=== PATIENT | female | born 1935 | race Caucasian/White ===

== ENCOUNTER 2017-04-04 13:25 | Outpatient (RCR) | payer MEDICARE, SELFPAY | END 2017-04-17 23:59 | LOC: DC 13:25 | PROVIDERS: Family Provider Nurse Practitioner; PCP Nurse Practitioner; Visit Provider Nurse Practitioner | DX: E11.9 Type 2 diabetes mellitus without complications (principal); Z71.3 Dietary counseling and surveillance | CPT/HCPCS: 97802; G0108 ==

== ENCOUNTER 2017-05-01 10:00 | Outpatient (RCR) | payer MEDICARE, SELFPAY | END 2017-05-15 23:59 | LOC: DC 10:00 | PROVIDERS: Family Provider Nurse Practitioner; PCP Nurse Practitioner; Visit Provider Nurse Practitioner | DX: E11.9 Type 2 diabetes mellitus without complications (principal); Z68.34 Body mass index [BMI] 34.0-34.9, adult; Z71.3 Dietary counseling and surveillance | CPT/HCPCS: 97803; G0109 ==

== ENCOUNTER 2017-05-16 14:43 | Outpatient (RCR) | payer MEDICARE, SELFPAY | END 2017-06-15 23:59 | LOC: DC 14:43 | PROVIDERS: Family Provider Nurse Practitioner; PCP Nurse Practitioner; Visit Provider Nurse Practitioner | DX: E11.9 Type 2 diabetes mellitus without complications (principal); Z71.3 Dietary counseling and surveillance | CPT/HCPCS: G0109 ==

== ENCOUNTER 2017-06-20 15:27 | Outpatient (RCR) | payer MEDICARE, SELFPAY | END 2017-07-15 23:59 | LOC: DC 15:27 | PROVIDERS: Family Provider Nurse Practitioner; PCP Nurse Practitioner; Visit Provider Nurse Practitioner | DX: E11.9 Type 2 diabetes mellitus without complications (principal); Z71.3 Dietary counseling and surveillance | CPT/HCPCS: G0109 ==

== ENCOUNTER 2017-07-25 16:20 | Outpatient (RCR) | payer MEDICARE, SELFPAY | END 2017-08-15 23:59 | LOC: DC 16:20 | PROVIDERS: Family Provider Nurse Practitioner; PCP Nurse Practitioner; Visit Provider Nurse Practitioner | DX: E11.9 Type 2 diabetes mellitus without complications (principal); Z68.34 Body mass index [BMI] 34.0-34.9, adult; Z71.3 Dietary counseling and surveillance | CPT/HCPCS: G0109 ==

== ENCOUNTER 2017-08-19 08:00 | Outpatient (RCR) | payer MEDICARE, SELFPAY | END 2017-08-19 23:59 | disposition home or self-care (01) | LOC: DC 08:00 | PROVIDERS: Family Provider Nurse Practitioner; PCP Nurse Practitioner; Referring Provider Nurse Practitioner; Visit Provider Nurse Practitioner | DX: E11.9 Type 2 diabetes mellitus without complications (principal); Z68.34 Body mass index [BMI] 34.0-34.9, adult; Z71.3 Dietary counseling and surveillance | CPT/HCPCS: 97803 ==

== ENCOUNTER → 2018-02-13 15:22 | Outpatient (CLI) | payer MEDICARE, SELFPAY ==
--- NOTE | 2018-02-13 15:26 | BI_ITS ---
MAMMOGRAPHY - BILATERAL SCREENING REASON FOR EXAM: Female, 82 years old. Routine annual screening examination. PERTINENT HISTORY: Aunt with breast cancer. Remote right excisional breast biopsy. TECHNIQUE: Digital bilateral breast chantale (3D mammographic acquisition) in the CC and MLO projections. 2-D mediolateral oblique (MLO) and craniocaudad (CC) views of both breasts were obtained. CAD: Full Field Digital Mammography with Computer Added Detection was performed. COMPARISON: Comparison is made with prior study dated January 30, 2017 and January 30, 2016. FINDINGS: Breast Composition: The breasts are almost entirely fatty. There are no dominant masses or suspicious calcifications. Stable asymmetry of breast tissue were more breast tissue is seen in the upper outer quadrant of the right breast as compared to the left side. This is unchanged. Small bilateral axillary lymph nodes. No other significant abnormalities are identified. There has been no significant change since the prior study. BI/SCREENING MAMM (CAD), BILAT IMPRESSION: Stable bilateral screening mammogram. Yearly follow-up mammogram recommended. (A) ASSESSMENT CATEGORY: BIRADS Category 2: Benign. A letter regarding these results will be sent to the patient by the facility within 30 days. Approximately 10% of breast cancers are not detected by mammography. A normal mammogram should not delay biopsy of a clinically suspicious abnormality. [id number] Electronically Signed: Scotty Tinoco MD at 9:11 EST Tel [phone], Service support ,
--- NOTE | 2018-02-13 15:27 | BD_ITS ---
STUDY: DUAL ENERGY X-RAY ABSORPTIOMETRY / DXA REASON FOR EXAM: Female, 82 years old. The patient is postmenopausal. Loss of height. TECHNIQUE: Bone Mineral Density (BMD) measurements of lumbar spine and bilateral hips were obtained. COMPARISON: Comparison is made with prior study dated January 25, 2015. FINDINGS: Lumbar Spine (L1-L4): g/cm2 (0.927) / T-score (-2.0) / Z-score (-0.1) Findings are suggestive of osteopenia with a moderate fracture risk. Left Femur Total: g/cm2 (0.801) / T-score (-1.6) / Z-score (0.5) Left Femoral Neck: g/cm2 (0.754) / T-score (-2.0) / Z-score (0.2) Right Femur Total: g/cm2 (0.845) / T-score (-1.3) / Z-score (0.8) Right Femoral Neck: g/cm2 (0.75) / T-score (-1.8) / Z-score (0.4) The T-Scores on the most recent prior examination were: Lumbar Spine (L1-L4): There has been worsening of bone density since the previous examination. Left Femur Total: which represents a worsening of 0.1%. Right Femur Total: which represents an improvement of 0.2%. BD/Dexa Bone Density Study IMPRESSION: The patient is considered osteopenic as outlined below according to [employer] [place] Organization (WHO) criteria with a moderate fracture risk. There has been worsening of bone density since the previous examination. Reference Information: The T-score is the number of standard deviations above or below the standard which is normal for young adults at their peak bone mineral density. The World Health Organization (WHO) interprets the T-scores as follows: Above -1 Normal bone density Between -1 and -2.5 Osteopenia Equal to / or below -2.5 Osteoporosis As a practical clinical guideline, osteopenia may be graded as follows: Mild -1 through -1.5 Moderate -1.6 through -2.0 Severe -2.1 through -2.4 The Z-score is the number of standard deviations above or below age-matched controls. A Z-score of less than -1.5 would be considered abnormal. References: 1. NIH Osteoporosis and Related Bone Diseases http://www.osteo.org 2. International Society for Clinical Densitometry http://www.iscd.org 3. National Osteoporosis Foundation http://www.nof.org Electronically Signed: Scotty Tinoco MD at 15:54 EST Tel [phone], Service support ,
--- OUTSIDE RECORDS SUMMARY | 2018-04-10 21:39 | XMS RPT_ITS | Continuity of Care Document ---
:1935 Author Organization [facility] Address [address] [facility] [address] [place] [address] Phone Care Team Providers Name Role Phone Mere Hope CNP Unavailable Bruna JONES, Jacquelin Brambila Unavailable Jackie Sheppard Unavailable Unavailable Padma CARTERN, Marisabel Unavailable Unavailable Unavailable Unavailable Problems Name Dates Details Abnormal mammogram (R92.8, 793.80) Status: Active Abnormal urinalysis (R82.90, 791.9) Status: Active BMI 32.0-32.9,adult (Z68.32, V85.32) Status: Active BMI 34.0-34.9,adult (Z68.34, V85.34) Status: Active CKD stage G3a/A1, GFR 45-59 and albumin creatinine ratio <30 mg/g (N18.3, 585.3) Comments: GFR 48 and Status: Active Creatinine elevation (R79.89, 790.99) Status: Active Current nonsmoker (Renamed from Current non-smoker) (Z78.9, V49.89) Status: Active Deliveries (Parity) Comments: 1 Status: Active Diabetes mellitus type 2, controlled (E11.9, 250.00) Comments: stable A1c 6.0, controlled by diet, stopped metformin , because of side effects, A1C 6.0,now wt loss, exercise to Y, silver sneakers, spinning and yoga, eye exam due done yearly Status: Active Drug rash (L27.0, 693.0) Comments: back and buttocks and back of legs Status: Active Encounter for screening mammogram for breast cancer (Renamed from Encounter for screening mammogram for malignant neoplasm of breast) (Z12.31, V76.12) Status: Active Fungal rash of torso (B36.9, 111.9) Comments: under breast uses baby powder and zinc Status: Active Hyperlipidemia, unspecified (E78.5, 272.4) Comments: pt not able to go over 10 mg on statin without aches. her trig were up she was eating carbs. now eating a lot of cookies. Will replace with nuts.back on track A1c 6.0 Status: Active Hypertension, benign (I10, 401.1) Comments: stable on atenolol, and idapamide, on since 70's Status: Active Itching (L29.9, 698.9) Comments: Eczema vs fungalTriamcinolone and miconazole cream.If doesnt get better in 2-3 week will see dermatolgyitching :both breast and groin area for 4 mnths. 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) Comments: reassurance given at her age nothing will do about Status: Active Postmenopausal (Renamed from Postmenopausal status) (Z78.0, V49.81) Status: Active Pregnancies () Comments: 1 Status: Active Vitamin B12 deficiency (E53.8, 266.2) Status: Active Medications Name Dates Details Atenolol 25 MG Oral Tablet 1 Tablet QD for 0 days Quantity: 90 {Tablet} Refills: 1 Ordered:27-Sep-2017 Mere Hope CNP, CNP, Mary E Start : 27-Sep-2017 Active Atorvastatin Calcium 10 MG Oral Tablet 1 (one) Tablet qd for 0 days Quantity: 90 {Tablet} Refills: 3 Ordered:30-Sep-2017 Mere Hope CNP, CNP, Mary E Start : 30-Sep-2017 Active FISH OIL, 1000MG (Oral Capsule Delayed Release) 2 tid (1000 MG) Active Indapamide 2.5 MG Oral Tablet 1 Tablet QD for 0 days Quantity: 90 {Tablet} Refills: 1 Ordered:27-Sep-2017 Herminia MCKEON, Mere Finley CNP, Mere Dc Start : 27-Sep-2017 Active MULTIVITAMIN (PO Tab) 1 QD for 0 days Refills: 0 Ordered:26-Nov-2008 Mast RN, MandJuanitactive ASPIRIN ADULT LOW STRENGTH, 81MG (Oral Tablet Chewable) 1 (one) Tablet Chewable in am for 0 days Quantity: 30 {Tablet} Refills: 0 Ordered:25-Jul-2015 MARNIE Escamilla Start : 24-Jan-2015 End : 25-Jul-2015 Inactive CIPRO, 250MG (Oral Tablet) 1 (one) Tablet bid for 3 days Quantity: 6 {Tablet} Refills: 0 Ordered:02-May-2009 Herminia MCKEON, Mere Finley CNP, Mere Dc Start : 28-Mar-2009 End : 31-Mar-2009 Inactive CIPRO, 500MG (Oral Tablet) 1 Tablet bid for 14 days Quantity: 28 {Tablet} Refills: 0 Ordered:17-Oct-2010 Jacquelin Delgado MD Start : 17-Oct-2010 End : 31-Oct-2010 Inactive COQ-10, 200MG (Oral Capsule) 1 qd (200 MG) Inactive LIPITOR, 10MG (Oral Tablet) 1 Tablet daily for 0 days Quantity: 30 {Tablet} Refills: 6 Ordered:03-Mar-2012 MARNIE Escamilla Start : 05-Nov-2011 End : 03-Mar-2012 Inactive Dispense as Written Comments:ok for generic LOTRISONE, 1-0.05% (External Cream) uad Cream to affected area(s) prn for 0 days Quantity: 1 {Cream} Refills: 2 Ordered:27-Jul-2013 MARNIE Escamilla Start : 26-Jan-2013 End : 27-Jul-2013 Inactive MetFORMIN HCl ER 500 MG Oral Tablet Extended Release 24 Hour 1 (one) Tablet Tablet daily with largest meal, 1/2 hr before meal for 0 days Quantity: 30 {Tablet} Refills: 11 Ordered:17-Sep-2017 SlaMarisabel burgos LPN Start : 06-Mar-2017 End : 17-Sep-2017 Inactive MYCELEX, 10MG (Mouth/Throat Blank) 1 Blank use 5 times a day for 0 days Quantity: 50 {Blank} Refills: 0 Ordered:23-Jan-2011 MARNIE Escamilla Start : 20-Jul-2010 End : 23-Jan-2011 Inactive PYRIDIUM, 100MG (Oral Tablet) 1 Tablet tid for 2 days Quantity: 6 {Tablet} Refills: 0 Ordered:30-Mar-2009 Herminia COLLISION TECHNICIAN, Mere Finley COLLISION TECHNICIAN, Mere Dc Start : 28-Mar-2009 End : 30-Mar-2009 Inactive ZOCOR, 40MG (Oral Tablet) Tablet QD for 0 days Quantity: 30 {Tablet} Refills: 6 Ordered:14-Jun-2009 MARNIE Escamilla Start : 26-Nov-2008 Inactive CALCIUM, 600MG (PO Cap) 2 QD for 0 days Refills: 0 Ordered:26-Nov-2008 Mast Marisol GOMEZ End : 26-Nov-2008 Discontinued Miconazole Nitrate 2 % External Cream 1 (one) Cream TID for 10 days Quantity: 1 {Tube} Refills: 1 Ordered:03-Sep-2016 Marisabel Rouse LPN Start : 01-Feb-2016 End : 03-Sep-2016 Discontinued NIASPAN, 500MG (Oral Tablet Extended Release) 1 Tablet ER 1 a day at night for 1 week, then 2 a day for 0 days Quantity: 60 {Tablet_ER} Refills: 6 Ordered:15-Dec-2009 MARNIE Escamilla Start : 15-Dec-2009 End : 15-Dec-2009 Discontinued Comments:rash Triamcinolone Acetonide 0.1 % External Cream uad Cream bid to affected area(s) prn for 10 days Quantity: 1 {Tube} Refills: 1 Ordered:03-Sep-2016 Marisabel Rouse LPN Start : 01-Feb-2016 End : 03-Sep-2016 Discontinued Allergies and Adverse Reactions Name Dates Details No Known Drug Allergies (Allergy) Status: Active Past Medical History Name Dates Details Abnormal blood chemistry (R79.9, 790.6) Status: Inactive as of 29-Sep-2012 Abnormal finding of blood chemistry, unspecified (R79.9, 790.6) Comments: normal now 1-. liver us good. off tylenol now and better Status: Inactive as of 27-Jul-2013 Abnormal glucose tolerance test (R73.02, 790.22) Status: Inactive as of 29-Sep-2012 Annual Medicare Physical (Z00.00, V70.0) Comments: 01-30 no want shingles. refuse flu shot. colonoscopy up to date and brother had colon cancer. reviewed with patient all questions. Status: Inactive as of 25-Jul-2015 BMI 32.0-32.9,adult (Z68.32, V85.32) Status: Inactive as of 17-Sep-2017 BMI 33.0-33.9,adult (Z68.33, V85.33) Status: Resolved as of 13-Jul-2017 BMI 34.0-34.9,adult (Z68.34, V85.34) Status: Resolved as of 13-Jul-2017 BMI 35.0-35.9,adult (Z68.35, V85.35) Comments: working on. 10 pounds up. waking 3 times a week. water exercises. get in sweets. Status: Inactive as of 24-Jan-2015 Breast screening (Z12.39, V76.10) Status: Inactive as of 24-Jan-2015 Candidiasis, mouth (B37.0, 112.0) Status: Inactive as of 29-Sep-2012 Dupuytren's contracture of hand (728.6) Status: Inactive as of 29-Sep-2012 Dysuria (R30.0, 788.1) Status: Inactive as of 29-Sep-2012 Eczema (L30.9, 692.9) Comments: really think what is. will do combo of sarna, aveeno moistyurizer adn steriod cream. told if nipple rash not gone needs biopsy to assur enot pagets and explain what that could mean. breast ca Status: Inactive as of 27-Jul-2013 Hemorrhoids (K64.9, 455.6) Status: Inactive as of 29-Sep-2012 Hypoglycemia (E16.2, 251.2) Status: Inactive as of 13-Sep-2009 Urinary frequency (R35.0, 788.41) Comments: not drinking enough water. talk about this. not sexually active. no vaginal driness Status: Inactive as of 29-Sep-2012 WWV V73.21 Comments: mammo 01-28 colonscopy 2013 Status: Inactive as of 24-Jan-2015 Procedures Procedure Dates Details bilateral TKA 07-24 Completed Breast Mass; Local Excision Completed Cholecystectomy Completed Comments: 82 Colonoscopy Completed Comments: 07/17, Colonoscopy Completed Comments: 03-31-13 Dr. Castellano repeat 5 years Dilation And Curettage Of Uterus Completed Comments: 82 & 91 polyps Hysterectomy; Abdominal Completed Comments: Partial 2004 Tonsillectomy Completed Comments: 1943 Date Value Details 20-Mar-2017 Kidney and Bladder Result: Comments: See Note; NOTES: [facility] Imaging Services [address] [place] [address] Kidney and Bladder MR#: [id number] Acct: [id number] Name: SANDRINE GUZMAN Rep #: [id number] : 1935 F 81 From: George Luo DO PCP: Mere Hope NP Status: REG CLI Study: Kidney and Bladder Date of Exam: 03/20/17 Exam# [id number] Ordering Dr: Mere Hope STUDY: RENAL ULTRASOUND - CO MPLETE REASON FOR EXAM: Female, 81 years old. Abnormal labs. Chronic kidney disease. TECHNIQUE: Ultrasound evaluation of the kidneys was performed with real-time and static anguiano-scale imaging. COMPAR ROBERT: None. FINDINGS: RIGHT KIDNEY: Normal location of the right kidney, which is normal in size. The right kidney measures 9.6 cm. There is a normal cortex of the right kidney. The renal cortex measures 1.8 cm. There is no right renal mass or cyst. There are no right renal calculi. There is no right hydronephrosis. DISTAL RIGHT URETER: There is non-visualization of the distal right ureter. There is no demonstrated right ureterovesical junction calculus. There is no demonstrated right ureteral jet. LEFT KIDNEY: Normal location of the left kidney, which is norm al in size. The left kidney measures 9.9 cm. There is a normal cortex of the left kidney. The renal cortex measures 1.7 cm. There is no left renal mass or cyst. There are no left renal calculi. There is no left hydronephrosis. DISTAL LEFT URETER: There is non-visualization of the distal left ureter. There is no demonstrated left ureterovesical junction calculus. There is no demonstrated left ureteral jet. BLADDER: The urinary bladder is nondistended. US/Kidney and Bladder IMPRESSION: Normal ultrasound of the kidneys. The urinary bladder is n ot visualized. Electronically Signed: George ZarcoonDO at 11:24 EST Tel [phone], Service support , CC: Mere Hope PACKING MACHINE INSPECTOR Public Service Officer: Signed 30-Jan-2017 SCREENING MAMM (CAD), BILAT Result: Comments: See Note; NOTES: [facility] Imaging Services [address] [place] [address] SCREENING MAMM (CAD), BILAT MR#: [id number] Acct: [id number] Name: SANDRINE GUZMAN Rep # : [id number] : 1935 F 81 From: Scotty Tinoco MD PCP: Mere Hope Status: REG CLI Study: SCREENING MAMM (CAD), BILAT Date of Exam: 01/30/17 Exam# [id number] Ordering Dr: Mere Hope MAMMOG ASHA - BILATERAL SCREENING REASON FOR EXAM: Female, 81 years old. Routine annual screening examination. PERTINENT HISTORY: Aunt with breast cancer. TECHNIQUE: Digital bilateral breast chantale (3D mammo graphic acquisition) in the CC and MLO projections. 2-D mediolateral oblique (MLO) and craniocaudad (CC) views of both breasts were obtained. CAD: Full Field Digital Mammography with Computer Added Dete ction was performed. COMPARISON: Comparison is made with prior study dated January 30, 2016 and January 25, 2015. FINDINGS: Breast Composition: The breasts are al most entirely fatty. There are no dominant masses or suspicious calcifications. No other significant abnormalities are identified. There has been no significant change since the prior study. HPBI/SCREENING MAMM (CAD), BILAT IMPRESSION: Stable bilateral screening mammogram. Yearly follow-up mammogram recommended. (A) ASSESSMENT CATEGORY: BIRADS Category 1: Negative. A letter regarding these results will be sent to the patient by the facility within 30 days. Approximately 10% of breast cancers are not det ected by mammography. A normal mammogram should not delay biopsy of a clinically suspicious abnormality. [id number] Electronically Signed: Scotty Tinoco MD at 10:50 EST Tel [phone], Se rvice support , CC: Mere Hope Public Service Officer: Signed 30-Jan-2016 Bilat Scrn Digital AND CAD Result: Comments: See Note; NOTES: [facility] Imaging Services [address] [place] [id number] Verdana 4d Bilat Scrn Digital AND CAD MR#: [id number] Acct: [id number] Name: RADHA GUZMAN CIA Rep #: [id number] : 1935 F 80 From: Scotty Tinoco MD PCP: Bebo Boyd Status: REG CLI Study: Bilat Scrn Digital AND CAD Date of Exam: 01/30/16 Exam# [id number] Ordering Dr: Minnie Boyd en MAMMOGRAPHY - BILATERAL SCREENING REASON FOR EXAM: Female, 80 years old. Routine annual screening examination. PERTINENT HISTORY: Prior right excisional breast biopsy. TECHNIQUE: Digital bilate ral breast chantale (3D mammographic acquisition) in the CC and MLO projections. 2- D mediolateral oblique (MLO) and craniocaudad (CC) views of both breasts were obtained. CAD: Full Field Digital Mammography with Computer Added Detection was performed. COMPARISON: Comparison is made with prior study dated January 25, 2015 and January 22, 2014. FINDINGS: Breast Composi tion: There are scattered areas of fibroglandular density. There are no dominant masses or suspicious calcifications. No other significant abnormalities are identified. There has been no significant c hange since the prior study. 0003 HPBI/Bilat Scrn Digital AND CAD IMPRESSION: Stable bilateral screening mammogram. Yearly follow-up mammogram recomm ended. (A) ASSESSMENT CATEGORY: BIRADS Category 1: Negative. A letter regarding these results will be sent to the patient by the facility within 30 days. Approxima tely 10% of breast cancers are not detected by mammography. A normal mammogram should not delay biopsy of a clinically suspicious abnormality. [id number] Electronically Signed: Scotty Tinoco MD 2015 at 9:17 EST Tel [phone], Service support [phone], CC: Bebo Boyd Public Service Officer: Signed 25-Jan-2015 Bilat Scrn Digital AND CAD Result: Comments: See Note; NOTES: [facility] Imaging Services [address] [place] [id number] Verdana 4d Bilat Scrn Digital AND CAD MR#: [id number] Acct: [id number] Name: SANDRINE GUZMAN Rep #: [id number] : 1935 F 79 From: Scotty Tinoco MD PCP: Jacquelin Delgado MD Status: REG CLI Study: Bilat Scrn Digital AND CAD Date of Exam: 01/25/15 Exam# [id number] Ord ering Dr: Jacquelin Delgado MD MAMMOGRAPHY - BILATERAL SCREENING REASON FOR EXAM: Female, 79 years old. Routine annual screening examination. PERTINENT HISTORY: Non-contributory. Prior right excisi onal breast biopsy. TECHNIQUE: Digital examination. Mediolateral oblique (MLO) and craniocaudad (CC) views of both breasts were obtained. CAD: CAD was performed on this study. COMPARISON: Comparis on is made with prior study dated January 22, 2014 and January 21, 2013. FINDINGS: Breast Composition: There are scattered areas of fibroglandular density. The re are no dominant masses or suspicious calcifications. Stable asymmetry with more breast tissue is seen in the upper outer quadrant of the right breast. No other significant abnormalities are ident ified. There has been no significant change since the prior study. IMPRESSION: Stable bilateral screening mammogram. Yearly follow-up recommended. (A) ASSESSMENT CATEGORY: BIRADS Category 2: Benign. A letter regarding these results will be sent to the patient by the facility within 30 days. Approximately 10% of breast cancers are not detected by mammography. A normal mammogram should not delay biopsy of a clinically suspicious abnormality. Electronically Signed: Scotty Tinoco MD at 9:53 EST T [phone], Service support [phone], CC: Jacquelin Delgado MD Public Service Officer: Signed 25-Jan-2015 Dexa Bone Density Study (HP) Result: Comments: See Note; NOTES: [facility] Imaging Services [address] [place] [id number] Verdana 4d Dexa Bone Density Study (HP) MR#: [id number] Acct: [id number] Name : SANDRINE GUZMAN Rep #: [id number] : 1935 F 79 From: Scotty Tinoco MD PCP: Jacquelin Delgado MD Status: REG CLI Study: Dexa Bone Density Study (HP) Date of Exam: 01/25/15 Exam# [id number] Ordering Dr: Jacquelin Delgado MD STUDY: DUAL ENERGY X-RAY ABSORPTIOMETRY / DXA REASON FOR EXAM: Female, 79 years old. The patient is postmenopausal. Loss of height. TECHNIQUE: Bone Mineral Densit y (BMD) measurements of lumbar spine and bilateral hips were obtained. COMPARISON: Comparison is made with prior study dated January 21, 2013. FINDINGS: Lumba r Spine (L1-L4): g/cm2 (1.390) / T-score (1.6) / Z-score (3.4) Findings are suggestive of normal bone density with a low fracture risk. Left Femur Total: g/cm2 (0.802) / T-score (-1.6) / Z-score (0.3 ) Left Femoral Neck: g/cm2 (0.793) / T-score (-1.8) / Z-score (0.3) Right Femur Total: g/cm2 (0.843) / T-score (-1.3) / Z-score (0.6) Right Femoral Neck: g/cm2 (0.800) / T-score (-1.7) / Z-score (0.4 ) The T-Scores on the most recent prior examination were: Lumbar Spine (L1- L4): There has been worsening of bone density since the previous examination. Left Femur Total: which represents an impr ovement of 0.6%. Right Femur Total: which represents no significant change. . IMPRESSION: The patient is considered osteopenic at the level of the femoral neck a s outlined below according to World Teofilo Organization (WHO) criteria with a moderate fracture risk. There has been worsening of bone density since the previous examination. Reference Information: The T-score is the number of standard deviations above or below the standard which is normal for young adults at their peak bone mineral density. The World Healt h Organization (WHO) interprets the T-scores as follows: Above -1 Normal bone density Between -1 and -2.5 Osteopenia Equal to / or below -2.5 Osteoporosis As a practical clinical guideline, osteo penia may be graded as follows: Mild -1 through -1.5 Moderate -1.6 through - 2.0 Severe -2.1 through -2.4 The Z-score is the number of standard deviations above or below age-matched controls. A Z-s core of less than -1.5 would be considered abnormal. References: 1. NIH Osteoporosis and Related Bone Diseases http://www.osteo.org 2. International Society for Clinical Densitometry http://www.iscd .org 3. National Osteoporosis Foundation http://www.nof.org Electronically Signed: Scotty Tinoco MD at 8:04 EST Tel [phone], Service support [phone], CC: Jacquelin Delgado MD Public Service Officer: Signed 22-Jan-2014 Bilat Scrn Digital & CAD Result: Comments: See Note; NOTES: [facility] Imaging Services [address] [place] [id number] Breast Imaging Report MR#: [id number] Acct: [id number] Name: SANDRINE GUZMAN Rep # : [id number] : 1935 F 78 From: Scotty Tinoco MD PCP: Jacquelin Delgado MD Status: REG CLI Exam# [id number] Ordering Dr: Jacquelin Delgado MD MAMMOGRAPHY - BILATERAL SCREENING REASON FOR EX AM: Female, 78 years old. Routine annual screening examination. PERTINENT HISTORY: Non-contributory. Prior right excisional biopsy. TECHNIQUE: Digital examination. Mediolateral oblique (MLO) and c raniocaudad (CC) views of both breasts were obtained. CAD: CAD was performed on this study. COMPARISON: Comparison is made with prior study dated January 21, 2013 and January 21, 2012. FINDINGS: Breast Composition: There are scattered areas of fibroglandular density. There are no dominant masses or suspicious calcifications. No other significant abnormal ities are identified. There has been no significant change since the prior study. IMPRESSION: Stable bilateral screening mammogram. Yearly follow-up recommended. (A) ASSESSMENT CATEGORY: CC: Jacquelin Delgado MD Public Service Officer: Signed 21-Jan-2013 Dexa Bone Density Study (HP) Result: Comments: See Note; NOTES: [facility] Imaging Services [address] [place] [address] Bone Density Report MR#: [id number] Acct: [id number] Name: SANDRINE GUZMAN DAXA Rep # : [id number] : 1935 F 77 From: Scotty Tinoco MD PCP: Jacquelin Delgado MD Status: REG CLI Study: Dexa Bone Density Study (HP) Date of Exam: 01/21/13 Exam# [id number] Ordering Dr: Shelton Delgado MD STUDY: DUAL ENERGY X-RAY ABSORPTIOMETRY / DXA REASON FOR EXAM: Female, 77 years old. Osteopenia. TECHNIQUE: Bone Mineral Density (BMD) measurements of lumbar spine and bilateral hips were obtained. COMPARISON: Comparison is made with prior examination dated January 18, 2011. FINDINGS: Lumbar Spine (L1- L4): g/cm2 (0.929) / T-score (-2.0) / Z-sc ore (-0.2) Findings are suggestive of osteopenia with a moderate fracture risk. Left Femur Total: g/cm2 (0.797) / T-score (-1.7) / Z-score (0.2) Left Femoral Neck: g/cm2 (0.779) / T-score (-1.9) / Z -score (0.1) Right Femur Total: g/cm2 (0.843) / T-score (-1.3) / Z-score (0.5) Right Femoral Neck: g/cm2 (0.773) / T-score (-1.9) / Z-score (0.1) The T- Scores on the most recent prior examination we re: Lumbar Spine (L1-L4): There has been improvement of bone density since the previous examination. Left Femur Total: which represents an improvement of 0.9%. Right Femur Total: which represents an improvement of 0.4%. IMPRESSION: The patient is considered osteopenic as outlined below according to World Teofilo Organization (WHO) criteria with a moderate f racture risk. There has been improvement of bone density since the previous examination. Reference Information: The T-score is the number of standard deviations above or below the standard which is normal for young adults at their peak bone mineral density. The World Health Organization (WHO) interprets the T-scores as follows: Above -1 Normal bone densit y Between -1 and -2.5 Osteopenia Equal to / or below -2.5 Osteoporosis As a practical clinical guideline, osteopenia may be graded as follows: Mild -1 through -1.5 Moderate -1.6 through -2.0 Josseline re -2.1 through -2.4 The Z-score is the number of standard deviations above or below age-matched controls. A Z-score of less than -1.5 would be considered abnormal. References: 1. NIH Osteoporosis and Related Bone Diseases http://www.osteo.org 2. International Society for Clinical Densitometry http://www.iscd.org 3. National Osteoporosis Foundation http://www.nof.org Signed: Scotty rodriges M.D. January 21, 2013 at 10:01:36 AM EST [phone] Electronically Signed GP/GP If you are the referring physician and would like to consult with the radiologist who provided this interpr etation, please contact Scotty Tinoco M.D. at [phone]. If this radiologist is unavailable, you will be directed to another radiologist to assist. If you are a patient with a question rega rding this report, please contact your referring physician directly. Professional Interpretation Provided By: [employer], Phone , These documents contain legally pro tected and confidential health information intended only for the use of the individual or entity named above. If you are not the intended recipient, you are hereby notified that any disclosure, copyi ng, distribution, or other use of these documents is strictly prohibited. If you have received this information in error, please notify the sender immediately and arrange for the return or destruction of these documents. CC: Jacquelin Delgado MD Public Service Officer: Signed 21-Jan-2013 Bilat Scrn Digital & CAD Result: Comments: See Note; NOTES: [facility] Imaging Services [address] [place] [id number] Breast Imaging Report MR#: [id number] Acct: [id number] Name: SANDRINE GUZMAN DAXA Rep #: [id number] : 1935 F 77 From: Scotty Tinoco MD PCP: Jacquelin Delgado MD Status: REG CLI Exam# [id number] Ordering Dr: Jacquelin Delgado MD MAMMOGRAPHY - BILATERAL SCREENING REASON FOR EXAM: Female, 77 years old. Routine annual screening examination. PERTINENT HISTORY: Non-contributory. TECHNIQUE: Digital examination. Mediolateral oblique (MLO) and craniocaudad (CC) views of bot h breasts were obtained. CAD: CAD was performed on this study. COMPARISON: Comparison is made with prior study dated January 21, 2012 and January 18, 2011. FIN DINGS: The breast composition is almost entirely fat. Glandular tissue is less than 25%. There are no dominant masses or suspicious calcifications. No other significant abnormalities are identifie d. There has been no significant change since the prior study. IMPRESSION: Stable bilateral screening mammogram. Yearly follow-up recommended. (A) ASSESSMENT CATEGORY: BIRADS Category 2: Benign finding(s). A letter regarding these results will be sent to the patient by the facility within 30 days. Approximately 10% of breast cancers are not detected by mammography. A normal mammogram should not delay biopsy of a clinically suspicious abnormality. Signed: Scotty Tinoco M.D. January 21, 2013 at 9:14:[address] [phone] Electronically Signed GP/GP If you are the referring physician and would like to consult with the radiologist who provided this interpretation, please contact Scotty Tinoco M.D. at [phone]. If this radiologist is unavailable, you will be directed to another radiologist to assist. If you are a patient with a question regarding this report, please contact your refe rring physician directly. Professional Interpretation Provided By: [employer], Phone , These documents contain legally protected and confidential health information intended only for the use of the individual or entity named above. If you are not the intended recipient, you are hereby notified that any disclosure, copying, distribution, or other use of these docu ments is strictly prohibited. If you have received this information in error, please notify the sender immediately and arrange for the return or destruction of these documents. CC: Jacquelin Delgado MD Public Service Officer: Signed Family History Unknown Family Member Name Dates Details Brother 1 Comments: scleroderma 68 yo, colon cancer Status: Active Brother 2 Comments: emphysema in 60s smoker Status: Active Father Comments: DM CAD arrthymia, 72 yo DM complications Status: Active First Degree Relatives Comments: Cancer, Diabetes, Heart/lung dx, HBP Status: Active Mother Comments: CAD early, DM 60 Status: Active Social History Name Dates Details Alcohol Use Comments: Occasional alcohol use Status: Active Caffeine Use Status: Active Exercise History Comments: Daily from 35-60 mins. 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 Status: Active Smoking Status Name Dates Details Never smoker Vital Signs Date Test Result Details :40 Temperature 97.4 f Comments: Method: Temporal Pulse 58 /min Comments: Pattern: Regular Respiration Rate 16 /min Comments: Pattern: Unlabored O2 SAT 98 % Comments: Room air BP Systolic 112 mm[Hg] Comments: Patient Position: Sitting; Cuff Location: Left Arm; Cuff Size: Standard BP Diastolic 68 mm[Hg] Comments: Patient Position: Sitting; Cuff Location: Left Arm; Cuff Size: Standard Weight 174.375 lb Height 61 in Body Mass Index Calculated 32.95 kg/m2 Body Surface Area Calculated 1.78 m2 :18 Temperature 97.9 f Pulse 73 /min Comments: Pattern: Regular Respiration Rate 17 /min Comments: Pattern: Unlabored O2 SAT 97 % Comments: Room air BP Systolic 152 mm[Hg] Comments: Patient Position: Sitting; Cuff Location: Left Arm; Cuff Size: Standard BP Diastolic 62 mm[Hg] Comments: Patient Position: Sitting; Cuff Location: Left Arm; Cuff Size: Standard Weight 171.5 lb Height 61 in Body Mass Index Calculated 32.4 kg/m2 Body Surface Area Calculated 1.77 m2 :42 Pulse 71 /min Comments: Pattern: Regular Respiration Rate 18 /min Comments: Pattern: Unlabored O2 SAT 98 % Comments: Room air BP Systolic 158 mm[Hg] Comments: Patient Position: Sitting; Cuff Location: Left Arm; Cuff Size: Standard BP Diastolic 80 mm[Hg] Comments: Patient Position: Sitting; Cuff Location: Left Arm; Cuff Size: Standard Weight 174.125 lb Height 61 in Body Mass Index Calculated 32.9 kg/m2 Body Surface Area Calculated 1.78 m2 :48 Temperature 97 f Pulse 60 /min Comments: Pattern: Regular Respiration Rate 18 /min Comments: Pattern: Unlabored O2 SAT 98 % Comments: Room air BP Systolic 132 mm[Hg] Comments: Patient Position: Sitting; Cuff Location: Left Arm; Cuff Size: Standard BP Diastolic 68 mm[Hg] Comments: Patient Position: Sitting; Cuff Location: Left Arm; Cuff Size: Standard Weight 181 lb Height 61 in Body Mass Index Calculated 34.2 kg/m2 Body Surface Area Calculated 1.81 m2 :43 Temperature 97.6 f Pulse 74 /min Comments: Pattern: Regular Respiration Rate 16 /min Comments: Pattern: Unlabored O2 SAT 97 % Comments: Room air BP Systolic 136 mm[Hg] Comments: Patient Position: Sitting; Cuff Location: Left Arm; Cuff Size: Standard BP Diastolic 76 mm[Hg] Comments: Patient Position: Sitting; Cuff Location: Left Arm; Cuff Size: Standard Weight 184.5 lb Height 61 in Body Mass Index Calculated 34.86 kg/m2 Body Surface Area Calculated 1.83 m2 :19 Temperature 97.2 f Comments: Method: Temporal Pulse 70 /min Comments: Pattern: Regular Respiration Rate 16 /min Comments: Pattern: Unlabored O2 SAT 98 % Comments: Room air BP Systolic 124 mm[Hg] Comments: Patient Position: Sitting; Cuff Location: Left Arm; Cuff Size: Standard BP Diastolic 70 mm[Hg] Comments: Patient Position: Sitting; Cuff Location: Left Arm; Cuff Size: Standard Weight 185 lb Height 61 in Body Mass Index Calculated 34.96 kg/m2 Body Surface Area Calculated 1.83 m2 :24 Temperature 97.6 f Comments: Method: Temporal Pulse 74 /min Comments: Pattern: Regular Respiration Rate 20 /min Comments: Pattern: Unlabored O2 SAT 98 % Comments: Room air BP Systolic 120 mm[Hg] Comments: Patient Position: Sitting; Cuff Location: Left Arm; Cuff Size: Large BP Diastolic 80 mm[Hg] Comments: Patient Position: Sitting; Cuff Location: Left Arm; Cuff Size: Large Weight 180 lb Height 61 in Body Mass Index Calculated 34.01 kg/m2 Body Surface Area Calculated 1.81 m2 :04 Temperature 97.6 f Comments: Method: Temporal Pulse 70 /min Comments: Pattern: Regular Respiration Rate 20 /min Comments: Pattern: Unlabored O2 SAT 97 % Comments: Room air BP Systolic 140 mm[Hg] Comments: Patient Position: Sitting; Cuff Location: Left Arm; Cuff Size: Standard BP Diastolic 80 mm[Hg] Comments: Patient Position: Sitting; Cuff Location: Left Arm; Cuff Size: Standard Weight 177 lb Height 61 in Body Mass Index Calculated 33.44 kg/m2 Body Surface Area Calculated 1.79 m2 :38 Temperature 98.5 f Comments: Method: Oral Pulse 87 /min Comments: Pattern: Regular Respiration Rate 16 /min Comments: Pattern: Unlabored O2 SAT 97 % Comments: Room air BP Systolic 128 mm[Hg] Comments: Patient Position: Sitting; Cuff Location: Left Arm; Cuff Size: Standard BP Diastolic 74 mm[Hg] Comments: Patient Position: Sitting; Cuff Location: Left Arm; Cuff Size: Standard Weight 187.375 lb Height 61 in Body Mass Index Calculated 35.4 kg/m2 Body Surface Area Calculated 1.84 m2 :03 Temperature 98.1 f Comments: Method: Temporal Pulse 74 /min Comments: Pattern: Regular Respiration Rate 16 /min Comments: Pattern: Unlabored O2 SAT 97 % Comments: Room air BP Systolic 128 mm[Hg] Comments: Patient Position: Sitting; Cuff Location: Left Arm; Cuff Size: Standard BP Diastolic 88 mm[Hg] Comments: Patient Position: Sitting; Cuff Location: Left Arm; Cuff Size: Standard Weight 186 lb Height 61 in Body Mass Index Calculated 35.14 kg/m2 Body Surface Area Calculated 1.83 m2 :28 Temperature 97.9 f Comments: Method: Oral Pulse 74 /min Comments: Pattern: Regular Respiration Rate 20 /min Comments: Pattern: Unlabored BP Systolic 142 mm[Hg] Comments: Patient Position: Sitting; Cuff Location: Left Arm; Cuff Size: Standard BP Diastolic 84 mm[Hg] Comments: Patient Position: Sitting; Cuff Location: Left Arm; Cuff Size: Standard Weight 186 lb Height 61 in Body Mass Index Calculated 35.14 kg/m2 Body Surface Area Calculated 1.83 m2 :37 Temperature 98 f Comments: Method: Oral Pulse 74 /min Comments: Pattern: Regular Respiration Rate 18 /min Comments: Pattern: Unlabored BP Systolic 120 mm[Hg] Comments: Patient Position: Sitting; Cuff Location: Left Arm; Cuff Size: Standard BP Diastolic 78 mm[Hg] Comments: Patient Position: Sitting; Cuff Location: Left Arm; Cuff Size: Standard Weight 183 lb Height 61 in Body Mass Index Calculated 34.58 kg/m2 Body Surface Area Calculated 1.82 m2 :44 Temperature 97.9 f Comments: Method: Oral Pulse 74 /min Comments: Pattern: Regular Respiration Rate 18 /min Comments: Pattern: Unlabored BP Systolic 120 mm[Hg] Comments: Patient Position: Sitting; Cuff Location: Left Arm; Cuff Size: Standard BP Diastolic 78 mm[Hg] Comments: Patient Position: Sitting; Cuff Location: Left Arm; Cuff Size: Standard Weight 188 lb Height 61 in Body Mass Index Calculated 35.52 kg/m2 Body Surface Area Calculated 1.84 m2 :27 Temperature 98.2 f Comments: Method: Oral Pulse 72 /min Comments: Pattern: Regular Respiration Rate 18 /min Comments: Pattern: Unlabored O2 SAT 98 % Comments: Room air BP Systolic 118 mm[Hg] Comments: Patient Position: Sitting; Cuff Location: Left Arm; Cuff Size: Standard BP Diastolic 74 mm[Hg] Comments: Patient Position: Sitting; Cuff Location: Left Arm; Cuff Size: Standard Weight 185.375 lb Height 61 in Body Mass Index Calculated 35.03 kg/m2 Body Surface Area Calculated 1.83 m2 :44 Temperature 97.8 f Comments: Method: Oral Pulse 70 /min Comments: Pattern: Regular Respiration Rate 18 /min Comments: Pattern: Unlabored BP Systolic 120 mm[Hg] Comments: Patient Position: Sitting; Cuff Location: Left Arm; Cuff Size: Standard BP Diastolic 78 mm[Hg] Comments: Patient Position: Sitting; Cuff Location: Left Arm; Cuff Size: Standard Weight 184 lb Height 61 in Body Mass Index Calculated 34.77 kg/m2 Body Surface Area Calculated 1.82 m2 :23 Temperature 97.9 f Comments: Method: Oral Pulse 62 /min Comments: Pattern: Regular Respiration Rate 18 /min Comments: Pattern: Unlabored BP Systolic 124 mm[Hg] Comments: Patient Position: Sitting; Cuff Location: Left Arm; Cuff Size: Standard BP Diastolic 80 mm[Hg] Comments: Patient Position: Sitting; Cuff Location: Left Arm; Cuff Size: Standard Weight 178 lb Height 61 in Body Mass Index Calculated 33.63 kg/m2 Body Surface Area Calculated 1.8 m2 :38 Temperature 97.8 f Comments: Method: Oral Pulse 70 /min Comments: Pattern: Regular Respiration Rate 18 /min Comments: Pattern: Unlabored BP Systolic 124 mm[Hg] Comments: Patient Position: Sitting; Cuff Location: Left Arm; Cuff Size: Standard BP Diastolic 78 mm[Hg] Comments: Patient Position: Sitting; Cuff Location: Left Arm; Cuff Size: Standard Weight 177 lb Height 61 in Body Mass Index Calculated 33.44 kg/m2 Body Surface Area Calculated 1.79 m2 :35 BP Systolic 126 mm[Hg] Comments: Patient Position: Sitting; Cuff Location: Right Arm; Cuff Size: Standard BP Diastolic 80 mm[Hg] Comments: Patient Position: Sitting; Cuff Location: Right Arm; Cuff Size: Standard :34 Temperature 98.1 f Comments: Method: Oral Pulse 64 /min Comments: Pattern: Regular Respiration Rate 18 /min Comments: Pattern: Unlabored BP Systolic 140 mm[Hg] Comments: Patient Position: Sitting; Cuff Location: Left Arm; Cuff Size: Large BP Diastolic 80 mm[Hg] Comments: Patient Position: Sitting; Cuff Location: Left Arm; Cuff Size: Large Weight 180 lb Height 61 in Body Mass Index Calculated 34.01 kg/m2 Body Surface Area Calculated 1.81 m2 :09 Temperature 98.4 f Pulse 68 /min Comments: Pattern: Regular Respiration Rate 16 /min Comments: Pattern: Unlabored BP Systolic 142 mm[Hg] Comments: Patient Position: Sitting; Cuff Location: Left Arm; Cuff Size: Standard BP Diastolic 70 mm[Hg] Comments: Patient Position: Sitting; Cuff Location: Left Arm; Cuff Size: Standard Weight 175 lb Height 61 in Body Mass Index Calculated 33.07 kg/m2 Body Surface Area Calculated 1.79 m2 :10 Temperature 98 f Comments: Method: Oral Pulse 60 /min Comments: Pattern: Regular Respiration Rate 16 /min Comments: Pattern: Unlabored BP Systolic 132 mm[Hg] Comments: Patient Position: Supine; Cuff Location: Left Arm; Cuff Size: Standard BP Diastolic 78 mm[Hg] Comments: Patient Position: Supine; Cuff Location: Left Arm; Cuff Size: Standard Weight 179.5 lb Height 61 in Body Mass Index Calculated 33.92 kg/m2 Body Surface Area Calculated 1.8 m2 :57 Temperature 96.8 f Pulse 68 /min Comments: Pattern: Regular Respiration Rate 16 /min Comments: Pattern: Unlabored BP Systolic 150 mm[Hg] Comments: Patient Position: Sitting; Cuff Location: Left Arm; Cuff Size: Standard BP Diastolic 82 mm[Hg] Comments: Patient Position: Sitting; Cuff Location: Left Arm; Cuff Size: Standard Weight 184 lb Height 61.5 in Body Mass Index Calculated 34.2 kg/m2 Body Surface Area Calculated 1.83 m2 :37 Comments: upset with granddtr Temperature 97.6 f Comments: Method: Oral Pulse 68 /min Comments: Pattern: Regular Respiration Rate 20 /min Comments: Pattern: Unlabored BP Systolic 140 mm[Hg] Comments: Patient Position: Sitting; Cuff Location: Left Arm; Cuff Size: Standard BP Diastolic 80 mm[Hg] Comments: Patient Position: Sitting; Cuff Location: Left Arm; Cuff Size: Standard Weight 180 lb Height 63 in Body Mass Index Calculated 31.89 kg/m2 Body Surface Area Calculated 1.85 m2 :14 Temperature 97.6 f Comments: Method: Oral Pulse 64 /min Comments: Pattern: Regular Respiration Rate 18 /min Comments: Pattern: Unlabored BP Systolic 140 mm[Hg] Comments: Patient Position: Sitting; Cuff Location: Left Arm; Cuff Size: Standard BP Diastolic 80 mm[Hg] Comments: Patient Position: Sitting; Cuff Location: Left Arm; Cuff Size: Standard Weight 180 lb :18 Pulse 72 /min Comments: Pattern: Regular Respiration Rate 18 /min Comments: Pattern: Unlabored BP Systolic 122 mm[Hg] Comments: Patient Position: Sitting; Cuff Location: Left Arm; Cuff Size: Standard BP Diastolic 76 mm[Hg] Comments: Patient Position: Sitting; Cuff Location: Left Arm; Cuff Size: Standard Weight 179 lb :56 Pulse 68 /min Comments: Pattern: Regular Respiration Rate 18 /min Comments: Pattern: Unlabored BP Systolic 118 mm[Hg] Comments: Patient Position: Sitting; Cuff Location: Left Arm; Cuff Size: Standard BP Diastolic 72 mm[Hg] Comments: Patient Position: Sitting; Cuff Location: Left Arm; Cuff Size: Standard Weight 181 lb :24 Temperature 97.7 f Comments: Method: Oral Pulse 74 /min Comments: Pattern: Regular Respiration Rate 17 /min Comments: Pattern: Unlabored BP Systolic 120 mm[Hg] Comments: Patient Position: Sitting; Cuff Location: Left Arm; Cuff Size: Standard BP Diastolic 72 mm[Hg] Comments: Patient Position: Sitting; Cuff Location: Left Arm; Cuff Size: Standard Weight 171 lb Height 63 in Body Mass Index Calculated 30.29 kg/m2 Body Surface Area Calculated 1.81 m2 :51 Temperature 97.9 f Comments: Method: Oral Pulse 68 /min Comments: Pattern: Regular Respiration Rate 16 /min Comments: Pattern: Unlabored BP Systolic 110 mm[Hg] Comments: Patient Position: Sitting; Cuff Location: Left Arm; Cuff Size: Standard BP Diastolic 68 mm[Hg] Comments: Patient Position: Sitting; Cuff Location: Left Arm; Cuff Size: Standard Weight 171 lb Height 63 in Body Mass Index Calculated 30.29 kg/m2 Body Surface Area Calculated 1.81 m2 Head Circumference 0.00 cm Results Date Description Value Details :42 HgA1C , Office (59516) HgA1C , Office 6.0 % (Normal) Range: 4.6 - 7.1 :42 Blood Glucose , Office (66792) Blood Glucose , Office 130 (Normal) :06 LIPID PANEL (79472) Comments: Dec 2017; PATIENT WAS FASTINGPERFORMED BY: [employer] [id number] LDL/HDL Ratio 1.9 {ratio} (Normal) Range: 0.0-3.2 Comments: LDL/HDL Ratio Men Women 1/2 Avg.Risk 1.0 1.5 Av g.Risk 3.6 3.2 2X Avg.Risk 6.2 5.0 3X Avg.Risk 8.0 6.1 LDL Cholesterol Calc 84 mg/dL (Normal) Range: 0-99 VLDL Cholesterol Andres 31 mg/dL (Normal) Range: 5-40 HDL Cholesterol 44 mg/dL (Normal) Triglycerides 157 mg/dL (Abnormal) Range: 0-149 Cholesterol, Total 159 mg/dL (Normal) Range: 100-199 :04 HgA1C , Office (51013) HgA1C , Office 6.0 % (Normal) Range: 4.6 - 7.1 :04 Blood Glucose , Office (34868) Blood Glucose , Office 114 (Normal) [id number] VITAMIN B12 AND FOLATES Comments: PATIENT NOT FASTINGPERFORMED BY: [employer] [id number] [facility] [id number] ([id number]) Folate (Folic Acid), Serum >20.0 ng/mL (Normal) Comments: A serum folate concentration of less than 3.1 ng/mL isconsidered to represent clinical deficiency. Vitamin B12 786 pg/mL (Normal) Range: 232-1245 :38 HgA1C , Office (10047) HgA1C , Office 6.0 % (Normal) Range: 4.6 - 7.1 :37 Blood Glucose , Office (88692) Blood Glucose , Office 127 (Normal) :14 Metabolic Panel, Comprehensive Comments: PATIENT WAS FASTINGPERFORMED BY: BRANDO [employer] [id number] [facility] [id number] ([id number]) ALT (SGPT) 24 [iU]/L (Normal) Range: 0-32 AST (SGOT) 24 [iU]/L (Normal) Range: 0-40 Alkaline Phosphatase, S 99 [iU]/L (Normal) Range: 39-117 Bilirubin, Total 0.5 mg/dL (Normal) Range: 0.0-1.2 A/G Ratio 1.5 (Normal) Range: 1.2-2.2 Globulin, Total 2.8 g/dL (Normal) Range: 1.5-4.5 Albumin, Serum 4.1 g/dL (Normal) Range: 3.5-4.7 Protein, Total, Serum 6.9 g/dL (Normal) Range: 6.0-8.5 Calcium, Serum 9.6 mg/dL (Normal) Range: 8.7-10.3 Carbon Dioxide, Total 24 mmol/L (Normal) Range: 18-29 Chloride, Serum 97 mmol/L (Normal) Range: 96-106 Potassium, Serum 3.4 mmol/L (Abnormal) Range: 3.5-5.2 Comments: Client Requested Flag Sodium, Serum 140 mmol/L (Normal) Range: 134-144 BUN/Creatinine Ratio 26 (Normal) Range: 12-28 eGFR If Africn Am 46 mL/min/1.73 (Abnormal) eGFR If NonAfricn Am 40 mL/min/1.73 (Abnormal) Creatinine, Serum 1.26 mg/dL (Abnormal) Range: 0.57-1.00 BUN 33 mg/dL (Abnormal) Range: 8-27 Glucose, Serum 147 mg/dL (Abnormal) Range: 65-99 :14 Lipid Panel (26443) Comments: PATIENT WAS FASTINGPERFORMED BY: [facility] [id number] [facility] [id number] LDL/HDL Ratio 2.2 {ratio_units} (Normal) Range: 0.0-3.2 Comments: LDL/HDL Ratio Men Women 1/2 Avg.Risk 1.0 1.5 Av g.Risk 3.6 3.2 2X Avg.Risk 6.2 5.0 3X Avg.Risk 8.0 6.1 LDL Cholesterol Calc 94 mg/dL (Normal) Range: 0-99 VLDL Cholesterol Andres 43 mg/dL (Abnormal) Range: 5-40 HDL Cholesterol 43 mg/dL (Normal) Triglycerides 213 mg/dL (Abnormal) Range: 0-149 Cholesterol, Total 180 mg/dL (Normal) Range: 100-199 :42 HgA1C , Office (67812) HgA1C , Office 6.4 % (Normal) Range: 4.6 - 7.1 :42 Blood Glucose , Office (04395) Blood Glucose , Office 156 (Normal) Comments: pt is fasting :23 CBC With Differential/Platelet Comments: PATIENT WAS FASTINGPERFORMED BY: [facility] [id number] [facility] [id number]; 03/06 OV Immature Grans (Abs) 0.0 {x10E3/uL} (Normal) Range: 0.0-0.1 Immature Granulocytes 0 % (Normal) Baso (Absolute) 0.0 {x10E3/uL} (Normal) Range: 0.0-0.2 Eos (Absolute) 0.4 {x10E3/uL} (Normal) Range: 0.0-0.4 Monocytes(Absolute) 0.5 {x10E3/uL} (Normal) Range: 0.1-0.9 Lymphs (Absolute) 1.8 {x10E3/uL} (Normal) Range: 0.7-3.1 Neutrophils (Absolute) 3.3 {x10E3/uL} (Normal) Range: 1.4-7.0 Basos 1 % (Normal) Eos 7 % (Normal) Monocytes 8 % (Normal) Lymphs 30 % (Normal) Neutrophils 54 % (Normal) Platelets 214 {x10E3/uL} (Normal) Range: 150-379 RDW 13.6 % (Normal) Range: 12.3-15.4 MCHC 33.7 g/dL (Normal) Range: 31.5-35.7 MCH 31.7 pg (Normal) Range: 26.6-33.0 MCV 94 fL (Normal) Range: 79-97 Hematocrit 41.2 % (Normal) Range: 34.0-46.6 Hemoglobin 13.9 g/dL (Normal) Range: 11.1-15.9 Comments: Please note reference interval change RBC 4.38 {x10E6/uL} (Normal) Range: 3.77-5.28 WBC 6.1 {x10E3/uL} (Normal) Range: 3.4-10.8 :23 Comp. Metabolic Panel (14) Comments: PATIENT WAS FASTINGPERFORMED BY: [employer] [id number] [facility] [id number] ALT (SGPT) 17 [iU]/L (Normal) Range: 0-32 AST (SGOT) 20 [iU]/L (Normal) Range: 0-40 Alkaline Phosphatase, S 100 [iU]/L (Normal) Range: 39-117 Bilirubin, Total 0.7 mg/dL (Normal) Range: 0.0-1.2 A/G Ratio 1.5 (Normal) Range: 1.2-2.2 Globulin, Total 2.8 g/dL (Normal) Range: 1.5-4.5 Albumin, Serum 4.1 g/dL (Normal) Range: 3.5-4.7 Protein, Total, Serum 6.9 g/dL (Normal) Range: 6.0-8.5 Calcium, Serum 9.8 mg/dL (Normal) Range: 8.7-10.3 Carbon Dioxide, Total 26 mmol/L (Normal) Range: 18-29 Chloride, Serum 100 mmol/L (Normal) Range: 96-106 Potassium, Serum 3.8 mmol/L (Normal) Range: 3.5-5.2 Sodium, Serum 142 mmol/L (Normal) Range: 134-144 BUN/Creatinine Ratio 22 (Normal) Range: 12-28 eGFR If Africn Am 55 mL/min/1.73 (Abnormal) eGFR If NonAfricn Am 48 mL/min/1.73 (Abnormal) Creatinine, Serum 1.10 mg/dL (Abnormal) Range: 0.57-1.00 BUN 24 mg/dL (Normal) Range: 8-27 Glucose, Serum 155 mg/dL (Abnormal) Range: 65-99 :23 Lipid Panel With LDL/HDL Comments: PATIENT WAS FASTINGPERFORMED BY: [facility] [id number] Ratio LDL/HDL Ratio 2.6 {ratio_units} (Normal) Range: 0.0-3.2 Comments: LDL/HDL Ratio Men Women 1/2 Avg.Risk 1.0 1.5 Av g.Risk 3.6 3.2 2X Avg.Risk 6.2 5.0 3X Avg.Risk 8.0 6.1 LDL Cholesterol Calc 116 mg/dL (Abnormal) Range: 0-99 VLDL Cholesterol Andres 55 mg/dL (Abnormal) Range: 5-40 HDL Cholesterol 44 mg/dL (Normal) Triglycerides 277 mg/dL (Abnormal) Range: 0-149 Cholesterol, Total 215 mg/dL (Abnormal) Range: 100-199 22-Uvk-[id number]:23 Microalb/Creat Ratio, Randm Ur Comments: PATIENT WAS FASTINGPERFORMED BY: [place] [id number] [facility] [id number] Microalb/Creat Ratio <4.6 {mg/g_creat} Range: 0.0-30.0 (Normal) Microalbumin, Urine <3.0 ug/mL (Normal) Creatinine, Urine 65.1 mg/dL (Normal) 25-Feb-2017 TSH 2.640 {uIU/mL} Comments: PATIENT WAS FASTINGPERFORMED BY: [facility] [id number] 8:23 (Normal) Range: 0.450-4.500 [id number]:23 Urinalysis, Routine Comments: PATIENT WAS FASTINGPERFORMED BY: [place] [id number] [facility] [id number] Microscopic Examination MICNIP (Normal) Comments: Microscopic not indicated and not performed. Nitrite, Urine Negative (Normal) Urobilinogen,Semi-Qn 0.2 mg/dL (Normal) Range: 0.2-1.0 Bilirubin Negative (Normal) Occult Blood Negative (Normal) Ketones Negative (Normal) Glucose Negative (Normal) Protein Negative (Normal) WBC Esterase Negative (Normal) Appearance Clear (Normal) Urine-Color Yellow (Normal) pH 6.0 (Normal) Range: 5.0-7.5 Specific [place] 1.014 (Normal) Range: 1.005-1.030 :18 CBC, Platelets & Auto Diff Comments: Feb 2017; PATIENT WAS FASTINGPERFORMED BY: [facility] [id number] [facility] [id number] ([id number]) Immature Grans (Abs) 0.0 {x10E3/uL} (Normal) Range: 0.0-0.1 Immature Granulocytes 0 % (Normal) Baso (Absolute) 0.1 {x10E3/uL} (Normal) Range: 0.0-0.2 Eos (Absolute) 0.5 {x10E3/uL} (Abnormal) Range: 0.0-0.4 Monocytes(Absolute) 0.7 {x10E3/uL} (Normal) Range: 0.1-0.9 Lymphs (Absolute) 2.5 {x10E3/uL} (Normal) Range: 0.7-3.1 Neutrophils (Absolute) 3.7 {x10E3/uL} (Normal) Range: 1.4-7.0 Basos 1 % (Normal) Eos 6 % (Normal) Monocytes 9 % (Normal) Lymphs 34 % (Normal) Neutrophils 50 % (Normal) Platelets 224 {x10E3/uL} (Normal) Range: 150-379 RDW 13.6 % (Normal) Range: 12.3-15.4 MCHC 33.9 g/dL (Normal) Range: 31.5-35.7 MCH 31.6 pg (Normal) Range: 26.6-33.0 MCV 93 fL (Normal) Range: 79-97 Hematocrit 42.2 % (Normal) Range: 34.0-46.6 Hemoglobin 14.3 g/dL (Normal) Range: 11.1-15.9 RBC 4.52 {x10E6/uL} (Normal) Range: 3.77-5.28 WBC 7.5 {x10E3/uL} (Normal) Range: 3.4-10.8 :18 TSH (70771) Comments: Feb 2017; PATIENT WAS FASTINGPERFORMED BY: [facility] [id number] [facility] [id number] TSH 3.140 {uIU/mL} (Normal) Range: 0.450-4.500 :18 MICROALBUMIN: CREATININE RATIO Comments: Feb 2017; PATIENT WAS FASTINGPERFORMED BY: [employer] [id number] [facility] [id number] ([id number]) AND (60663) Microalb/Creat Ratio <3.7 {mg/g_creat} (Normal) Range: 0.0-30.0 Microalbumin, Urine <3.0 ug/mL (Normal) Creatinine, Urine 80.5 mg/dL (Normal) :18 URINALYSIS ([id number]) Comments: Feb 2017; PATIENT WAS FASTINGPERFORMED BY: [employer] [id number] [facility] [id number] Microscopic Examination MICNIP (Normal) Comments: Microscopic not indicated and not performed. Nitrite, Urine Negative (Normal) Urobilinogen,Semi-Qn 0.2 mg/dL (Normal) Range: 0.2-1.0 Bilirubin Negative (Normal) Occult Blood Negative (Normal) Ketones Negative (Normal) Glucose Negative (Normal) Protein Negative (Normal) WBC Esterase Negative (Normal) Appearance Clear (Normal) Urine-Color Yellow (Normal) pH 6.0 (Normal) Range: 5.0-7.5 Specific Shelby 1.013 (Normal) Range: 1.005-1.030 :18 Metabolic Panel, Comprehensive Comments: Feb 2017; PATIENT WAS FASTINGPERFORMED BY: [employer]6370 [facility] [id number] ([id number]) ALT (SGPT) 30 [iU]/L (Normal) Range: 0-32 AST (SGOT) 26 [iU]/L (Normal) Range: 0-40 Alkaline Phosphatase, S 97 [iU]/L (Normal) Range: 39-117 Bilirubin, Total 0.7 mg/dL (Normal) Range: 0.0-1.2 A/G Ratio 1.5 (Normal) Range: 1.2-2.2 Globulin, Total 2.8 g/dL (Normal) Range: 1.5-4.5 Albumin, Serum 4.2 g/dL (Normal) Range: 3.5-4.7 Protein, Total, Serum 7.0 g/dL (Normal) Range: 6.0-8.5 Calcium, Serum 10.0 mg/dL (Normal) Range: 8.7-10.3 Carbon Dioxide, Total 23 mmol/L (Normal) Range: 18-29 Chloride, Serum 99 mmol/L (Normal) Range: 96-106 Potassium, Serum 3.8 mmol/L (Normal) Range: 3.5-5.2 Sodium, Serum 141 mmol/L (Normal) Range: 134-144 BUN/Creatinine Ratio 23 (Normal) Range: 12-28 eGFR If Africn Am 50 mL/min/1.73 (Abnormal) eGFR If NonAfricn Am 44 mL/min/1.73 (Abnormal) Creatinine, Serum 1.18 mg/dL (Abnormal) Range: 0.57-1.00 BUN 27 mg/dL (Normal) Range: 8-27 Glucose, Serum 138 mg/dL (Abnormal) Range: 65-99 :18 LIPID PANEL (95042) Comments: Week of Sep 03 fasting; PATIENT WAS FASTINGPERFORMED BY: [employer] [place] [id number] LDL/HDL Ratio 2.3 {ratio_units} (Normal) Range: 0.0-3.2 Comments: LDL/HDL Ratio Men Women 1/2 Avg.Risk 1.0 1.5 Av g.Risk 3.6 3.2 2X Avg.Risk 6.2 5.0 3X Avg.Risk 8.0 6.1 LDL Cholesterol Calc 104 mg/dL (Abnormal) Range: 0-99 VLDL Cholesterol Andres 46 mg/dL (Abnormal) Range: 5-40 HDL Cholesterol 46 mg/dL (Normal) Triglycerides 230 mg/dL (Abnormal) Range: 0-149 Cholesterol, Total 196 mg/dL (Normal) Range: 100-199 :41 Blood Glucose , Office (07579) Comments: 190 Blood Glucose , Office 190 (Normal) Comments: ate breakfast :41 HgA1C , Office (90298) Comments: 6.5 HgA1C , Office 6.5 % (Normal) Range: 4.6 - 7.1 :26 METABOLIC PANEL, COMPREHENSIVE Comments: PATIENT WAS FASTINGPERFORMED BY: [employer] [place] [id number] ([id number]) ALT (SGPT) 22 [iU]/L (Normal) Range: 0-32 AST (SGOT) 21 [iU]/L (Normal) Range: 0-40 Alkaline Phosphatase, S 91 [iU]/L (Normal) Range: 39-117 Bilirubin, Total 0.7 mg/dL (Normal) Range: 0.0-1.2 A/G Ratio 1.6 (Normal) Range: 1.2-2.2 Globulin, Total 2.7 g/dL (Normal) Range: 1.5-4.5 Albumin, Serum 4.3 g/dL (Normal) Range: 3.5-4.7 Protein, Total, Serum 7.0 g/dL (Normal) Range: 6.0-8.5 Calcium, Serum 9.8 mg/dL (Normal) Range: 8.7-10.3 Carbon Dioxide, Total 23 mmol/L (Normal) Range: 18-29 Chloride, Serum 99 mmol/L (Normal) Range: 96-106 Potassium, Serum 3.9 mmol/L (Normal) Range: 3.5-5.2 Sodium, Serum 140 mmol/L (Normal) Range: 134-144 BUN/Creatinine Ratio 28 (Normal) Range: 12-28 eGFR If Africn Am 65 mL/min/1.73 (Normal) eGFR If NonAfricn Am 56 mL/min/1.73 (Abnormal) Creatinine, Serum 0.96 mg/dL (Normal) Range: 0.57-1.00 BUN 27 mg/dL (Normal) Range: 8-27 Glucose, Serum 141 mg/dL (Abnormal) Range: 65-99 :19 HgA1C , Office (95130) HgA1C , Office 6.5 % (Normal) Range: 4.6 - 7.1 :19 Blood Glucose , Office (03152) Blood Glucose , Office 146 (Normal) [id number]-Jzl-[id number]:31 URINE TRELL CULTURE-MITCH COL Comments: PATIENT NOT FASTINGPERFORMED BY: BR[facility] Tmawui4009 [facility] [id number] Information: SRC:UC COUNT ([id number]) Result 1 MUG (Normal) Comments: Mixed urogenital flora10,000-25,000 colony forming units per mL Urine Final report (Normal) Culture,Comprehensive :05 Microscopic Examination Comments: PATIENT WAS FASTINGPERFORMED BY: [employer] [facility] [id number] Bacteria Few (Normal) Mucus Threads Present (Normal) Epithelial Cells (non renal) 0-10 {/hpf} (Normal) Range: 0 - 10 RBC None seen {/hpf} (Normal) Range: 0 - 2 WBC 0-5 {/hpf} (Normal) Range: 0 - 5 :05 URINALYSIS, W/ MICRO (75501) Comments: PATIENT WAS FASTINGPERFORMED BY: [employer] [facility] [id number] Microscopic Examination See below: (Normal) Comments: Microscopic was indicated and was performed. Nitrite, Urine Negative (Normal) Urobilinogen,Semi-Qn 0.2 mg/dL (Normal) Range: 0.2-1.0 Bilirubin Negative (Normal) Occult Blood Negative (Normal) Ketones Negative (Normal) Glucose Negative (Normal) Protein Negative (Normal) WBC Esterase Trace (Abnormal) Appearance Clear (Normal) Urine-Color Yellow (Normal) pH 6.5 (Normal) Range: 5.0-7.5 Specific Shelby 1.012 (Normal) Range: 1.005-1.030 :05 MICROALBUMIN: CREATININE RATIO Comments: PATIENT WAS FASTINGPERFORMED BY: [employer] [facility] [id number] ([id number]) AND (88750) Microalb/Creat Ratio <4.6 {mg/g_creat} (Normal) Range: 0.0-30.0 Microalbumin, Urine <3.0 ug/mL (Normal) Creatinine, Urine 65.7 mg/dL (Normal) :05 METABOLIC PANEL, COMPREHENSIVE Comments: PATIENT WAS FASTINGPERFORMED BY: [employer] [facility] [id number] (69377) ALT (SGPT) 21 [iU]/L (Normal) Range: 0-32 AST (SGOT) 20 [iU]/L (Normal) Range: 0-40 Alkaline Phosphatase, S 91 [iU]/L (Normal) Range: 39-117 Bilirubin, Total 0.7 mg/dL (Normal) Range: 0.0-1.2 A/G Ratio 1.5 (Normal) Range: 1.1-2.5 Globulin, Total 2.8 g/dL (Normal) Range: 1.5-4.5 Albumin, Serum 4.2 g/dL (Normal) Range: 3.5-4.8 Protein, Total, Serum 7.0 g/dL (Normal) Range: 6.0-8.5 Calcium, Serum 9.3 mg/dL (Normal) Range: 8.7-10.3 Carbon Dioxide, Total 25 mmol/L (Normal) Range: 18-29 Chloride, Serum 99 mmol/L (Normal) Range: 97-106 Potassium, Serum 3.6 mmol/L (Normal) Range: 3.5-5.2 Sodium, Serum 140 mmol/L (Normal) Range: 136-144 BUN/Creatinine Ratio 18 (Normal) Range: 11-26 eGFR If Africn Am 53 mL/min/1.73 (Abnormal) eGFR If NonAfricn Am 46 mL/min/1.73 (Abnormal) Creatinine, Serum 1.14 mg/dL (Abnormal) Range: 0.57-1.00 BUN 21 mg/dL (Normal) Range: 8-27 Glucose, Serum 142 mg/dL (Abnormal) Range: 65-99 24-Jan-20169:05 LIPID PANEL (35272) Comments: PATIENT WAS FASTINGPERFORMED BY: [facility] CenterZwgcmb4707 [facility] [id number] LDL/HDL Ratio 2.3 {ratio_units} (Normal) Range: 0.0-3.2 Comments: LDL/HDL Ratio Men Women 1/2 Avg.Risk 1.0 1.5 Av g.Risk 3.6 3.2 2X Avg.Risk 6.2 5.0 3X Avg.Risk 8.0 6.1 LDL Cholesterol Calc 105 mg/dL (Abnormal) Range: 0-99 VLDL Cholesterol Andres 48 mg/dL (Abnormal) Range: 5-40 HDL Cholesterol 46 mg/dL (Normal) Comments: According to ATP-III Guidelines, HDL-C >59 mg/dL is considered anegative risk factor for CHD. Triglycerides 241 mg/dL (Abnormal) Range: 0-149 Cholesterol, Total 199 mg/dL (Normal) Range: 100-199 :05 CBC with auto diff (61893) Comments: PATIENT WAS FASTINGPERFORMED BY: [facility] CenterXbcidm1909 [facility] [id number] Immature Grans (Abs) 0.0 {x10E3/uL} (Normal) Range: 0.0-0.1 Immature Granulocytes 0 % (Normal) Baso (Absolute) 0.0 {x10E3/uL} (Normal) Range: 0.0-0.2 Eos (Absolute) 0.3 {x10E3/uL} (Normal) Range: 0.0-0.4 Monocytes(Absolute) 0.6 {x10E3/uL} (Normal) Range: 0.1-0.9 Lymphs (Absolute) 1.7 {x10E3/uL} (Normal) Range: 0.7-3.1 Neutrophils (Absolute) 3.9 {x10E3/uL} (Normal) Range: 1.4-7.0 Basos 1 % (Normal) Eos 4 % (Normal) Monocytes 9 % (Normal) Lymphs 26 % (Normal) Neutrophils 60 % (Normal) Platelets 210 {x10E3/uL} (Normal) Range: 150-379 RDW 13.8 % (Normal) Range: 12.3-15.4 MCHC 34.1 g/dL (Normal) Range: 31.5-35.7 MCH 31.6 pg (Normal) Range: 26.6-33.0 MCV 93 fL (Normal) Range: 79-97 Hematocrit 42.2 % (Normal) Range: 34.0-46.6 Hemoglobin 14.4 g/dL (Normal) Range: 11.1-15.9 RBC 4.56 {x10E6/uL} (Normal) Range: 3.77-5.28 WBC 6.6 {x10E3/uL} (Normal) Range: 3.4-10.8 :24 HgA1C , Office (26135) HgA1C , Office 6.5 % (Normal) Range: 4.6 - 7.1 :07 Microscopic Examination Comments: PATIENT WAS FASTINGPERFORMED BY: [facility] CenterNfasqr6379 [facility] [id number] Bacteria Few (Normal) Mucus Threads Present (Normal) Epithelial Cells (non renal) 0-10 {/hpf} (Normal) Range: 0 - 10 RBC None seen {/hpf} (Normal) Range: 0 - 2 WBC 0-5 {/hpf} (Normal) Range: 0 - 5 :07 URINALYSIS, W/ MICRO (74035) Comments: PATIENT WAS FASTINGPERFORMED BY: [facility] CenterSsdgnu2433 [facility] [id number] Microscopic Examination See below: (Normal) Comments: Microscopic was indicated and was performed. Microscopic Examination MICRON (Normal) Comments: Microscopic follows if indicated. Nitrite, Urine Negative (Normal) Urobilinogen,Semi-Qn 0.2 mg/dL (Normal) Range: 0.2-1.0 Bilirubin Negative (Normal) Occult Blood Negative (Normal) Ketones Negative (Normal) Glucose Negative (Normal) Protein Negative (Normal) WBC Esterase Negative (Normal) Appearance Clear (Normal) Urine-Color Yellow (Normal) pH 6.5 (Normal) Range: 5.0-7.5 Specific Shelby 1.013 (Normal) Range: 1.005-1.030 18-Jul-20158:07 METABOLIC PANEL, COMPREHENSIVE Comments: PATIENT WAS FASTINGPERFORMED BY: [facility] CenterJstpos3535 [facility] [id number] (52099) ALT (SGPT) 22 [iU]/L (Normal) Range: 0-32 AST (SGOT) 21 [iU]/L (Normal) Range: 0-40 Alkaline Phosphatase, S 92 [iU]/L (Normal) Range: 39-117 Bilirubin, Total 0.6 mg/dL (Normal) Range: 0.0-1.2 A/G Ratio 1.6 (Normal) Range: 1.1-2.5 Globulin, Total 2.7 g/dL (Normal) Range: 1.5-4.5 Albumin, Serum 4.2 g/dL (Normal) Range: 3.5-4.8 Protein, Total, Serum 6.9 g/dL (Normal) Range: 6.0-8.5 Calcium, Serum 9.5 mg/dL (Normal) Range: 8.7-10.3 Carbon Dioxide, Total 23 mmol/L (Normal) Range: 18-29 Chloride, Serum 101 mmol/L (Normal) Range: 97-108 Potassium, Serum 4.0 mmol/L (Normal) Range: 3.5-5.2 Sodium, Serum 141 mmol/L (Normal) Range: 134-144 BUN/Creatinine Ratio 28 (Abnormal) Range: 11-26 eGFR If Africn Am 68 mL/min/1.73 (Normal) eGFR If NonAfricn Am 59 mL/min/1.73 (Abnormal) Creatinine, Serum 0.93 mg/dL (Normal) Range: 0.57-1.00 BUN 26 mg/dL (Normal) Range: 8-27 Glucose, Serum 133 mg/dL (Abnormal) Range: 65-99 :07 LIPID PANEL (99430) Comments: PATIENT WAS FASTINGPERFORMED BY: [employer]70 [facility] [id number] LDL/HDL Ratio 2.2 {ratio_units} (Normal) Range: 0.0-3.2 Comments: LDL/HDL Ratio Men Women 1/2 Avg.Risk 1.0 1.5 Av g.Risk 3.6 3.2 2X Avg.Risk 6.2 5.0 3X Avg.Risk 8.0 6.1 LDL Cholesterol Calc 92 mg/dL (Normal) Range: 0-99 VLDL Cholesterol Andres 62 mg/dL (Abnormal) Range: 5-40 HDL Cholesterol 42 mg/dL (Normal) Comments: According to ATP-III Guidelines, HDL-C >59 mg/dL is considered anegative risk factor for CHD. Triglycerides 309 mg/dL (Abnormal) Range: 0-149 Cholesterol, Total 196 mg/dL (Normal) Range: 100-199 :07 CBC with auto diff Comments: PATIENT WAS FASTINGPERFORMED BY: [employer] Fhfzky8563 [facility] [id number] Information: [id number]; [address] (61598) Immature Grans (Abs) 0.0 {x10E3/uL} (Normal) Range: 0.0-0.1 Immature Granulocytes 0 % (Normal) Baso (Absolute) 0.0 {x10E3/uL} (Normal) Range: 0.0-0.2 Eos (Absolute) 0.4 {x10E3/uL} (Normal) Range: 0.0-0.4 Monocytes(Absolute) 0.6 {x10E3/uL} (Normal) Range: 0.1-0.9 Lymphs (Absolute) 1.8 {x10E3/uL} (Normal) Range: 0.7-3.1 Neutrophils (Absolute) 2.9 {x10E3/uL} (Normal) Range: 1.4-7.0 Basos 1 % (Normal) Eos 7 % (Normal) Monocytes 10 % (Normal) Lymphs 31 % (Normal) Neutrophils 51 % (Normal) Platelets 208 {x10E3/uL} (Normal) Range: 150-379 RDW 13.8 % (Normal) Range: 12.3-15.4 MCHC 34.2 g/dL (Normal) Range: 31.5-35.7 MCH 31.1 pg (Normal) Range: 26.6-33.0 MCV 91 fL (Normal) Range: 79-97 Hematocrit 40.4 % (Normal) Range: 34.0-46.6 Hemoglobin 13.8 g/dL (Normal) Range: 11.1-15.9 RBC 4.44 {x10E6/uL} (Normal) Range: 3.77-5.28 WBC 5.7 {x10E3/uL} (Normal) Range: 3.4-10.8 :15 HgA1C , Office (85068) HgA1C , Office 6.6 % (Normal) Range: 4.6 - 7.1 :08 CBC W/Diff, Automated Comments: [facility] [address] [place], [place], [address] ; ov 11-9-15 Absolute Lymph 1.51 {X10_3/ul} (Normal) Range: 0.83-4.51 Absolute Neut 4.2 {X10_3/uL} (Normal) Range: 2.0-7.7 IM GRAN % 0.300 % (Normal) Range: 0.0-0.9 Comments: IG% - Immature Granulocytes (promyelocytes, myelocytes andmetamyelocytes) > 1% indicates that a LEFT SHIFT is Present. BASO% 0.4 % (Normal) Range: 0-1 EO% 6.0 % (Abnormal) Range: 0-5 MONO% 8.4 % (Normal) Range: 0-10 LY% 22.3 % (Normal) Range: 19-41 NEUT% 62.6 % (Normal) Range: 47-70 MPV 10.1 fL (Normal) Range: 6.2-12.0 PLT 207 K/mm3 (Normal) Range: 150-450 RDW SD 44.8 fL (Abnormal) Range: 35.1-43.9 RDW CV 13.0 % (Normal) Range: 11.6-14.6 MCHC 32.6 {g/gl} (Normal) Range: 32-36 MCH 31.2 pg (Normal) Range: 27.0-32.0 MCV 95.4 fL (Normal) Range: 81-99 HCT 43.8 % (Normal) Range: 37-47 HGB 14.3 g/dL (Normal) Range: 12.0-15.0 RBC 4.59 {M/mm3} (Normal) Range: 4.2-5.4 WBC 6.8 K/mm3 (Normal) Range: 4.4-11.0 17-Jan-20158:08 Comprehensive Metabolic Profil Comments: [facility] [address] [place], [address] GAP 7 (Normal) Range: 5-15 CO2 29.0 mmol/L (Normal) Range: 21.0-32.0 CL 104 mmol/L (Normal) Range: 98-107 K 3.5 mmol/L (Normal) Range: 3.5-5.1 NA 140 mmol/L (Normal) Range: 136-145 T BILI 0.60 mg/dL (Normal) Range: 0.20-1.00 ALT 28 U/L (Normal) Range: 12-78 ALK P 102 U/L (Normal) Range: 50-136 AST 21 U/L (Normal) Range: 15-37 CA 9.4 mg/dL (Normal) Range: 8.5-10.1 A/G 1.0 {RATIO} (Normal) Range: 0.9-2.4 GLOB 3.8 g/dL (Abnormal) Range: 2.3-3.5 ALB 3.7 g/dL (Normal) Range: 3.4-5.0 T PROT 7.5 g/dL (Normal) Range: 6.4-8.2 BUN/CRE 21.7 {RATIO} (Abnormal) Range: 10-20 EST GFR - AA 64 mL/min (Normal) Comments: GFR Calc EST GFR 53 mL/min (Abnormal) Comments: Non- GFR Calc CREAT,SERUM 1.06 mg/dL (Normal) Range: 0.55-1.20 Comments: The validity of the calculated GFR AND GFRAA in patients over70 years has not been determined. Clinical correlation isessential. BUN 23 mg/dL (Abnormal) Range: 7-18 GLU 139 mg/dL (Abnormal) Range: 70-110 Comments: Fasting Glucose result greater than or equal to 126 mg/dLsuggests DIABETES MELLITUS per A.D.A. criteria. :08 Lipid Profile Comments: [facility] [address] [facility] [place], [place], [id number] VLDL 49 mg/dL (Abnormal) Range: 5-40 LDL 94 mg/dL (Normal) Range: 0-130 HDL 48 mg/dL (Normal) Comments: Reference Range HDL <40 mg/dL Low HDL Cholesterol HDL >or= 60 mg/dL High HDL Cholesterol TRIG 247 mg/dL (Abnormal) Comments: Serum Triglycerides Reference Interval Normal <150 mg/dL Borderline high 150 - 199 mg/dL High 200 - 499 mg/dL Very High > or = 500 mg/dL CHOL 191 mg/dL (Normal) Comments: <200 mg/dL Desirable 200-240 mg/dL Borderline >240 mg/dL High Risk :08 Urinalysis, Complete Comments: How was Urine Obtained? Urine, [facility] [address] [facility] [address]. [place], [place], [id number] MUCUS, URINE 0 SEEN {/hpf} (Normal) BACTERIA 1+ {/hpf} (Normal) SQUAM EPI 5-10 SEEN {/hpf} (Normal) Range: 5-10 RBC-UA 0 SEEN {/hpf} (Normal) Range: 0-5 WBC 25-50 SEEN {/hpf} (Normal) Range: 0-5 LEUK ESTERASE 500 /ul (Abnormal) OCCULT BLOOD-UR Negative /ul (Normal) NITRITE UR Positive (Abnormal) UROBILI Normal mg/dL (Normal) PROT DIPSTX 30 mg/dL (Abnormal) pH UR 7.0 (Normal) Range: 5.0 - 8.0 SP.GR. DIPSTX 1.010 (Normal) Range: 1.002-1.030 KETONE UR Negative mg/dL (Normal) BILIRUBIN URINE Negative mg/dL (Normal) GLUCOSE, UR Normal mg/dL (Normal) CLARITY Clear (Normal) COLOR Yellow (Normal) :08 Vitamin D,25 Hydroxy Comments: [facility] [address] [place], [address] Vitamin D 25-OH 33.4 ng/mL (Normal) Comments: Vitamin D 25(OH) Status Range Deficiency <20 ng/mL (50nmol/L) Insuffciency 20 - 30 ng/mL (50 - 75 nmol/L) Sufficiency 30 - 100 ng/mL (75 - 250 nmol/L) Toxicity >100 ng/mL (>250 nmol/L) :31 HgA1C , Office (45453) HgA1C , Office 6.8 % (Normal) Range: 4.6 - 7.1 :37 Comprehensive Metabolic Profil Comments: Test performed at:[facility] [address] [place], [place] [address] GAP 7 (Normal) Range: 5-15 CO2 29.0 mmol/L (Normal) Range: 21.0-32.0 CL 104 mmol/L (Normal) Range: 98-107 K 3.8 mmol/L (Normal) Range: 3.5-5.1 NA 140 mmol/L (Normal) Range: 136-145 T BILI 0.60 mg/dL (Normal) Range: 0.00-4.00 ALT 30 U/L (Normal) Range: 12-78 ALK P 111 U/L (Normal) Range: 50-136 AST 21 U/L (Normal) Range: 15-37 CA 9.3 mg/dL (Normal) Range: 8.5-10.1 A/G 1.0 {RATIO} (Normal) Range: 0.9-2.4 GLOB 3.6 g/dL (Normal) Range: 2.7-4.2 ALB 3.7 g/dL (Normal) Range: 3.4-5.0 T PROT 7.3 g/dL (Normal) Range: 6.4-8.2 BUN/CRE 18.3 {RATIO} (Normal) Range: 10-20 CREAT,SERUM 1.2 mg/dL (Abnormal) Range: 0.6-1.0 BUN 22 mg/dL (Abnormal) Range: 7-18 GLU 148 mg/dL (Abnormal) Range: 70-110 Comments: Fasting Glucose result greater than or equal to 126 mg/dLsuggests DIABETES MELLITUS per A.D.A. criteria. :37 Lipid Profile Comments: Test performed at:[facility] [address] [facility] [place], [place] [address] VLDL 51 mg/dL (Abnormal) Range: 5-40 LDL 84 mg/dL (Normal) Range: 0-130 HDL 43 mg/dL (Normal) Comments: Reference Range HDL <40 mg/dL Low HDL Cholesterol HDL >or= 60 mg/dL High HDL Cholesterol TRIG 254 mg/dL (Abnormal) Range: 0-199 Comments: Serum Triglycerides Reference Interval Normal <150 mg/dL Borderline high 150 - 199 mg/dL High 200 - 499 mg/dL Very High > or = 500 mg/dL CHOL 178 mg/dL (Normal) Comments: <200 mg/dL Desirable 200-240 mg/dL Borderline >240 mg/dL High Risk :37 Microalb:Creat Ratio,Random UR Comments: Test performed at:[facility] [address]zb[address] [facility] [place], [place] [address] MALB:CREAT Test not performed {mg/g_CRE} (Normal) MICROALBUMIN,UR < 5.0 mg/L (Normal) UR CREAT 86.0 mg/dL (Normal) :04 HgA1C , Office (14065) HgA1C , Office 6.8 % (Normal) Range: 4.6 - 7.1 :04 Blood Glucose , Office (50517) Blood Glucose , Office 141 (Normal) :07 METABOLIC PANEL, Comments: PATIENT WAS FASTINGPERFORMED BY: [facility] CenterXldalc8918 [facility] [id number] Information: [id number] COMPREHENSIVE (95900) ALT (SGPT) 21 [iU]/L (Normal) Range: 0-32 AST (SGOT) 17 [iU]/L (Normal) Range: 0-40 Alkaline Phosphatase, S 97 [iU]/L (Normal) Range: 39-117 Bilirubin, Total 0.6 mg/dL (Normal) Range: 0.0-1.2 A/G Ratio 1.7 (Normal) Range: 1.1-2.5 Globulin, Total 2.6 g/dL (Normal) Range: 1.5-4.5 Albumin, Serum 4.3 g/dL (Normal) Range: 3.5-4.8 Protein, Total, Serum 6.9 g/dL (Normal) Range: 6.0-8.5 Calcium, Serum 10.0 mg/dL (Normal) Range: 8.6-10.2 Carbon Dioxide, Total 25 mmol/L (Normal) Range: 18-29 Chloride, Serum 99 mmol/L (Normal) Range: 97-108 Potassium, Serum 3.9 mmol/L (Normal) Range: 3.5-5.2 Sodium, Serum 140 mmol/L (Normal) Range: 134-144 BUN/Creatinine Ratio 22 (Normal) Range: 11-26 eGFR If Africn Am 54 mL/min/1.73 (Abnormal) eGFR If NonAfricn Am 47 mL/min/1.73 (Abnormal) Creatinine, Serum 1.13 mg/dL (Abnormal) Range: 0.57-1.00 BUN 25 mg/dL (Normal) Range: 8-27 Glucose, Serum 142 mg/dL (Abnormal) Range: 65-99 41-Wgv-45427:07 LIPID PANEL (88394) Comments: PATIENT WAS FASTINGPERFORMED BY: [facility] Cuqqvk2706 [facility] [id number] LDL/HDL Ratio 2.6 {ratio_units} (Normal) Range: 0.0-3.2 Comments: LDL/HDL Ratio Men Women 1/2 Avg.Risk 1.0 1.5 Av g.Risk 3.6 3.2 2X Avg.Risk 6.2 5.0 3X Avg.Risk 8.0 6.1 LDL Cholesterol Calc 117 mg/dL (Abnormal) Range: 0-99 VLDL Cholesterol Andres 56 mg/dL (Abnormal) Range: 5-40 HDL Cholesterol 45 mg/dL (Normal) Comments: According to ATP-III Guidelines, HDL-C >59 mg/dL is considered anegative risk factor for CHD. Triglycerides 281 mg/dL (Abnormal) Range: 0-149 Cholesterol, Total 218 mg/dL (Abnormal) Range: 100-199 36-Pak-214010:32 Blood Glucose , Office (76314) Blood Glucose , Office 124 (Normal) 65-Yqi-002317:32 HgA1C , Office (92696) HgA1C , Office 7.0 % (Normal) Range: 4.6 - 7.1 :37 MICROALBUMIN: CREATININE RATIO Comments: PATIENT WAS FASTINGPERFORMED BY: [facility] CenterWbhqtq5508 [facility] [id number] ([id number]) AND (88344) Microalb/Creat Ratio 3.0 {mg/g_creat} (Normal) Range: 0.0-30.0 Creatinine, Urine 66.1 mg/dL (Normal) Range: 15.0-278.0 Microalbumin, Urine 2.0 ug/mL (Normal) Range: 0.0-17.0 :37 METABOLIC PANEL, COMPREHENSIVE Comments: PATIENT WAS FASTINGPERFORMED BY: [facility] CenterCpqqwn6683 [facility] [id number] (16801) ALT (SGPT) 18 [iU]/L (Normal) Range: 0-32 AST (SGOT) 24 [iU]/L (Normal) Range: 0-40 Alkaline Phosphatase, S 98 [iU]/L (Normal) Range: 39-117 Bilirubin, Total 0.6 mg/dL (Normal) Range: 0.0-1.2 A/G Ratio 1.8 (Normal) Range: 1.1-2.5 Globulin, Total 2.4 g/dL (Normal) Range: 1.5-4.5 Albumin, Serum 4.3 g/dL (Normal) Range: 3.5-4.8 Protein, Total, Serum 6.7 g/dL (Normal) Range: 6.0-8.5 Calcium, Serum 9.8 mg/dL (Normal) Range: 8.6-10.2 Carbon Dioxide, Total 26 mmol/L (Normal) Range: 19-28 Chloride, Serum 101 mmol/L (Normal) Range: 97-108 Potassium, Serum 3.7 mmol/L (Normal) Range: 3.5-5.2 Sodium, Serum 140 mmol/L (Normal) Range: 134-144 BUN/Creatinine Ratio 23 (Normal) Range: 11-26 eGFR If Africn Am 55 mL/min/1.73 (Abnormal) eGFR If NonAfricn Am 47 mL/min/1.73 (Abnormal) Creatinine, Serum 1.12 mg/dL (Abnormal) Range: 0.57-1.00 BUN 26 mg/dL (Normal) Range: 8-27 Glucose, Serum 134 mg/dL (Abnormal) Range: 65-99 :37 LIPID PANEL (08926) Comments: PATIENT WAS FASTINGPERFORMED BY: [employer] [facility] [id number] LDL/HDL Ratio 2.5 {ratio_units} (Normal) Range: 0.0-3.2 LDL Cholesterol Calc 116 mg/dL (Abnormal) Range: 0-99 VLDL Cholesterol Andres 42 mg/dL (Abnormal) Range: 5-40 HDL Cholesterol 46 mg/dL (Normal) Comments: According to ATP-III Guidelines, HDL-C >59 mg/dL is considered anegative risk factor for CHD. Triglycerides 210 mg/dL (Abnormal) Range: 0-149 Cholesterol, Total 204 mg/dL (Abnormal) Range: 100-199 :37 CBC WITH MANUAL DIFF Comments: PATIENT WAS FASTINGPERFORMED BY: [id number] [id number] Information: [id number] ([id number]) Immature Grans (Abs) 0.0 {x10E3/uL} (Normal) Range: 0.0-0.1 Immature Granulocytes 0 % (Normal) Range: 0-2 Baso (Absolute) 0.0 {x10E3/uL} (Normal) Range: 0.0-0.2 Eos (Absolute) 0.4 {x10E3/uL} (Normal) Range: 0.0-0.4 Monocytes(Absolute) 0.5 {x10E3/uL} (Normal) Range: 0.1-0.9 Lymphs (Absolute) 1.8 {x10E3/uL} (Normal) Range: 0.7-3.1 Neutrophils (Absolute) 3.3 {x10E3/uL} (Normal) Range: 1.4-7.0 Basos 1 % (Normal) Range: 0-3 Eos 6 % (Abnormal) Range: 0-5 Monocytes 8 % (Normal) Range: 4-12 Lymphs 30 % (Normal) Range: 14-46 Neutrophils 55 % (Normal) Range: 40-74 Platelets 214 {x10E3/uL} (Normal) Range: 155-379 RDW 13.6 % (Normal) Range: 12.3-15.4 MCHC 33.3 g/dL (Normal) Range: 31.5-35.7 MCH 31.1 pg (Normal) Range: 26.6-33.0 MCV 93 fL (Normal) Range: 79-97 Hematocrit 42.3 % (Normal) Range: 34.0-46.6 Hemoglobin 14.1 g/dL (Normal) Range: 11.1-15.9 RBC 4.54 {x10E6/uL} (Normal) Range: 3.77-5.28 WBC 6.0 {x10E3/uL} (Normal) Range: 3.4-10.8 :43 Blood Glucose , Office ([id number]) Blood Glucose , Office 128 (Normal) :43 HgA1C , Office ([id number]) HgA1C , Office 6.8 % (Normal) Range: 4.6 - 7.1 :23 CBC, PLATELETS & MANUAL Comments: PATIENT WAS FASTINGPERFORMED BY: [id number] [id number] Information: [id number] DIFF ([id number]) Immature Grans (Abs) 0.0 {x10E3/uL} (Normal) Range: 0.0-0.1 Immature Granulocytes 0 % (Normal) Range: 0-2 Baso (Absolute) 0.0 {x10E3/uL} (Normal) Range: 0.0-0.2 Eos (Absolute) 0.2 {x10E3/uL} (Normal) Range: 0.0-0.4 Monocytes(Absolute) 0.4 {x10E3/uL} (Normal) Range: 0.1-0.9 Lymphs (Absolute) 1.3 {x10E3/uL} (Normal) Range: 0.7-3.1 Neutrophils (Absolute) 1.9 {x10E3/uL} (Normal) Range: 1.4-7.0 Basos 1 % (Normal) Range: 0-3 Eos 5 % (Normal) Range: 0-5 Monocytes 10 % (Normal) Range: 4-12 Lymphs 34 % (Normal) Range: 14-46 Neutrophils 50 % (Normal) Range: 40-74 Platelets 215 {x10E3/uL} (Normal) Range: 155-379 RDW 13.6 % (Normal) Range: 12.3-15.4 MCHC 33.7 g/dL (Normal) Range: 31.5-35.7 MCH 31.3 pg (Normal) Range: 26.6-33.0 MCV 93 fL (Normal) Range: 79-97 Hematocrit 41.8 % (Normal) Range: 34.0-46.6 Hemoglobin 14.1 g/dL (Normal) Range: 11.1-15.9 RBC 4.51 {x10E6/uL} (Normal) Range: 3.77-5.28 WBC 3.8 {x10E3/uL} (Normal) Range: 3.4-10.8 [id number] METABOLIC PANEL, COMPREHENSIVE Comments: PATIENT WAS FASTINGPERFORMED BY: [facility] CenterCoNewark [facility] CenterRajtqb0952 [facility] [id number] (75991) ALT (SGPT) 17 [iU]/L (Normal) Range: 0-32 Alkaline Phosphatase, S 103 [iU]/L (Normal) Range: 45-108 Comments: Effective January 19, 2013 the reference interval for Alkaline Phosphatase, S will be changing to: Age Male Female 0 - 1 day 45 - 111 45 - 111 2 - 5 days 46 - 119 46 - 119 6 - 10 days 48 - 229 48 - 229 11 - 3 0 days 59 - 414 59 - 414 1 - 6 months 91 - 445 91 - 445 7 - 12 months 124 - 341 124 - 341 1 - 3 years 130 - 317 130 - 317 4 - 6 years 133 - 309 133 - 309 7 - 12 years 134 - 349 134 - 349 13 years 143 - 396 68 - 209 14 years 107 - 340 62 - 149 15 years 84 - 254 54 - 121 16 years 71 - 186 49 - 108 17 years 61 - 146 45 - 101 18 years 56 - 127 43 - 101 >18 years 39 - 117 39 - 117 AST (SGOT) 20 [iU]/L (Normal) Range: 0-40 Bilirubin, Total 0.7 mg/dL (Normal) Range: 0.0-1.2 A/G Ratio 1.4 (Normal) Range: 1.1-2.5 Globulin, Total 2.9 g/dL (Normal) Range: 1.5-4.5 Albumin, Serum 4.1 g/dL (Normal) Range: 3.5-4.8 Protein, Total, Serum 7.0 g/dL (Normal) Range: 6.0-8.5 Calcium, Serum 9.7 mg/dL (Normal) Range: 8.6-10.2 Carbon Dioxide, Total 23 mmol/L (Normal) Range: 19-28 Chloride, Serum 100 mmol/L (Normal) Range: 97-108 Potassium, Serum 3.8 mmol/L (Normal) Range: 3.5-5.2 Sodium, Serum 139 mmol/L (Normal) Range: 134-144 BUN/Creatinine Ratio 24 (Normal) Range: 11-26 eGFR If Africn Am 59 mL/min/1.73 (Abnormal) eGFR If NonAfricn Am 51 mL/min/1.73 (Abnormal) Creatinine, Serum 1.06 mg/dL (Abnormal) Range: 0.57-1.00 BUN 25 mg/dL (Normal) Range: 8-27 Glucose, Serum 142 mg/dL (Abnormal) Range: 65-99 1-Zay-189394:23 LIPID PANEL (59800) Comments: PATIENT WAS FASTINGPERFORMED BY: [facility]CoNew[facility] CenterYpqsrq4707 [facility] [id number] LDL/HDL Ratio 2.7 {ratio_units} (Normal) Range: 0.0-3.2 LDL Cholesterol Calc 120 mg/dL (Abnormal) Range: 0-99 HDL Cholesterol 44 mg/dL (Normal) Comments: According to ATP-III Guidelines, HDL-C >59 mg/dL is considered anegative risk factor for CHD. VLDL Cholesterol Andres 44 mg/dL (Abnormal) Range: 5-40 Cholesterol, Total 208 mg/dL (Abnormal) Range: 100-199 Triglycerides 221 mg/dL (Abnormal) Range: 0-149 :11 Blood Glucose , Office (53819) Blood Glucose , Office 122 (Normal) :11 HgA1C , Office (11660) HgA1C , Office 6.5 % (Normal) Range: 4.6 - 7.1 :59 Hemoglobin Glyclated (HGB Comments: today only; PATIENT NOT FASTINGPERFORMED BY: [employer] Bsxvhp1520 [facility] [id number] Information: ADD [id number] AND DRAW FEE 99 8964 A1C) (38131) Hemoglobin A1c 6.4 % (Abnormal) Range: 4.8-5.6 Comments: . Increased risk for diabetes: 5.7 - 6.4 Diabetes: >6.4 Glycemic control for adults with diabetes: <7.0 :33 METABOLIC PANEL, COMPREHENSIVE Comments: PATIENT WAS FASTINGPERFORMED BY: [employer] Ypnwpn2948 [facility] [id number] (47720) ALT (SGPT) 18 [iU]/L (Normal) Range: 0-32 AST (SGOT) 19 [iU]/L (Normal) Range: 0-40 Alkaline Phosphatase, S 101 [iU]/L (Normal) Range: 25-165 Comments: Effective September 29, 2012 the reference interval for Alkaline Phosphatase, S will be changing to: Age Male Female 0 - 1 day 45 - 111 45 - 111 2 - 5 days 46 - 119 46 - 119 6 - 10 days 48 - 229 48 - 229 11 - 30 d ays 59 - 414 59 - 414 1 - 6 months 91 - 445 91 - 445 7 - 12 months 124 - 341 124 - 341 1 - 3 years 130 - 317 130 - 317 4 - 6 years 133 - 309 133 - 309 7 - 12 years 134 - 349 134 - 349 13 years 143 - 396 68 - 209 14 years 107 - 340 62 - 149 15 years 84 - 254 54 - 121 16 years 71 - 186 49 - 108 17 years 61 - 146 45 - 101 18 years 56 - 127 43 - 101 1 9 - 60 years 44 - 102 42 - 107 61 - 70 years 44 - 103 47 - 112 >70 years 44 - 105 45 - 108 Bilirubin, Total 0.6 mg/dL (Normal) Range: 0.0-1.2 A/G Ratio 1.4 (Normal) Range: 1.1-2.5 Globulin, Total 2.9 g/dL (Normal) Range: 1.5-4.5 Albumin, Serum 4.1 g/dL (Normal) Range: 3.5-4.8 Protein, Total, Serum 7.0 g/dL (Normal) Range: 6.0-8.5 Calcium, Serum 9.6 mg/dL (Normal) Range: 8.6-10.2 Carbon Dioxide, Total 24 mmol/L (Normal) Range: 19-28 Chloride, Serum 100 mmol/L (Normal) Range: 97-108 Potassium, Serum 3.7 mmol/L (Normal) Range: 3.5-5.2 Sodium, Serum 139 mmol/L (Normal) Range: 134-144 BUN/Creatinine Ratio 22 (Normal) Range: 11-26 eGFR If Africn Am 59 mL/min/1.73 (Abnormal) eGFR If NonAfricn Am 51 mL/min/1.73 (Abnormal) Creatinine, Serum 1.06 mg/dL (Abnormal) Range: 0.57-1.00 BUN 23 mg/dL (Normal) Range: 8-27 Glucose, Serum 150 mg/dL (Abnormal) Range: 65-99 :33 LIPID PANEL (21649) Comments: PATIENT WAS FASTINGPERFORMED BY: [facility]CoNew[facility] CenterUccyjg5581 [facility] [id number] LDL/HDL Ratio 2.6 {ratio_units} (Normal) Range: 0.0-3.2 LDL Cholesterol Calc 124 mg/dL (Abnormal) Range: 0-99 VLDL Cholesterol Andres 52 mg/dL (Abnormal) Range: 5-40 HDL Cholesterol 47 mg/dL (Normal) Comments: According to ATP-III Guidelines, HDL-C >59 mg/dL is considered anegative risk factor for CHD. Triglycerides 260 mg/dL (Abnormal) Range: 0-149 Cholesterol, Total 223 mg/dL (Abnormal) Range: 100-199 :33 CBC WITH MANUAL DIFF Comments: PATIENT WAS FASTINGPERFORMED BY: BRANDO [employer]6370 [facility] [id number] Information: [id number] (23957) Immature Grans (Abs) 0.0 {x10E3/uL} (Normal) Range: 0.0-0.1 Immature Granulocytes 0 % (Normal) Range: 0-2 Baso (Absolute) 0.1 {x10E3/uL} (Normal) Range: 0.0-0.2 Eos (Absolute) 0.4 {x10E3/uL} (Normal) Range: 0.0-0.4 Monocytes(Absolute) 0.7 {x10E3/uL} (Normal) Range: 0.1-1.0 Lymphs (Absolute) 1.8 {x10E3/uL} (Normal) Range: 0.7-4.5 Neutrophils (Absolute) 3.9 {x10E3/uL} (Normal) Range: 1.8-7.8 Basos 1 % (Normal) Range: 0-3 Eos 6 % (Normal) Range: 0-7 Monocytes 10 % (Normal) Range: 4-13 Lymphs 26 % (Normal) Range: 14-46 Neutrophils 57 % (Normal) Range: 40-74 Platelets 209 {x10E3/uL} (Normal) Range: 140-415 RDW 14.0 % (Normal) Range: 12.3-15.4 MCHC 33.0 g/dL (Normal) Range: 31.5-35.7 MCH 30.8 pg (Normal) Range: 26.6-33.0 MCV 93 fL (Normal) Range: 79-97 Hematocrit 42.7 % (Normal) Range: 34.0-46.6 Hemoglobin 14.1 g/dL (Normal) Range: 11.1-15.9 RBC 4.58 {x10E6/uL} (Normal) Range: 3.77-5.28 WBC 6.8 {x10E3/uL} (Normal) Range: 4.0-10.5 21-Mar-20129:59 Hepatic Function Panel Comments: PERFORMED BY: BRANDO [employer] Rdwysj9902 [facility] [id number] BY: [facility] [id number] Javier DriveRGEISINGER COMM[facility]ITY [facility] [id number] (7) ALT (SGPT) 30 [iU]/L (Normal) Range: 0-32 AST (SGOT) 27 [iU]/L (Normal) Range: 0-40 Alkaline Phosphatase, S 96 [iU]/L (Normal) Range: 25-165 Bilirubin, Direct 0.21 mg/dL (Normal) Range: 0.00-0.40 Bilirubin, Total 0.6 mg/dL (Normal) Range: 0.0-1.2 Albumin, Serum 4.4 g/dL (Normal) Range: 3.5-4.8 Protein, Total, Serum 7.0 g/dL (Normal) Range: 6.0-8.5 21-Mar-20129:59 Hered.Hemochromatosis, DNA Comments: PERFORMED BY: BRANDO [employer] Ketcuc0097 [facility] [id number] BY: ISABEL [facility] OMR2455 Javier [facility] [id number] Hereditary Hemochromatosis 63HOM1 (Normal) Comments: Result: H63D/S85XEex copies of the same mutation (H63D and H63D) identified .Interpretation:This patient's sample was analyzed for th e hereditary hemochromatosis(HH) mutations C282Y, H63D, and S65C. Two copies of H63D wereidentified. Results for C282Y and S65C were negative. The mutationsanalyzed by Twilio are most common in the population.Although some patients with this genotype experience biochemicallydefined abnormalities of iron overload, the penetrance for clinicalsymptoms, such as cirrhosis, cardiomyopathy, marco a betes and arthropathy,is low. The diagnosis of HH should not rely on DNA testing alone.Diagnosis of HH should include clinical findings and other testresults, such as transferrin-iron saturation and/or serum ferritinstudies and/or liver biopsy. HH is inherited in a recessive manner.All the offspring from this patient will be carriers, and other familymembers are at increased risk. Genetic counselin g and HH moleculartesting are recommended for at-risk family members.Methodology:DNA Analysis of the HFE gene was performed by PCRamplification followed by restriction enzyme digestionanalyses. .Reference:Justa JS and Donte AP. (2000). Gisel Test 4:97-101.Haylie LINDSEY et al. (1999). AM J Prev Med 16:134-140.Denver Pearson (2002). Lancet 360(3979):1 673-81.Dalia Coffey al. (2002). Blood Cells, Molecules. andDiseases. 29(3):418- 432.Parveen Stlalings et al. (2003). Gisel Med. 5(1):1-8.Haylie LINDSEY et al. (2003). Gisel Med. 5(4):304-10.Genetic counselors are available for health care providers to discussresults at [phone]. . Navid Gramajo, Ph.D. Anisha Driver, Ph.D. Linda Henry, Ph.D. Shahrzad Flores, Ph.D. Lorelei Garcia, Ph.D. Elsa Gastelum, Ph.D. S. Irina VogtBDuane, Ph.D. 24-Avu-67611:00 LIVER Radiology Report See Note (Normal) Comments: PROCEDURE: ABDOMINAL ULTRASOUND - RIGHT UPPER QUADRANT REASON FOR VISIT: Female, 76 years old. Elevated liver functiontests. TECHNIQUE: Ultrasound evaluation of the right upper quadrant [facility] with real-time and static garvey-scale imaging. TECHNICAL QUALITY: Adequate. COMPARISON: None. FINDINGS: Liver: The liver measures 12.4 cm. There is normal echogenicity of theliver. The bile d ucts are within normal limits. There is hepatic colorflow. The direction of portal flow is hepatopetal. There is nodemonstrated mass lesion. Gallbladder: The patient is status post cholecystectomy. Common Bile Duct (C.B.D.): The common bile duct measures 6.0 mm. Pancreas: Normal size of the head, body and tail of the pancreas.Thereis normal echogenicity of the pancreas. There is no demonstra tedpancreatic mass or cyst. Right Kidney: Normal size of the right kidney. The right jftkqrahfypezo32.1 cm. Normal renal cortex. The right cortex measures 1.5 cm. Thereisno demonstrated renal mass or cyst. There is no right hydronephrosis. IMPRESSION:Normal right upper quadrant ultrasound examination.The patient is status post cholecystectomy. Signed:Scotty Tinoco M.D.March 06, 2012 at 12:32:06 PM [id number] Signed GP/GP If you are the referring physician and would like to consult with theradiologist who provided this interpretation, please contact Jerri Hernandez at [phone]. If this radiologist is unavailable, youwill be directed to another radiologist to assist. If you are a patient with a question regarding this report, pleasecontactyour referring physician directly. Professional Interpretation Provided By: [employer], Phone , These documents contain legally protected and confidential healthinformation intended only for the use of the individual or entity namedabove. If you are not the intended recipient, you are hereby notifiedthatany disclosure, copying, distribution, or other use of these documents isstrictly p rohibited. If you have received this information in error,pleasenotify the sender immediately and arrange for the return or destructionofthese documents. Dictated on 03/06/12 1019 by Ernique Tinoco MDscribed on 03/06/12 1241 by ITS IMPORTSign by Scotty Tinoco MD on 03/06/12 1242 Sign by: Scotty Tinoco MD 87-Zqn-30101:46 HgA1C , Office (00610) HgA1C , Office 6.6 % (Normal) Range: 4.6 - 7.1 :46 Blood Glucose , Office (52027) Blood Glucose , Office 143 (Normal) 76-Jnp-981286:47 HEPATITIS PANEL (66086) Comments: PATIENT NOT FASTINGPERFORMED BY: [facility] Ruevwk0884 [facility] [id number] Information: [id number] Hep C Virus Ab <0.1 {s/co_ratio} Range: 0.0-0.9 (Normal) Comments: Negative: < 0.8 Indeterminate 0.8 - 0.9 Positive: > 0.9 . In order to reduce the incidence of a false positive result, the CDC recommends that all s/co ratios between 1.0 and 10.9 be confirmed with additional RIBA or PCR testing. Hep B Core Ab, IgM Negative (Normal) HBsAg Screen Negative (Normal) Hep A Ab, IgM Negative (Normal) Ferritin, Serum 337 ng/mL (Abnormal) Comments: PATIENT WAS FASTINGPERFORMED BY: [facility]CoNew[facility] CenterDsgbzy5925 [facility] [id number] Information: [id number] :12 Range: 13-150 Written Authorization WAR (Normal) Comments: PATIENT WAS FASTINGPERFORMED BY: [facility]CoNew[facility] CenterJbcuyr3757 [facility] [id number] :12 Comments: Written Authorization Received.Authorization received from DR DELGADO [id number] by Ya Arnett 21-Jan-20129:23 BILAT SCRN DIGITAL & CAD Radiology Report See Note (Normal) Comments: MAMMOGRAPHY - BILATERAL SCREENING REASON FOR EXAM: Female, 76 years old. Routine annual screeningexamination. PERTINENT HISTORY: Non-contributory. TECHNIQUE: Digital examination. Med iolateral ob lique (MLO) andcraniocaudad (CC) views of both breasts were obtained. CAD: CAD wasperformed on this study. COMPARISON: Comparison is made with prior studies dated January 18nd July 17, 2010. FINDI NGS:The breast composition is composed of scattered fibroglandular densities. There are no dominant masses or suspicious calcifications. No other significant abnormalities are identified. There has bee n nosignificant change since the prior study. IMPRESSION:Stable bilateral screening mammogram. Yearly follow-up recommended. (A) ASSESSMENT CATEGORY:BIRADS Category 2: Benign finding(s). A letter r egarding these resultswill be sent to the patient by the facility within 30 days. Approximately 10% of breast cancers are not detected by mammography. Anormal mammogram should not delay biopsy of a cli nically suspiciousabnormality. Signed:Scotty Tinoco M.D.January 21, 2012 at 9:56:18 AM [phone] Signed GP/GP If you are the referring physician and would like to consult with theradiologist who provided this interpretation, please contact Jerri Hernandez at [phone]. If this radiologist is unavailable, youwill be directed to another radiologist to assist. If you are a patient with a question regarding this report, pleasecontactyour referring physician directly. Professional Interpretation Provided By: [employer], Phone , These doc uments contain legally protected and confidential healthinformation intended only for the use of the individual or entity namedabove. If you are not the intended recipient, you are hereby notifiedthatan y disclosure, copying, distribution, or other use of these documents isstrictly prohibited. If you have received this information in error,pleasenotify the sender immediately and arrange for the return or destructionofthese documents. Dictated on 01/21/12 0924 by Rianna Tinoco MDranscribed on 01/21/12 1000 by ITS IMPORTSign by Scotty Tinoco MD on 01/21/12 1001 Sign by: Scotty Tinoco MD 21-Feb-20128:12 Metabolic Panel, Comments: PATIENT WAS FASTINGPERFORMED BY: [facility]CoNew[facility] CenterUlkwsw3405 [facility] [id number] Information: [id number] Comprehensive (86529) ALT (SGPT) 58 [iU]/L (Abnormal) Range: 0-32 AST (SGOT) 39 [iU]/L (Normal) Range: 0-40 Alkaline Phosphatase, S 97 [iU]/L (Normal) Range: 25-165 Bilirubin, Total 0.6 mg/dL (Normal) Range: 0.0-1.2 A/G Ratio 1.6 (Normal) Range: 1.1-2.5 Globulin, Total 2.9 g/dL (Normal) Range: 1.5-4.5 Albumin, Serum 4.5 g/dL (Normal) Range: 3.5-4.8 Protein, Total, Serum 7.4 g/dL (Normal) Range: 6.0-8.5 Calcium, Serum 10.0 mg/dL (Normal) Range: 8.6-10.2 Carbon Dioxide, Total 23 mmol/L (Normal) Range: 20-32 Chloride, Serum 100 mmol/L (Normal) Range: 97-108 Potassium, Serum 3.7 mmol/L (Normal) Range: 3.5-5.2 Sodium, Serum 139 mmol/L (Normal) Range: 134-144 BUN/Creatinine Ratio 24 (Normal) Range: 11-26 eGFR If Africn Am 51 mL/min/1.73 (Abnormal) eGFR If NonAfricn Am 44 mL/min/1.73 (Abnormal) Creatinine, Serum 1.20 mg/dL (Abnormal) Range: 0.57-1.00 BUN 29 mg/dL (Abnormal) Range: 8-27 Glucose, Serum 150 mg/dL (Abnormal) Range: 65-99 :12 Lipid Panel (49753) Comments: PATIENT WAS FASTINGPERFORMED BY: [employer]70 [facility] [id number] LDL/HDL Ratio 2.2 {ratio_units} (Normal) Range: 0.0-3.2 LDL Cholesterol Calc 106 mg/dL (Abnormal) Range: 0-99 VLDL Cholesterol Adnres 50 mg/dL (Abnormal) Range: 5-40 HDL Cholesterol 48 mg/dL (Normal) Comments: According to ATP-III Guidelines, HDL-C >59 mg/dL is considered anegative risk factor for CHD. Triglycerides 252 mg/dL (Abnormal) Range: 0-149 Cholesterol, Total 204 mg/dL (Abnormal) Range: 100-199 17-Asa-871129:25 HgA1C , Office (27965) HgA1C , Office 6.1 % (Normal) Range: 4.6 - 7.1 59-Nuj-242085:25 Blood Glucose , Office (17552) Blood Glucose , Office 126 (Normal) :31 LIPID PANEL (15844) Comments: PATIENT WAS FASTINGPERFORMED BY: [employer] ControlsVjlgkk1401 [facility] [id number] LDL/HDL Ratio 2.3 {ratio_units} (Normal) Range: 0.0-3.2 LDL Cholesterol Calc 110 mg/dL (Abnormal) Range: 0-99 VLDL Cholesterol Andres 53 mg/dL (Abnormal) Range: 5-40 HDL Cholesterol 48 mg/dL (Normal) Comments: According to ATP-III Guidelines, HDL-C >59 mg/dL is considered anegative risk factor for CHD. Triglycerides 263 mg/dL (Abnormal) Range: 0-149 Cholesterol, Total 211 mg/dL (Abnormal) Range: 100-199 :31 HEPATIC FUNCTION PANEL Comments: PATIENT WAS FASTINGPERFORMED BY: [facility]6370 [facility] [id number] Information: [id number] (36389) ALT (SGPT) 35 [iU]/L (Normal) Range: 0-40 AST (SGOT) 28 [iU]/L (Normal) Range: 0-40 Alkaline Phosphatase, S 99 [iU]/L (Normal) Range: 25-165 Bilirubin, Direct 0.15 mg/dL (Normal) Range: 0.00-0.40 Bilirubin, Total 0.6 mg/dL (Normal) Range: 0.0-1.2 Albumin, Serum 4.3 g/dL (Normal) Range: 3.5-4.8 Protein, Total, Serum 6.8 g/dL (Normal) Range: 6.0-8.5 :40 HgA1C , Office (45350) HgA1C , Office 6.3 % (Normal) Range: 4.6 - 7.1 :40 Blood Glucose , Office (99481) Blood Glucose , Office 142 (Normal) :22 CBC, PLATELETS & AUT DIFF Comments: PATIENT WAS FASTINGPERFORMED BY: [facility]Co[facility] CenterVlfbmt4197 [facility] [id number] Information: [id number] (25092) Immature Grans (Abs) 0.0 {x10E3/uL} (Normal) Range: 0.0-0.1 Immature Granulocytes 0 % (Normal) Range: 0-2 Baso (Absolute) 0.0 {x10E3/uL} (Normal) Range: 0.0-0.2 Eos (Absolute) 0.4 {x10E3/uL} (Normal) Range: 0.0-0.4 Monocytes(Absolute) 0.6 {x10E3/uL} (Normal) Range: 0.1-1.0 Lymphs (Absolute) 1.9 {x10E3/uL} (Normal) Range: 0.7-4.5 Neutrophils (Absolute) 3.3 {x10E3/uL} (Normal) Range: 1.8-7.8 Basos 1 % (Normal) Range: 0-3 Eos 6 % (Normal) Range: 0-7 Monocytes 10 % (Normal) Range: 4-13 Lymphs 30 % (Normal) Range: 14-46 Neutrophils 53 % (Normal) Range: 40-74 Platelets 208 {x10E3/uL} (Normal) Range: 140-415 RDW 13.8 % (Normal) Range: 11.7-15.0 MCHC 34.2 g/dL (Normal) Range: 32.0-36.0 MCH 31.4 pg (Normal) Range: 27.0-34.0 MCV 92 fL (Normal) Range: 80-98 Hematocrit 40.4 % (Normal) Range: 34.0-44.0 Hemoglobin 13.8 g/dL (Normal) Range: 11.5-15.0 RBC 4.39 {x10E6/uL} (Normal) Range: 3.80-5.10 WBC 6.2 {x10E3/uL} (Normal) Range: 4.0-10.5 :22 METABOLIC PANEL, COMPREHENSIVE Comments: PATIENT WAS FASTINGPERFORMED BY: [facility] CenterQieagr7452 [facility] [id number] (46487) ALT (SGPT) 19 [iU]/L (Normal) Range: 0-40 AST (SGOT) 21 [iU]/L (Normal) Range: 0-40 Alkaline Phosphatase, S 95 [iU]/L (Normal) Range: 25-165 Bilirubin, Total 0.6 mg/dL (Normal) Range: 0.0-1.2 A/G Ratio 1.5 (Normal) Range: 1.1-2.5 Globulin, Total 2.9 g/dL (Normal) Range: 1.5-4.5 Albumin, Serum 4.3 g/dL (Normal) Range: 3.5-4.8 Protein, Total, Serum 7.2 g/dL (Normal) Range: 6.0-8.5 Calcium, Serum 9.7 mg/dL (Normal) Range: 8.6-10.2 Carbon Dioxide, Total 24 mmol/L (Normal) Range: 20-32 Chloride, Serum 100 mmol/L (Normal) Range: 97-108 Potassium, Serum 4.1 mmol/L (Normal) Range: 3.5-5.2 Sodium, Serum 138 mmol/L (Normal) Range: 134-144 BUN/Creatinine Ratio 27 (Abnormal) Range: 11-26 eGFR If Africn Am 57 mL/min/1.73 (Abnormal) eGFR If NonAfricn Am 50 mL/min/1.73 (Abnormal) Creatinine, Serum 1.09 mg/dL (Abnormal) Range: 0.57-1.00 BUN 29 mg/dL (Abnormal) Range: 8-27 Glucose, Serum 127 mg/dL (Abnormal) Range: 65-99 :22 LIPID PANEL (67052) Comments: PATIENT WAS FASTINGPERFORMED BY: [employer]70 [facility] [id number] LDL/HDL Ratio 2.6 {ratio_units} (Normal) Range: 0.0-3.2 LDL Cholesterol Calc 126 mg/dL (Abnormal) Range: 0-99 VLDL Cholesterol Andres 55 mg/dL (Abnormal) Range: 5-40 HDL Cholesterol 49 mg/dL (Normal) Comments: According to ATP-III Guidelines, HDL-C >59 mg/dL is considered anegative risk factor for CHD. Triglycerides 276 mg/dL (Abnormal) Range: 0-149 Cholesterol, Total 230 mg/dL (Abnormal) Range: 100-199 :22 MICROALBUMIN: CREATININE RATIO Comments: PATIENT WAS FASTINGPERFORMED BY: [employer]tv6370 [facility] [id number] (70208) AND (31176) Microalb/Creat Ratio 5.8 {mg/g_creat} (Normal) Range: 0.0-30.0 Microalbumin, Urine 3.9 ug/mL (Normal) Range: 0.0-17.0 Creatinine, Urine 66.7 mg/dL (Normal) Range: 15.0-278.0 :39 HgA1C , Office (81750) HgA1C , Office 6.5 % (Normal) Range: 4.6 - 7.1 :39 Blood Glucose , Office (35220) Blood Glucose , Office 137 (Normal) :31 BILAT SCRN DIGITAL & CAD Radiology Report See Note (Normal) Comments: MAMMOGRAPHY - BILATERAL SCREENING REASON FOR EXAM: Female, 75 years old. Routine annual screeningexamination. PERTINENT HISTORY: Non-contributory. TECHNIQUE: Digital examination. Med iolateral ob lique (MLO) andcraniocaudad (CC) views of both breasts were obtained. CAD: CAD wasperformed on this study. COMPARISON: Mammogram studies dated 01/13/2009, 01/16/2010, 01/23/2010nd 07/17/2010 FINDINGS :The breast composition is almost entirely fatty replaced. There are no suspicious masses or suspicious microcalcifications. Thereare clusters of benign- appearing round and punctate calcifications inbo thbreasts. Benign round calcifications are noted throughout both breasts.Stable nodular density in the superior outer aspect of the right breastisnotedCAD images were reviewed.No other significant abno rmalities are identified. IMPRESSION:Normal bilateral screening mammogram, unchanged as compared to the priorexamination. One year follow-up examination recommended. (A) ASSESSMENT CATEGORY:BIRADS Categ ory 2: Benign finding(s). A letter regarding these resultswill be sent to the patient by the facility within 30 days. Approximately 10% of breast cancers are not detected by mammography. Anormal mamm ogram should not delay biopsy of a clinically suspiciousabnormality. Dictated on 01/18/11 0950 by Cristi Zimmer DOnscribed on 01/18/11 1456 by ITS IMPORTSign by Stacey Zimmer DO on 01/18/11 1457 Sign by: Stacey Zimmer DO :19 DEXA BONE DENSITY STUDY (HP) Radiology Report See Note (Normal) Comments: PROCEDURE: DUAL ENERGY X-RAY ABSORPTIOMETRY / DEXA. REASON FOR EXAM: Female, 75 years old. The patient has a history ofosteopenia. TECHNIQUE: Bone Mineral Density (BMD) measurements of lumbar spin e andbilateral hips were obtained. COMPARISON: Comparison is made with prior study dated January 13, 2009. FINDINGS: Lumbar Spine (L1-L4): g/cm2 (1.094) / T-score (-.7) / Z-score (1.0)Left Femur Total: g/cm2 (0.790) / T-score (-1.7) / Z-score (0.0)Right Femur Total: g/cm2 (0.840) / T-score (-1.3) / Z-score (0.4) Since prior study, there has been loss of 1.9% in bone density. IMPRESSIO N:The patient is considered osteopenic, as outlined above, according toWorldHealth Organization (WHO) criteria. Fracture risk is moderate. Reference Information:The T-score is the number of standard de viations above or below thestandard which is normal for young adults at their peak bone mineraldensity. The World Health Organization (WHO) interprets the T- scores asfollows: Above -1 Normal b one densityBetween -1 and -2.5 OsteopeniaEqual to / or below -2.5 Osteoporosis As a practical clinical guideline, osteopenia may be graded as follows:Mild -1 through -1.5Moderate -1.6 through -2.0S evere -2.1 through -2.4 The Z-score is the number of standard deviations above or below age-matchedcontrols. A Z-score of less than -1.5 would be considered abnormal. References:1. NIH Osteoporosis a nd Related Bone Diseases http://www.osteo.org2. International Society for Clinical Densitometry [email or web address].[email or web address]. [employer] Foundation [email or web address]://www.nof.org Dictated on 01/18/11925 Rianna Conley MDranscribed on 01/18/111333 by ITS IMPORTSign by Scotty Tinoco MD on 01/18/111333 Sign by: Scotty Tinoco MD 87-Cnx-14700:03 CBC WITH MANUAL DIFF Comments: PATIENT WAS FASTINGPERFORMED BY: [facility] [id number] Information: [id number] ([id number]) Immature Grans (Abs) 0.0 {x10E3/uL} (Normal) Range: 0.0-0.1 Immature Granulocytes 0 % (Normal) Range: 0-2 Baso (Absolute) 0.0 {x10E3/uL} (Normal) Range: 0.0-0.2 Eos (Absolute) 0.3 {x10E3/uL} (Normal) Range: 0.0-0.4 Monocytes(Absolute) 0.6 {x10E3/uL} (Normal) Range: 0.1-1.0 Lymphs (Absolute) 1.9 {x10E3/uL} (Normal) Range: 0.7-4.5 Neutrophils (Absolute) 3.8 {x10E3/uL} (Normal) Range: 1.8-7.8 Basos 1 % (Normal) Range: 0-3 Eos 4 % (Normal) Range: 0-7 Monocytes 9 % (Normal) Range: 4-13 Lymphs 28 % (Normal) Range: 14-46 Neutrophils 58 % (Normal) Range: 40-74 Platelets 216 {x10E3/uL} (Normal) Range: 140-415 RDW 14.0 % (Normal) Range: 11.7-15.0 MCHC 32.1 g/dL (Normal) Range: 32.0-36.0 MCH 31.1 pg (Normal) Range: 27.0-34.0 MCV 97 fL (Normal) Range: 80-98 Hematocrit 43.3 % (Normal) Range: 34.0-44.0 Hemoglobin 13.9 g/dL (Normal) Range: 11.5-15.0 RBC 4.47 {x10E6/uL} (Normal) Range: 3.80-5.10 WBC 6.7 {x10E3/uL} (Normal) Range: 4.0-10.5 50-Dxj-04342:03 LIPID PANEL (86213) Comments: PATIENT WAS FASTINGPERFORMED BY: [facility] CenterLaedrt7027 [facility] [id number] LDL Cholesterol Calc 106 mg/dL (Abnormal) Range: 0-99 LDL/HDL Ratio 2.3 {ratio_units} (Normal) Range: 0.0-3.2 VLDL Cholesterol Andres 63 mg/dL (Abnormal) Range: 5-40 HDL Cholesterol 47 mg/dL (Normal) Comments: According to ATP-III Guidelines, HDL-C >59 mg/dL is considered anegative risk factor for CHD. Cholesterol, Total 216 mg/dL (Abnormal) Range: 100-199 Triglycerides 313 mg/dL (Abnormal) Range: 0-149 35-Xmh-12078:03 METABOLIC PANEL, COMPREHENSIVE Comments: PATIENT WAS FASTINGPERFORMED BY: [facility] CenterThzskw7714 [facility] [id number] ([id number]) ALT (SGPT) 23 [iU]/L (Normal) Range: 0-40 AST (SGOT) 18 [iU]/L (Normal) Range: 0-40 Alkaline Phosphatase, S 102 [iU]/L (Normal) Range: 25-165 A/G Ratio 1.6 (Normal) Range: 1.1-2.5 Bilirubin, Total 0.6 mg/dL (Normal) Range: 0.0-1.2 Globulin, Total 2.7 g/dL (Normal) Range: 1.5-4.5 Albumin, Serum 4.4 g/dL (Normal) Range: 3.5-4.8 Protein, Total, Serum 7.1 g/dL (Normal) Range: 6.0-8.5 Calcium, Serum 9.7 mg/dL (Normal) Range: 8.6-10.2 Carbon Dioxide, Total 27 mmol/L (Normal) Range: 20-32 Chloride, Serum 99 mmol/L (Normal) Range: 97-108 Potassium, Serum 4.3 mmol/L (Normal) Range: 3.5-5.2 Sodium, Serum 138 mmol/L (Normal) Range: 135-145 BUN/Creatinine Ratio 21 (Normal) Range: 11-26 eGFR If Africn Am 63 mL/min/1.73 (Normal) Comments: Note: A persistent eGFR <60 mL/min/1.73 m2 (3 months or more) mayindicate chronic kidney disease. An eGFR >59 mL/min/1.73 m2 with anelevated urine protein also may indicate chronic kidney disease.Calculated using CKD-EPI formula. eGFR If NonAfricn Am 54 mL/min/1.73 (Abnormal) Creatinine, Serum 1.02 mg/dL (Abnormal) Range: 0.57-1.00 BUN 21 mg/dL (Normal) Range: 8-27 Glucose, Serum 123 mg/dL (Abnormal) Range: 65-99 63-Fxi-56314:03 MICROALBUMIN: CREATININE RATIO Comments: PATIENT WAS FASTINGPERFORMED BY: [facility] CenterNuqeos7073 [facility] [id number] ([id number]) AND (93022) Microalb/Creat Ratio 2.7 {mg/g_creat} (Normal) Range: 0.0-30.0 Microalbumin, Urine 2.0 ug/mL (Normal) Range: 0.0-17.0 Creatinine, Urine 74.8 mg/dL (Normal) Range: 15.0-278.0 24-Yoq-417451:10 URINE TRELL CULTURE (MITCH Comments: PATIENT NOT FASTINGPERFORMED BY: [employer] [id number] Information: SRC:UR [id number] COL COUNT) ([id number]) Result 1 NG36 (Normal) Comments: No growth in 36 - 48 hours. Urine Culture,Comprehensive Final report (Normal) 1-Tua-285474:30 URINE TRELL CULTURE-MITCH COL Comments: PATIENT NOT FASTINGPERFORMED BY: [employer] [id number] Information: SRC:UR ADD [id number] AND DRAW FEE [id number] COUNT ([id number]) Antimicrobial MIHEAD (Normal) Comments: S = Susceptible; I = Intermediate; R = Resistant P = Positive; N = Negative MICS are expressed in micrograms per mL Antibiotic RSLT#1 RSLT#2 Susceptibility RSLT#3 RSLT#4Ciprofloxacin SLevofloxacin SNitrofurantoin SPenicillin SVancomycin S Result 1 Enterococcus faecalis Comments: Greater than 100,000 colony forming units per mLNote: this isolate is vancomycin-susceptible.This information is provided for epidemiologic purposesonly: vancomycin is not among the antibiot icsrecommend (Normal) ed for therapy of urinary tract infectionscaused by Enterococcus.For Enterococcus species, cephalosporins, aminoglycosides (except forhigh-level resistance screening), clindamycin, and trimethoprim-sulf amethoxazole are not effective clinically. Fluoroquinolones areused primarily for treating urinary tract infections. (CLSI, T356-X64,2009) Urine Culture,Comprehensive Final report (Normal) 17-Oct-20109:09 Urinalysis, Office (07397) UA - BILIRUBIN Negative (Normal) UA - BLOOD Negative (Normal) UA - GLUCOSE Negative (Normal) UA - KETONES Negative mg/dL (Normal) UA - LEUKOCYTE ESTERASE Large (Normal) UA - NITRITE Negative (Normal) UA - PH 7.5 (Normal) UA - PROTEIN Negative mg/dL (Normal) UA - SPECIFIC GRAVITY 1.020 (Normal) URINE UROBILINGN MITCH TIMED Normal mg/dL (Normal) 1-Nbc-071354:16 HgA1C , Office (44383) HgA1C , Office 6.4 % (Normal) Range: 4.6 - 7.1 9-Mme-976262:16 Blood Glucose , Office (64926) Blood Glucose , Office 142 (Normal) 7-Yyc-272259:11 Urinalysis, Office (85766) UA - LEUKOCYTE ESTERASE Negative (Normal) UA - NITRITE Negative (Normal) URINE UROBILINGN MITCH TIMED Normal mg/dL (Normal) UA - PROTEIN Negative mg/dL (Normal) UA - BLOOD Negative (Normal) UA - SPECIFIC GRAVITY 1.020 (Normal) UA - KETONES Negative mg/dL (Normal) UA - BILIRUBIN Negative (Normal) UA - GLUCOSE Negative (Normal) 7-Qly-415592:00 UNILAT RT DIAG DIGITAL & CAD Radiology Report See Note (Normal) Comments: MAMMOGRAPHY - UNILATERAL DIAGNOSTIC: RIGHT BREAST INDICATION:Female, 75 years old. PERTINENT HISTORY:Non- contributory. This is a 6 month follow-up examination. TECHNIQUE:Digital examination. Mediolat eral oblique (MLO) and craniocaudad (CC)views of the breast were obtained. CAD: CAD was performed on this study. COMPARISON:Comparison is made with prior study dated January 23, 2010. FINDINGS:The breas t composition is composed of scattered fibroglandular densities. There are no masses or suspicious microcalcifications. No other significant abnormalities are identified. There has been nosignificant c hange since the prior study. IMPRESSION:Normal unilateral diagnostic mammogram. One year follow-up recommended.(1) ASSESSMENT CATEGORY:BIRADS Category 2: Benign finding(s). A letter regarding these r esultswill be sent to the patient by the facility within 30 days. Approximately 10% of breast cancers are not detected by mammography. Anormal mammogram should not delay biopsy of a clinically suspicio usabnormality. Dictated on 07/17/10 1206 by Earnest JONES,GabrieleTranscribed on 07/17/10 1348 by ITS IMPORTSign by Earnest JONES,Scotty on 07/17/101348 Sign by: Scotty Tinoco MD :04 LIPID PANEL (85568) Comments: PATIENT WAS FASTINGPERFORMED BY: [employer] [id number] LDL Cholesterol Calc 108 mg/dL (Abnormal) Range: 0-99 LDL/HDL Ratio 2.3 {ratio_units} (Normal) Range: 0.0-3.2 HDL Cholesterol 48 mg/dL (Normal) Comments: According to ATP-III Guidelines, HDL-C >59 mg/dL is considered anegative risk factor for CHD. Triglycerides 284 mg/dL (Abnormal) Range: 0-149 VLDL Cholesterol Andres 57 mg/dL (Abnormal) Range: 5-40 Cholesterol, Total 213 mg/dL (Abnormal) Range: 100-199 :04 MICROALBUMIN: CREATININE RATIO Comments: PATIENT WAS FASTINGPERFORMED BY: [employer] Rlyoss7081 [facility] [id number] ([id number]) AND (01246) Microalb/Creat Ratio 4.7 {mg/g_creat} (Normal) Range: 0.0-30.0 Creatinine, Urine 94.1 mg/dL (Normal) Range: 15.0-278.0 Microalbumin, Urine 4.4 ug/mL (Normal) Range: 0.0-17.0 :04 CBC WITH MANUAL DIFF Comments: PATIENT WAS FASTINGPERFORMED BY: [employer] Bnnfhi4045 [facility] [id number] Information: [id number] (28649) Baso (Absolute) 0.0 {x10E3/uL} (Normal) Range: 0.0-0.2 Immature Grans (Abs) 0.0 {x10E3/uL} (Normal) Range: 0.0-0.1 Immature Granulocytes 0 % (Normal) Range: 0-1 Eos (Absolute) 0.4 {x10E3/uL} (Normal) Range: 0.0-0.4 Lymphs (Absolute) 1.9 {x10E3/uL} (Normal) Range: 0.7-4.5 Monocytes(Absolute) 0.6 {x10E3/uL} (Normal) Range: 0.1-1.0 Neutrophils (Absolute) 3.5 {x10E3/uL} (Normal) Range: 1.8-7.8 Basos 1 % (Normal) Range: 0-3 Eos 7 % (Normal) Range: 0-7 Monocytes 9 % (Normal) Range: 4-13 Lymphs 29 % (Normal) Range: 14-46 Neutrophils 54 % (Normal) Range: 40-74 Platelets 243 {x10E3/uL} (Normal) Range: 140-415 MCHC 34.8 g/dL (Normal) Range: 32.0-36.0 RDW 12.9 % (Normal) Range: 11.7-15.0 MCH 32.4 pg (Normal) Range: 27.0-34.0 MCV 93 fL (Normal) Range: 80-98 Hematocrit 41.9 % (Normal) Range: 34.0-44.0 Hemoglobin 14.6 g/dL (Normal) Range: 11.5-15.0 RBC 4.51 {x10E6/uL} (Normal) Range: 3.80-5.10 WBC 6.4 {x10E3/uL} (Normal) Range: 4.0-10.5 :04 METABOLIC PANEL, COMPREHENSIVE Comments: PATIENT WAS FASTINGPERFORMED BY: [facility] CenterRgrpht3987 [facility] [id number]; appt 07/20/10 ([id number]) ALT (SGPT) 26 [iU]/L (Normal) Range: 0-40 Alkaline Phosphatase, S 101 [iU]/L (Normal) Range: 25-165 AST (SGOT) 22 [iU]/L (Normal) Range: 0-40 Bilirubin, Total 0.6 mg/dL (Normal) Range: 0.0-1.2 A/G Ratio 1.6 (Normal) Range: 1.1-2.5 Albumin, Serum 4.5 g/dL (Normal) Range: 3.5-4.8 Globulin, Total 2.8 g/dL (Normal) Range: 1.5-4.5 Protein, Total, Serum 7.3 g/dL (Normal) Range: 6.0-8.5 Calcium, Serum 10.0 mg/dL (Normal) Range: 8.6-10.2 Carbon Dioxide, Total 25 mmol/L (Normal) Range: 20-32 Chloride, Serum 99 mmol/L (Normal) Range: 97-108 Potassium, Serum 3.9 mmol/L (Normal) Range: 3.5-5.2 Sodium, Serum 139 mmol/L (Normal) Range: 135-145 BUN 26 mg/dL (Normal) Range: 8-27 BUN/Creatinine Ratio 25 (Normal) Range: 11-26 Creatinine, Serum 1.06 mg/dL (Abnormal) Range: 0.57-1.00 eGFR If Africn Am 60 mL/min/1.73 (Normal) Comments: Note: A persistent eGFR <60 mL/min/1.73 m2 (3 months or more) mayindicate chronic kidney disease. An eGFR >59 mL/min/1.73 m2 with anelevated urine protein also may indicate chronic kidney disease.Calculated using CKD-EPI formula. eGFR If NonAfricn Am 52 mL/min/1.73 (Abnormal) Glucose, Serum 115 mg/dL (Abnormal) Range: 65-99 26-Vvu-513566:39 URINE TRELL CULTURE-MITCH COL Comments: PATIENT NOT FASTINGPERFORMED BY: [facility] Qpipvn3623 [facility] [id number] Information: SRC:UR [id number] COUNT ([id number]) Antimicrobial MIHEAD (Normal) Comments: S = Susceptible; I = Intermediate; R = Resistant P = Positive; N = Negative MICS are expressed in micrograms per mL Antibiotic RSLT#1 RSLT#2 Susceptibility RSLT#3 RSLT#4Amikacin SAmoxicillin/Clavulanic Acid SAmpicillin RCefazolin SCefepime SCefoxitin SCeftriaxone SCiprofloxacin SESBL NErtapenem SGentamicin SImipenem S Levofloxacin SNitrofurantoin SPiperacillin/Tazobactam STobramycin STrimethoprim/Sulfa S Result 1 Klebsiella pneumoniae Comments: Greater than 100,000 colony forming units per mL (Normal) Urine Final report (Normal) Culture,Comprehensive 01-Vks-869357:56 Urinalysis, Office (67636) UA - BILIRUBIN Negative (Normal) UA - BLOOD Negative (Normal) UA - GLUCOSE Negative (Normal) UA - KETONES Negative mg/dL (Normal) UA - LEUKOCYTE ESTERASE Large (Normal) UA - NITRITE Negative (Normal) UA - PH 8.0 (Normal) UA - PROTEIN Negative mg/dL (Normal) UA - SPECIFIC GRAVITY 1.015 (Normal) URINE UROBILINGN MITCH TIMED Normal mg/dL (Normal) :39 HgA1C , Office (30914) HgA1C , Office 6.2 % (Normal) Range: 4.6 - 7.1 :39 Blood Glucose , Office (83666) Blood Glucose , Office 101 (Normal) :59 BREAST UNILATERAL Radiology Report See Note (Normal) Comments: Exam Number: [id number] LINICAL:The patient is a 74-year-old female with an abnormal right mammogram EXAMINATION:Targeted right breast ultrasound TECHNIQUE:High resolution linear images were obtained of the upper outer quadrant of the right breast COMPARISON: To mammogram of same day FINDINGS:At 11 o'clock 3 cm from the nipple there is an echolucent measuring 4 x 5 x 3 mm. This is likely to represent a small cyst however a there is no through transmission of sound and the possibility of a very homogeneous solid mass is not excluded. For further evaluation, right uncal ultrasound is recommended. IMP RESSION:At 11 o'clock there is a 5-mm echolucent margin of likely a cyst. However there is no through transmission of sound and the possibility of a very homogeneous solid nodule is not excluded. Foll ow up ultrasound in 6 months is recommended. Reported By: ROXANE COLBY M.D. :39 UNILAT RT DIAG DIGITAL & CAD Radiology Report See Note (Normal) Comments: Exam Number: [id number] AMMOGRAPHY - UNILATERAL DIAGNOSTIC: RIGHT BREAST INDICATION:Abnormal screening study and and will be no thoracentesis in PERTINENT HISTORY:Non-contributory TECHNIQUE: Digital exam ination. Mediolateral oblique (MLO) and craniocaudad (CC) views of the breast were obtained. CAD was performed on this study. COMPARISON:January 14, 2008 , January 13 2009 , January 16 2010FINDINGS :The breast composition is composed of scattered fibroglandular densities.There is an area of parenchymal density in the upper right breast. This has been seen on previous studies although it is it was more prominently visualized on January 16, 2010. This density appears focal on medial lateral oblique images. However in the mediolateral oblique spot view and in craniocaudal views it appears more like that of a superimposed parenchymal tissue. On ultrasound examination a small echolucent structure is seen . This is too small to explain the entire density in the upper half of the right breast b ut would contribute to that density. If there is no suspicious palpable abnormality, follow-up right mammogram in 6 months is recommended IMPRESSION:Density in the identified in the upper right breast most likely represents superimposed parenchymal structures. If there is no suspicious palpable abnormality, right 6 month follow-up mammogram and ultrasound is recommended. ASSESSMENT CATEGORY:Categor y 3: Probably Benign Finding - Initial Short-Interval Follow-up Suggested Approximately 10% of breast cancers are not detected by mammography. A normal mammogram should not delay biopsy of a clinicall y suspicious abnormality.This addendum is being created for the purpose of attaching a ResultCode to this exam. ADDENDUM: [id number] HPBI/MUDDR Reported By: ROXANE COLBY M.D. 7-Pua-529327:26 [facility] DIGITAL & CAD Radiology Report See Note (Normal) Comments: Exam Number: [id number] AMMOGRAPHY - BILATERAL SCREENING INDICATION:Routine annual screening examination. PERTINENT HISTORY:Non-contributory. TECHNIQUE:Digital examination. Mediolateral oblique (MLO) and craniocaudad (CC) views of both breasts were obtained. CAD was performed on this study. COMPARISON: January 14, 2008 January 13, 2009 FINDINGS:The breast composition is composed of scattered fibrogland ular densities. At the time the previous examination, there were scattered areas of fibroglandular density in both breasts. On the current study there is an area of density in the upper mid breast which is confluent and larger than densities seen on the previous examination. This region may represent pre-existing densities which have changed or a new density. The density in the suspicious of suspiciou s for a focal nodule. For further evaluation, right true lateral and roll craniocaudal views are recommended. No change is seen on the left. There are scattered calcifications on both sides.There are sc attered calcifications on both sides.There is no skin thickening or retraction and architectural distortion. IMPRESSION:There is a change in the upper mid right breast which is suspicious. Right true la teral and roll craniocaudad views are recommended. Ultrasound may be needed. ASSESSMENT CATEGORY:Change on the right. Additional views are recommended.Category O. Approximately 10% of breast cancers are not detected by mammography. A normal mammogram should not delay biopsy of a clinically suspicious abnormality.This addendum is being created for the purpose of attaching a ResultCode to this exam. ADD ENDUM: [id number] HPBI/MDS Reported By: ROXANE COLBY M.D. :13 HEPATIC FUNCTION PANEL Comments: PATIENT WAS FASTINGPERFORMED BY: [employer]tv6370 [facility] [id number] Information: [id number] (04734) ALT (SGPT) 25 [iU]/L (Normal) Range: 0-40 Alkaline Phosphatase, S 110 [iU]/L (Normal) Range: 25-165 AST (SGOT) 23 [iU]/L (Normal) Range: 0-40 Bilirubin, Direct 0.12 mg/dL (Normal) Range: 0.00-0.40 Albumin, Serum 4.5 g/dL (Normal) Range: 3.5-4.8 Bilirubin, Total 0.5 mg/dL (Normal) Range: 0.0-1.2 Protein, Total, Serum 7.6 g/dL (Normal) Range: 6.0-8.5 :13 LIPID PANEL (75738) Comments: PATIENT WAS FASTINGPERFORMED BY: [email or web address]tv6370 [facility] [id number] LDL Cholesterol Calc 128 mg/dL (Abnormal) Range: 0-99 LDL/HDL Ratio 2.7 {ratio_units} (Normal) Range: 0.0-3.2 VLDL Cholesterol Andres 65 mg/dL (Abnormal) Range: 5-40 HDL Cholesterol 48 mg/dL (Normal) Comments: According to ATP-III Guidelines, HDL-C >59 mg/dL is considered anegative risk factor for CHD. Cholesterol, Total 241 mg/dL (Abnormal) Range: 100-199 Triglycerides 327 mg/dL (Abnormal) Range: 0-149 :16 HgA1C , Office (59255) HgA1C , Office 6.3 % (Normal) Range: 4.6 - 7.1 04-Leq-317096:16 Blood Glucose , Office (46215) Blood Glucose , Office 115 (Normal) :30 MICROALBUMIN: CREATININE RATIO Comments: PATIENT WAS FASTINGPERFORMED BY: [employer] Ekgsar9969 [facility] [id number] (67049) AND (27030) Creatinine, Urine 64.8 mg/dL (Normal) Range: 15.0-278.0 Microalb/Creat Ratio 4.0 {mg/g_creat} (Normal) Range: 0.0-30.0 Microalbumin, Urine 2.6 ug/mL (Normal) Range: 0.0-17.0 :30 METABOLIC PANEL, COMPREHENSIVE Comments: PATIENT WAS FASTINGPERFORMED BY: [employer] Mqzcxx1245 [facility] [id number] (60144) Alkaline Phosphatase, S 104 [iU]/L (Normal) Range: 25-165 ALT (SGPT) 14 [iU]/L (Normal) Range: 0-40 AST (SGOT) 17 [iU]/L (Normal) Range: 0-40 Bilirubin, Total 0.6 mg/dL (Normal) Range: 0.0-1.2 A/G Ratio 1.6 (Normal) Range: 1.1-2.5 Albumin, Serum 4.4 g/dL (Normal) Range: 3.5-4.8 Globulin, Total 2.8 g/dL (Normal) Range: 1.5-4.5 Protein, Total, Serum 7.2 g/dL (Normal) Range: 6.0-8.5 Calcium, Serum 10.0 mg/dL (Normal) Range: 8.6-10.2 Carbon Dioxide, Total 23 mmol/L (Normal) Range: 20-32 Chloride, Serum 101 mmol/L (Normal) Range: 97-108 Potassium, Serum 3.5 mmol/L (Normal) Range: 3.5-5.2 BUN/Creatinine Ratio 24 (Normal) Range: 8-27 eGFR AfricanAmerican 59 mL/min/1.73 Comments: Note: Persistent reduction for 3 months or more in an eGFR<60 mL/min/1.73 m2 defines CKD. Patients with eGFR values>/=60 mL/min/1.73 m2 may also have CKD if evidence of persistentproteinur ia is (Abnormal) present. Additional information may be found [email or web address]. Sodium, Serum 141 mmol/L (Normal) Range: 135-145 Creatinine, Serum 1.10 mg/dL (Abnormal) Range: 0.57-1.00 eGFR 49 mL/min/1.73 (Abnormal) BUN 26 mg/dL (Normal) Range: 5-26 Glucose, Serum 126 mg/dL (Abnormal) Range: 65-99 :30 LIPID PANEL (71733) Comments: PATIENT WAS FASTINGPERFORMED BY: [employer]70 [facility] [id number] HDL Cholesterol 49 mg/dL (Normal) Comments: According to ATP-III Guidelines, HDL-C >59 mg/dL is considered anegative risk factor for CHD. LDL Cholesterol Calc 122 mg/dL (Abnormal) Range: 0-99 LDL/HDL Ratio 2.5 {ratio_units} (Normal) Range: 0.0-3.2 Triglycerides 325 mg/dL (Abnormal) Range: 0-149 VLDL Cholesterol Andres 65 mg/dL (Abnormal) Range: 5-40 Cholesterol, Total 236 mg/dL (Abnormal) Range: 100-199 :30 CBC WITH MANUAL DIFF Comments: PATIENT WAS FASTINGPERFORMED BY: [facility] CenterSotxbp6751 [facility] [id number] Information: [id number] (03462) Immature Grans (Abs) 0.0 {x10E3/uL} (Normal) Range: 0.0-0.1 Immature Granulocytes 0 % (Normal) Range: 0-1 Baso (Absolute) 0.0 {x10E3/uL} (Normal) Range: 0.0-0.2 Eos (Absolute) 0.3 {x10E3/uL} (Normal) Range: 0.0-0.4 Lymphs (Absolute) 1.6 {x10E3/uL} (Normal) Range: 0.7-4.5 Monocytes(Absolute) 0.5 {x10E3/uL} (Normal) Range: 0.1-1.0 Neutrophils (Absolute) 3.7 {x10E3/uL} (Normal) Range: 1.8-7.8 Basos 1 % (Normal) Range: 0-3 Eos 5 % (Normal) Range: 0-7 Lymphs 26 % (Normal) Range: 14-46 Monocytes 8 % (Normal) Range: 4-13 Neutrophils 60 % (Normal) Range: 40-74 MCH 31.2 pg (Normal) Range: 27.0-34.0 MCHC 33.7 g/dL (Normal) Range: 32.0-36.0 Platelets 221 {x10E3/uL} (Normal) Range: 140-415 RDW 13.4 % (Normal) Range: 11.7-15.0 MCV 93 fL (Normal) Range: 80-98 Hematocrit 41.8 % (Normal) Range: 34.0-44.0 Hemoglobin 14.1 g/dL (Normal) Range: 11.5-15.0 RBC 4.52 {x10E6/uL} (Normal) Range: 3.80-5.10 WBC 6.2 {x10E3/uL} (Normal) Range: 4.0-10.5 :18 HgA1C , Office (39551) HgA1C , Office 6.7 % (Normal) Range: 4.6 - 7.1 :18 Blood Glucose , Office (34453) Blood Glucose , Office 154 (Normal) :06 LIPID PANEL (29168) Comments: PATIENT WAS FASTINGPERFORMED BY: [facility] CenterDfbkaj5917 [facility] [id number] LDL Cholesterol Calc 122 mg/dL (Abnormal) Range: 0-99 LDL/HDL Ratio 2.8 {ratio_units} (Normal) Range: 0.0-3.2 HDL Cholesterol 43 mg/dL (Normal) Comments: According to ATP-III Guidelines, HDL-C >59 mg/dL is considered anegative risk factor for CHD. Triglycerides 353 mg/dL (Abnormal) Range: 0-149 VLDL Cholesterol Andres 71 mg/dL (Abnormal) Range: 5-40 Cholesterol, Total 236 mg/dL (Abnormal) Range: 100-199 :06 HEPATIC FUNCTION PANEL Comments: in three months (approximately); PATIENT WAS FASTINGPERFORMED BY: [employer] Mvsotg6470 [facility] [id number] Information: [id number] (59188) ALT (SGPT) 16 [iU]/L (Normal) Range: 0-40 Alkaline Phosphatase, S 104 [iU]/L (Normal) Range: 25-165 AST (SGOT) 18 [iU]/L (Normal) Range: 0-40 Albumin, Serum 4.3 g/dL (Normal) Range: 3.5-4.8 Bilirubin, Direct 0.14 mg/dL (Normal) Range: 0.00-0.40 Bilirubin, Total 0.5 mg/dL (Normal) Range: 0.0-1.2 Protein, Total, Serum 7.1 g/dL (Normal) Range: 6.0-8.5 93-Xtx-822486:00 HgA1C , Office (16074) HgA1C , Office 6.2 % (Normal) Range: 4.6 - 7.1 17-Kyx-188368:00 Blood Glucose , Office (84398) Blood Glucose , Office 158 (Normal) :50 CBC With Differential/Platelet Comments: PATIENT WAS FASTINGPERFORMED BY: [employer] Cxncqx5220 [facility] [id number] Baso (Absolute) 0.0 {x10E3/uL} (Normal) Range: 0.0-0.2 Eos (Absolute) 0.4 {x10E3/uL} (Normal) Range: 0.0-0.4 Lymphs (Absolute) 1.5 {x10E3/uL} (Normal) Range: 0.7-4.5 Monocytes(Absolute) 0.5 {x10E3/uL} (Normal) Range: 0.1-1.0 Neutrophils (Absolute) 3.4 {x10E3/uL} (Normal) Range: 1.8-7.8 Basos 0 % (Normal) Range: 0-3 Eos 7 % (Normal) Range: 0-7 Monocytes 8 % (Normal) Range: 4-13 Lymphs 26 % (Normal) Range: 14-46 Neutrophils 59 % (Normal) Range: 40-74 Platelets 217 {x10E3/uL} (Normal) Range: 140-415 MCH 33.3 pg (Normal) Range: 27.0-34.0 MCHC 34.7 g/dL (Normal) Range: 32.0-36.0 MCV 96 fL (Normal) Range: 80-98 RDW 13.8 % (Normal) Range: 11.7-15.0 Hematocrit 41.1 % (Normal) Range: 34.0-44.0 Hemoglobin 14.2 g/dL (Normal) Range: 11.5-15.0 RBC 4.28 {x10E6/uL} (Normal) Range: 3.80-5.10 WBC 5.8 {x10E3/uL} (Normal) Range: 4.0-10.5 31-Pfq-[id number] Comp. Metabolic Panel (14) Comments: PATIENT WAS FASTINGPERFORMED BY: [facility] [id number] [id number] ALT (SGPT) 24 [iU]/L (Normal) Range: 0-40 AST (SGOT) 22 [iU]/L (Normal) Range: 0-40 A/G Ratio 1.6 (Normal) Range: 1.1-2.5 Alkaline Phosphatase, S 98 [iU]/L (Normal) Range: 25-165 Bilirubin, Total 0.5 mg/dL (Normal) Range: 0.1-1.2 Albumin, Serum 4.6 g/dL (Normal) Range: 3.5-4.8 Globulin, Total 2.8 g/dL (Normal) Range: 1.5-4.5 Protein, Total, Serum 7.4 g/dL (Normal) Range: 6.0-8.5 Calcium, Serum 10.1 mg/dL (Normal) Range: 8.6-10.2 Carbon Dioxide, Total 23 mmol/L (Normal) Range: 20-32 Chloride, Serum 101 mmol/L (Normal) Range: 97-108 Potassium, Serum 3.9 mmol/L (Normal) Range: 3.5-5.2 Sodium, Serum 140 mmol/L (Normal) Range: 135-145 BUN/Creatinine Ratio 21 (Normal) Range: 8-27 eGFR AfricanAmerican >59 mL/min/1.73 Comments: Note: Persistent reduction for 3 months or more in an eGFR<60 mL/min/1.73 m2 defines CKD. Patients with eGFR values>/=60 mL/min/1.73 m2 may also have CKD if evidence of persistentproteinuria is (Normal) present. Additional information may be found [email or web address]. BUN 22 mg/dL (Normal) Range: 5-26 Creatinine, Serum 1.05 mg/dL (Abnormal) Range: 0.57-1.00 eGFR 51 mL/min/1.73 (Abnormal) Glucose, Serum 130 mg/dL (Abnormal) Range: 65-99 :50 Lipid Panel With LDL/HDL Comments: PATIENT WAS FASTINGPERFORMED BY: [employer]orts70 [facility] [id number] Ratio LDL Cholesterol Calc 170 mg/dL (Abnormal) Range: 0-99 LDL/HDL Ratio 3.8 {ratio_units} (Abnormal) Range: 0.0-3.2 VLDL Cholesterol Andres 76 mg/dL (Abnormal) Range: 5-40 HDL Cholesterol 45 mg/dL (Normal) Comments: According to ATP-III Guidelines, HDL-C >59 mg/dL is considered anegative risk factor for CHD. Triglycerides 381 mg/dL (Abnormal) Range: 0-149 Cholesterol, Total 291 mg/dL (Abnormal) Range: 100-199 :50 Microalb/Creat Ratio, Randm Ur Comments: PATIENT WAS FASTINGPERFORMED BY: [employer] [facility]6370 [facility] [id number] Microalb/Creat Ratio 4.4 {mg/g_creat} (Normal) Range: 0.0-30.0 Creatinine, Urine 105.7 mg/dL (Normal) Range: 15.0-278.0 Microalbumin, Urine 4.7 ug/mL (Normal) Range: 0.0-17.0 92-Phi-177183:03 URINE TRELL CULTURE-IDENTIFICATN Comments: PATIENT NOT FASTINGPERFORMED BY: BRANDO [facility] Ofqgbr5158 [facility] [id number] Information: [id number] ([id number]) Result 1 NG36 (Normal) Comments: No growth in 36 - 48 hours. Urine Culture,Comprehensive Final report (Normal) 60-Anb-911212:17 Urinalysis, Office ([id number]) UA - LEUKOCYTE ESTERASE Trace (Normal) UA - NITRITE Negative (Normal) URINE UROBILINGN MITCH TIMED Normal mg/dL (Normal) UA - PROTEIN Negative mg/dL (Normal) UA - PH 7.5 (Normal) UA - BLOOD Negative (Normal) UA - SPECIFIC GRAVITY 1.005 (Normal) UA - KETONES Negative mg/dL (Normal) UA - BILIRUBIN Negative (Normal) UA - GLUCOSE Negative (Normal) 58-Upt-890262:17 BILAT SCRN DIGITAL & CAD Radiology Report See Note (Normal) Comments: Exam Number: [id number] MAMMOGRAM, BILATERAL SCREENING DIGITAL AND CAD HISTORYRoutine screening. Full field digital images were obtained in mediolateral oblique andcraniocaudal projections. CAD images w ere reviewed. The current study is compared to the examinations of December 30, 2006,and January 14, 2008. There is moderately dense fibroglandular parenchyma present. There isno skin thickening or re traction, architectural distortion of clusterof suspicious microcalcifications. There is scattered calcificationsthroughout both breasts. These calcifications appear benign inappearance. If there is n o suspicious palpable abnormality, followupmammogram in 1 year is recommended. IMPRESSIONThere is no radiographic evidence of malignancy identified. FINAL ASSESSMENTBIRADS Category 2 - Benign. A letter regarding these results has been sent to the patient. This interpretation was rendered by a radiologist certified under theMammography Quality Standards Act of 1992 (MQSA). The mammograms werealso exa mined with computer-aided detection software ([employer] Reported By: ROXANE COLBY M.D. 65-Opw-389865:16 DEXA BONE DENSITY STUDY () Radiology Report See Note (Normal) Comments: Exam Number: [id number] BONE DENSITOMETRY HISTORYPostmenopausal. TECHNIQUE Bone densitometry of the lumbar spine and both hips is now beingperformed. The best criteria for evaluation of osteoporosis is theT-value, which represents the comparison of the patient's bone mass tanja expected peak bone mass. For most patients, the mean T-value of E8plxtoke L4 is used to evaluate the lumbar spine. To ev aluate the hip,the lower T-value of the femoral neck or total hip is used. FINDINGSIn this patient, the mean T-value of L1 through L4 is -0.5 which isnormal.Digital lateral view for evaluation of verteb ral deformity only demonstrates no obvious compression fractures. The T-value of the left femoral neck is -1.9 which is in the range ofosteopenia.The T-value of the total left hip is -1.7 which is in th e range ofosteopenia.The T-value of the right femoral neck is -1.5 which is in the range ofosteopenia.The T-value of the total right hip is -1 which is low normal. IMPRESSIONBone densitometry of the lum bar spine is within normal limits. Thereis osteopenia of both hips. Reported By: ROXANE COLBY M.D. :33 Microscopic Examination Comments: PATIENT WAS FASTINGPERFORMED BY: [email or web address] [id number] Bacteria Few (Normal) Epithelial Cells (non renal) 0-10 {/hpf} (Normal) Range: 0 - 10 Mucus Threads Present (Normal) RBC 0-3 {/hpf} (Normal) Range: 0 - 3 WBC 0-5 {/hpf} (Normal) Range: 0 - 5 :33 URINALYSIS W/O MICRO ([id number]) Comments: PATIENT WAS FASTINGPERFORMED BY: [employer] [id number] [facility] [id number] Appearance Clear (Normal) Bilirubin Negative (Normal) Glucose Negative (Normal) Ketones Negative (Normal) Microscopic Examination See below: (Normal) Nitrite, Urine Negative (Normal) Occult Blood Negative (Normal) pH 5.5 (Normal) Range: 5.0-7.5 Protein Negative (Normal) Specific Shelby 1.016 (Normal) Range: 1.005-1.030 Urine-Color Yellow (Normal) Urobilinogen,Semi-Qn 0.2 mg/dL (Normal) Range: 0.0-1.9 WBC Esterase 1+ (Abnormal) :33 MICROALBUMIN: CREATININE RATIO Comments: PATIENT WAS FASTINGPERFORMED BY: [email or web address] [facility] [id number] ([id number]) AND ([id number]) Creatinine, Urine 93.7 mg/dL (Normal) Range: 15.0-278.0 Microalb/Creat Ratio 3.6 {mg/g_creat} (Normal) Range: 0.0-30.0 Microalbumin, Urine 3.4 ug/mL (Normal) Range: 0.0-17.0 :33 METABOLIC PANEL, COMPREHENSIVE Comments: in six months (approximately); PATIENT WAS FASTINGPERFORMED BY: [email or web address] [facility] [id number] ([id number]) A/G Ratio 1.5 (Normal) Range: 1.1-2.5 Albumin, Serum 4.5 g/dL (Normal) Range: 3.5-4.8 Alkaline Phosphatase, S 89 [iU]/L (Normal) Range: 25-165 ALT (SGPT) 13 [iU]/L (Normal) Range: 0-40 AST (SGOT) 20 [iU]/L (Normal) Range: 0-40 Bilirubin, Total 0.6 mg/dL (Normal) Range: 0.1-1.2 BUN 30 mg/dL (Abnormal) Range: 5-26 BUN/Creatinine Ratio 26 (Normal) Range: 8-27 Calcium, Serum 10.4 mg/dL (Normal) Range: 8.5-10.6 Carbon Dioxide, Total 23 mmol/L (Normal) Range: 20-32 Chloride, Serum 101 mmol/L (Normal) Range: 97-108 Creatinine, Serum 1.17 mg/dL (Abnormal) Range: 0.57-1.00 eGFR 45 mL/min/1.73 (Abnormal) eGFR AfricanAmerican 55 mL/min/1.73 Comments: Note: Persistent reduction for 3 months or more in an eGFR<60 mL/min/1.73 m2 defines CKD. Patients with eGFR values>/=60 mL/min/1.73 m2 may also have CKD if evidence of persistentproteinur ia is (Abnormal) present. Additional information may be found [email or web address]. Globulin, Total 3.0 g/dL (Normal) Range: 1.5-4.5 Glucose, Serum 121 mg/dL (Abnormal) Range: 65-99 Potassium, Serum 4.2 mmol/L (Normal) Range: 3.5-5.2 Protein, Total, Serum 7.5 g/dL (Normal) Range: 6.0-8.5 Sodium, Serum 141 mmol/L (Normal) Range: 135-145 :33 LIPID PANEL ([id number]) Comments: PATIENT WAS FASTINGPERFORMED BY: [employer] [facility]70 [facility] [id number] Cholesterol, Total 239 mg/dL (Abnormal) Range: 100-199 HDL Cholesterol 40 mg/dL (Normal) Comments: According to ATP-III Guidelines, HDL-C >59 mg/dL is considered anegative risk factor for CHD. LDL Cholesterol Calc 123 mg/dL (Abnormal) Range: 0-99 LDL/HDL Ratio 3.1 {ratio_units} (Normal) Range: 0.0-3.2 Triglycerides 378 mg/dL (Abnormal) Range: 0-149 VLDL Cholesterol Andres 76 mg/dL (Abnormal) Range: 5-40 :33 CBC WITH MANUAL DIFF ([id number]) Comments: PATIENT WAS FASTINGClinical Information: ADD [id number] PERFORMED BY: [employer] [facility] [employer] [id number] [facility] [id number] Baso (Absolute) 0.1 {x10E3/uL} (Normal) Range: 0.0-0.2 Basos 1 % (Normal) Range: 0-3 Eos 5 % (Normal) Range: 0-7 Eos (Absolute) 0.3 {x10E3/uL} (Normal) Range: 0.0-0.4 Hematocrit 38.9 % (Normal) Range: 34.0-44.0 Hemoglobin 13.4 g/dL (Normal) Range: 11.5-15.0 Lymphs 28 % (Normal) Range: 14-46 Lymphs (Absolute) 1.6 {x10E3/uL} (Normal) Range: 0.7-4.5 MCH 32.1 pg (Normal) Range: 27.0-34.0 MCHC 34.4 g/dL (Normal) Range: 32.0-36.0 MCV 93 fL (Normal) Range: 80-98 Monocytes 9 % (Normal) Range: 4-13 Monocytes(Absolute) 0.5 {x10E3/uL} (Normal) Range: 0.1-1.0 Neutrophils 57 % (Normal) Range: 40-74 Neutrophils (Absolute) 3.3 {x10E3/uL} (Normal) Range: 1.8-7.8 Platelets 221 {x10E3/uL} (Normal) Range: 140-415 RBC 4.17 {x10E6/uL} (Normal) Range: 3.80-5.10 RDW 14.6 % (Normal) Range: 11.7-15.0 WBC 5.8 {x10E3/uL} (Normal) Range: 4.0-10.5 Plan of Care Name Dates Details Instructions Fungal rash of torso : Follow up in 1 month for Medicare physical and Gen med in March 2018 after 03-25-18 Indication: Fungal rash of torso Diabetes mellitus type 2, controlled : Reviewed Lab Indication: Diabetes mellitus type 2, controlled Hypertension, benign : Reviewed Lab Indication: Hypertension, benign Hyperlipidemia, unspecified : Reviewed Lab Indication: Hyperlipidemia, unspecified Current nonsmoker (Renamed from Current non-smoker) : Eprescribed prescriptions (G8553) Indication: Current nonsmoker (Renamed from Current non-smoker) Diabetes mellitus type 2, controlled : Diet, Exercise, and Wt loss Indication: Diabetes mellitus type 2, controlled Diabetes mellitus type 2, controlled : *Diabetes Education Indication: Diabetes mellitus type 2, controlled BMI 32.0-32.9,adult : Follow up in 3 months Indication: BMI 32.0-32.9,adult Diabetes mellitus type 2, controlled : Eprescribed prescriptions (G8553) Indication: Diabetes mellitus type 2, controlled BMI 32.0-32.9,adult : Follow up in 3 months Indication: BMI 32.0-32.9,adult Hyperlipidemia, unspecified : Reviewed Lab Indication: Hyperlipidemia, unspecified BMI 34.0-34.9,adult : Follow up in 3 months Indication: BMI 34.0-34.9,adult Diabetes mellitus type 2, controlled : Eprescribed prescriptions (G8553) Indication: Diabetes mellitus type 2, controlled Postmenopausal (Renamed from Postmenopausal status) : Follow up in 6 months Indication: Postmenopausal (Renamed from Postmenopausal status) Diabetes mellitus type 2, controlled : Eprescribed prescriptions (G8553) Indication: Diabetes mellitus type 2, controlled Diabetes mellitus type 2, controlled : Eprescribed prescriptions (G8553) Indication: Diabetes mellitus type 2, controlled BMI 33.0-33.9,adult : Mammogram *: gynecological health Indication: BMI 33.0-33.9,adult Diabetes mellitus type 2, controlled : Blood Glucose Test: blood Indication: Diabetes mellitus type 2, controlled Diabetes mellitus type 2, controlled : Eprescribed prescriptions (G8553) Indication: Diabetes mellitus type 2, controlled Diabetes mellitus type 2, controlled : Eprescribed prescriptions (G8553) Indication: Diabetes mellitus type 2, controlled Diabetes mellitus type 2, controlled : Eprescribed prescriptions (G8553) Indication: Diabetes mellitus type 2, controlled Eczema : Eczema: Brief Version *: dermatitis Indication: Eczema Diabetes mellitus type 2, controlled : Diabetes Mellitus: Type 2 *: diabetes Indication: Diabetes mellitus type 2, controlled Hyperlipidemia, unspecified : High Cholesterol (Hypercholesterolemia) *: cardiovascular health Indication: Hyperlipidemia, unspecified Hyperlipidemia, unspecified : High Cholesterol (Hypercholesterolemia) *: diets Indication: Hyperlipidemia, unspecified Urinary frequency : *UTI treatment Indication: Urinary frequency Urinary frequency : Water in diet, brief version Indication: Urinary frequency Dysuria : *Antibiotic Usage Education - Female Indication: Dysuria Planned Observations Metabolic Panel, Comprehensive ([id number])Indication: CKD stage G3a/A1, GFR 45-59 and albumin creatinine ratio <30 mg/g On: 9-Rzy-841032:18 Request LIPID PANEL (85055)Indication: Hyperlipidemia, unspecified On: 23-Pia-892379:42 Request Lipid Panel (11034)Indication: Hyperlipidemia, unspecified On: 48-Vuw-20173:15 Request Comments: Feb 2017 CALCIFIDIOL (50658) VIT D 25Indication: Osteopenia On: 84-Jbo-434552:17 Request URINALYSIS, W/ MICRO (31108)Indication: Diabetes mellitus type 2, controlled On: 04-Dkr-914963:17 Request METABOLIC PANEL, COMPREHENSIVE (13550)Indication: Diabetes mellitus type 2, controlled On: 68-Vud-179002:17 Request LIPID PANEL (74185)Indication: Diabetes mellitus type 2, controlled On: 58-Dev-282018:17 Request CBC with auto diff (18703)Indication: Diabetes mellitus type 2, controlled On: 75-Luk-709783:17 Request MICROALBUMIN: CREATININE RATIO (65819) AND (88919)Indication: Hyperlipidemia, unspecified On: :20 Request METABOLIC PANEL, COMPREHENSIVE (01920)Indication: Hyperlipidemia, unspecified On: 51-Wfq-031432:20 Request LIPID PANEL (54891)Indication: Hyperlipidemia, unspecified On: :20 Request METABOLIC PANEL, COMPREHENSIVE (75066)Indication: Diabetes mellitus type 2, controlled On: 97-Xqb-959064:05 Request NUCLR MOLCUL DX-INT/RPT (89532)Indication: Abnormal finding of blood chemistry, unspecified On: 43-Mcn-499586:38 Request Comments: 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 DIAG, NUCLEIC ACID, ISOLATION/EXTRACTION, HIGHLY PURIFIED (93804)Indication: Abnormal finding of blood chemistry, unspecified On: 62-Prs-025766:38 Request NUCLR MOLCUL DX-ENZY DIG (18496)Indication: Abnormal finding of blood chemistry, unspecified On: 52-Ner-070610:38 Request NUCLR MOLCUL DX-SEPARATN (24959)Indication: Abnormal finding of blood chemistry, unspecified On: 25-Yuf-010470:37 Request NUCLR MOLCUL DX-PCR EACH (54196)Indication: Abnormal finding of blood chemistry, unspecified On: 34-Ppb-578255:37 Request HEPATIC FUNCTION PANEL (01136)Indication: Abnormal finding of blood chemistry, unspecified On: 14-Zfg-717591:10 Request Comments: recheck off tylenol for 2 weeks. HEP ABC PROFILE 110564 (45621)Indication: Hyperlipidemia, unspecified On: 3-Rfp-733611:36 Request Ferritin (47681)Indication: Hyperlipidemia, unspecified On: 5-Zyr-518135:36 Request CBC WITH MANUAL DIFF (50278)Indication: Hyperlipidemia, unspecified On: 9-Mjx-720872:14 Request METABOLIC PANEL, COMPREHENSIVE (11147)Indication: Hypertension, benign On: 2-Joj-960896:14 Request Blood Glucose , Office (18584)Indication: Abnormal glucose tolerance test On: :19 Request HgA1C , Office (58422)Indication: Abnormal glucose tolerance test On: 66-Utw-86095:19 Request Planned Encounters Medical; 3 Month FU - On: 28-Mar-2018 8:15 [facility] Herminia MCKEON Mere Hope CNP Mere Dc Planned Procedures DEXA SCAN AXIAL SKELETON ([id number])By: On: 23-Dec-2017 Intent Mere Hope CNP, CNP, Mary E SCREENING DIGITAL TOMOSYNTHESIS OF On: 23-Dec-2017 Intent BREAST ([id number])By: Herminia MCKEON Mere Hope CNP Mere Dc ELECTROCARDIOGRAM, COMPLETE (ECG) On: 10-Jun-2017 Intent (20888)By: Carmenjw MCKEON Mere Hope Comments: sinus pavan LINDA Mere Dc Ultrasound - RenalBy: Jilzohreh MCKEON Mere On: 06-Mar-2017 Intent E Herminia MCKEON Mere Dc SCREENING DIGITAL TOMOSYNTHESIS OF On: 03-Sep-2016 Intent BREAST ([id number])By: Herminia MCKEON Mere Hope CNP Mere Dc DEXA SCAN AXIAL SKELETON ([id number])By: On: 03-Sep-2016 Intent Mere Hope CNP, CNP, Mary E Comments: January 2017 MAMMOGRAM, SCREENING, BOTH BREAST On: 26-Oct-2015 Intent ([id number])By: Bebo Boyd MD EKG (37802)By: Jacquelin Delgado MD On: 26-Jul-2014 Intent Comments: see scanned document of test done to see results reviewed today with patient MAMMOGRAM, SCREENING, BOTH BREAST On: 26-Jul-2014 Intent ([id number])By: Jacquelin Delgado MD DEXA SCAN AXIAL SKELETON (34662)By: On: 26-Jul-2014 Intent Jacquelin Delgado MD BILATERAL MAMMOGRAMS (34140)By: On: 07-Jan-2014 Intent Jacquelin Delgado MD MAMMOGRAM, SCREENING, BOTH BREASTS On: 29-Sep-2012 Intent ([id number])By: Jacquelin Delgado MD EKG ([id number])By: MARNIE Escamilla On: 29-Sep-2012 Intent Comments: see scanned document of test done to see results reviewed today with patient DXA, BONE DENSITY, AXIAL SKELETON On: 29-Sep-2012 Intent ([id number])By: Jacquelin Delgado MD Eprescribed prescriptions (G8553)By: On: 02-Jun-2012 Intent Long SHANK SCOURER Jazz L Ultrasound - LiverBy: Bruna JONES, On: 03-Mar-2012 Intent Jacquelin Brambila MAMMOGRAM, SCREENING, BOTH BREASTS On: 05-Nov-2011 Intent ([id number])By: Jacquelin Delgado MD EKG ([id number])By: MARNIE Escamilla On: 05-Nov-2011 Intent Eprescribed prescriptions (G8553)By: On: 14-Jun-2010 Intent Valentin DO, Pilar Pearson EKG ([id number])By: Jacquelin Delgado MD On: 24-Mar-2010 Intent MAMMOGRAM, SCREENING, BOTH BREASTS On: 15-Dec-2009 Intent ([id number])By: Jacquelin Delgado MD DXA, BONE DENSITY, AXIAL SKELETON On: 26-Nov-2008 Intent ([id number])By: Jacquelin Delgado MD MAMMOGRAM, SCREENING, BOTH BREASTS On: 26-Nov-2008 Intent ([id number])By: Jacquelin Delgado MD Instructions Name Dates Details Current nonsmoker (Renamed from Current non-smoker) : How to access health information online Indication: Current nonsmoker (Renamed from Current non-smoker) Current nonsmoker (Renamed from Current non-smoker) : How to access health information online - Detail Indication: Current nonsmoker (Renamed from Current non-smoker) Fungal rash of torso : Patient Instructions Indication: Fungal rash of torso Diabetes mellitus type 2, controlled : How to access health information online Indication: Diabetes mellitus type 2, controlled Diabetes mellitus type 2, controlled : How to access health information online - Detail Indication: Diabetes mellitus type 2, controlled BMI 32.0-32.9,adult : Patient Instructions Indication: BMI 32.0-32.9,adult Diabetes mellitus type 2, controlled : How to access health information online Indication: Diabetes mellitus type 2, controlled Diabetes mellitus type 2, controlled : How to access health information online - Detail Indication: Diabetes mellitus type 2, controlled Diabetes mellitus type 2, controlled : Patient Instructions Indication: Diabetes mellitus type 2, controlled Diabetes mellitus type 2, controlled : How to access health information online Indication: Diabetes mellitus type 2, controlled Diabetes mellitus type 2, controlled : How to access health information online - Detail Indication: Diabetes mellitus type 2, controlled Diabetes mellitus type 2, controlled : Patient Instructions Indication: Diabetes mellitus type 2, controlled Diabetes mellitus type 2, controlled : How to access health information online Indication: Diabetes mellitus type 2, controlled Diabetes mellitus type 2, controlled : How to access health information online - Detail Indication: Diabetes mellitus type 2, controlled Postmenopausal (Renamed from Postmenopausal status) : Patient Instructions Indication: Postmenopausal (Renamed from Postmenopausal status) Diabetes mellitus type 2, controlled : How to access health information online Indication: Diabetes mellitus type 2, controlled Diabetes mellitus type 2, controlled : How to access health information online - Detail Indication: Diabetes mellitus type 2, controlled Diabetes mellitus type 2, controlled : Patient Instructions Indication: Diabetes mellitus type 2, controlled Diabetes mellitus type 2, controlled : How to access health information online Indication: Diabetes mellitus type 2, controlled Diabetes mellitus type 2, controlled : How to access health information online - Detail Indication: Diabetes mellitus type 2, controlled Diabetes mellitus type 2, controlled : Patient Instructions Indication: Diabetes mellitus type 2, controlled BMI 33.0-33.9,adult : How to access health information online Indication: BMI 33.0-33.9,adult BMI 33.0-33.9,adult : How to access health information online - Detail Indication: BMI 33.0-33.9,adult BMI 33.0-33.9,adult : Patient Instructions Indication: BMI 33.0-33.9,adult Diabetes mellitus type 2, controlled : How to access health information online Indication: Diabetes mellitus type 2, controlled Diabetes mellitus type 2, controlled : How to access health information online - Detail Indication: Diabetes mellitus type 2, controlled Diabetes mellitus type 2, controlled : Patient Instructions Indication: Diabetes mellitus type 2, controlled Diabetes mellitus type 2, controlled : How to access health information online Indication: Diabetes mellitus type 2, controlled Diabetes mellitus type 2, controlled : How to access health information online - Detail Indication: Diabetes mellitus type 2, controlled Diabetes mellitus type 2, controlled : Patient Instructions Indication: Diabetes mellitus type 2, controlled Eczema : Patient Instructions Indication: Eczema BMI 35.0-35.9,adult : obesity counseling Indication: BMI 35.0-35.9,adult Diabetes mellitus type 2, controlled : Patient Instructions Indication: Diabetes mellitus type 2, controlled Diabetes mellitus type 2, controlled : Patient Instructions Indication: Diabetes mellitus type 2, controlled Hyperlipidemia, unspecified : Patient Instructions Indication: Hyperlipidemia, unspecified Encounters Office Visit On: 23-Dec-2017 9:39 Encounter Reason: Follow up for chronic medical issues - The patient feels well with minor complaints (rash), has good energy level and is sleeping well. Patient has been compliant with instructions. Current medication u End: 23-Dec-2017 10:26 se: no side effects, compliant with dosing regimen and considered effective by patient. Patient sleeps 6 (6-8) hours per night. Nutrition: balanced diet and supplemental vitamins. The medical issues the patient is following up for include All identified problems below, blood sugar issues, high blood pressure and high cholesterol. Note for Follow up for chronic medical issues: Improved diet via omitting cookies, [ADDITIONAL REASON] Follow up tests - Diagnostic tests include other (labs). Date: (12/17/17). , [ADDITIONAL REASON] Rash - Symptoms include pruritus and skin redness. The skin rash is located on t he left truncal area and right truncal area. Onset was 6 week(s) ago. 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 Patient has been compliant with instructions. Current medication use: expe End: 17-Sep-2017 11:47 riencing side effects (metformin stopped due to tiredness, leg cramps, blurred vision) and compliant with dosing regimen. Patient sleeps 6 (6-7) hours per night. Nutrition: balanced diet and supplementa l vitamins. The medical issues the patient is following up for include All identified problems below, blood sugar issues, high blood pressure and high cholesterol. weight :. 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 Since going to diabetic class and stopping cookies BS has improvedEncounter Diagnosis: Diabetes mellitus type 2, controlled, Current nonsmoker (Renamed from Current non- smoker), BMI 32.0-32.9,adult, Hypertension, benign, Hyperlipidemia, unspecified [facility] Office Visit On: 10-Jun-2017 10:37 Encounter Reason: Follow up tests - Date: (06/04/17 labs)., [ADDITIONAL REASON] Follow up for chronic medical issues - The patient feels well with minor complai End: 10-Jun-2017 11:30 nts, has good energy level and is sleeping poorly. Patient has been compliant with instructions. Current medication use: no side effects and compliant with dosing regimen. Patient sleeps 6 hours per nig ht. Nutrition: balanced diet and supplemental vitamins. The medical issues the patient is following up for include All identified problems below, blood sugar issues, high blood pressure and high cholesterol. weight :. Encounter Diagnosis: Diabetes mellitus type 2, controlled, Current nonsmoker (Renamed from Current non- smoker), BMI 32.0-32.9,adult, Hyperlipidemia, unspecified, Hypertension, benign, Vitamin B12 deficiency [facility] Office Visit On: 06-Mar-2017 8:40 Encounter Reason: Follow up for chronic medical issues - The patient feels well with no complaints, has good energy level and is sleeping well. Patient has been compliant with instructions. Current medication use: no mony End: 06-Mar-2017 9:40 e effects, compliant with dosing regimen and considered effective by patient. Patient sleeps 7 (6-8) hours per night. Impact of disease: no emotional impact. Nutrition: balanced diet and supplemental vi tamins. The medical issues the patient is following up for include blood sugar issues, high blood pressure and high cholesterol., [ADDITIONAL REASON] Follow up tests - Diagnostic tests include other (labs). Date: (02/25/2017). Not e for Discuss procedure results: Feeling well no major problems Encounter Diagnosis: Diabetes mellitus type 2, controlled, Current nonsmoker (Renamed from Current non-smoker), Hypertension, benign, BMI 34.0-34.9,adult, Hyperlipidemia, unspecified, CKD stage G3a/A1, GFR 45-59 and albumin creatinine ratio <30 mg/g [facility] Lab Order On: 12-Sep-2016 16:41 Encounter Diagnosis: Hyperlipidemia, unspecified End: 12-Sep-2016 16:42 [facility] Office Visit On: 03-Sep-2016 7:37 Encounter Reason: Follow up for chronic medical issues - The patient feels well with no complaints, has good energy level and is sleeping well. Patient has been compliant with instructions. Current medication use: no mony End: 03-Sep-2016 9:25 e effects, compliant with dosing regimen and considered effective by patient. Patient sleeps 7 (6-8) hours per night. The medical issues the patient is following up for include All identified problems below., [ADDITIONAL REASON] Follow up tests - Diagnostic tests include other (labs). Follow up visit with no current symptoms. Encounter Diagnosis: Diabetes mellitus type 2, controlled, BMI 34.0-34.9,adult, Current nonsmoker (Renamed from Current non-smoker), Hypertension, benign, Hyperlipidemia, unspecified, Abnormal mammogram (793.80), Postmenopausal (Renamed from Postmenopausal status), Encounter for screening mammogram for breast cancer (Renamed from Encounter for screening mammogram for malignant neoplasm of breast) [facility] Office Visit On: 01-Feb-2016 8:14 Encounter Reason: Follow up for chronic medical issues - The patient feels well with minor complaints, has good energy level and is sleeping well. Current medication use: no side effects, compliant with dosing regimen an End: 01-Feb-2016 15:41 d considered effective by patient. Patient sleeps 7 hours per night. The medical issues the patient is following up for include All identified problems below.Encounter Diagnosis: Diabetes mellitus type 2, controlled, BMI 34.0-34.9,adult, Current nonsmoker (Renamed from Current non-smoker), Itching, Hyperlipidemia, unspecified, Osteopenia, Hypertension, benign, Creatinine elevation [facility] Phone Encounter On: 26-Jan-2016 13:23 Encounter Diagnosis: Abnormal urinalysis End: 26-Jan-2016 13:26 [facility] Phone Encounter On: 26-Oct-2015 15:33 Encounter Diagnosis: Encounter for screening mammogram for breast cancer (Renamed from Encounter for screening mammogram for malignant neoplasm of breast) End: 26-Oct-2015 15:34 [facility] Office Visit On: 25-Jul-2015 8:23 Encounter Reason: Follow up for chronic medical issues - The patient feels well with no complaints, has good energy level and is sleeping well. Patient has been compliant with instructions. Current medication use: no mony End: 25-Jul-2015 8:58 e effects, compliant with dosing regimen and considered effective by patient. Patient sleeps 7 hours per night. Impact of disease: emotional impact-mild. Nutrition: balanced diet and supplemental vitami ns. The medical issues the patient is following up for include blood sugar issues, cardiac issues, high blood pressure, high cholesterol and osteoporosis/osteopenia.Encounter Diagnosis: Diabetes mellitus type 2, controlled, Current nonsmoker (Renamed from Current non-smoker), Partial degenerative rupture of biceps tendon, right, BMI 33.0-33.9,adult, Hypertension, benign, Osteopenia, Hyperlipidemia, unspecified [facility] Office Visit On: 24-Jan-2015 9:04 Encounter Reason: Annual Medicare Exam - The patient had reviewed and updated the family history, medication/s, past medical history and social history. Yes the patient did have a mini mental status exam done today. The End: 24-Jan-2015 9:41 activities of daily living the patient needs help with are none. The patient has driven in past 6 months, but the patient has not had fecal incontinence, had urinary incontinence, missed or ran out of m edications to soon, fallen in the past 6 months, gotten lost, has a medalert necklace or bracelet, put area rugs through house or put handrails in bathroom. The patient has completed the following preve ntative measures: PAP smear (over 70 years old and hx. partial hysterectomy ), mammography (apt. 01-25-15 @ ) and colonoscopy (2013 ). The patient does have durable power of car customizer and living will. The patient has noticed nothing from the geriatic depression scale. Other providers contributing to the patient's care are gastrologist (Dr. Castellano ) and other: (Opthalm: Dr. Ye Hernandez ).Encounter Diagnosis: Annual Medicare Physical (V70.0) , BMI 33.0-33.9,adult, Current nonsmoker (Renamed from Current non-smoker), Diabetes mellitus type 2, controlled, Partial degenerative rupture of biceps tendon, right, Osteopenia (733.90), Hyperlipidemia, unspecified, Hypertension, benign [facility] Office Visit On: 26-Jul-2014 9:31 Encounter Reason: Follow up for chronic medical issues - The patient feels well with minor complaints (R arm), has good energy level and is sleeping well. Patient has been compliant with instructions. Current medication End: 26-Jul-2014 10:24 use: no side effects, compliant with dosing regimen and considered effective by patient. Patient sleeps 6 hours per night. Impact of disease: emotional impact- mild. Nutrition: balanced diet and suppleme ntal vitamins. The medical issues the patient is following up for include blood sugar issues, cardiac issues, high blood pressure, high cholesterol and osteoporosis/osteopenia., [ADDITIONAL REASON] Follow up tests - Date: (07/19/14 blood work). Encounter Diagnosis: Diabetes type II,controlled no comp (250.00), Hypertension,benign(401.1), Osteopenia (733.90), BMI 35.0-35.9, ADULT (V85.35), Hyperlipidemia, Unspecified (272.4), Breast screening, Partial degenerative rupture of biceps tendon, right [facility] Office Visit On: 25-Jan-2014 13:02 Encounter Reason: Follow up for chronic medical issues - The patient feels well with no complaints, has good energy level and is sleeping well. Patient has been compliant with instructions. Current medication use: no mony End: 25-Jan-2014 13:32 e effects, compliant with dosing regimen and considered effective by patient. Patient sleeps 6 hours per night. Impact of disease: emotional impact-mild. Nutrition: balanced diet and supplemental vitami ns. The medical issues the patient is following up for include blood sugar issues, cardiac issues, high blood pressure, high cholesterol and osteoporosis/osteopenia.Encounter Diagnosis: Hyperlipidemia, Unspecified (272.4), Osteopenia (733.90), Hypertension,benign(401.1), Diabetes type II,controlled no comp (250.00), BMI 35.0- 35.9, ADULT (V85.35), Breast screening [facility] Phone Encounter On: 07-Jan-2014 14:58 Encounter Diagnosis: Breast screening End: 07-Jan-2014 15:00 [facility] Office Visit On: 27-Jul-2013 10:28 Encounter Reason: Follow up for chronic medical issues - The patient feels well with no complaints, has good energy level and is sleeping well. Patient has been compliant with instructions. Current medication use: no mony End: 27-Jul-2013 10:53 e effects, compliant with dosing regimen and considered effective by patient. Patient sleeps 6 hours per night. Impact of disease: emotional impact-mild. Nutrition: balanced diet and supplemental vitami ns. The medical issues the patient is following up for include blood sugar issues, cardiac issues, high blood pressure, high cholesterol and osteoporosis/osteopenia.Encounter Diagnosis: Diabetes type II,controlled no comp (250.00), Hyperlipidemia, Unspecified (272.4), BMI 35.0-35.9, ADULT (V85.35), Hypertension,benign(401.1), Osteopenia (733.90), WWV V73.21 [facility] Historical Summary On: 23-Apr-2013 7:43 [facility] End: 23-Apr-2013 7:44 Office Visit On: 26-Jan-2013 10:37 Encounter Reason: Follow up for chronic medical issues - The patient feels well with minor complaints, has good energy level and is sleeping well. Patient has been compliant with instructions. Current medication use: no End: 26-Jan-2013 11:18 side effects, compliant with dosing regimen and considered effective by patient. Patient sleeps 7 hours per night. Impact of disease: emotional impact-mild. Nutrition: balanced diet and supplemental vit amins. The medical issues the patient is following up for include blood sugar issues, high blood pressure, high cholesterol, osteoporosis/osteopenia and other (eczema, elevated LFT's )., [ADDITIONAL REASON] Annual Medicare Exam - The patient had reviewed and updated the family history, medication/s, past medical history and social history. Encounter Diagnosis: Eczema (692.9), Diabetes type II,controlled no comp (250.00), BMI 35.0-35.9, ADULT (V85.35), Elevated LFT (794.8), Osteopenia (733.90), Hypertension,benign(401.1), Hyperlipidemia, Unspecified (272.4), WWV V73.21, Annual Medicare Physical (V70.0) [facility] Lab Order On: 16-Jan-2013 9:54 Encounter Diagnosis: Hyperlipidemia, Unspecified (272.4), Hypertension,benign(401.1) End: 16-Jan-2013 9:59 [facility] Phone Encounter On: 30-Sep-2012 17:05 Encounter Diagnosis: Diabetes type II,controlled no comp (250.00) End: 30-Sep-2012 17:06 [facility] Office Visit On: 29-Sep-2012 7:11 Encounter Reason: Follow up for chronic medical issues - The patient feels well with minor complaints and has good energy level. Patient has been compliant with instructions. Current medication use: no side effects, comp End: 29-Sep-2012 10:44 liant with dosing regimen and considered effective by patient. Patient sleeps 7 hours per night. Impact of disease: emotional impact-mild. Nutrition: balanced diet and supplemental vitamins. The medical issues the patient is following up for include blood sugar issues, cardiac issues, high blood pressure, high cholesterol and other (elevated lft's ).Encounter Diagnosis: Diabetes type II,controlled no comp (250.00), Hypertension,benign(401.1), Osteopenia (733.90), Abnormal mammogram (793.80), WWV V73.21, Hyperlipidemia, Unspecified (272.4), Elevated LFT (794.8), BMI 35.0-35.9, ADULT (V85.35) [facility] Office Visit On: 02-Jun-2012 8:08 Encounter Reason: Follow up for chronic medical issues - The patient feels well with no complaints, has good energy level and is sleeping well. Patient has been compliant with instructions. Current medication use: no mony End: 02-Jun-2012 9:56 e effects, compliant with dosing regimen and considered effective by patient. Patient sleeps 7 hours per night. Impact of disease: emotional impact-mild. Nutrition: balanced diet and supplemental vitami ns. The medical issues the patient is following up for include blood sugar issues, cardiac issues, high blood pressure, high cholesterol and osteoporosis/osteopenia.Encounter Diagnosis: Diabetes type II,controlled no comp (250.00), Eczema (692.9), Abnormal mammogram (793.80), Elevated LFT (794.8), Hemorrhoids (455.8), Abnormal blood chemistry (790.6), Abnormal Glucose Tolerance Test (790.22), Dupuytren's contracture of hand (728.6), Hyperlipidemia, Unspecified (272.4), Osteopenia (733.90), Hypertension,benign(401.1), WWV V73.21 [facility] Prescription Refill On: 07-Apr-2012 17:07 Encounter Diagnosis: Hyperlipidemia, Unspecified (272.4) End: 07-Apr-2012 17:08 [facility] Office Visit On: 03-Mar-2012 9:43 Encounter Reason: Follow up for chronic medical issues - The patient feels well with no complaints, has good energy level and is sleeping well. Patient has been compliant with instructions. Current medication use: no mony End: 03-Mar-2012 10:39 e effects, compliant with dosing regimen and considered effective by patient. Patient sleeps 7 hours per night. Impact of disease: emotional impact-mild. Nutrition: balanced diet and supplemental vitami ns. The medical issues the patient is following up for include blood sugar issues, cardiac issues, high blood pressure, high cholesterol and osteoporosis/osteopenia.Encounter Diagnosis: Diabetes type II,controlled no comp (250.00), Hyperlipidemia, Unspecified (272.4), Elevated LFT (794.8), Hypertension,benign(401.1), WWV V73.21, Osteopenia (733.90), Dupuytren's contracture of hand (728.6) [facility] Annotation/Addendum On: 25-Feb-2012 10:10 Encounter Diagnosis: Abnormal blood chemistry (790.6) End: 25-Feb-2012 20:45 [facility] Phone Encounter On: 22-Feb-2012 14:30 Encounter Diagnosis: Hyperlipidemia, Unspecified (272.4) End: 22-Feb-2012 14:37 [facility] Office Visit On: 05-Nov-2011 10:22 Encounter Reason: Follow up for chronic medical issues - The patient feels well with no complaints, has good energy level and is sleeping well. Patient has been compliant with instructions. Current medication use: no mony End: 05-Nov-2011 11:11 e effects, compliant with dosing regimen and considered effective by patient. Patient sleeps 7 hours per night. Impact of disease: emotional impact-mild. Nutrition: balanced diet and supplemental vitami ns. The medical issues the patient is following up for include blood sugar issues, cardiac issues, high blood pressure, high cholesterol and osteoporosis/osteopenia.Encounter Diagnosis: Diabetes type II,controlled no comp (250.00), Hyperlipidemia, Unspecified (272.4), Hypertension,benign(401.1), Osteopenia (733.90), WWV V73.21 [facility] Office Visit On: 30-Jul-2011 9:38 Encounter Reason: Follow up for chronic medical issues - The patient feels well with minor complaints, has good energy level and is sleeping well. Patient has been compliant with instructions. Current medication use: exp End: 31-Jul-2011 5:52 eriencing side effects (muscle aches ?from generic lipitor ) and compliant with dosing regimen. Patient sleeps 7 hours per night. Impact of disease: emotional impact-mild. Nutrition: balanced diet and s upplemental vitamins. The medical issues the patient is following up for include blood sugar issues, cardiac issues, high blood pressure and osteoporosis/osteopenia.Encounter Diagnosis: Diabetes type II,controlled no comp (250.00), Hyperlipidemia, Unspecified (272.4), Hypertension,benign(401.1), Osteopenia (733.90) [facility] Lab Order On: 19-Jul-2011 7:14 Encounter Diagnosis: Hyperlipidemia, Unspecified (272.4), Hypertension,benign(401.1) End: 19-Jul-2011 7:17 [facility] Office Visit On: 23-Jan-2011 9:34 Encounter Reason: Follow up for chronic medical issues - The patient feels well with minor complaints, has good energy level and is sleeping well. Patient has been compliant with instructions. Current medication use: no End: 25-Jan-2011 14:18 side effects, compliant with dosing regimen and considered effective by patient. Patient sleeps 8 hours per night. Impact of disease: emotional impact-mild. Nutrition: balanced diet and supplemental vit amins. The medical issues the patient is following up for include blood sugar issues, cardiac issues, high blood pressure, high cholesterol and osteoporosis/osteopenia.Encounter Diagnosis: Osteopenia (733.90), Hyperlipidemia, Unspecified (272.4), Hypertension,benign(401.1), [facility] V73.21, Diabetes type II,controlled no comp (250.00) [facility] Phone Encounter On: 10-Nov-2010 15:36 Encounter Diagnosis: URINARY FREQUENCY (788.41) End: 10-Nov-2010 15:37 [facility] Office Visit On: 17-Oct-2010 9:04 Encounter Reason: UTI - The urinary symptoms are described as frequency and urgency. The symptoms have been occurring for 1 week and have been ??increasing. The urine is described as yellow. The symptoms have been associ End: 17-Oct-2010 9:33 ated with abdominal pain and low back pain, while the symptoms have not been associated with fever, chills, diarrhea, nausea, vomiting or vaginal discharge. There is no history of use of tampons, douchi ng, use of contraceptive devices, recent catheterization or current catheterization. There is a medical history of diabetes and recurrent urinary tract infections, while there is no history of menopause , immuno-deficiency or renal disease. The patient denies the use of oral contraceptives, antibiotics, hormone replacement therapy or pyridium/uristat.Encounter Diagnosis: URINARY FREQUENCY (788.41) [facility] Office Visit On: 20-Jul-2010 10:08 Encounter Reason: Follow up for chronic medical issues - The patient feels well with no complaints, has good energy level and is sleeping well. Patient has been compliant with instructions. Current medication use: no mony End: 20-Jul-2010 10:57 e effects. Patient sleeps 6 hours per night. Impact of disease: no overall impact. Nutrition: balanced diet. The medical issues the patient is following up for include All identified problems below and high blood pressure. blood pressure range : (Has been running on high side at home, High 130's/80).Encounter Diagnosis: Abnormal Glucose Tolerance Test (790.22), URINARY FREQUENCY (788.41), Hypertension,benign(401.1), Osteopenia (733.90), CANDIDIASIS, MOUTH (THRUSH) (112.0), Hyperlipidemia, Unspecified (272.4), Abnormal mammogram (793.80) [facility] Office Visit On: 14-Jun-2010 10:52 Encounter Reason: Dysuria - The onset of the dysuria has been sudden and has been occurring in a persistent pattern for 4 days. The course has been constant. The dysuria is described as moderate. The quality of the pain End: 14-Jun-2010 11:10 is described as a burning sensation The dysuria is described as being located in the vaginal area. The dysuria does not radiate. The symptoms have been associated with frequency, past history of urinary tract infections and urgency, while the symptoms have not been associated with chills, fever, flank pain, hematuria, history of passing a stone, incontinence, urethral discharge or vaginal discharge. N ote for Dysuria: Pt has had a pulling sensation in her bladder for the last 6 weeks. Pt has hx of prolapsed bladder.- no fever- mostly dysuria- doesnt get these frequently- not alot of caffeineEncounter Diagnosis: SYMPTOM, DYSURIA (788.1) [facility] Office Visit On: 24-Mar-2010 9:37 Encounter Reason: Follow up for chronic medical issues - The patient feels well with no complaints, has good energy level and is sleeping well. Patient has been compliant with instructions. Current medication use: no mony End: 24-Mar-2010 10:28 e effects, compliant with dosing regimen and considered effective by patient. Patient sleeps 7 hours per night. Impact of disease: emotional impact-mild. Nutrition: balanced diet and supplemental vitami ns. The medical issues the patient is following up for include blood sugar issues, cardiac issues, high blood pressure and high cholesterol.Encounter Diagnosis: Abnormal Glucose Tolerance Test (790.22), Hemorrhoids (455.8), Hypertension,benign(401.1), Osteopenia (733.90), Hyperlipidemia, Unspecified (272.4), Abnormal mammogram (793.80) [facility] Office Visit On: 15-Dec-2009 10:14 Encounter Reason: Follow up for chronic medical issues - The patient feels well with minor complaints ,has good energy level and is sleeping well. Patient has been compliant with instructions. Current medication use: exp End: 15-Dec-2009 10:56 eriencing side effects (niacin caused rash). Patient sleeps 7 hours per night. Impact of disease: emotional impact-mild. Nutrition: balanced diet and supplemental vitamins. The medical issues the patien t is following up for include blood sugar issues ,cardiac issues ,high blood pressure ,high cholesterol ,osteoporosis/osteopenia and other (hemorrhoids). Encounter Diagnosis: Hyperlipidemia, Unspecified (272.4), Hypertension,benign(401.1), Abnormal Glucose Tolerance Test (790.22), Hemorrhoids (455.8), Osteopenia (733.90), WWV V73.21 [facility] Office Visit On: 13-Sep-2009 10:17 Encounter Reason: Follow up for chronic medical issues - The patient feels well with minor complaints and has decreased energy level. Patient has been compliant with instructions. Current medication use: experiencing mony End: 13-Sep-2009 10:42 e effects (niasapn see note below). Patient sleeps 7 hours per night. Impact of disease: emotional impact-mild. Nutrition: balanced diet and supplemental vitamins. The medical issues the patient is foll owing up for include blood sugar issues ,cardiac issues ,high blood pressure ,high cholesterol and osteoporosis/osteopenia. Encounter Diagnosis: Abnormal Glucose Tolerance Test (790.22), Osteopenia (733.90), WWV V73.21, Hyperlipidemia, Unspecified (272.4), Hypoglycemia (251.2), Hemorrhoids (455.8), Hypertension,benign(401.1) [facility] Office Visit On: 14-Jun-2009 9:55 Encounter Reason: Follow up for chronic medical issues - The patient feels well with no complaints ,has good energy level and is sleeping well. Patient has been compliant with instructions. Current medication use: no mony End: 14-Jun-2009 10:57 e effects ,compliant with dosing regimen and considered effective by patient. Patient sleeps 7 hours per night. Impact of disease: emotional impact-mild. Nutrition: balanced diet and supplemental vitami ns. The medical issues the patient is following up for include blood sugar issues ,cardiac issues ,high blood pressure ,high cholesterol ,osteoporosis/osteopenia and other (hemorrhoids, obesity). Encounter Diagnosis: Hypertension,benign(401.1), Hemorrhoids (455.8), Hyperlipidemia, Unspecified (272.4), Abnormal Glucose Tolerance Test (790.22), Hypoglycemia (251.2), Osteopenia (733.90), WWV V73.21 [facility] Office Visit On: 28-Mar-2009 14:11 Encounter Reason: vaginal itching - The discharge has been occurring for 2 weeks and has been constant. The discharge has been scant and is characterized as watery. The symptoms have been associated with dysuria (end of End: 28-Mar-2009 14:52 stream) ,urinary frequency ,perineal pruritus ,urinary burning ,ano-rectal pruritis (burning) and vulvar pruritis, while the symptoms have not been associated with fever ,pain with defecation ,perineal pain ,skin rash ,urinary urgency ,vulvar lesion ,abdominal pain ,chills ,diarrhea ,vulvar irritation ,nausea ,vaginal bleeding ,headache ,pain with intercourse ,vomiting ,post-coital bleeding ,skin lesi ons ,sore throat or urinary retention. There is a history of no new detergants, while there is no history of wearing tight fitting undergarments or uses bubble baths. There is no medical history of diab etes ,immunosuppression or recurrent urinary tract infections. The patient denies the use of oral contraceptives ,antibiotics or hormone replacement therapy. Encounter Diagnosis: SYMPTOM, DYSURIA (788.1) [facility] Office Visit On: 26-Nov-2008 8:51 Encounter Reason: new patient female physical - Last seen between 6-12 months ago. General health: feels well with no complaints. The patient's appetite is normal. Nutrition: appropriate balanced diet. Exercises 7 days p End: 26-Nov-2008 9:51 er week. Sleeps on average 6 hours per night. Normal bowel and bladder habits. Safety measures include appropriate use of safety belts , but do not include home smoke detectors. There are no current emotional problems. screening, colonoscopy (07/17). Encounter Diagnosis: Hyperlipidemia, Unspecified (272.4), Hemorrhoids (455.8), Hypertension,benign(401.1), WWV V73.21, Abnormal Glucose Tolerance Test (790.22), Hypoglycemia (251.2), Osteopenia (733.90) [facility] Historical Summary On: 08-Nov-2008 11:08 [facility] End: 08-Nov-2008 11:14 Payers [employer] Andreas Guzman; jw guarantor
--- OUTSIDE RECORDS SUMMARY | 2018-04-10 21:40 | XMS RPT_ITS | Continuity of Care Document ---
:1935 Author Organization [facility] Address [address] [place] [address] Phone Care Team Providers Name Role Phone [...] MG Oral Tablet 1 Tablet QD for 90 days Quantity: 90 {Tablet} Refills: 1 Ordered:24-Dec-2017 Mere Hope CNP, CNP, Mary E Start : 24-Dec-2017 Active Atorvastatin Calcium 10 MG Oral Tablet 1 (one) Tablet qd for 0 days Quantity: 90 {Tablet} Refills: 3 Ordered:30-Sep-2017 Mere Hope CNP, CNP, Mary E Start : 30-Sep-2017 Active FISH OIL, 1000MG (Oral Capsule Delayed Release) 2 tid (1000 MG) Active Indapamide 2.5 MG Oral Tablet 1 Tablet QD for 90 days Quantity: 90 {Tablet} Refills: 1 Ordered:24-Dec-2017 Herminia MCKEON, Mere Finley CNP, Mere Dc Start : 24-Dec-2017 Active MULTIVITAMIN (PO Tab) 1 QD for [...] days Quantity: 30 {Tablet} Refills: 11 Ordered:17-Sep-2017 Marisabel Rouse LPN Start : 06-Mar-2017 End : 17-Sep-2017 Inactive MYCELEX, 10MG (Mouth/Throat Blank) 1 Blank use 5 times a day for 0 days Quantity: 50 {Blank} Refills: 0 Ordered:23-Jan-2011 MARNIE Escamilla Start : 20-Jul-2010 End : 23-Jan-2011 Inactive PYRIDIUM, 100MG (Oral Tablet) 1 Tablet tid for 2 days Quantity: 6 {Tablet} Refills: 0 Ordered:30-Mar-2009 Herminia BUSINESS SALES CONSULTANT, Mere Finley BUSINESS SALES CONSULTANT, Mere Dc Start : 28-Mar-2009 End : [...] and Bladder Result: Comments: See Note; NOTES: [facility] Imaging Services [address] [place] [address] Kidney and Bladder MR#: [id number] Acct: [id number] Name: SANDRINE GUZMAN Rep #: [id number] : 1935 F 81 From: George Luo DO PCP: Mere Hope NP Status: REG CLI Study: Kidney and Bladder Date of Exam: 03/20/17 Exam# [id number] Ordering Dr: Mere Hope STUDY: RENAL ULTRASOUND [...] Signed: George ZarcoonDO at 11:24 EST Tel [phone], Service support , CC: Mere Hope TRAINING MGR Patient Account Representative: Signed 30-Jan-2017 SCREENING MAMM (CAD), BILAT Result: Comments: See Note; NOTES: [facility] Imaging Services [address] [place] [address] SCREENING MAMM (CAD), BILAT MR#: [id number] Acct: [id number] Name: SANDRINE GUZMAN Rep # : [id number] : 1935 F 81 From: Scotty Tinoco MD PCP: Mere Hope Status: REG CLI Study: SCREENING MAMM (CAD), BILAT Date of Exam: 01/30/17 Exam# [id number] Ordering Dr: Mere Hope MAMMOG ASHA - [...] delay biopsy of a clinically suspicious abnormality. [id number] Electronically Signed: Scotty Tinoco MD at 10:50 EST Tel [phone], Se rvice support , CC: Mere Hpoe Patient Account Representative: Signed 30-Jan-2016 Bilat Scrn Digital AND CAD Result: Comments: See Note; NOTES: [facility] Imaging Services [address] [place] [address] Verdana 4d Bilat Scrn Digital AND CAD MR#: [id number] Acct: [id number] Name: RADHA GUZMAN CIA Rep #: [id number] : 1935 F 80 From: Scotty Tinoco MD PCP: Bebo Boyd Status: REG CLI Study: Bilat Scrn Digital AND CAD Date of Exam: 01/30/16 Exam# [id number] Ordering Dr: Minnie Boyd en MAMMOGRAPHY - [...] delay biopsy of a clinically suspicious abnormality. [id number] Electronically Signed: Scotty Tinoco MD 2015 at 9:17 EST Tel [phone], Service support [phone], CC: Bebo Boyd Patient Account Representative: Signed 25-Jan-2015 Bilat Scrn Digital AND CAD Result: Comments: See Note; NOTES: [facility] Imaging Services [address] [place] [address] Verdana 4d Bilat Scrn Digital AND CAD MR#: [id number] Acct: [id number] Name: SANDRINE GUZMAN Rep #: [id number] : 1935 F 79 From: Scotty Tinoco MD PCP: Jacquelin Delgado MD Status: REG CLI Study: Bilat Scrn Digital AND CAD Date of Exam: 01/25/15 Exam# [id number] Ord ering Dr: Jacquelin Delgado MD MAMMOGRAPHY [...] Scotty Tinoco MD at 9:53 EST T [phone], Service support [phone], CC: Jacquelin Delgado MD Patient Account Representative: Signed 25-Jan-2015 Dexa Bone Density Study (HP) Result: Comments: See Note; NOTES: [facility] Imaging Services [address] [place] [address] Verdana 4d Dexa Bone Density Study (HP) MR#: [id number] Acct: [id number] Name : SANDRINE GUZMAN Rep #: [id number] : 1935 F 79 From: Scotty Tinoco MD PCP: Jacquelin Delgado MD Status: REG CLI Study: Dexa Bone Density Study (HP) Date of Exam: 01/25/15 Exam# [id number] Ordering Dr: Jacquelin Delgado MD STUDY: DUAL [...] Scotty Tinoco MD at 8:04 EST Tel [phone], Service support [phone], CC: Jacquelin Delgado MD Patient Account Representative: Signed 22-Jan-2014 Bilat Scrn Digital & CAD Result: Comments: See Note; NOTES: [facility] Imaging Services [address] [place] [address] Breast Imaging Report MR#: [id number] Acct: [id number] Name: SANDRINE GUZMAN Rep # : [id number] : 1935 F 78 From: Scotty Tinoco MD PCP: Jacquelin Delgado MD Status: REG CLI Exam# [id number] Ordering Dr: Jacquelin Delgado MD MAMMOGRAPHY - [...] (A) ASSESSMENT CATEGORY: CC: Jacquelin Delgado MD Patient Account Representative: Signed 21-Jan-2013 Dexa Bone Density Study (HP) Result: Comments: See Note; NOTES: [facility] Imaging Services [address] [place] [address] Bone Density Report MR#: [id number] Acct: [id number] Name: SANDRINE GUZMAN DAXA Rep # : [id number] : 1935 F 77 From: Scotty Tinoco MD PCP: Jacquelin Delgado MD Status: REG CLI Study: Dexa Bone Density Study (HP) Date of Exam: 01/21/13 Exam# [id number] Ordering Dr: Shelton Delgado MD STUDY: DUAL [...] January 21, 2013 at 10:01:36 AM EST [phone] Electronically Signed GP/GP If you are the referring physician and would like to consult with the radiologist who provided this interpr etation, please contact Scotty Tinoco M.D. at [phone]. If this radiologist is unavailable, you will be directed to another radiologist to assist. If you are a patient with a question rega rding this report, please contact your referring physician directly. Professional Interpretation Provided By: [email or web address], Phone , These documents contain legally pro [...] of these documents. CC: Jacquelin Delgado MD Patient Account Representative: Signed 21-Jan-2013 Bilat Scrn Digital & CAD Result: Comments: See Note; NOTES: [facility] Imaging Services [address] [place] [address] Breast Imaging Report MR#: [id number] Acct: [id number] Name: SANDRINE GUZMAN DAXA Rep #: [id number] : 1935 F 77 From: Scotty Tinoco MD PCP: Jacquelin Delgado MD Status: REG CLI Exam# [id number] Ordering Dr: Jacquelin Delgado MD MAMMOGRAPHY - [...] 21, 2013 at 9:14:[address] [phone] Electronically Signed GP/GP If you are the referring physician and would like to consult with the radiologist who provided this interpretation, please contact Scotty Tinoco M.D. at [phone]. If this radiologist is unavailable, you will be directed to another radiologist to assist. If you are a patient with a question regarding this report, please contact your refe rring physician directly. Professional Interpretation Provided By: [email or web address], Phone , These documents contain legally protected [...] of these documents. CC: Jacquelin Delgado MD Patient Account Representative: Signed Family History Unknown Family Member Name [...] 0.00 cm Results Date Description Value Details 7-Krf-597730:03 Metabolic Panel, Comprehensive Comments: PATIENT NOT FASTINGPERFORMED BY: BRANDO [facility] CenterYknwdd3416 [facility] [id number] (57530) ALT (SGPT) 26 [iU]/L (Normal) Range: 0-32 AST (SGOT) 25 [iU]/L (Normal) Range: 0-40 Alkaline Phosphatase 95 [iU]/L (Normal) Range: 39-117 Bilirubin, Total 0.5 mg/dL (Normal) Range: 0.0-1.2 A/G Ratio 1.4 (Normal) Range: 1.2-2.2 Globulin, Total 2.9 g/dL (Normal) Range: 1.5-4.5 Albumin 4.2 g/dL (Normal) Range: 3.5-4.7 Protein, Total 7.1 g/dL (Normal) Range: 6.0-8.5 Calcium 10.0 mg/dL (Normal) Range: 8.7-10.3 Carbon Dioxide, Total 26 mmol/L (Normal) Range: 20-29 Chloride 101 mmol/L (Normal) Range: 96-106 Potassium 4.1 mmol/L (Normal) Range: 3.5-5.2 Sodium 143 mmol/L (Normal) Range: 134-144 BUN/Creatinine Ratio 33 (Abnormal) Range: 12-28 eGFR If Africn Am 58 mL/min/1.73 (Abnormal) eGFR If NonAfricn Am 50 mL/min/1.73 (Abnormal) Creatinine 1.05 mg/dL (Abnormal) Range: 0.57-1.00 BUN 35 mg/dL (Abnormal) Range: 8-27 Glucose 113 mg/dL (Abnormal) Range: 65-99 :42 HgA1C , Office (60840) HgA1C , Office 6.0 % (Normal) Range: 4.6 - 7.1 :42 Blood Glucose , Office (58122) Blood Glucose , Office 130 (Normal) :06 LIPID PANEL (49015) Comments: Dec 2017; PATIENT WAS FASTINGPERFORMED BY: [facility] CenterUkhtmi9061 [facility] [id number] LDL/HDL Ratio 1.9 {ratio} (Normal) Range: 0.0-3.2 [...] (Normal) Range: 100-199 :04 HgA1C , Office (43411) HgA1C , Office 6.0 % (Normal) Range: 4.6 - 7.1 :04 Blood Glucose , Office (42513) Blood Glucose , Office 114 (Normal) 94-Ivo-561345:06 VITAMIN B12 AND FOLATES Comments: PATIENT NOT FASTINGPERFORMED BY: [employer]70 [facility] [id number] (82273) Folate (Folic Acid), Serum >20.0 ng/mL (Normal) Comments: A serum folate concentration of less than 3.1 ng/mL isconsidered to represent clinical deficiency. Vitamin B12 786 pg/mL (Normal) Range: 232-1245 07-Tna-375600:38 HgA1C , Office (22713) HgA1C , Office 6.0 % (Normal) Range: 4.6 - 7.1 :37 Blood Glucose , Office (53304) Blood Glucose , Office 127 (Normal) :14 Metabolic Panel, Comprehensive Comments: PATIENT WAS FASTINGPERFORMED BY: [employer] Toytbj1023 [facility] [id number] (90832) ALT (SGPT) 24 [iU]/L (Normal) Range: 0-32 [...] mg/dL (Abnormal) Range: 65-99 :14 Lipid Panel (17304) Comments: PATIENT WAS FASTINGPERFORMED BY: [facility] CenterEoyrbk5111 [facility] [id number] LDL/HDL Ratio 2.2 {ratio_units} (Normal) Range: 0.0-3.2 [...] (Normal) Range: 100-199 :42 HgA1C , Office (61796) HgA1C , Office 6.4 % (Normal) Range: 4.6 - 7.1 :42 Blood Glucose , Office (42653) Blood Glucose , Office 156 (Normal) Comments: pt is fasting :23 CBC With Differential/Platelet Comments: PATIENT WAS FASTINGPERFORMED BY: BRANDO [facility] HospitalDwfegf5884 [facility] [id number]; 03/06 OV Immature Grans (Abs) 0.0 {x10E3/uL} [...] Panel (14) Comments: PATIENT WAS FASTINGPERFORMED BY: [facility] CenterMsahne3833 [facility] [id number] ALT (SGPT) 17 [iU]/L (Normal) Range: 0-32 [...] Glucose, Serum 155 mg/dL (Abnormal) Range: 65-99 38-Jgo-42886:23 Lipid Panel With LDL/HDL Comments: PATIENT WAS FASTINGPERFORMED BY: [facility] Bddbko7971 [facility] [id number] Ratio LDL/HDL Ratio 2.6 {ratio_units} (Normal) Range: 0.0-3.2 Comments: LDL/HDL Ratio Men Women 1/2 Avg.Risk 1.0 1.5 Av g.Risk 3.6 3.2 2X Avg.Risk 6.2 5.0 3X Avg.Risk 8.0 6.1 LDL Cholesterol Calc 116 mg/dL (Abnormal) Range: 0-99 VLDL Cholesterol Andres 55 mg/dL (Abnormal) Range: 5-40 HDL Cholesterol 44 mg/dL (Normal) Triglycerides 277 mg/dL (Abnormal) Range: 0-149 Cholesterol, Total 215 mg/dL (Abnormal) Range: 100-199 58-Zpu-01527:23 Microalb/Creat Ratio, Randm Ur Comments: PATIENT WAS FASTINGPERFORMED BY: [facility] HospitalHqmeuw0111 [facility] [id number] Microalb/Creat Ratio <4.6 {mg/g_creat} Range: 0.0-30.0 (Normal) Microalbumin, Urine <3.0 ug/mL (Normal) Creatinine, Urine 65.1 mg/dL (Normal) 25-Feb-2017 TSH 2.640 {uIU/mL} Comments: PATIENT WAS FASTINGPERFORMED BY: [facility] HospitalDinumm3721 [facility] [id number] 8:23 (Normal) Range: 0.450-4.500 25-Avc-08250:23 Urinalysis, Routine Comments: PATIENT WAS FASTINGPERFORMED BY: [facility] Kcadjt1586 [facility] [id number] Microscopic Examination MICNIP (Normal) Comments: Microscopic not indicated and not performed. Nitrite, Urine Negative (Normal) Urobilinogen,Semi-Qn 0.2 mg/dL (Normal) Range: 0.2-1.0 Bilirubin Negative (Normal) Occult Blood Negative (Normal) Ketones Negative (Normal) Glucose Negative (Normal) Protein Negative (Normal) WBC Esterase Negative (Normal) Appearance Clear (Normal) Urine-Color Yellow (Normal) pH 6.0 (Normal) Range: 5.0-7.5 Specific [place] 1.014 (Normal) Range: 1.005-1.030 :18 CBC, Platelets & Auto Diff Comments: Feb 2017; PATIENT WAS FASTINGPERFORMED BY: [facility] RPO [facility] [id number] (01246) Immature Grans (Abs) 0.0 {x10E3/uL} (Normal) Range: [...] 7.5 {x10E3/uL} (Normal) Range: 3.4-10.8 :18 TSH (53443) Comments: Feb 2017; PATIENT WAS FASTINGPERFORMED BY: [facility] CenterJbkghq0741 [facility] [id number] TSH 3.140 {uIU/mL} (Normal) Range: 0.450-4.500 :18 MICROALBUMIN: CREATININE RATIO Comments: Feb 2017; PATIENT WAS FASTINGPERFORMED BY: [facility] CenterXmhevz0747 [facility] [id number] (63773) AND (56923) Microalb/Creat Ratio <3.7 {mg/g_creat} (Normal) Range: 0.0-30.0 Microalbumin, Urine <3.0 ug/mL (Normal) Creatinine, Urine 80.5 mg/dL (Normal) :18 URINALYSIS (22889) Comments: Feb 2017; PATIENT WAS FASTINGPERFORMED BY: [employer] Vjqhvw7791 [facility] [id number] Microscopic Examination MICNIP (Normal) Comments: Microscopic not indicated and not performed. Nitrite, Urine Negative (Normal) Urobilinogen,Semi-Qn 0.2 mg/dL (Normal) Range: 0.2-1.0 Bilirubin Negative (Normal) Occult Blood Negative (Normal) Ketones Negative (Normal) Glucose Negative (Normal) Protein Negative (Normal) WBC Esterase Negative (Normal) Appearance Clear (Normal) Urine-Color Yellow (Normal) pH 6.0 (Normal) Range: 5.0-7.5 Specific [place] 1.013 (Normal) Range: 1.005-1.030 :18 Metabolic Panel, Comprehensive Comments: Feb 2017; PATIENT WAS FASTINGPERFORMED BY: remocean6370 [facility] [id number] (79876) ALT (SGPT) 30 [iU]/L (Normal) Range: 0-32 [...] mg/dL (Abnormal) Range: 65-99 :18 LIPID PANEL (42293) Comments: Week of Sep 03 fasting; PATIENT WAS FASTINGPERFORMED BY: [employer]70 [facility] [id number] LDL/HDL Ratio 2.3 {ratio_units} (Normal) Range: 0.0-3.2 [...] Range: 100-199 :41 Blood Glucose , Office (54433) Comments: 190 Blood Glucose , Office 190 (Normal) Comments: ate breakfast :41 HgA1C , Office (43486) Comments: 6.5 HgA1C , Office 6.5 % (Normal) Range: 4.6 - 7.1 :26 METABOLIC PANEL, COMPREHENSIVE Comments: PATIENT WAS FASTINGPERFORMED BY: remocean6370 [facility] [id number] (06279) ALT (SGPT) 22 [iU]/L (Normal) Range: 0-32 [...] (Abnormal) Range: 65-99 :19 HgA1C , Office (72292) HgA1C , Office 6.5 % (Normal) Range: 4.6 - 7.1 :19 Blood Glucose , Office (05428) Blood Glucose , Office 146 (Normal) 29-Vua-602977:31 URINE TRELL CULTURE-MITCH COL Comments: PATIENT NOT FASTINGPERFORMED BY: [facility] [id number] Information: SRC:UC COUNT (17054) Result 1 MUG (Normal) Comments: Mixed urogenital flora10,000-25,000 colony forming units per mL Urine Final report (Normal) Culture,Comprehensive :05 Microscopic Examination Comments: PATIENT WAS FASTINGPERFORMED BY: [facility] [id number] Bacteria Few (Normal) Mucus Threads Present (Normal) Epithelial Cells (non renal) 0-10 {/hpf} (Normal) Range: 0 - 10 RBC None seen {/hpf} (Normal) Range: 0 - 2 WBC 0-5 {/hpf} (Normal) Range: 0 - 5 :05 URINALYSIS, W/ MICRO (64977) Comments: PATIENT WAS FASTINGPERFORMED BY: [facility] HospitalSpjmww8952 [facility] [id number] Microscopic Examination See below: (Normal) Comments: Microscopic was indicated and was performed. Nitrite, Urine Negative (Normal) Urobilinogen,Semi-Qn 0.2 mg/dL (Normal) Range: 0.2-1.0 Bilirubin Negative (Normal) Occult Blood Negative (Normal) Ketones Negative (Normal) Glucose Negative (Normal) Protein Negative (Normal) WBC Esterase Trace (Abnormal) Appearance Clear (Normal) Urine-Color Yellow (Normal) pH 6.5 (Normal) Range: 5.0-7.5 Specific [place] 1.012 (Normal) Range: 1.005-1.030 :05 MICROALBUMIN: CREATININE RATIO Comments: PATIENT WAS FASTINGPERFORMED BY: [employer] Lvzpad1712 [facility] [id number] (59565) AND (37310) Microalb/Creat Ratio <4.6 {mg/g_creat} (Normal) Range: 0.0-30.0 Microalbumin, Urine <3.0 ug/mL (Normal) Creatinine, Urine 65.7 mg/dL (Normal) :05 METABOLIC PANEL, COMPREHENSIVE Comments: PATIENT WAS FASTINGPERFORMED BY: [facility]Stage[facility] CenterAwvwsl7863 [facility] [id number] (72554) ALT (SGPT) 21 [iU]/L (Normal) Range: 0-32 [...] Glucose, Serum 142 mg/dL (Abnormal) Range: 65-99 :05 LIPID PANEL (32467) Comments: PATIENT WAS FASTINGPERFORMED BY: [facility] [id number] LDL/HDL Ratio 2.3 {ratio_units} (Normal) Range: 0.0-3.2 [...] Range: 100-199 :05 CBC with auto diff (24242) Comments: PATIENT WAS FASTINGPERFORMED BY: [facility] [id number] Immature Grans (Abs) 0.0 {x10E3/uL} (Normal) Range: [...] (Normal) Range: 3.4-10.8 :24 HgA1C , Office (21949) HgA1C , Office 6.5 % (Normal) Range: 4.6 - 7.1 :07 Microscopic Examination Comments: PATIENT WAS FASTINGPERFORMED BY: [employer]70 [facility] [id number] Bacteria Few (Normal) Mucus Threads Present (Normal) Epithelial Cells (non renal) 0-10 {/hpf} (Normal) Range: 0 - 10 RBC None seen {/hpf} (Normal) Range: 0 - 2 WBC 0-5 {/hpf} (Normal) Range: 0 - 5 :07 URINALYSIS, W/ MICRO (46193) Comments: PATIENT WAS FASTINGPERFORMED BY: [facility] [id number] Microscopic Examination See below: (Normal) Comments: Microscopic was indicated and was performed. Microscopic Examination MICRON (Normal) Comments: Microscopic follows if indicated. Nitrite, Urine Negative (Normal) Urobilinogen,Semi-Qn 0.2 mg/dL (Normal) Range: 0.2-1.0 Bilirubin Negative (Normal) Occult Blood Negative (Normal) Ketones Negative (Normal) Glucose Negative (Normal) Protein Negative (Normal) WBC Esterase Negative (Normal) Appearance Clear (Normal) Urine-Color Yellow (Normal) pH 6.5 (Normal) Range: 5.0-7.5 Specific [place] 1.013 (Normal) Range: 1.005-1.030 :07 METABOLIC PANEL, COMPREHENSIVE Comments: PATIENT WAS FASTINGPERFORMED BY: [facility] CenterZqptpc6731 [facility] [id number] (16517) ALT (SGPT) 22 [iU]/L (Normal) Range: 0-32 [...] mg/dL (Abnormal) Range: 65-99 :07 LIPID PANEL (11138) Comments: PATIENT WAS FASTINGPERFORMED BY: [facility] CenterOvvlot3930 [facility] [id number] LDL/HDL Ratio 2.2 {ratio_units} (Normal) Range: 0.0-3.2 [...] auto diff Comments: PATIENT WAS FASTINGPERFORMED BY: [facility] CenterFdbair4457 [facility] [id number] Information: [id number]; [address] (09687) Immature Grans (Abs) 0.0 {x10E3/uL} (Normal) Range: [...] (Normal) Range: 3.4-10.8 :15 HgA1C , Office (40152) HgA1C , Office 6.6 % (Normal) Range: 4.6 - 7.1 :08 CBC W/Diff, Automated Comments: [facility] [address]cp[address] [place], [place], [address] ; ov 11-15 Absolute Lymph 1.51 {X10_3/ul} (Normal) Range: 0.83-4.51 [...] Range: 4.4-11.0 17-Jan-20158:08 Comprehensive Metabolic Profil Comments: [facility] [address] [place], [place], [address] GAP 7 (Normal) Range: 5-15 CO2 29.0 [...] per A.D.A. criteria. :08 Lipid Profile Comments: [facility] [address] [place], [place], [address] VLDL 49 mg/dL (Abnormal) Range: 5-40 LDL [...] Complete Comments: How was Urine Obtained? Urine, [facility] [address] [place], [place], [id number] MUCUS, URINE 0 SEEN {/hpf} (Normal) BACTERIA [...] Yellow (Normal) :08 Vitamin D,25 Hydroxy Comments: [facility] [address] [place], [place], [address] Vitamin D 25-OH 33.4 ng/mL (Normal) Comments: Vitamin D 25(OH) Status Range Deficiency <20 ng/mL (50nmol/L) Insuffciency 20 - 30 ng/mL (50 - 75 nmol/L) Sufficiency 30 - 100 ng/mL (75 - 250 nmol/L) Toxicity >100 ng/mL (>250 nmol/L) :31 HgA1C , Office (29217) HgA1C , Office 6.8 % (Normal) Range: 4.6 - 7.1 :37 Comprehensive Metabolic Profil Comments: Test performed at:[facility] Uhqrnodywx7245 [facility] [place], [place] [address] GAP 7 (Normal) Range: 5-15 CO2 29.0 [...] criteria. :37 Lipid Profile Comments: Test performed at:[facility] V[address]tfgqle3492 [facility]. [place], [place] [address] VLDL 51 mg/dL (Abnormal) Range: 5-40 LDL [...] :37 Microalb:Creat Ratio,Random UR Comments: Test performed at:[facility] Llvadjtrta2480 [facility]. [place], [place] [address] MALB:CREAT Test not performed {mg/g_CRE} (Normal) MICROALBUMIN,UR < 5.0 mg/L (Normal) UR CREAT 86.0 mg/dL (Normal) :04 HgA1C , Office (89397) HgA1C , Office 6.8 % (Normal) Range: 4.6 - 7.1 :04 Blood Glucose , Office (72991) Blood Glucose , Office 141 (Normal) :07 METABOLIC PANEL, Comments: PATIENT WAS FASTINGPERFORMED BY: [facility] CenterYbysdm6684 [facility] [id number] Information: [id number] COMPREHENSIVE (60803) ALT (SGPT) 21 [iU]/L (Normal) Range: 0-32 [...] Glucose, Serum 142 mg/dL (Abnormal) Range: 65-99 02-Ecj-26712:07 LIPID PANEL (41064) Comments: PATIENT WAS FASTINGPERFORMED BY: [facility] CenterAozxxg6427 [facility] [id number] LDL/HDL Ratio 2.6 {ratio_units} (Normal) Range: 0.0-3.2 [...] Cholesterol, Total 218 mg/dL (Abnormal) Range: 100-199 55-Gkw-161073:32 Blood Glucose , Office (18209) Blood Glucose , Office 124 (Normal) 74-Apz-246728:32 HgA1C , Office (37752) HgA1C , Office 7.0 % (Normal) Range: 4.6 - 7.1 :37 MICROALBUMIN: CREATININE RATIO Comments: PATIENT WAS FASTINGPERFORMED BY: [facility] CenterVnwwrz9158 [facility] [id number] (19833) AND (53268) Microalb/Creat Ratio 3.0 {mg/g_creat} (Normal) Range: 0.0-30.0 Creatinine, Urine 66.1 mg/dL (Normal) Range: 15.0-278.0 Microalbumin, Urine 2.0 ug/mL (Normal) Range: 0.0-17.0 :37 METABOLIC PANEL, COMPREHENSIVE Comments: PATIENT WAS FASTINGPERFORMED BY: [employer]6370 [facility] [id number] (25983) ALT (SGPT) 18 [iU]/L (Normal) Range: 0-32 [...] mg/dL (Abnormal) Range: 65-99 :37 LIPID PANEL (86324) Comments: PATIENT WAS FASTINGPERFORMED BY: [facility] Cmkjqd5299 [facility] [id number] LDL/HDL Ratio 2.5 {ratio_units} (Normal) Range: 0.0-3.2 [...] MANUAL DIFF Comments: PATIENT WAS FASTINGPERFORMED BY: LabFashiolista6370 [facility] [id number] Information: [id number] (33367) Immature Grans (Abs) 0.0 {x10E3/uL} (Normal) Range: [...] Range: 3.4-10.8 :43 Blood Glucose , Office (08515) Blood Glucose , Office 128 (Normal) :43 HgA1C , Office (27339) HgA1C , Office 6.8 % (Normal) Range: 4.6 - 7.1 :23 CBC, PLATELETS & MANUAL Comments: PATIENT WAS FASTINGPERFORMED BY: [facility] Prtekw0949 [facility] [id number] Information: [id number] DIFF (83200) Immature Grans (Abs) 0.0 {x10E3/uL} (Normal) Range: [...] 3.77-5.28 WBC 3.8 {x10E3/uL} (Normal) Range: 3.4-10.8 2-Rvt-272366:23 METABOLIC PANEL, COMPREHENSIVE Comments: PATIENT WAS FASTINGPERFORMED BY: [facility]6370 [facility] [id number] (67644) ALT (SGPT) 17 [iU]/L (Normal) Range: 0-32 [...] Glucose, Serum 142 mg/dL (Abnormal) Range: 65-99 :23 LIPID PANEL (88989) Comments: PATIENT WAS FASTINGPERFORMED BY: [facility] CenterRzodqh4332 [facility] [id number] LDL/HDL Ratio 2.7 {ratio_units} (Normal) Range: 0.0-3.2 LDL Cholesterol Calc 120 mg/dL (Abnormal) Range: 0-99 HDL Cholesterol 44 mg/dL (Normal) Comments: According to ATP-III Guidelines, HDL-C >59 mg/dL is considered anegative risk factor for CHD. VLDL Cholesterol Andres 44 mg/dL (Abnormal) Range: 5-40 Cholesterol, Total 208 mg/dL (Abnormal) Range: 100-199 Triglycerides 221 mg/dL (Abnormal) Range: 0-149 :11 Blood Glucose , Office (35582) Blood Glucose , Office 122 (Normal) :11 HgA1C , Office (27252) HgA1C , Office 6.5 % (Normal) Range: 4.6 - 7.1 :59 Hemoglobin Glyclated (HGB Comments: today only; PATIENT NOT FASTINGPERFORMED BY: [facility] CenterSsipri7609 [facility] [id number] Information: ADD [id number] AND DRAW FEE [id number] 4588 A1C) (97084) Hemoglobin A1c 6.4 % (Abnormal) Range: 4.8-5.6 Comments: . Increased risk for diabetes: 5.7 - 6.4 Diabetes: >6.4 Glycemic control for adults with diabetes: <7.0 22-Sep-20129:33 METABOLIC PANEL, COMPREHENSIVE Comments: PATIENT WAS FASTINGPERFORMED BY: [place] Erhilv1441 [facility] [id number] (76744) ALT (SGPT) 18 [iU]/L (Normal) Range: 0-32 [...] mg/dL (Abnormal) Range: 65-99 :33 LIPID PANEL (12544) Comments: PATIENT WAS FASTINGPERFORMED BY: [facility] [id number] LDL/HDL Ratio 2.6 {ratio_units} (Normal) Range: 0.0-3.2 [...] MANUAL DIFF Comments: PATIENT WAS FASTINGPERFORMED BY: [facility] [id number] Information: [id number] (10355) Immature Grans (Abs) 0.0 {x10E3/uL} (Normal) Range: [...] 21-Mar-20129:59 Hepatic Function Panel Comments: PERFORMED BY: CB [facility] Cjokhk2853 [facility] [id number] BY: TG [facility] FGB4129 [facility] [id number] (7) ALT (SGPT) 30 [iU]/L (Normal) Range: 0-32 AST (SGOT) 27 [iU]/L (Normal) Range: 0-40 Alkaline Phosphatase, S 96 [iU]/L (Normal) Range: 25-165 Bilirubin, Direct 0.21 mg/dL (Normal) Range: 0.00-0.40 Bilirubin, Total 0.6 mg/dL (Normal) Range: 0.0-1.2 Albumin, Serum 4.4 g/dL (Normal) Range: 3.5-4.8 Protein, Total, Serum 7.0 g/dL (Normal) Range: 6.0-8.5 21-Mar-20129:59 Hered.Hemochromatosis, DNA Comments: PERFORMED BY: BRANDO LabBTI Systemsrp Bujycr9496 [place] [id number] BY: ISABEL [facility] ZNI7785 [address] TrianaTP [place] [id number] Hereditary Hemochromatosis 63HOM1 (Normal) Comments: Result: H63D/I06SNsz copies of the same mutation (H63D and H63D) identified .Interpretation:This patient's sample was analyzed for th e hereditary hemochromatosis(HH) mutations C282Y, H63D, and S65C. Two copies of H63D wereidentified. Results for C282Y and S65C were negative. The mutationsanalyzed by LabVeliQ are most common in the population.Although some [...] al. (1999). AM J Prev Med 16:134-140.[place] A (2002). Lancet 360(5199):1 673-62.Dalia Coffey al. (2002). Blood Cells, Molecules. andDiseases. 29(3):418- 432.Parveen Stallings et al. (2003). Gisel Med. 5(1):1-8.Haylie LINDSEY et al. (2003). Gisel Med. 5(4):304-10.Genetic counselors are available for health care providers to discussresults at [phone]. . Navid Gramajo, Ph.D. Anisha Driver, Ph.D. Linda Henry, Ph.D. Shahrzad Flores, Ph.D. Lorelei Garcia, Ph.D. Elsa Gastelum, Ph.D. S. Irina VogtBKattSKatt, Ph.D. 33-Irf-36322:00 LIVER Radiology Report See Note (Normal) Comments: PROCEDURE: ABDOMINAL ULTRASOUND - RIGHT UPPER QUADRANT REASON FOR VISIT: Female, 76 years old. Elevated liver functiontests. TECHNIQUE: Ultrasound evaluation of the right upper quadrant wasperfor med with real-time and static garvey-scale imaging. [...] size of the right kidney. The right zgprskuumdnapl01.1 cm. Normal renal cortex. The right cortex measures 1.5 cm. Thereisno demonstrated renal mass or cyst. There is no right hydronephrosis. IMPRESSION:Normal right upper quadrant ultrasound examination.The patient is status post cholecystectomy. Signed:Scotty Tinoco M.D.March 06, 2012 at 12:32:06 PM [id number] Signed GP/GP If you are the referring physician and would like to consult with theradiologist who provided this interpretation, please contact Jerri Hernandez at [phone]. If this radiologist is unavailable, youwill be directed to another radiologist to assist. If you are a patient with a question regarding this report, pleasecontactyour referring physician directly. Professional Interpretation Provided By: [email or web address], Phone , These documents contain legally protected [...] destructionofthese documents. Dictated on 03/06/12 1019 by Enrique Tinoco MDranscribed on 03/06/12 1241 by ITS IMPORTSign by Scotty Tinoco MD on 03/06/12 1242 Sign by: Scotty Tinoco MD :46 HgA1C , Office (59413) HgA1C , Office 6.6 % (Normal) Range: 4.6 - 7.1 :46 Blood Glucose , Office (43917) Blood Glucose , Office 143 (Normal) :47 HEPATITIS PANEL (44157) Comments: PATIENT NOT FASTINGPERFORMED BY: nuevoStage Gualcc5565 [facility] [id number] Information: [id number] Hep C Virus Ab <0.1 {s/co_ratio} Range: [...] ng/mL (Abnormal) Comments: PATIENT WAS FASTINGPERFORMED BY: [facility]Stage Qdsqis9459 [facility] [id number] Information: [id number] :12 Range: 13-150 Written Authorization WAR (Normal) Comments: PATIENT WAS FASTINGPERFORMED BY: [facility]6370 Julia HernándezAtrium Health Mountain Islandjulianna [place] [id number] :12 Comments: Written Authorization Received.Authorization received from DR DELGADO [id number] by Ya Arnett 21-Jan-20129:23 BILAT SCRN DIGITAL [...] Tinoco M.D.January 21, 2012 at 9:56:18 AM [id number] Signed GP/GP If you are the referring physician and would like to consult with theradiologist who provided this interpretation, please contact Jerri Hernandez at [phone]. If this radiologist is unavailable, youwill be directed to another radiologist to assist. If you are a patient with a question regarding this report, pleasecontactyour referring physician directly. Professional Interpretation Provided By: [email or web address], Phone , These doc uments contain legally [...] destructionofthese documents. Dictated on 01/21/12 0924 by Earnest JONES,Riannaranscribed on 01/21/12 1000 by ITS IMPORTSign by Scotty Tinoco MD on 01/21/12 1001 Sign by: Scotty Tinoco MD 21-Feb-20128:12 Metabolic Panel, Comments: PATIENT WAS FASTINGPERFORMED BY: [facility]6370 [facility] [id number] Information: [id number] Comprehensive (55911) ALT (SGPT) 58 [iU]/L (Abnormal) Range: 0-32 [...] mg/dL (Abnormal) Range: 65-99 :12 Lipid Panel (76856) Comments: PATIENT WAS FASTINGPERFORMED BY: [facility] HospitalBTI SystemsHunterdon Medical CenterGzpnpb2412 [facility] [id number] LDL/HDL Ratio 2.2 {ratio_units} (Normal) Range: 0.0-3.2 LDL Cholesterol Calc 106 mg/dL (Abnormal) Range: 0-99 VLDL Cholesterol Andres 50 mg/dL (Abnormal) Range: 5-40 HDL Cholesterol 48 mg/dL (Normal) Comments: According to ATP-III Guidelines, HDL-C >59 mg/dL is considered anegative risk factor for CHD. Triglycerides 252 mg/dL (Abnormal) Range: 0-149 Cholesterol, Total 204 mg/dL (Abnormal) Range: 100-199 76-Dwm-912502:25 HgA1C , Office (52990) HgA1C , Office 6.1 % (Normal) Range: 4.6 - 7.1 :25 Blood Glucose , Office (09456) Blood Glucose , Office 126 (Normal) :31 LIPID PANEL (69965) Comments: PATIENT WAS FASTINGPERFORMED BY: [facility] CenterBdegyg5486 [facility] [id number] LDL/HDL Ratio 2.3 {ratio_units} (Normal) Range: 0.0-3.2 [...] FUNCTION PANEL Comments: PATIENT WAS FASTINGPERFORMED BY: [place] 1847670 [facility] [id number] Information: [id number] (60008) ALT (SGPT) 35 [iU]/L (Normal) Range: 0-40 AST (SGOT) 28 [iU]/L (Normal) Range: 0-40 Alkaline Phosphatase, S 99 [iU]/L (Normal) Range: 25-165 Bilirubin, Direct 0.15 mg/dL (Normal) Range: 0.00-0.40 Bilirubin, Total 0.6 mg/dL (Normal) Range: 0.0-1.2 Albumin, Serum 4.3 g/dL (Normal) Range: 3.5-4.8 Protein, Total, Serum 6.8 g/dL (Normal) Range: 6.0-8.5 :40 HgA1C , Office (48551) HgA1C , Office 6.3 % (Normal) Range: 4.6 - 7.1 :40 Blood Glucose , Office (35148) Blood Glucose , Office 142 (Normal) :22 CBC, PLATELETS & AUT DIFF Comments: PATIENT WAS FASTINGPERFORMED BY: LabCoHunterdon Medical CenterSotymu0779 [facility] [id number] Information: [id number] (77262) Immature Grans (Abs) 0.0 {x10E3/uL} (Normal) Range: [...] PANEL, COMPREHENSIVE Comments: PATIENT WAS FASTINGPERFORMED BY: LabCoHunterdon Medical CenterZkhyqs4819 [facility] [id number] (53569) ALT (SGPT) 19 [iU]/L (Normal) Range: 0-40 [...] mg/dL (Abnormal) Range: 65-99 :22 LIPID PANEL (98316) Comments: PATIENT WAS FASTINGPERFORMED BY: [facility] CenterNwpzsn0491 [facility] [id number] LDL/HDL Ratio 2.6 {ratio_units} (Normal) Range: 0.0-3.2 [...] CREATININE RATIO Comments: PATIENT WAS FASTINGPERFORMED BY: LabCoHunterdon Medical CenterJueibl2859 [facility] [id number] (65091) AND (29833) Microalb/Creat Ratio 5.8 {mg/g_creat} (Normal) Range: 0.0-30.0 Microalbumin, Urine 3.9 ug/mL (Normal) Range: 0.0-17.0 Creatinine, Urine 66.7 mg/dL (Normal) Range: 15.0-278.0 :39 HgA1C , Office (20553) HgA1C , Office 6.5 % (Normal) Range: 4.6 - 7.1 :39 Blood Glucose , Office (56738) Blood Glucose , Office 137 (Normal) :31 [...] 01/18/11 1457 Sign by: Stacey Zimmer DO 18-Jan-20119:19 DEXA BONE DENSITY STUDY (HP) Radiology Report [...] http://www.iscd.org3. National Osteoporosis Foundation http://www.nof.org Dictated on 01/18/1126 Rianna Conley MDranscribed on 01/18/111333 by ITS IMPORTSign by Scotty Tinoco MD on 01/18/111333 Sign by: Scotty Tinoco MD 82-Oph-02624:03 CBC WITH MANUAL DIFF Comments: PATIENT WAS FASTINGPERFORMED BY: [facility]6370 [facility] [id number] Information: [id number] (44369) Immature Grans (Abs) 0.0 {x10E3/uL} (Normal) Range: [...] 3.80-5.10 WBC 6.7 {x10E3/uL} (Normal) Range: 4.0-10.5 :03 LIPID PANEL (06509) Comments: PATIENT WAS FASTINGPERFORMED BY: Ondax [facility] Straits HospitalSingShot MediaWakeMed North Hospital [id number] LDL Cholesterol Calc 106 mg/dL (Abnormal) Range: 0-99 LDL/HDL Ratio 2.3 {ratio_units} (Normal) Range: 0.0-3.2 VLDL Cholesterol Andres 63 mg/dL (Abnormal) Range: 5-40 HDL Cholesterol 47 mg/dL (Normal) Comments: According to ATP-III Guidelines, HDL-C >59 mg/dL is considered anegative risk factor for CHD. Cholesterol, Total 216 mg/dL (Abnormal) Range: 100-199 Triglycerides 313 mg/dL (Abnormal) Range: 0-149 :03 METABOLIC PANEL, COMPREHENSIVE Comments: PATIENT WAS FASTINGPERFORMED BY: [facility]Call [facility] [id number] (07279) ALT (SGPT) 23 [iU]/L (Normal) Range: 0-40 [...] Glucose, Serum 123 mg/dL (Abnormal) Range: 65-99 48-Kcn-13810:03 MICROALBUMIN: CREATININE RATIO Comments: PATIENT WAS FASTINGPERFORMED BY: LabCoHunterdon Medical CenterNehqgh7450 [facility] [id number] (30471) AND (83154) Microalb/Creat Ratio 2.7 {mg/g_creat} (Normal) Range: 0.0-30.0 Microalbumin, Urine 2.0 ug/mL (Normal) Range: 0.0-17.0 Creatinine, Urine 74.8 mg/dL (Normal) Range: 15.0-278.0 63-Rdx-446643:10 URINE TRELL CULTURE (MITCH Comments: PATIENT NOT FASTINGPERFORMED BY: CB [facility] Faqspo6326 [place] [facility] [id number] Information: SRC:UR [id number] COL COUNT) (78750) Result 1 NG36 (Normal) Comments: No growth in 36 - 48 hours. Urine Culture,Comprehensive Final report (Normal) 2-Xmf-393870:30 URINE TRELL CULTURE-MITCH COL Comments: PATIENT NOT FASTINGPERFORMED BY: CB [facility] Efcwlm9277 [facility] [id number] Information: SRC:UR ADD [id number] AND DRAW FEE [id number] COUNT (84190) Antimicrobial MIHEAD (Normal) Comments: S = Susceptible; [...] primarily for treating urinary tract infections. (CLSI, Z199-Y76,2009) Urine Culture,Comprehensive Final report (Normal) :09 Urinalysis, Office (85138) UA - BILIRUBIN Negative (Normal) UA - BLOOD Negative (Normal) UA - GLUCOSE Negative (Normal) UA - KETONES Negative mg/dL (Normal) UA - LEUKOCYTE ESTERASE Large (Normal) UA - NITRITE Negative (Normal) UA - PH 7.5 (Normal) UA - PROTEIN Negative mg/dL (Normal) UA - SPECIFIC GRAVITY 1.020 (Normal) URINE UROBILINGN MITCH TIMED Normal mg/dL (Normal) 5-Kmh-236764:16 HgA1C , Office (81226) HgA1C , Office 6.4 % (Normal) Range: 4.6 - 7.1 9-Ikp-665126:16 Blood Glucose , Office (73641) Blood Glucose , Office 142 (Normal) 1-Bom-601103:11 Urinalysis, Office (05850) UA - LEUKOCYTE ESTERASE Negative (Normal) UA - NITRITE Negative (Normal) URINE UROBILINGN MITCH TIMED Normal mg/dL (Normal) UA - PROTEIN Negative mg/dL (Normal) UA - BLOOD Negative (Normal) UA - SPECIFIC GRAVITY 1.020 (Normal) UA - KETONES Negative mg/dL (Normal) UA - BILIRUBIN Negative (Normal) UA - GLUCOSE Negative (Normal) 1-Lop-055035:00 UNILAT RT DIAG DIGITAL & CAD Radiology [...] suspicio usabnormality. Dictated on 07/17/10 1206 by Rianna Tinoco MDranscribed on 07/17/10 1348 by ITS IMPORTSign by Scotty Tinoco MD on 07/17/10 1349 Sign by: Scotty Tinoco MD :04 LIPID PANEL (80820) Comments: PATIENT WAS FASTINGPERFORMED BY: LabCo Hrcqec1546 [facility] [id number] LDL Cholesterol Calc 108 mg/dL (Abnormal) Range: [...] CREATININE RATIO Comments: PATIENT WAS FASTINGPERFORMED BY: [place] Sozcpl7090 [facility] [id number] (48055) AND (67827) Microalb/Creat Ratio 4.7 {mg/g_creat} (Normal) Range: 0.0-30.0 Creatinine, Urine 94.1 mg/dL (Normal) Range: 15.0-278.0 Microalbumin, Urine 4.4 ug/mL (Normal) Range: 0.0-17.0 :04 CBC WITH MANUAL DIFF Comments: PATIENT WAS FASTINGPERFORMED BY: [facility] CenterApdjzs4421 [facility] [id number] Information: [id number] (94291) Baso (Absolute) 0.0 {x10E3/uL} (Normal) Range: 0.0-0.2 [...] 3.80-5.10 WBC 6.4 {x10E3/uL} (Normal) Range: 4.0-10.5 49-Jrr-77745:04 METABOLIC PANEL, COMPREHENSIVE Comments: PATIENT WAS FASTINGPERFORMED BY: LabCoHunterdon Medical CenterQzijzp6565 [facility] [id number]; appt 07/20/10 (86052) ALT (SGPT) 26 [iU]/L (Normal) Range: 0-40 [...] Glucose, Serum 115 mg/dL (Abnormal) Range: 65-99 46-Rdk-137111:39 URINE TRELL CULTURE-MITCH COL Comments: PATIENT NOT FASTINGPERFORMED BY: [facility] Fvhngv2266 [facility] [id number] Information: SRC:UR [id number] COUNT (22996) Antimicrobial MIHEAD (Normal) Comments: S = Susceptible; [...] mL (Normal) Urine Final report (Normal) Culture,Comprehensive 11-Eqt-010007:56 Urinalysis, Office (78455) UA - BILIRUBIN Negative (Normal) UA - BLOOD Negative (Normal) UA - GLUCOSE Negative (Normal) UA - KETONES Negative mg/dL (Normal) UA - LEUKOCYTE ESTERASE Large (Normal) UA - NITRITE Negative (Normal) UA - PH 8.0 (Normal) UA - PROTEIN Negative mg/dL (Normal) UA - SPECIFIC GRAVITY 1.015 (Normal) URINE UROBILINGN MITCH TIMED Normal mg/dL (Normal) :39 HgA1C , Office (10344) HgA1C , Office 6.2 % (Normal) Range: 4.6 - 7.1 :39 Blood Glucose , Office (69136) Blood Glucose , Office 101 (Normal) :59 BREAST UNILATERAL Radiology Report See Note (Normal) Comments: Exam Number: [id number] LINICAL:The patient is a 74-year-old female with [...] Report See Note (Normal) Comments: Exam Number: [id number] AMMOGRAPHY - UNILATERAL DIAGNOSTIC: RIGHT BREAST INDICATION:Abnormal [...] attaching a ResultCode to this exam. ADDENDUM: [id number] HPBI/MUDDR Reported By: ROXANE COLBY M.D. 2-Cyn-218476:26 [facility] & CAD Radiology Report See Note (Normal) Comments: Exam Number: [id number] AMMOGRAPHY - BILATERAL SCREENING INDICATION:Routine annual screening [...] a ResultCode to this exam. ADD ENDUM: [id number] HPBI/MDS Reported By: ROXANE COLBY M.D. :13 HEPATIC FUNCTION PANEL Comments: PATIENT WAS FASTINGPERFORMED BY: [facility] CenterYcwcws9409 [facility] [id number] Information: [id number] (58008) ALT (SGPT) 25 [iU]/L (Normal) Range: 0-40 Alkaline Phosphatase, S 110 [iU]/L (Normal) Range: 25-165 AST (SGOT) 23 [iU]/L (Normal) Range: 0-40 Bilirubin, Direct 0.12 mg/dL (Normal) Range: 0.00-0.40 Albumin, Serum 4.5 g/dL (Normal) Range: 3.5-4.8 Bilirubin, Total 0.5 mg/dL (Normal) Range: 0.0-1.2 Protein, Total, Serum 7.6 g/dL (Normal) Range: 6.0-8.5 :13 LIPID PANEL (50790) Comments: PATIENT WAS FASTINGPERFORMED BY: [facility] HospitalCisadj0893 [facility] [id number] LDL Cholesterol Calc 128 mg/dL (Abnormal) Range: 0-99 LDL/HDL Ratio 2.7 {ratio_units} (Normal) Range: 0.0-3.2 VLDL Cholesterol Andres 65 mg/dL (Abnormal) Range: 5-40 HDL Cholesterol 48 mg/dL (Normal) Comments: According to ATP-III Guidelines, HDL-C >59 mg/dL is considered anegative risk factor for CHD. Cholesterol, Total 241 mg/dL (Abnormal) Range: 100-199 Triglycerides 327 mg/dL (Abnormal) Range: 0-149 90-Auu-804887:16 HgA1C , Office (92725) HgA1C , Office 6.3 % (Normal) Range: 4.6 - 7.1 92-Snj-299423:16 Blood Glucose , Office (81971) Blood Glucose , Office 115 (Normal) :30 MICROALBUMIN: CREATININE RATIO Comments: PATIENT WAS FASTINGPERFORMED BY: Jiuxian[employer]com70 [facility] [id number] (61266) AND (62888) Creatinine, Urine 64.8 mg/dL (Normal) Range: 15.0-278.0 Microalb/Creat Ratio 4.0 {mg/g_creat} (Normal) Range: 0.0-30.0 Microalbumin, Urine 2.6 ug/mL (Normal) Range: 0.0-17.0 :30 METABOLIC PANEL, COMPREHENSIVE Comments: PATIENT WAS FASTINGPERFORMED BY: Jiuxian.com70 [facility] [id number] (58714) Alkaline Phosphatase, S 104 [iU]/L (Normal) Range: [...] mg/dL (Abnormal) Range: 65-99 :30 LIPID PANEL (37016) Comments: PATIENT WAS FASTINGPERFORMED BY: [email or web address].com70 [facility] [id number] HDL Cholesterol 49 mg/dL (Normal) Comments: According [...] MANUAL DIFF Comments: PATIENT WAS FASTINGPERFORMED BY: Exepron Cuuwfq7057 [facility] [id number] Information: [id number] (64910) Immature Grans (Abs) 0.0 {x10E3/uL} (Normal) Range: [...] (Normal) Range: 4.0-10.5 :18 HgA1C , Office (46718) HgA1C , Office 6.7 % (Normal) Range: 4.6 - 7.1 :18 Blood Glucose , Office (63093) Blood Glucose , Office 154 (Normal) :06 LIPID PANEL (37466) Comments: PATIENT WAS FASTINGPERFORMED BY: [email or web address] [facility] [id number] LDL Cholesterol Calc 122 mg/dL (Abnormal) Range: [...] three months (approximately); PATIENT WAS FASTINGPERFORMED BY: Exepron Jcnjva0477 [facility] [id number] Information: [id number] (14109) ALT (SGPT) 16 [iU]/L (Normal) Range: 0-40 Alkaline Phosphatase, S 104 [iU]/L (Normal) Range: 25-165 AST (SGOT) 18 [iU]/L (Normal) Range: 0-40 Albumin, Serum 4.3 g/dL (Normal) Range: 3.5-4.8 Bilirubin, Direct 0.14 mg/dL (Normal) Range: 0.00-0.40 Bilirubin, Total 0.5 mg/dL (Normal) Range: 0.0-1.2 Protein, Total, Serum 7.1 g/dL (Normal) Range: 6.0-8.5 17-Pus-650170:00 HgA1C , Office (04925) HgA1C , Office 6.2 % (Normal) Range: 4.6 - 7.1 66-Pmk-269575:00 Blood Glucose , Office (13221) Blood Glucose , Office 158 (Normal) 53-Ija-68843:50 CBC With Differential/Platelet Comments: PATIENT WAS FASTINGPERFORMED BY: LabCoHunterdon Medical CenterTsesew8098 [facility] [id number] Baso (Absolute) 0.0 {x10E3/uL} (Normal) Range: 0.0-0.2 [...] 3.80-5.10 WBC 5.8 {x10E3/uL} (Normal) Range: 4.0-10.5 71-Sgw-97561:50 Comp. Metabolic Panel (14) Comments: PATIENT WAS FASTINGPERFORMED BY: [facility] Cuemgf9749 [facility] [id number] ALT (SGPT) 24 [iU]/L (Normal) Range: 0-40 [...] With LDL/HDL Comments: PATIENT WAS FASTINGPERFORMED BY: [facility]MediaW[facility]Med [facility] [id number] Ratio LDL Cholesterol Calc 170 mg/dL (Abnormal) [...] Randm Ur Comments: PATIENT WAS FASTINGPERFORMED BY: [email or web address].com70 [facility] [id number] Microalb/Creat Ratio 4.4 {mg/g_creat} (Normal) Range: 0.0-30.0 Creatinine, Urine 105.7 mg/dL (Normal) Range: 15.0-278.0 Microalbumin, Urine 4.7 ug/mL (Normal) Range: 0.0-17.0 77-Bgc-412345:03 URINE TRELL CULTURE-IDENTIFICATN Comments: PATIENT NOT FASTINGPERFORMED BY: Ji[employer]ian.com70 [facility] [id number] Information: [id number] (03076) Result 1 NG36 (Normal) Comments: No growth in 36 - 48 hours. Urine Culture,Comprehensive Final report (Normal) 99-Ezx-064855:17 Urinalysis, Office (09322) UA - LEUKOCYTE ESTERASE Trace (Normal) UA - NITRITE Negative (Normal) URINE UROBILINGN MITCH TIMED Normal mg/dL (Normal) UA - PROTEIN Negative mg/dL (Normal) UA - PH 7.5 (Normal) UA - BLOOD Negative (Normal) UA - SPECIFIC GRAVITY 1.005 (Normal) UA - KETONES Negative mg/dL (Normal) UA - BILIRUBIN Negative (Normal) UA - GLUCOSE Negative (Normal) 80-Lln-871944:17 BILAT SCRN DIGITAL & CAD Radiology Report See Note (Normal) Comments: Exam Number: [id number] MAMMOGRAM, BILATERAL SCREENING DIGITAL AND CAD HISTORYRoutine [...] werealso exa mined with computer-aided detection software ([employer] Reported By: ROXANE COLBY M.D. 19-Fob-939989:16 DEXA BONE DENSITY STUDY (HP) Radiology Report See Note (Normal) Comments: Exam Number: [id number] BONE DENSITOMETRY HISTORYPostmenopausal. TECHNIQUE Bone densitometry of the lumbar spine and both hips is now beingperformed. The best criteria for evaluation of osteoporosis is theT-value, which represents the comparison of the patient's bone mass tanja expected peak bone mass. For most patients, the mean T-value of U9mgamspg L4 is used to evaluate the lumbar [...] Microscopic Examination Comments: PATIENT WAS FASTINGPERFORMED BY: ImpactMediaW[facility]Med [facility] [id number] Bacteria Few (Normal) Epithelial Cells (non renal) 0-10 {/hpf} (Normal) Range: 0 - 10 Mucus Threads Present (Normal) RBC 0-3 {/hpf} (Normal) Range: 0 - 3 WBC 0-5 {/hpf} (Normal) Range: 0 - 5 :33 URINALYSIS W/O MICRO (64692) Comments: PATIENT WAS FASTINGPERFORMED BY: remocean6370 LocishWakeMed [facility] Hospital [id number] Appearance Clear (Normal) Bilirubin Negative (Normal) Glucose Negative (Normal) Ketones Negative (Normal) Microscopic Examination See below: (Normal) Nitrite, Urine Negative (Normal) Occult Blood Negative (Normal) pH 5.5 (Normal) Range: 5.0-7.5 Protein Negative (Normal) Specific [place] 1.016 (Normal) Range: 1.005-1.030 Urine-Color Yellow (Normal) Urobilinogen,Semi-Qn 0.2 mg/dL (Normal) Range: 0.0-1.9 WBC Esterase 1+ (Abnormal) :33 MICROALBUMIN: CREATININE RATIO Comments: PATIENT WAS FASTINGPERFORMED BY: [email or web address] [facility]ishW[facility]Med [facility] [id number] (29809) AND (49095) Creatinine, Urine 93.7 mg/dL (Normal) Range: 15.0-278.0 Microalb/Creat Ratio 3.6 {mg/g_creat} (Normal) Range: 0.0-30.0 Microalbumin, Urine 3.4 ug/mL (Normal) Range: 0.0-17.0 :33 METABOLIC PANEL, COMPREHENSIVE Comments: in six months (approximately); PATIENT WAS FASTINGPERFORMED BY: BRANDO LabHelen [facility]6370 [address] [facility] [id number] (13875) A/G Ratio 1.5 (Normal) Range: 1.1-2.5 Albumin, [...] mmol/L (Normal) Range: 135-145 :33 LIPID PANEL (75679) Comments: PATIENT WAS FASTINGPERFORMED BY: Ositolin6370 [facility] [id number] Cholesterol, Total 239 mg/dL (Abnormal) Range: 100-199 HDL Cholesterol 40 mg/dL (Normal) Comments: According to ATP-III Guidelines, HDL-C >59 mg/dL is considered anegative risk factor for CHD. LDL Cholesterol Calc 123 mg/dL (Abnormal) Range: 0-99 LDL/HDL Ratio 3.1 {ratio_units} (Normal) Range: 0.0-3.2 Triglycerides 378 mg/dL (Abnormal) Range: 0-149 VLDL Cholesterol Andres 76 mg/dL (Abnormal) Range: 5-40 96-Zyq-11743:33 CBC WITH MANUAL DIFF (60796) Comments: PATIENT WAS FASTINGClinical Information: ADD [id number] PERFORMED BY: remocean6370 [facility] [id number] Baso (Absolute) 0.1 {x10E3/uL} (Normal) Range: 0.0-0.2 [...] Education - Female Indication: Dysuria Planned Observations LIPID PANEL (09536)Indication: Hyperlipidemia, unspecified On: 25-Oqj-134365:42 Request Lipid Panel (47619)Indication: Hyperlipidemia, unspecified On: 34-Qio-73089:15 Request Comments: Feb 2017 CALCIFIDIOL (64772) VIT D 25Indication: Osteopenia On: 31-Sks-557685:17 Request URINALYSIS, W/ MICRO (04489)Indication: Diabetes mellitus type 2, controlled On: 92-Jvz-078431:17 Request METABOLIC PANEL, COMPREHENSIVE ([id number])Indication: Diabetes mellitus type 2, controlled On: 27-Hob-015289:17 Request LIPID PANEL ([id number])Indication: Diabetes mellitus type 2, controlled On: 93-Hnw-290619:17 Request CBC with auto diff ([id number])Indication: Diabetes mellitus type 2, controlled On: 92-Jac-813389:17 Request MICROALBUMIN: CREATININE RATIO ([id number]) AND ([id number])Indication: Hyperlipidemia, unspecified On: 76-Xsw-741242:20 Request METABOLIC PANEL, COMPREHENSIVE ([id number])Indication: Hyperlipidemia, unspecified On: 87-Gqk-513368:20 Request LIPID PANEL ([id number])Indication: Hyperlipidemia, unspecified On: 29-Zly-950878:20 Request METABOLIC PANEL, COMPREHENSIVE ([id number])Indication: Diabetes mellitus type 2, controlled On: 73-Dlq-705048:05 Request NUCLR MOLCUL DX-INT/RPT ([id number])Indication: Abnormal finding of blood chemistry, unspecified On: 26-Xul-618990:38 Request Comments: 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, NUCLEIC ACID, ISOLATION/EXTRACTION, HIGHLY PURIFIED ([id number])Indication: Abnormal finding of blood chemistry, unspecified On: 45-Mlc-313470:38 Request NUCLR MOLCUL DX-ENZY DIG ([id number])Indication: Abnormal finding of blood chemistry, unspecified On: :38 Request NUCLR MOLCUL DX-SEPARATN ([id number])Indication: Abnormal finding of blood chemistry, unspecified On: :37 Request NUCLR MOLCUL DX-PCR EACH ([id number])Indication: Abnormal finding of blood chemistry, unspecified On: :37 Request HEPATIC FUNCTION PANEL ([id number])Indication: Abnormal finding of blood chemistry, unspecified On: :10 Request Comments: recheck off tylenol for 2 weeks. HEP ABC PROFILE [id number] ([id number])Indication: Hyperlipidemia, unspecified On: :36 Request Ferritin ([id number])Indication: Hyperlipidemia, unspecified On: :36 Request CBC WITH MANUAL DIFF ([id number])Indication: Hyperlipidemia, unspecified On: 0-Scl-170389:14 Request METABOLIC PANEL, COMPREHENSIVE ([id number])Indication: Hypertension, benign On: 6-Mlk-653626:14 Request Blood Glucose , Office ([id number])Indication: Abnormal glucose tolerance test On: :19 Request HgA1C , Office ([id number])Indication: Abnormal glucose tolerance test On: :19 Request Planned Encounters Medical; 3 Month FU - On: 28-Mar-2018 8:15 [facility] Mere Hope CNP, CNP, Mary E Planned Procedures DEXA SCAN AXIAL SKELETON ([id number])By: On: 23-Dec-2017 Intent Mere Hope CNP, CNP, Mary E SCREENING DIGITAL TOMOSYNTHESIS OF On: 23-Dec-2017 Intent BREAST ([id number])By: Mere Hope CNP, CNP, Mary E ELECTROCARDIOGRAM, COMPLETE (ECG) On: 10-Jun-2017 Intent ([id number])By: Mere Hope CNP Comments: sinus pavan Mere MCKEON Ultrasound - RenalBy: Mere Hope CNP On: 06-Mar-2017 Intent E Mere Hope CNP E SCREENING DIGITAL TOMOSYNTHESIS OF On: 03-Sep-2016 Intent BREAST ([id number])By: Herminia MCKEON, Shelli Mere Hope CNP E DEXA SCAN AXIAL SKELETON ([id number])By: On: 03-Sep-2016 Intent Herminia MCKEON, Shelli Herminia MCKEON, Shelli Comments: January 2017 MAMMOGRAM, SCREENING, BOTH BREAST On: 26-Oct-2015 Intent ([id number])By: Bebo Boyd MD EKG ([id number])By: Jacquelin Delgado MD On: 26-Jul-2014 Intent Comments: see scanned document of test done to see results reviewed today with patient MAMMOGRAM, SCREENING, BOTH BREAST On: 26-Jul-2014 Intent ([id number])By: Jacquelin Delgado MD DEXA SCAN AXIAL SKELETON ([id number])By: On: 26-Jul-2014 Intent Jacquelin Delgado MD BILATERAL MAMMOGRAMS ([id number])By: On: 07-Jan-2014 Intent Jacquelin Delgado MD MAMMOGRAM, SCREENING, BOTH BREASTS On: 29-Sep-2012 Intent ([id number])By: Jacquelin Delgado MD EKG ([id number])By: MARNIE Escamilla On: 29-Sep-2012 Intent Comments: see scanned document of test done to see results reviewed today with patient DXA, BONE DENSITY, AXIAL SKELETON On: 29-Sep-2012 Intent ([id number])By: Jacquelin Delgado MD Eprescribed prescriptions ([id number])By: On: 02-Jun-2012 Intent 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 Ultrasound - LiverBy: Bruna JONES, On: 03-Mar-2012 Intent Jacquelin Brambila MAMMOGRAM, SCREENING, BOTH BREASTS On: 05-Nov-2011 Intent ([id number])By: Jacquelin Delgado MD EKG ([id number])By: MARNIE Escamilla On: 05-Nov-2011 Intent Eprescribed prescriptions ([id number])By: On: 14-Jun-2010 Intent Fast DO, Pilar A EKG ([id number])By: Jacquelin Delgado MD On: 24-Mar-2010 Intent MAMMOGRAM, SCREENING, BOTH BREASTS On: 15-Dec-2009 Intent ([id number])By: Jacquelin Delgado MD DXA, BONE DENSITY, AXIAL SKELETON On: 26-Nov-2008 Intent ([id number])By: Jacquelin Delgado MD MAMMOGRAM, SCREENING, BOTH BREASTS On: 26-Nov-2008 Intent ([id number])By: Jacquelin Delgado MD Instructions Name Dates Details [...] weight :. 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 The patient has noticed [...] (250.00), Hyperlipidemia, Unspecified (272.4), Hypertension,benign(401.1), Osteopenia (733.90), V V73.21 [facility] Office Visit On: [...] Diagnosis: Osteopenia (733.90), Hyperlipidemia, Unspecified (272.4), Hypertension,benign(401.1), WWV V73.21, Diabetes type II,controlled no comp (250.00) [...]
--- OUTSIDE RECORDS SUMMARY | 2018-04-10 21:42 | XMS RPT_ITS | Continuity of Care Document ---
:1935 Author Organization [facility] Address [address] [place] [address] Phone Care Team Providers Name Role Phone [...] Quantity: 6 {Tablet} Refills: 0 Ordered:30-Mar-2009 Herminia 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, Mere Finley 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, Mere Dc Start : 28-Mar-2009 End : [...] 91 polyps Hysterectomy; Abdominal Completed Comments: Partial 2003 Tonsillectomy Completed Comments: 1943 Date Value Details 13-Feb-2018 Dexa Bone Density Study Result: Comments: See Note; NOTES: [facility] Imaging Services [address] [place] [address] Dexa Bone Density Study MR#: [id number] Acct: [id number] Name: SANDRINE GUZMAN Rep #: [id number] : 1935 F 82 From: Scotty Tinoco MD PCP: Mere Hope NP Status: REG CLI Study: Dexa Bone Density Study Date of Exam: 02/13/18 Exam# [id number] Ordering Dr: Mere Hope LINSEED CAKE TRIMMER-C STUDY: DUAL ENERGY X-RAY ABSORPTIOMETRY / DXA REASON FOR EXAM: Female, 82 years old. The patient is postmenopausal. Loss of height. TECHNIQUE: Bone Mineral Density (BMD) measurements of lumbar spine and bila teral hips were obtained. COMPARISON: Comparison is made with prior study dated January 25, 2015. FINDINGS: Lumbar Spine (L1-L4): g/cm2 (0.927) / T-score (-2.0) / Z-score (-0.1) Findings are suggestive of osteopenia with a moderate fracture risk. Left Femur Total: g/cm2 (0.801) / T-score (-1.6) / Z-score (0.5) Left Femoral Neck: g/cm2 (0.754) / T-score (-2.0) / Z-score (0.2) Right Femur Total: g/cm2 (0.845) / T-score (-1.3) / Z-score (0.8) Right Femoral Neck: g/cm2 (0.75) / T-score (-1.8) / Z-score (0.4) The T-Scores on the most recent prior examination were : Lumbar Spine (L1-L4): There has been worsening of bone density since the previous examination. Left Femur Total: which represents a worsening of 0.1%. Right Femur Total: which represents an improvem ent of 0.2%. BD/Dexa Bone Density Study IMPRESSION: The patient is considered osteopenic as outlined below according to World [employer] Organization (WHO) criteria with a moderate fracture risk. There has been worsening of bone density since the previous examination. Reference Information: The T-score is the num galo of standard deviations above or below the [...] follows: Mild -1 through -1.5 Moderate -1.6 t hrough -2.0 Severe -2.1 through -2.4 The Z-score is the number of standard deviations above or below age-matched controls. A Z-score of less than -1.5 would be considered abnormal. References: 1. NIH Osteoporosis and Related Bone Diseases http://www.osteo.org 2. International Society for Clinical Densitometry http://www.iscd.org 3. National Osteoporosis Foundation http://www.nof.org Electronically Signed: Scotty Tinoco MD at 15:54 EST Tel [phone], Service support , CC: Mere Hope NP Gis Instructor: Signed 13-Feb-2018 SCREENING MAMM (CAD), BILAT Result: Comments: See Note; NOTES: [facility] Imaging Services [address] [place] [address] SCREENING MAMM (CAD), BILAT MR#: [id number] Acct: [id number] Name: SANDRINE GUZMAN Rep # : [id number] : 1935 F 82 From: Scotty Tinoco MD PCP: eMre Hope NP Status: REG CLI Study: SCREENING MAMM (CAD), BILAT Date of Exam: 02/13/18 Exam# [id number] Ordering Dr: Mere Hope LINSEED CAKE TRIMMER-C MAMMOGRAPHY - BILATERAL SCREENING REASON FOR EXAM: Female, 82 years old. Routine annual screening examination. PERTINENT HISTORY: Aunt with breast cancer. Remote right excisional breast biopsy. TECH NIQUE: Digital bilateral breast chantale (3D mammographic acquisition) in the CC and MLO projections. 2-D mediolateral oblique (MLO) and craniocaudad (CC) views of both breasts were obtained. CAD: Full Fiel d Digital Mammography with Computer Added Detection was performed. COMPARISON: Comparison is made with prior study dated January 30, 2017 and January 30, 2016. FI NDINGS: Breast Composition: The breasts are almost entirely fatty. There are no dominant masses or suspicious calcifications. Stable asymmetry of breast tissue were more breast tissue is seen in the up per outer quadrant of the right breast as compared to the left side. This is unchanged. Small bilateral axillary lymph nodes. No other significant abnormalities are identified. There has been no signif icant change since the prior study. BI/SCREENING MAMM (CAD), BILAT IMPRESSION: Stable bilateral screening mammogram. Yearly follow-up mammogram r ecommended. (A) ASSESSMENT CATEGORY: BIRADS Category 2: Benign. A letter regarding these results will be sent to the patient by the facility within 30 days. Approx imately 10% of breast cancers are not detected by mammography. A normal mammogram should not delay biopsy of a clinically suspicious abnormality. [id number] Electronically Signed: Scotty Tinoco MD 2 at 9:11 EST Tel [phone], Service support , CC: Mere Hope NP Gis Instructor: Signed 20-Mar-2017 Kidney and Bladder Result: Comments: See Note; NOTES: [facility] Imaging Services [address] [place] [address] Kidney and Bladder MR#: [id number] Acct: [id number] Name: SANDRINE GUZMAN Rep #: [id number] : 1935 F 81 From: George Luo DO PCP: Mere Hope NP Status: REG CLI Study: Kidney and Bladder Date of Exam: 03/20/17 Exam# [id number] Ordering Dr: Mere Hope STUDY: RENAL ULTRASOUND [...] is n ot visualized. Electronically Signed: George LuoDO at 11:24 EST Tel [phone], Service support , CC: Mere Hope NP Gis Instructor: Signed 30-Jan-2017 SCREENING MAMM (CAD), BILAT Result: Comments: See Note; NOTES: [facility] Imaging Services [address] [place] [address] SCREENING MAMM (CAD), BILAT MR#: [id number] Acct: [id number] Name: SANDRINE GZUMAN Rep # : [id number] : 1935 F 81 From: Scotty Tinoco MD PCP: Mere Hope Status: REG CLI Study: SCREENING MAMM (CAD), BILAT Date of Exam: 01/30/17 Exam# [id number] Ordering Dr: Mere Hope MAMMOG ASHA - [...] delay biopsy of a clinically suspicious abnormality. [id number] Electronically Signed: Scotty Tinoco MD at 10:50 EST Tel [phone], Se rvice support , CC: Mere Hope Gis Instructor: Signed 30-Jan-2016 Bilat Scrn Digital AND CAD Result: Comments: See Note; NOTES: [facility] Imaging Services [address] [place] [address] Verdana 4d Bilat Scrn Digital AND CAD MR#: [id number] Acct: [id number] Name: RADAH GUZMAN CIA Rep #: [id number] : 1935 F 80 From: Scotty Tinoco MD PCP: Bebo Boyd Status: REG CLI Study: Bilat Scrn Digital AND CAD Date of Exam: 01/30/16 Exam# [id number] Ordering Dr: Minnie Boyd en MAMMOGRAPHY - [...] delay biopsy of a clinically suspicious abnormality. [id number] Electronically Signed: Scotty Tinoco MD 2015 at 9:17 EST Tel [phone], Service support [phone], CC: Bebo Boyd Gis Instructor: Signed 25-Jan-2015 Bilat Scrn Digital AND CAD Result: Comments: See Note; NOTES: [facility] Imaging Services [address] [place] [address] Verdana 4d Bilat Scrn Digital AND CAD MR#: [id number] Acct: [id number] Name: SANDRINE GUZMAN Rep #: [id number] : 1935 F 79 From: Scotty Tinoco MD PCP: Jacquelni Delgado MD Status: REG CLI Study: Bilat Scrn Digital AND CAD Date of Exam: 01/25/15 Exam# [id number] Ord ering Dr: Jacquelin Delgado MD MAMMOGRAPHY [...] Signed: Scotty Tinoco MD at 9:53 EST [facility] [phone], Service support [phone], CC: Jacquelin Delgado MD Gis Instructor: Signed 25-Jan-2015 Dexa Bone Density Study (HP) Result: Comments: See Note; NOTES: [facility] Imaging Services [address] [place] [address] Verdana 4d Dexa Bone Density Study (HP) MR#: [id number] Acct: [id number] Name : SANDRINE GUZMAN Rep #: [id number] : 1935 F 79 From: Scotty Tinoco MD PCP: Jacquelin Delgado MD Status: [facility] CLI Study: Dexa Bone Density Study (HP) Date of Exam: 01/25/15 Exam# [id number] Ordering Dr: Jacquelin Delgado MD STUDY: DUAL [...] Scotty Tinoco MD at 8:04 EST Tel [phone], Service support [phone], CC: Jacquelin Delgado MD Gis Instructor: Signed 22-Jan-2014 Bilat Scrn Digital & CAD Result: Comments: See Note; NOTES: [facility] Imaging Services [address] [place] [address] Breast Imaging Report MR#: [id number] Acct: [id number] Name: SANDRINE GUZMAN Rep # : [id number] : 1935 F 78 From: Scotty Tinoco MD PCP: Jacquelin Delgado MD Status: REG CLI Exam# [id number] Ordering Dr: Jacquelin Delgado MD MAMMOGRAPHY - [...] (A) ASSESSMENT CATEGORY: CC: Jacquelin Delgado MD Gis Instructor: Signed 21-Jan-2013 Dexa Bone Density Study (HP) Result: Comments: See Note; NOTES: [facility] Imaging Services [address] [place] [address] Bone Density Report MR#: [id number] Acct: [id number] Name: SANDRINE GUZMAN DAXA Rep # : [id number] : 1935 F 77 From: Scotty Tinoco MD PCP: Jacquelin Delgado MD Status: REG CLI Study: Dexa Bone Density Study (HP) Date of Exam: 01/21/13 Exam# [id number] Ordering Dr: Shelton Delgado MD STUDY: DUAL [...] January 21, 2013 at 10:01:36 AM EST [phone] Electronically Signed GP/GP If you are the referring physician and would like to consult with the radiologist who provided this interpr etation, please contact Scotty Tinoco M.D. at [phone]. If this radiologist is unavailable, you will be directed to another radiologist to assist. If you are a patient with a question rega rding this report, please contact your referring physician directly. Professional Interpretation Provided By: [employer], Phone , These documents contain legally pro [...] of these documents. CC: Jacquelin Delgado MD Gis Instructor: Signed 21-Jan-2013 Bilat Scrn Digital & CAD Result: Comments: See Note; NOTES: [facility] Imaging Services [address] [place] [address] Breast Imaging Report MR#: [id number] Acct: [id number] Name: SANDRINE GUZMAN DAXA Rep #: [id number] : 1935 F 77 From: Scotty Tinoco MD PCP: Jacquelin Delgado MD Status: REG CLI Exam# [id number] Ordering Dr: Jacquelin Delgado MD MAMMOGRAPHY - [...] 21, 2013 at 9:14:[address] [phone] Electronically Signed GP/GP If you are the referring physician and would like to consult with the radiologist who provided this interpretation, please contact Scotty Tinoco M.D. at [phone]. If this radiologist is unavailable, you will be directed to another radiologist to assist. If you are a patient with a question regarding this report, please contact your refe rring physician directly. Professional Interpretation Provided By: [employer], Phone , These documents contain legally protected [...] of these documents. CC: Jacquelin Delgado MD Gis Instructor: Signed Family History Unknown Family Member Name [...] smoker Vital Signs Date Test Result Details 23-Dec-20179:40 Temperature 97.4 f Comments: Method: Temporal Pulse [...] 0.00 cm Results Date Description Value Details 5-Ylv-178317:03 Metabolic Panel, Comprehensive Comments: PATIENT NOT FASTINGPERFORMED BY: BRANDO [email or web address] Uumjqm3204 [facility] [id number] (15562) ALT (SGPT) 26 [iU]/L (Normal) Range: 0-32 [...] (Abnormal) Range: 65-99 :42 HgA1C , Office (27341) HgA1C , Office 6.0 % (Normal) Range: 4.6 - 7.1 :42 Blood Glucose , Office (80921) Blood Glucose , Office 130 (Normal) :06 LIPID PANEL (90765) Comments: Dec 2017; PATIENT WAS FASTINGPERFORMED BY: BRANDO LabCo Qkgfht7343 [facility] [id number] LDL/HDL Ratio 1.9 {ratio} (Normal) Range: 0.0-3.2 [...] (Normal) Range: 100-199 :04 HgA1C , Office (19651) HgA1C , Office 6.0 % (Normal) Range: 4.6 - 7.1 :04 Blood Glucose , Office (11096) Blood Glucose , Office 114 (Normal) 90-Ojy-362190:06 VITAMIN B12 AND FOLATES Comments: PATIENT NOT FASTINGPERFORMED BY: [facility] [id number] (82681) Folate (Folic Acid), Serum >20.0 ng/mL (Normal) Comments: A serum folate concentration of less than 3.1 ng/mL isconsidered to represent clinical deficiency. Vitamin B12 786 pg/mL (Normal) Range: 232-1245 :38 HgA1C , Office (12983) HgA1C , Office 6.0 % (Normal) Range: 4.6 - 7.1 :37 Blood Glucose , Office (86044) Blood Glucose , Office 127 (Normal) :14 Metabolic Panel, Comprehensive Comments: PATIENT WAS FASTINGPERFORMED BY: [employer]70 t3n [facility] [id number] (43834) ALT (SGPT) 24 [iU]/L (Normal) Range: 0-32 [...] mg/dL (Abnormal) Range: 65-99 :14 Lipid Panel (36020) Comments: PATIENT WAS FASTINGPERFORMED BY: LabCoMarlton Rehabilitation HospitalQlspsc9052 [facility] [id number] LDL/HDL Ratio 2.2 {ratio_units} (Normal) Range: 0.0-3.2 [...] (Normal) Range: 100-199 :42 HgA1C , Office (15573) HgA1C , Office 6.4 % (Normal) Range: 4.6 - 7.1 :42 Blood Glucose , Office (67346) Blood Glucose , Office 156 (Normal) Comments: pt is fasting :23 CBC With Differential/Platelet Comments: PATIENT WAS FASTINGPERFORMED BY: BRANDO OSOYOU.comNew Mexico Behavioral Health Institute at Las VegasCbrpem8076 [facility] [id number]; 03/06 OV Immature Grans (Abs) 0.0 {x10E3/uL} [...] Panel (14) Comments: PATIENT WAS FASTINGPERFORMED BY: BRANDO LabHills [facility] Hospital6370 [facility] [id number] ALT (SGPT) 17 [iU]/L (Normal) Range: 0-32 [...] Glucose, Serum 155 mg/dL (Abnormal) Range: 65-99 72-Mpx-32390:23 Lipid Panel With LDL/HDL Comments: PATIENT WAS FASTINGPERFORMED BY: LabCoMarlton Rehabilitation HospitalBrxrsa8280 [facility] [id number] Ratio LDL/HDL Ratio 2.6 {ratio_units} (Normal) Range: 0.0-3.2 Comments: LDL/HDL Ratio Men Women 1/2 Avg.Risk 1.0 1.5 Av g.Risk 3.6 3.2 2X Avg.Risk 6.2 5.0 3X Avg.Risk 8.0 6.1 LDL Cholesterol Calc 116 mg/dL (Abnormal) Range: 0-99 VLDL Cholesterol Andres 55 mg/dL (Abnormal) Range: 5-40 HDL Cholesterol 44 mg/dL (Normal) Triglycerides 277 mg/dL (Abnormal) Range: 0-149 Cholesterol, Total 215 mg/dL (Abnormal) Range: 100-199 60-Hru-66824:23 Microalb/Creat Ratio, Randm Ur Comments: PATIENT WAS FASTINGPERFORMED BY: [email or web address] Hngtee7761 [facility] [id number] Microalb/Creat Ratio <4.6 {mg/g_creat} Range: 0.0-30.0 (Normal) Microalbumin, Urine <3.0 ug/mL (Normal) Creatinine, Urine 65.1 mg/dL (Normal) 25-Feb-2017 TSH 2.640 {uIU/mL} Comments: PATIENT WAS FASTINGPERFORMED BY: [email or web address] Dipurt3941 [facility] [id number] 8:23 (Normal) Range: 0.450-4.500 46-Kan-75611:23 Urinalysis, Routine Comments: PATIENT WAS FASTINGPERFORMED BY: [email or web address] Nlzmpc7780 [facility] [id number] Microscopic Examination MICNIP (Normal) Comments: Microscopic not indicated and not performed. Nitrite, Urine Negative (Normal) Urobilinogen,Semi-Qn 0.2 mg/dL (Normal) Range: 0.2-1.0 Bilirubin Negative (Normal) Occult Blood Negative (Normal) Ketones Negative (Normal) Glucose Negative (Normal) Protein Negative (Normal) WBC Esterase Negative (Normal) Appearance Clear (Normal) Urine-Color Yellow (Normal) pH 6.0 (Normal) Range: 5.0-7.5 Specific [place] 1.014 (Normal) Range: 1.005-1.030 :18 CBC, Platelets & Auto Diff Comments: Feb 2017; PATIENT WAS FASTINGPERFORMED BY: [email or web address] Xwanxo5922 [facility] [id number] (46193) Immature Grans (Abs) 0.0 {x10E3/uL} (Normal) Range: [...] 7.5 {x10E3/uL} (Normal) Range: 3.4-10.8 :18 TSH (76447) Comments: Feb 2017; PATIENT WAS FASTINGPERFORMED BY: LabCoMarlton Rehabilitation HospitalMibgem4437 [facility] [id number] TSH 3.140 {uIU/mL} (Normal) Range: 0.450-4.500 :18 MICROALBUMIN: CREATININE RATIO Comments: Feb 2017; PATIENT WAS FASTINGPERFORMED BY: LabCoMarlton Rehabilitation HospitalFgrkcc0381 [facility] [id number] (39733) AND (01599) Microalb/Creat Ratio <3.7 {mg/g_creat} (Normal) Range: 0.0-30.0 Microalbumin, Urine <3.0 ug/mL (Normal) Creatinine, Urine 80.5 mg/dL (Normal) :18 URINALYSIS (53178) Comments: Feb 2017; PATIENT WAS FASTINGPERFORMED BY: OSOYOU.comMarlton Rehabilitation HospitalOmixyw0125 [facility] [id number] Microscopic Examination MICNIP (Normal) Comments: Microscopic not indicated and not performed. Nitrite, Urine Negative (Normal) Urobilinogen,Semi-Qn 0.2 mg/dL (Normal) Range: 0.2-1.0 Bilirubin Negative (Normal) Occult Blood Negative (Normal) Ketones Negative (Normal) Glucose Negative (Normal) Protein Negative (Normal) WBC Esterase Negative (Normal) Appearance Clear (Normal) Urine-Color Yellow (Normal) pH 6.0 (Normal) Range: 5.0-7.5 Specific [place] 1.013 (Normal) Range: 1.005-1.030 65-Zlr-02811:18 Metabolic Panel, Comprehensive Comments: Feb 2017; PATIENT WAS FASTINGPERFORMED BY: Specific MediaNew Mexico Behavioral Health Institute at Las VegasTzmguh2539 [facility] [id number] (82408) ALT (SGPT) 30 [iU]/L (Normal) Range: 0-32 [...] mg/dL (Abnormal) Range: 65-99 :18 LIPID PANEL (49618) Comments: Week of Sep 03 fasting; PATIENT WAS FASTINGPERFORMED BY: [email or web address] Qgxbjg5660 [facility] [id number] LDL/HDL Ratio 2.3 {ratio_units} (Normal) Range: 0.0-3.2 [...] Range: 100-199 :41 Blood Glucose , Office (71444) Comments: 190 Blood Glucose , Office 190 (Normal) Comments: ate breakfast :41 HgA1C , Office (46604) Comments: 6.5 HgA1C , Office 6.5 % (Normal) Range: 4.6 - 7.1 :26 METABOLIC PANEL, COMPREHENSIVE Comments: PATIENT WAS FASTINGPERFORMED BY: OSOYOU.comMarlton Rehabilitation HospitalNmcptc5916 [facility] [id number] (18883) ALT (SGPT) 22 [iU]/L (Normal) Range: 0-32 [...] (Abnormal) Range: 65-99 :19 HgA1C , Office (38006) HgA1C , Office 6.5 % (Normal) Range: 4.6 - 7.1 :19 Blood Glucose , Office (29341) Blood Glucose , Office 146 (Normal) 28-Gjo-756284:31 URINE TRELL CULTURE-MITCH COL Comments: PATIENT NOT FASTINGPERFORMED BY: [employer]70 t3n MagazinSwain Community Hospital [id number] Information: SRC:UC COUNT (49747) Result 1 MUG (Normal) Comments: Mixed urogenital flora10,000-25,000 colony forming units per mL Urine Final report (Normal) Culture,Comprehensive :05 Microscopic Examination Comments: PATIENT WAS FASTINGPERFORMED BY: Specific Media [facility]stoSw[facility] Hospital [id number] Bacteria Few (Normal) Mucus Threads Present (Normal) Epithelial Cells (non renal) 0-10 {/hpf} (Normal) Range: 0 - 10 RBC None seen {/hpf} (Normal) Range: 0 - 2 WBC 0-5 {/hpf} (Normal) Range: 0 - 5 :05 URINALYSIS, W/ MICRO (48989) Comments: PATIENT WAS FASTINGPERFORMED BY: OSOYOU.comMarlton Rehabilitation HospitalKvkrob6410 [facility] [id number] Microscopic Examination See below: (Normal) Comments: Microscopic was indicated and was performed. Nitrite, Urine Negative (Normal) Urobilinogen,Semi-Qn 0.2 mg/dL (Normal) Range: 0.2-1.0 Bilirubin Negative (Normal) Occult Blood Negative (Normal) Ketones Negative (Normal) Glucose Negative (Normal) Protein Negative (Normal) WBC Esterase Trace (Abnormal) Appearance Clear (Normal) Urine-Color Yellow (Normal) pH 6.5 (Normal) Range: 5.0-7.5 Specific [place] 1.012 (Normal) Range: 1.005-1.030 :05 MICROALBUMIN: CREATININE RATIO Comments: PATIENT WAS FASTINGPERFORMED BY: InnovegaHills [facility]ales [facility] Hospital6370 [facility] [id number] (18027) AND (58323) Microalb/Creat Ratio <4.6 {mg/g_creat} (Normal) Range: 0.0-30.0 Microalbumin, Urine <3.0 ug/mL (Normal) Creatinine, Urine 65.7 mg/dL (Normal) :05 METABOLIC PANEL, COMPREHENSIVE Comments: PATIENT WAS FASTINGPERFORMED BY: InnovegaHills & Dales [facility] Hospital6370 [facility] [id number] (43920) ALT (SGPT) 21 [iU]/L (Normal) Range: 0-32 [...] mg/dL (Abnormal) Range: 65-99 :05 LIPID PANEL (73414) Comments: PATIENT WAS FASTINGPERFORMED BY: WiN MSSwain [facility] Hospital [id number] LDL/HDL Ratio 2.3 {ratio_units} (Normal) Range: 0.0-3.2 [...] Range: 100-199 :05 CBC with auto diff (06508) Comments: PATIENT WAS FASTINGPERFORMED BY: ANT FarmC[facility] [id number] Immature Grans (Abs) 0.0 {x10E3/uL} (Normal) Range: [...] (Normal) Range: 3.4-10.8 :24 HgA1C , Office (39157) HgA1C , Office 6.5 % (Normal) Range: 4.6 - 7.1 :07 Microscopic Examination Comments: PATIENT WAS FASTINGPERFORMED BY: [employer] [facility] [id number] Bacteria Few (Normal) Mucus Threads Present (Normal) Epithelial Cells (non renal) 0-10 {/hpf} (Normal) Range: 0 - 10 RBC None seen {/hpf} (Normal) Range: 0 - 2 WBC 0-5 {/hpf} (Normal) Range: 0 - 5 :07 URINALYSIS, W/ MICRO (65849) Comments: PATIENT WAS FASTINGPERFORMED BY: [employer] Kspoab7767 [facility] [id number] Microscopic Examination See below: (Normal) Comments: Microscopic was indicated and was performed. Microscopic Examination MICRON (Normal) Comments: Microscopic follows if indicated. Nitrite, Urine Negative (Normal) Urobilinogen,Semi-Qn 0.2 mg/dL (Normal) Range: 0.2-1.0 Bilirubin Negative (Normal) Occult Blood Negative (Normal) Ketones Negative (Normal) Glucose Negative (Normal) Protein Negative (Normal) WBC Esterase Negative (Normal) Appearance Clear (Normal) Urine-Color Yellow (Normal) pH 6.5 (Normal) Range: 5.0-7.5 Specific [place] 1.013 (Normal) Range: 1.005-1.030 18-Jul-20158:07 METABOLIC PANEL, COMPREHENSIVE Comments: PATIENT WAS FASTINGPERFORMED BY: LabCoMarlton Rehabilitation HospitalAzywkq3569 [facility] [id number] (61289) ALT (SGPT) 22 [iU]/L (Normal) Range: 0-32 [...] mg/dL (Abnormal) Range: 65-99 :07 LIPID PANEL (12141) Comments: PATIENT WAS FASTINGPERFORMED BY: OSOYOU.comMarlton Rehabilitation HospitalBzhofi3450 [facility] [id number] LDL/HDL Ratio 2.2 {ratio_units} (Normal) Range: 0.0-3.2 [...] auto diff Comments: PATIENT WAS FASTINGPERFORMED BY: [facility]6370 [facility] [id number] Information: [id number]; [address] (30250) Immature Grans (Abs) 0.0 {x10E3/uL} (Normal) Range: [...] (Normal) Range: 3.4-10.8 :15 HgA1C , Office (76610) HgA1C , Office 6.6 % (Normal) Range: 4.6 - 7.1 :08 CBC W/Diff, Automated Comments: [facility] [address] [place], [address] ; ov 15 Absolute Lymph 1.51 {X10_3/ul} (Normal) Range: 0.83-4.51 [...] Range: 4.4-11.0 17-Jan-20158:08 Comprehensive Metabolic Profil Comments: [facility] [address] [place], [place], [id number] GAP 7 (Normal) Range: 5-15 CO2 29.0 [...] per A.D.A. criteria. :08 Lipid Profile Comments: [facility] [address] [place], [place], [address] VLDL 49 mg/dL (Abnormal) Range: 5-40 LDL [...] Complete Comments: How was Urine Obtained? Urine, [facility] [address] [place], [place], [id number] MUCUS, URINE 0 SEEN {/hpf} (Normal) BACTERIA [...] Yellow (Normal) :08 Vitamin D,25 Hydroxy Comments: [facility] [address] [place], [place], [id number] Vitamin D 25-OH 33.4 ng/mL (Normal) Comments: Vitamin D 25(OH) Status Range Deficiency <20 ng/mL (50nmol/L) Insuffciency 20 - 30 ng/mL (50 - 75 nmol/L) Sufficiency 30 - 100 ng/mL (75 - 250 nmol/L) Toxicity >100 ng/mL (>250 nmol/L) :31 HgA1C , Office (41314) HgA1C , Office 6.8 % (Normal) Range: 4.6 - 7.1 :37 Comprehensive Metabolic Profil Comments: Test performed at:[facility] [address] [place], [place] [id number] GAP 7 (Normal) Range: 5-15 CO2 29.0 [...] criteria. :37 Lipid Profile Comments: Test performed at:[facility] [address] [place] [address] VLDL 51 mg/dL (Abnormal) Range: 5-40 LDL [...] :37 Microalb:Creat Ratio,Random UR Comments: Test performed at:[facility] [address] [place] [address] MALB:CREAT Test not performed {mg/g_CRE} (Normal) MICROALBUMIN,UR < 5.0 mg/L (Normal) UR CREAT 86.0 mg/dL (Normal) :04 HgA1C , Office (07352) HgA1C , Office 6.8 % (Normal) Range: 4.6 - 7.1 :04 Blood Glucose , Office (04885) Blood Glucose , Office 141 (Normal) :07 METABOLIC PANEL, Comments: PATIENT WAS FASTINGPERFORMED BY: LabCoMarlton Rehabilitation HospitalBcgjfz4114 [facility] [id number] Information: [id number] COMPREHENSIVE (48690) ALT (SGPT) 21 [iU]/L (Normal) Range: 0-32 [...] Glucose, Serum 142 mg/dL (Abnormal) Range: 65-99 57-Alb-10450:07 LIPID PANEL (08370) Comments: PATIENT WAS FASTINGPERFORMED BY: LabCoMarlton Rehabilitation HospitalGwewjn2121 [facility] [id number] LDL/HDL Ratio 2.6 {ratio_units} (Normal) Range: 0.0-3.2 [...] Cholesterol, Total 218 mg/dL (Abnormal) Range: 100-199 51-Ndr-721737:32 Blood Glucose , Office (14490) Blood Glucose , Office 124 (Normal) 58-Uul-430527:32 HgA1C , Office (60191) HgA1C , Office 7.0 % (Normal) Range: 4.6 - 7.1 :37 MICROALBUMIN: CREATININE RATIO Comments: PATIENT WAS FASTINGPERFORMED BY: [employer]70 [facility] [id number] (36710) AND (55743) Microalb/Creat Ratio 3.0 {mg/g_creat} (Normal) Range: 0.0-30.0 Creatinine, Urine 66.1 mg/dL (Normal) Range: 15.0-278.0 Microalbumin, Urine 2.0 ug/mL (Normal) Range: 0.0-17.0 :37 METABOLIC PANEL, COMPREHENSIVE Comments: PATIENT WAS FASTINGPERFORMED BY: NextIO6370 [facility] [id number] (51352) ALT (SGPT) 18 [iU]/L (Normal) Range: 0-32 [...] mg/dL (Abnormal) Range: 65-99 :37 LIPID PANEL (45158) Comments: PATIENT WAS FASTINGPERFORMED BY: OSOYOU.comMarlton Rehabilitation HospitalYpzhts3242 [facility] [id number] LDL/HDL Ratio 2.5 {ratio_units} (Normal) Range: 0.0-3.2 [...] MANUAL DIFF Comments: PATIENT WAS FASTINGPERFORMED BY: OSOYOU.comMarlton Rehabilitation HospitalUboygi5200 [facility] [id number] Information: [id number] (16044) Immature Grans (Abs) 0.0 {x10E3/uL} (Normal) Range: [...] Range: 3.4-10.8 :43 Blood Glucose , Office (31547) Blood Glucose , Office 128 (Normal) :43 HgA1C , Office (71586) HgA1C , Office 6.8 % (Normal) Range: 4.6 - 7.1 7-Lxi-722618:23 CBC, PLATELETS & MANUAL Comments: PATIENT WAS FASTINGPERFORMED BY: LabCoMarlton Rehabilitation HospitalHqppxd1103 [facility] [id number] Information: [id number] DIFF (46017) Immature Grans (Abs) 0.0 {x10E3/uL} (Normal) Range: [...] 3.77-5.28 WBC 3.8 {x10E3/uL} (Normal) Range: 3.4-10.8 4-Ovx-602371:23 METABOLIC PANEL, COMPREHENSIVE Comments: PATIENT WAS FASTINGPERFORMED BY: [facility]6370 [facility] [id number] (29299) ALT (SGPT) 17 [iU]/L (Normal) Range: 0-32 [...] mg/dL (Abnormal) Range: 65-99 :23 LIPID PANEL (02540) Comments: PATIENT WAS FASTINGPERFORMED BY: [employer] Orgyri0556 [facility] [id number] LDL/HDL Ratio 2.7 {ratio_units} (Normal) Range: 0.0-3.2 LDL Cholesterol Calc 120 mg/dL (Abnormal) Range: 0-99 HDL Cholesterol 44 mg/dL (Normal) Comments: According to ATP-III Guidelines, HDL-C >59 mg/dL is considered anegative risk factor for CHD. VLDL Cholesterol Andres 44 mg/dL (Abnormal) Range: 5-40 Cholesterol, Total 208 mg/dL (Abnormal) Range: 100-199 Triglycerides 221 mg/dL (Abnormal) Range: 0-149 :11 Blood Glucose , Office (00015) Blood Glucose , Office 122 (Normal) :11 HgA1C , Office (04865) HgA1C , Office 6.5 % (Normal) Range: 4.6 - 7.1 :59 Hemoglobin Glyclated (HGB Comments: today only; PATIENT NOT FASTINGPERFORMED BY: NextIO6370 [facility] [id number] Information: ADD [id number] AND DRAW FEE 99 8340 A1C) (34466) Hemoglobin A1c 6.4 % (Abnormal) Range: 4.8-5.6 Comments: . Increased risk for diabetes: 5.7 - 6.4 Diabetes: >6.4 Glycemic control for adults with diabetes: <7.0 22-Sep-20129:33 METABOLIC PANEL, COMPREHENSIVE Comments: PATIENT WAS FASTINGPERFORMED BY: gis.to6370 [facility] [id number] (63007) ALT (SGPT) 18 [iU]/L (Normal) Range: 0-32 [...] mg/dL (Abnormal) Range: 65-99 :33 LIPID PANEL (61555) Comments: PATIENT WAS FASTINGPERFORMED BY: [employer]70 [place] [facility] [id number] LDL/HDL Ratio 2.6 {ratio_units} (Normal) Range: 0.0-3.2 [...] MANUAL DIFF Comments: PATIENT WAS FASTINGPERFORMED BY: [employer]70 [facility] [id number] Information: [id number] (23280) Immature Grans (Abs) 0.0 {x10E3/uL} (Normal) Range: [...] Hepatic Function Panel Comments: PERFORMED BY: BRANDO [facility] Tozffp5784 [facility] [id number] BY: TG [facility] QPI1498 [facility] [id number] (7) ALT (SGPT) 30 [iU]/L (Normal) Range: 0-32 AST (SGOT) 27 [iU]/L (Normal) Range: 0-40 Alkaline Phosphatase, S 96 [iU]/L (Normal) Range: 25-165 Bilirubin, Direct 0.21 mg/dL (Normal) Range: 0.00-0.40 Bilirubin, Total 0.6 mg/dL (Normal) Range: 0.0-1.2 Albumin, Serum 4.4 g/dL (Normal) Range: 3.5-4.8 Protein, Total, Serum 7.0 g/dL (Normal) Range: 6.0-8.5 21-Mar-20129:59 Hered.Hemochromatosis, DNA Comments: PERFORMED BY: BRANDO [facility] Pwsifm7419 [place] [id number] BY: ISABEL [facility] KKO6946 Javier [place] [id number] Hereditary Hemochromatosis 63HOM1 (Normal) Comments: Result: H63D/Y20CRlm copies of the same mutation (H63D and H63D) identified .Interpretation:This patient's sample was analyzed for th e hereditary hemochromatosis(HH) mutations C282Y, H63D, and S65C. Two copies of H63D wereidentified. Results for C282Y and S65C were negative. The mutationsanalyzed by [facility]Min[facility] are most common in the population.Although some [...] J Prev Med 16:134-140.Denver Pearson (2002). Lancet 360(5297):0 683-33.Dalia Tabares et al. (2002). Blood Cells, Molecules. andDiseases. 29(3):418- 432.Parveen Stallings et al. (2003). Gisel Med. 5(1):1-8.Haylie LINDSEY et al. (2003). Gisel Med. 5(4):304-10.Genetic counselors are available for health care providers to discussresults at [phone]. . Navid Gramajo, Ph.D. Anisha Driver, Ph.D. Linda Henry, Ph.D. Shahrzad Flores, Ph.D. Lorelei Garcia, Ph.D. Elsa Gastelum, Ph.D. S. Joel VogtSKatt, Ph.D. 92-Vim-29188:00 LIVER Radiology Report See Note (Normal) Comments: PROCEDURE: ABDOMINAL ULTRASOUND - RIGHT UPPER QUADRANT REASON FOR VISIT: Female, 76 years old. Elevated liver functiontests. TECHNIQUE: Ultrasound evaluation of the right upper quadrant [facility] with real-time and static garvey-scale imaging. TECHNICAL [...] size of the right kidney. The right phijdjslwklruq30.1 cm. Normal renal cortex. The right cortex measures 1.5 cm. Thereisno demonstrated renal mass or cyst. There is no right hydronephrosis. IMPRESSION:Normal right upper quadrant ultrasound examination.The patient is status post cholecystectomy. Signed:Scotty Tinoco M.D.March 06, 2012 at 12:32:06 PM [id number] Signed GP/GP If you are the referring physician and would like to consult with theradiologist who provided this interpretation, please contact Jerri Hernandez at [phone]. If this radiologist is unavailable, youwill be directed to another radiologist to assist. If you are a patient with a question regarding this report, pleasecontactyour referring physician directly. Professional Interpretation Provided By: [employer], Phone , These documents contain legally protected [...] Scotty Tinoco MD :46 HgA1C , Office (40094) HgA1C , Office 6.6 % (Normal) Range: 4.6 - 7.1 :46 Blood Glucose , Office (09686) Blood Glucose , Office 143 (Normal) :47 HEPATITIS PANEL (49182) Comments: PATIENT NOT FASTINGPERFORMED BY: [facility]6370 [facility] [id number] Information: [id number] Hep C Virus Ab <0.1 {s/co_ratio} Range: [...] ng/mL (Abnormal) Comments: PATIENT WAS FASTINGPERFORMED BY: [facility]6370 [facility] [id number] Information: [id number] :12 Range: 13-150 6-Dec-79863 Written Authorization WAR (Normal) Comments: PATIENT WAS FASTINGPERFORMED BY: LabHills [facility] Hospital6370 [facility] [id number] :12 Comments: Written Authorization Received.Authorization received from DR DELGADO [id number] by Ya Arnett 21-Jan-20129:23 BILAT SCRN DIGITAL [...] Tinoco M.D.January 21, 2012 at 9:56:18 AM [id number] Signed GP/GP If you are the referring physician and would like to consult with theradiologist who provided this interpretation, please contact Jerri Hernandez at [phone]. If this radiologist is unavailable, youwill be directed to another radiologist to assist. If you are a patient with a question regarding this report, pleasecontactyour referring physician directly. Professional Interpretation Provided By: [employer], Phone , These doc uments contain legally [...] on 01/21/12 1000 by ITS IMPORTSign by Earnest JONES,Scotty on 01/21/12 1001 Sign by: Scotty Tinoco MD 21-Feb-20128:12 Metabolic Panel, Comments: PATIENT WAS FASTINGPERFORMED BY: LabHills [facility]6370 [facility] [id number] Information: [id number] Comprehensive (34795) ALT (SGPT) 58 [iU]/L (Abnormal) Range: 0-32 [...] mg/dL (Abnormal) Range: 65-99 :12 Lipid Panel (58057) Comments: PATIENT WAS FASTINGPERFORMED BY: OSOYOU.comMarlton Rehabilitation HospitalNpiyvk0499 [facility] [id number] LDL/HDL Ratio 2.2 {ratio_units} (Normal) Range: 0.0-3.2 LDL Cholesterol Calc 106 mg/dL (Abnormal) Range: 0-99 VLDL Cholesterol Andres 50 mg/dL (Abnormal) Range: 5-40 HDL Cholesterol 48 mg/dL (Normal) Comments: According to ATP-III Guidelines, HDL-C >59 mg/dL is considered anegative risk factor for CHD. Triglycerides 252 mg/dL (Abnormal) Range: 0-149 Cholesterol, Total 204 mg/dL (Abnormal) Range: 100-199 :25 HgA1C , Office (19484) HgA1C , Office 6.1 % (Normal) Range: 4.6 - 7.1 57-Nvt-060691:25 Blood Glucose , Office (48342) Blood Glucose , Office 126 (Normal) :31 LIPID PANEL (89782) Comments: PATIENT WAS FASTINGPERFORMED BY: OSOYOU.comElizabeth [place] 4707670 [facility] [id number] LDL/HDL Ratio 2.3 {ratio_units} (Normal) Range: 0.0-3.2 [...] FUNCTION PANEL Comments: PATIENT WAS FASTINGPERFORMED BY: [place] 9367270 [facility] [id number] Information: [id number] (27892) ALT (SGPT) 35 [iU]/L (Normal) Range: 0-40 AST (SGOT) 28 [iU]/L (Normal) Range: 0-40 Alkaline Phosphatase, S 99 [iU]/L (Normal) Range: 25-165 Bilirubin, Direct 0.15 mg/dL (Normal) Range: 0.00-0.40 Bilirubin, Total 0.6 mg/dL (Normal) Range: 0.0-1.2 Albumin, Serum 4.3 g/dL (Normal) Range: 3.5-4.8 Protein, Total, Serum 6.8 g/dL (Normal) Range: 6.0-8.5 :40 HgA1C , Office (96572) HgA1C , Office 6.3 % (Normal) Range: 4.6 - 7.1 :40 Blood Glucose , Office (62970) Blood Glucose , Office 142 (Normal) :22 CBC, PLATELETS & AUT DIFF Comments: PATIENT WAS FASTINGPERFORMED BY: LabCoMarlton Rehabilitation HospitalKpjoez5844 [facility] [id number] Information: [id number] (32605) Immature Grans (Abs) 0.0 {x10E3/uL} (Normal) Range: [...] PANEL, COMPREHENSIVE Comments: PATIENT WAS FASTINGPERFORMED BY: Lab[facility] Droudc4012 [facility] [id number] (36821) ALT (SGPT) 19 [iU]/L (Normal) Range: 0-40 [...] mg/dL (Abnormal) Range: 65-99 :22 LIPID PANEL (28839) Comments: PATIENT WAS FASTINGPERFORMED BY: OSOYOU.comMarlton Rehabilitation HospitalStfdrk3782 [facility] [id number] LDL/HDL Ratio 2.6 {ratio_units} (Normal) Range: 0.0-3.2 [...] CREATININE RATIO Comments: PATIENT WAS FASTINGPERFORMED BY: LabKBLEMarlton Rehabilitation HospitalCbrshr0588 [facility] [id number] (93188) AND (95316) Microalb/Creat Ratio 5.8 {mg/g_creat} (Normal) Range: 0.0-30.0 Microalbumin, Urine 3.9 ug/mL (Normal) Range: 0.0-17.0 Creatinine, Urine 66.7 mg/dL (Normal) Range: 15.0-278.0 :39 HgA1C , Office (76621) HgA1C , Office 6.5 % (Normal) Range: 4.6 - 7.1 :39 Blood Glucose , Office (32584) Blood Glucose , Office 137 (Normal) :31 [...] Zimmer DO 18-Jan-20119:19 DEXA BONE DENSITY STUDY () Radiology Report See Note (Normal) Comments: PROCEDURE: [...] National Osteoporosis Foundation http://www.nof.org Dictated on 01/18/11925 b y Rianna Tinoco MDranscribed on 01/18/111333 by ITS IMPORTSign by Scotty Tinoco MD on 01/18/111333 Sign by: Scotty Tinoco MD 40-Odm-75751:03 CBC WITH MANUAL DIFF Comments: PATIENT WAS FASTINGPERFORMED BY: [facility]6370 [facility] [id number] Information: [id number] (83855) Immature Grans (Abs) 0.0 {x10E3/uL} (Normal) Range: [...] {x10E3/uL} (Normal) Range: 4.0-10.5 :03 LIPID PANEL (50425) Comments: PATIENT WAS FASTINGPERFORMED BY: [employer] [facility] [id number] LDL Cholesterol Calc 106 mg/dL (Abnormal) Range: [...] PANEL, COMPREHENSIVE Comments: PATIENT WAS FASTINGPERFORMED BY: [employer] Vbouid8093 [facility] [id number] (45896) ALT (SGPT) 23 [iU]/L (Normal) Range: 0-40 [...] Glucose, Serum 123 mg/dL (Abnormal) Range: 65-99 78-Jen-93526:03 MICROALBUMIN: CREATININE RATIO Comments: PATIENT WAS FASTINGPERFORMED BY: LabHills [facility] Hospital6370 [facility] [id number] (40454) AND (08890) Microalb/Creat Ratio 2.7 {mg/g_creat} (Normal) Range: 0.0-30.0 Microalbumin, Urine 2.0 ug/mL (Normal) Range: 0.0-17.0 Creatinine, Urine 74.8 mg/dL (Normal) Range: 15.0-278.0 77-Qsl-861034:10 URINE TRELL CULTURE (MITCH Comments: PATIENT NOT FASTINGPERFORMED BY: CB [facility] Omsfjv0800 [facility] [id number] Information: SRC:UR [id number] COL COUNT) (90970) Result 1 NG36 (Normal) Comments: No growth in 36 - 48 hours. Urine Culture,Comprehensive Final report (Normal) 3-Odt-865473:30 URINE TRELL CULTURE-MITCH COL Comments: PATIENT NOT FASTINGPERFORMED BY: CB [facility] Ejmqre5781 [facility] [id number] Information: SRC:UR ADD [id number] AND DRAW FEE [id number] COUNT (14280) Antimicrobial MIHEAD (Normal) Comments: S = Susceptible; [...] primarily for treating urinary tract infections. (CLSI, N293-X38,2009) Urine Culture,Comprehensive Final report (Normal) :09 Urinalysis, Office (60224) UA - BILIRUBIN Negative (Normal) UA - BLOOD Negative (Normal) UA - GLUCOSE Negative (Normal) UA - KETONES Negative mg/dL (Normal) UA - LEUKOCYTE ESTERASE Large (Normal) UA - NITRITE Negative (Normal) UA - PH 7.5 (Normal) UA - PROTEIN Negative mg/dL (Normal) UA - SPECIFIC GRAVITY 1.020 (Normal) URINE UROBILINGN MITCH TIMED Normal mg/dL (Normal) 6-Wby-476075:16 HgA1C , Office (97514) HgA1C , Office 6.4 % (Normal) Range: 4.6 - 7.1 6-Xdq-207146:16 Blood Glucose , Office (16248) Blood Glucose , Office 142 (Normal) 9-Yoj-292963:11 Urinalysis, Office (60031) UA - LEUKOCYTE ESTERASE Negative (Normal) UA - NITRITE Negative (Normal) URINE UROBILINGN MITCH TIMED Normal mg/dL (Normal) UA - PROTEIN Negative mg/dL (Normal) UA - BLOOD Negative (Normal) UA - SPECIFIC GRAVITY 1.020 (Normal) UA - KETONES Negative mg/dL (Normal) UA - BILIRUBIN Negative (Normal) UA - GLUCOSE Negative (Normal) 9-Qvw-340303:00 UNILAT RT DIAG DIGITAL & CAD Radiology [...] 07/17/10 1349 Sign by: Scotty Tinoco MD 22-Wkv-20723:04 LIPID PANEL (12213) Comments: PATIENT WAS FASTINGPERFORMED BY: [facility]6370 [facility] [id number] LDL Cholesterol Calc 108 mg/dL (Abnormal) Range: [...] CREATININE RATIO Comments: PATIENT WAS FASTINGPERFORMED BY: [facility]6370 [facility] [id number] (88770) AND (03579) Microalb/Creat Ratio 4.7 {mg/g_creat} (Normal) Range: 0.0-30.0 Creatinine, Urine 94.1 mg/dL (Normal) Range: 15.0-278.0 Microalbumin, Urine 4.4 ug/mL (Normal) Range: 0.0-17.0 :04 CBC WITH MANUAL DIFF Comments: PATIENT WAS FASTINGPERFORMED BY: [facility]6370 [facility] [id number] Information: [id number] (90821) Baso (Absolute) 0.0 {x10E3/uL} (Normal) Range: 0.0-0.2 [...] 3.80-5.10 WBC 6.4 {x10E3/uL} (Normal) Range: 4.0-10.5 05-Vss-63081:04 METABOLIC PANEL, COMPREHENSIVE Comments: PATIENT WAS FASTINGPERFORMED BY: LabCoMarlton Rehabilitation HospitalZxlpxp9209 [facility] [id number]; appt 07/20/10 (02617) ALT (SGPT) 26 [iU]/L (Normal) Range: 0-40 [...] Glucose, Serum 115 mg/dL (Abnormal) Range: 65-99 77-Sfh-947214:39 URINE TRELL CULTURE-MITCH COL Comments: PATIENT NOT FASTINGPERFORMED BY: [facility] Flowax1654 [facility] [id number] Information: SRC:UR [id number] COUNT (74561) Antimicrobial MIHEAD (Normal) Comments: S = Susceptible; [...] mL (Normal) Urine Final report (Normal) Culture,Comprehensive 06-Atr-906379:56 Urinalysis, Office (41716) UA - BILIRUBIN Negative (Normal) UA - BLOOD Negative (Normal) UA - GLUCOSE Negative (Normal) UA - KETONES Negative mg/dL (Normal) UA - LEUKOCYTE ESTERASE Large (Normal) UA - NITRITE Negative (Normal) UA - PH 8.0 (Normal) UA - PROTEIN Negative mg/dL (Normal) UA - SPECIFIC GRAVITY 1.015 (Normal) URINE UROBILINGN MITCH TIMED Normal mg/dL (Normal) :39 HgA1C , Office (46557) HgA1C , Office 6.2 % (Normal) Range: 4.6 - 7.1 :39 Blood Glucose , Office (53156) Blood Glucose , Office 101 (Normal) :59 BREAST UNILATERAL Radiology Report See Note (Normal) Comments: Exam Number: [id number] LINICAL:The patient is a 74-year-old female with [...] Report See Note (Normal) Comments: Exam Number: [id number] AMMOGRAPHY - UNILATERAL DIAGNOSTIC: RIGHT BREAST INDICATION:Abnormal [...] attaching a ResultCode to this exam. ADDENDUM: [id number] HPBI/MUDDR Reported By: ROXANE COLBY M.D. 6-Tpm-303391:26 BILAT SCRN DIGITAL & CAD Radiology Report See Note (Normal) Comments: Exam Number: [id number] AMMOGRAPHY - BILATERAL SCREENING INDICATION:Routine annual screening [...] a ResultCode to this exam. ADD ENDUM: [id number] HPBI/MDS Reported By: ROXANE COLBY M.D. :13 HEPATIC FUNCTION PANEL Comments: PATIENT WAS FASTINGPERFORMED BY: OSOYOU.comMarlton Rehabilitation HospitalRgpkck5322 [facility] [id number] Information: [id number] (86037) ALT (SGPT) 25 [iU]/L (Normal) Range: 0-40 Alkaline Phosphatase, S 110 [iU]/L (Normal) Range: 25-165 AST (SGOT) 23 [iU]/L (Normal) Range: 0-40 Bilirubin, Direct 0.12 mg/dL (Normal) Range: 0.00-0.40 Albumin, Serum 4.5 g/dL (Normal) Range: 3.5-4.8 Bilirubin, Total 0.5 mg/dL (Normal) Range: 0.0-1.2 Protein, Total, Serum 7.6 g/dL (Normal) Range: 6.0-8.5 :13 LIPID PANEL (48007) Comments: PATIENT WAS FASTINGPERFORMED BY: OSOYOU.comMarlton Rehabilitation HospitalBuzfaz5503 [facility] [id number] LDL Cholesterol Calc 128 mg/dL (Abnormal) Range: 0-99 LDL/HDL Ratio 2.7 {ratio_units} (Normal) Range: 0.0-3.2 VLDL Cholesterol Andres 65 mg/dL (Abnormal) Range: 5-40 HDL Cholesterol 48 mg/dL (Normal) Comments: According to ATP-III Guidelines, HDL-C >59 mg/dL is considered anegative risk factor for CHD. Cholesterol, Total 241 mg/dL (Abnormal) Range: 100-199 Triglycerides 327 mg/dL (Abnormal) Range: 0-149 49-Ntm-573915:16 HgA1C , Office (65923) HgA1C , Office 6.3 % (Normal) Range: 4.6 - 7.1 24-Jgh-171136:16 Blood Glucose , Office (65770) Blood Glucose , Office 115 (Normal) :30 MICROALBUMIN: CREATININE RATIO Comments: PATIENT WAS FASTINGPERFORMED BY: NextIO6370 [facility] [id number] (03087) AND (37679) Creatinine, Urine 64.8 mg/dL (Normal) Range: 15.0-278.0 Microalb/Creat Ratio 4.0 {mg/g_creat} (Normal) Range: 0.0-30.0 Microalbumin, Urine 2.6 ug/mL (Normal) Range: 0.0-17.0 :30 METABOLIC PANEL, COMPREHENSIVE Comments: PATIENT WAS FASTINGPERFORMED BY: NextIO6370 [facility] [id number] (33800) Alkaline Phosphatase, S 104 [iU]/L (Normal) Range: [...] mg/dL (Abnormal) Range: 65-99 :30 LIPID PANEL (35808) Comments: PATIENT WAS FASTINGPERFORMED BY: [employer]70 [facility] [id number] HDL Cholesterol 49 mg/dL (Normal) Comments: According [...] MANUAL DIFF Comments: PATIENT WAS FASTINGPERFORMED BY: [facility]StreetFire6370 [facility] [id number] Information: [id number] (77535) Immature Grans (Abs) 0.0 {x10E3/uL} (Normal) Range: [...] (Normal) Range: 4.0-10.5 :18 HgA1C , Office (07528) HgA1C , Office 6.7 % (Normal) Range: 4.6 - 7.1 :18 Blood Glucose , Office (25777) Blood Glucose , Office 154 (Normal) :06 LIPID PANEL (88057) Comments: PATIENT WAS FASTINGPERFORMED BY: [employer]70 [facility] [id number] LDL Cholesterol Calc 122 mg/dL (Abnormal) Range: [...] three months (approximately); PATIENT WAS FASTINGPERFORMED BY: [employer] Jtkuqp8062 [facility] [id number] Information: [id number] (61747) ALT (SGPT) 16 [iU]/L (Normal) Range: 0-40 Alkaline Phosphatase, S 104 [iU]/L (Normal) Range: 25-165 AST (SGOT) 18 [iU]/L (Normal) Range: 0-40 Albumin, Serum 4.3 g/dL (Normal) Range: 3.5-4.8 Bilirubin, Direct 0.14 mg/dL (Normal) Range: 0.00-0.40 Bilirubin, Total 0.5 mg/dL (Normal) Range: 0.0-1.2 Protein, Total, Serum 7.1 g/dL (Normal) Range: 6.0-8.5 42-Mol-495813:00 HgA1C , Office (23194) HgA1C , Office 6.2 % (Normal) Range: 4.6 - 7.1 99-Odi-788325:00 Blood Glucose , Office (50318) Blood Glucose , Office 158 (Normal) 96-Dgt-27142:50 CBC With Differential/Platelet Comments: PATIENT WAS FASTINGPERFORMED BY: LabCoMarlton Rehabilitation HospitalAltnav9010 [facility] [id number] Baso (Absolute) 0.0 {x10E3/uL} (Normal) Range: 0.0-0.2 [...] 3.80-5.10 WBC 5.8 {x10E3/uL} (Normal) Range: 4.0-10.5 92-Ygw-59551:50 Comp. Metabolic Panel (14) Comments: PATIENT WAS FASTINGPERFORMED BY: LabCoMarlton Rehabilitation HospitalWdspna4945 [facility] [id number] ALT (SGPT) 24 [iU]/L (Normal) Range: 0-40 [...] With LDL/HDL Comments: PATIENT WAS FASTINGPERFORMED BY: [employer]70 [place] DriverSaveClub[facility]comC[facility] [id number] Ratio LDL Cholesterol Calc 170 mg/dL (Abnormal) [...] Randm Ur Comments: PATIENT WAS FASTINGPERFORMED BY: NextIO6370 [facility] [id number] Microalb/Creat Ratio 4.4 {mg/g_creat} (Normal) Range: 0.0-30.0 Creatinine, Urine 105.7 mg/dL (Normal) Range: 15.0-278.0 Microalbumin, Urine 4.7 ug/mL (Normal) Range: 0.0-17.0 98-Mvu-171659:03 URINE TRELL CULTURE-IDENTIFICATN Comments: PATIENT NOT FASTINGPERFORMED BY: [employer] Crrddv7691 [facility] [id number] Information: [id number] (51745) Result 1 NG36 (Normal) Comments: No growth in 36 - 48 hours. Urine Culture,Comprehensive Final report (Normal) 60-Ybk-821026:17 Urinalysis, Office (18441) UA - LEUKOCYTE ESTERASE Trace (Normal) UA - NITRITE Negative (Normal) URINE UROBILINGN MITCH TIMED Normal mg/dL (Normal) UA - PROTEIN Negative mg/dL (Normal) UA - PH 7.5 (Normal) UA - BLOOD Negative (Normal) UA - SPECIFIC GRAVITY 1.005 (Normal) UA - KETONES Negative mg/dL (Normal) UA - BILIRUBIN Negative (Normal) UA - GLUCOSE Negative (Normal) 37-Zeq-737649:17 BILAT SCRN DIGITAL & CAD Radiology Report See Note (Normal) Comments: Exam Number: [id number] MAMMOGRAM, BILATERAL SCREENING DIGITAL AND CAD HISTORYRoutine [...] werealso exa mined with computer-aided detection software ([employer], [employer] Reported By: ROXANE COLBY M.D. 41-Owv-506700:16 DEXA BONE DENSITY STUDY (HP) Radiology Report See Note (Normal) Comments: Exam Number: [id number] BONE DENSITOMETRY HISTORYPostmenopausal. TECHNIQUE Bone densitometry of the lumbar spine and both hips is now beingperformed. The best criteria for evaluation of osteoporosis is theT-value, which represents the comparison of the patient's bone mass tanja expected peak bone mass. For most patients, the mean T-value of H8srlivsu L4 is used to evaluate the lumbar [...] Microscopic Examination Comments: PATIENT WAS FASTINGPERFORMED BY: NextIO6370 t3n [facility] [id number] Bacteria Few (Normal) Epithelial Cells (non renal) 0-10 {/hpf} (Normal) Range: 0 - 10 Mucus Threads Present (Normal) RBC 0-3 {/hpf} (Normal) Range: 0 - 3 WBC 0-5 {/hpf} (Normal) Range: 0 - 5 :33 URINALYSIS W/O MICRO ([id number]) Comments: PATIENT WAS FASTINGPERFORMED BY: [id number] [facility] [id number] Appearance Clear (Normal) Bilirubin Negative (Normal) Glucose Negative (Normal) Ketones Negative (Normal) Microscopic Examination See below: (Normal) Nitrite, Urine Negative (Normal) Occult Blood Negative (Normal) pH 5.5 (Normal) Range: 5.0-7.5 Protein Negative (Normal) Specific [place] 1.016 (Normal) Range: 1.005-1.030 Urine-Color Yellow (Normal) Urobilinogen,Semi-Qn 0.2 mg/dL (Normal) Range: 0.0-1.9 WBC Esterase 1+ (Abnormal) :33 MICROALBUMIN: CREATININE RATIO Comments: PATIENT WAS FASTINGPERFORMED BY: [employer]70 t[facility]n [facility] [id number] ([id number]) AND ([id number]) Creatinine, Urine 93.7 mg/dL (Normal) Range: 15.0-278.0 Microalb/Creat Ratio 3.6 {mg/g_creat} (Normal) Range: 0.0-30.0 Microalbumin, Urine 3.4 ug/mL (Normal) Range: 0.0-17.0 :33 METABOLIC PANEL, COMPREHENSIVE Comments: in six months (approximately); PATIENT WAS FASTINGPERFORMED BY: BRANDO [id number] [facility] [id number] ([id number]) A/G Ratio 1.5 (Normal) Range: 1.1-2.5 Albumin, [...] mmol/L (Normal) Range: 135-145 :33 LIPID PANEL ([id number]) Comments: PATIENT WAS FASTINGPERFORMED BY: BRANDO [facility] Labs RoadDublin [place] [id number] Cholesterol, Total 239 mg/dL (Abnormal) Range: 100-199 HDL Cholesterol 40 mg/dL (Normal) Comments: According to ATP-III Guidelines, HDL-C >59 mg/dL is considered anegative risk factor for CHD. LDL Cholesterol Calc 123 mg/dL (Abnormal) Range: 0-99 LDL/HDL Ratio 3.1 {ratio_units} (Normal) Range: 0.0-3.2 Triglycerides 378 mg/dL (Abnormal) Range: 0-149 VLDL Cholesterol Andres 76 mg/dL (Abnormal) Range: 5-40 18-Ekm-27685:33 CBC WITH MANUAL DIFF ([id number]) Comments: PATIENT WAS FASTINGClinical Information: ADD [id number] PERFORMED BY: [id number] [facility] [id number] Baso (Absolute) 0.1 {x10E3/uL} (Normal) Range: 0.0-0.2 [...] Female Indication: Dysuria Planned Observations LIPID PANEL ([id number])Indication: Hyperlipidemia, unspecified On: 36-Saw-692069:42 Request Lipid Panel ([id number])Indication: Hyperlipidemia, unspecified On: 51-Aiw-97684:15 Request Comments: Feb 2017 CALCIFIDIOL ([id number]) VIT D 25Indication: Osteopenia On: 25-Sds-631706:17 Request URINALYSIS, W/ MICRO ([id number])Indication: Diabetes mellitus type 2, controlled On: 63-Kat-061213:17 Request METABOLIC PANEL, COMPREHENSIVE ([id number])Indication: Diabetes mellitus type 2, controlled On: 62-Hfv-207985:17 Request LIPID PANEL ([id number])Indication: Diabetes mellitus type 2, controlled On: 83-Ywv-691050:17 Request CBC with auto diff ([id number])Indication: Diabetes mellitus type 2, controlled On: 05-Xep-052331:17 Request MICROALBUMIN: CREATININE RATIO ([id number]) AND ([id number])Indication: Hyperlipidemia, unspecified On: 19-Pti-968825:20 Request METABOLIC PANEL, COMPREHENSIVE ([id number])Indication: Hyperlipidemia, unspecified On: 64-Voj-220262:20 Request LIPID PANEL ([id number])Indication: Hyperlipidemia, unspecified On: 55-Dbu-685951:20 Request METABOLIC PANEL, COMPREHENSIVE ([id number])Indication: Diabetes mellitus type 2, controlled On: 32-Csu-515988:05 Request NUCLR MOLCUL DX-INT/RPT ([id number])Indication: Abnormal finding of blood chemistry, unspecified On: 53-Ugk-669030:38 Request Comments: 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 DIAG, NUCLEIC ACID, ISOLATION/EXTRACTION, HIGHLY PURIFIED ([id number])Indication: Abnormal finding of blood chemistry, unspecified On: :38 Request NUCLR MOLCUL DX-ENZY DIG ([id number])Indication: Abnormal finding of blood chemistry, unspecified On: 32-Iso-711027:38 Request NUCLR MOLCUL DX-SEPARATN ([id number])Indication: Abnormal finding of blood chemistry, unspecified On: :37 Request NUCLR MOLCUL DX-PCR EACH ([id number])Indication: Abnormal finding of blood chemistry, unspecified On: 80-Dml-413674:37 Request HEPATIC FUNCTION PANEL ([id number])Indication: Abnormal finding of blood chemistry, unspecified On: 75-Yyt-121052:10 Request Comments: recheck off tylenol for 2 weeks. HEP ABC PROFILE [id number] ([id number])Indication: Hyperlipidemia, unspecified On: :36 Request Ferritin ([id number])Indication: Hyperlipidemia, unspecified On: :36 Request CBC WITH MANUAL DIFF ([id number])Indication: Hyperlipidemia, unspecified On: 9-Zyx-553198:14 Request METABOLIC PANEL, COMPREHENSIVE ([id number])Indication: Hypertension, benign On: 4-Pry-557797:14 Request Blood Glucose , Office ([id number])Indication: Abnormal glucose tolerance test On: :19 Request HgA1C , Office ([id number])Indication: Abnormal glucose tolerance test On: :19 Request Planned Encounters Medical; 3 Month FU - On: 28-Mar-2018 8:15 [facility] Mere Hope CNP, CNP, Mary E Planned Procedures DEXA SCAN AXIAL SKELETON ([id number])By: On: 23-Dec-2017 Intent Mere Hope CNP, CNP, Mary E SCREENING DIGITAL TOMOSYNTHESIS OF On: 23-Dec-2017 Intent BREAST ([id number])By: Mere Hope CNP, CNP, Mary E ELECTROCARDIOGRAM, COMPLETE (ECG) On: 10-Jun-2017 Intent ([id number])By: Mere Hope CNP Comments: sinus pavan Mere MCKEON Ultrasound - RenalBy: Mere Hope CNP On: 06-Mar-2017 Intent E Herminia LINDA, Shelli SCREENING DIGITAL TOMOSYNTHESIS OF On: 03-Sep-2016 Intent BREAST ([id number])By: Herminia MCKEON, Shelli Herminia MCKEON, Shelli DEXA SCAN AXIAL SKELETON ([id number])By: On: 03-Sep-2016 Intent 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, Shelli Cinanoa 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, Shelli Comments: January 2017 MAMMOGRAM, SCREENING, BOTH BREAST On: 26-Oct-2015 Intent ([id number])By: Bebo Boyd MD EKG ([id number])By: Jacquelin Delgado MD On: 26-Jul-2014 Intent Comments: see scanned document of test done to see results reviewed today with patient MAMMOGRAM, SCREENING, BOTH BREAST On: 26-Jul-2014 Intent ([id number])By: Jacquelin Delgado MD DEXA SCAN AXIAL SKELETON ([id number])By: On: 26-Jul-2014 Intent Jacquelin Delgado MD BILATERAL MAMMOGRAMS ([id number])By: On: 07-Jan-2014 Intent Jacqulein Delgado MD MAMMOGRAM, SCREENING, BOTH BREASTS On: 29-Sep-2012 Intent ([id number])By: Jacquelin Delgado MD EKG ([id number])By: MARNIE Escamilla On: 29-Sep-2012 Intent Comments: see scanned document of test done to see results reviewed today with patient DXA, BONE DENSITY, AXIAL SKELETON On: 29-Sep-2012 Intent ([id number])By: Jacquelin Delgado MD Eprescribed prescriptions ([id number])By: On: 02-Jun-2012 Intent 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, Jazz L Ultrasound - LiverBy: Bruna JONES, On: 03-Mar-2012 Intent Jacquelin Brambila MAMMOGRAM, SCREENING, BOTH BREASTS On: 05-Nov-2011 Intent ([id number])By: Jacquelin Delgado MD EKG ([id number])By: MARNIE Escamilla On: 05-Nov-2011 Intent Eprescribed prescriptions ([id number])By: On: 14-Jun-2010 Intent Fast DO, Pilar A EKG ([id number])By: Jacquelin Delgado MD On: 24-Mar-2010 Intent MAMMOGRAM, SCREENING, BOTH BREASTS On: 15-Dec-2009 Intent ([id number])By: Jacquelin Delgado MD DXA, BONE DENSITY, AXIAL SKELETON On: 26-Nov-2008 Intent ([id number])By: Jacquelin Delgado MD MAMMOGRAM, SCREENING, BOTH BREASTS On: 26-Nov-2008 Intent ([id number])By: Jacquelin Delgado MD Instructions Name Dates Details [...] : Patient Instructions Indication: Hyperlipidemia, unspecified Encounters Annotation/Addendum On: 16-Feb-2018 15:57 [facility] End: 16-Feb-2018 16:02 Office Visit On: 23-Dec-2017 9:39 Encounter Reason: [...] weight :. 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 The patient has noticed [...]
--- OUTSIDE RECORDS SUMMARY | 2018-04-10 21:43 | XMS RPT_ITS | Continuity of Care Document ---
:1935 Author Organization [facility] Address [address] [facility] [address] [place] [address] Phone Care Team Providers Name Role Phone Herminia MCKEON, Mere Dc Unavailable Bruna JONES, Jacquelin Brambila Unavailable Jackie Sheppard Unavailable Unavailable Padma HILLIARD, Marisabel Unavailable Unavailable Celio Hernandez Unavailable Unavailable Unavailable Unavailable Problems Name Dates [...] Vitamin B12 deficiency (E53.8, 266.2) Status: Active Vitamin D deficiency (E55.9, 268.9) Status: Active Medications Name Dates Details Atenolol [...] 0 days Refills: 0 Ordered:26-Nov-2008 Mast RN, [facility] ASPIRIN ADULT LOW STRENGTH, 81MG (Oral Tablet Chewable) 1 (one) Tablet Chewable in am for 0 days Quantity: 30 {Tablet} Refills: 0 Ordered:25-Jul-2015 MARNIE Escamilla Start : 24-Jan-2015 End : 25-Jul-2015 Inactive CIPRO, 250MG (Oral Tablet) 1 (one) Tablet bid for 3 days Quantity: 6 {Tablet} Refills: 0 Ordered:02-May-2009 Herminia MCKEON, Mere Finley ROTOR PILOT, Mere Dc Start : 28-Mar-2009 End : [...] Quantity: 6 {Tablet} Refills: 0 Ordered:30-Mar-2009 Herminia ROTOR PILOT, Mere Finley ROTOR PILOT, Shelli Start : 28-Mar-2009 End : 30-Mar-2009 Inactive [...] chemistry, unspecified (R79.9, 790.6) Comments: normal now 1-13. liver us good. off tylenol now and [...] Cholecystectomy Completed Comments: 82 Colonoscopy Completed Comments: Colonoscopy Completed Comments: 03-31-13 Dr. Castellano repeat 5 years Dilation And Curettage Of Uterus Completed Comments: 82 & 91 polyps Hysterectomy; Abdominal Completed Comments: Partial 2004 Tonsillectomy Completed Comments: 1943 Date Value Details 13-Feb-2018 Dexa Bone Density Study Result: Comments: See Note; NOTES: [facility] Imaging Services [address] [place] [address] Dexa Bone Density Study MR#: [id number] Acct: [id number] Name: SANDRINE GUZMAN Rep #: [id number] : 1935 F 82 From: Scotty Tinoco MD PCP: Mere Hope NP Status: REG CLI Study: Dexa Bone Density Study Date of Exam: 02/13/18 Exam# [id number] Ordering Dr: Mere Hope POLICE DETECTIVE-C STUDY: DUAL ENERGY X-RAY ABSORPTIOMETRY / DXA [...] Scotty Tinoco MD at 15:54 EST Tel [phone], Service support , CC: Mere Hope NP Clerical Aide Teacher: Signed 13-Feb-2018 SCREENING MAMM (CAD), BILAT Result: Comments: See Note; NOTES: [facility] Imaging Services [address] [place] [address] SCREENING MAMM (CAD), BILAT MR#: [id number] Acct: [id number] Name: SANDRINE GUZMAN Rep # : [id number] : 1935 F 82 From: Scotty Tinoco MD PCP: Mere Hope NP Status: REG CLI Study: SCREENING MAMM (CAD), BILAT Date of Exam: 02/13/18 Exam# [id number] Ordering Dr: Mere Hope POLICE DETECTIVE-C MAMMOGRAPHY - BILATERAL SCREENING REASON FOR EXAM: [...] delay biopsy of a clinically suspicious abnormality. [id number] Electronically Signed: Scotty Tinoco MD 2 at 9:11 EST Tel [phone], Service support , CC: Mere Hope NP Clerical Aide Teacher: Signed 20-Mar-2017 Kidney and Bladder Result: Comments: See Note; NOTES: [facility] Imaging Services [address] [place] [address] Kidney and Bladder MR#: [id number] Acct: [id number] Name: SANDRINE GUZMAN Rep #: [id number] : 1935 F 81 From: George Luo DO PCP: Mere Hope NP Status: REG CLI Study: Kidney and Bladder Date of Exam: 03/20/17 Exam# [id number] Ordering Dr: Mere Hope STUDY: RENAL ULTRASOUND [...] is n ot visualized. Electronically Signed: George Luo DO at 11:24 EST Tel [phone], Service support , CC: Mere Hope NP Clerical Aide Teacher: Signed 30-Jan-2017 SCREENING MAMM (CAD), BILAT Result: Comments: See Note; NOTES: [facility] Imaging Services [address] [place] [address] SCREENING MAMM (CAD), BILAT MR#: [id number] Acct: [id number] Name: SANDRINE GUZMAN Rep # : [id number] : 1935 F 81 From: Scotty Tinoco MD PCP: Mere Hope Status: REG CLI Study: SCREENING MAMM (CAD), BILAT Date of Exam: 01/30/17 Exam# [id number] Ordering Dr: Mere Hope MAMMOG ASHA - [...] delay biopsy of a clinically suspicious abnormality. [id number] Electronically Signed: Scotty Tinoco MD at 10:50 EST Tel [phone], Se rvice support , CC: Mere Hope Clerical Aide Teacher: Signed 30-Jan-2016 Bilat Scrn Digital AND CAD Result: Comments: See Note; NOTES: [facility] Imaging Services [address] [place] [address] Verdana 4d Bilat Scrn Digital AND CAD MR#: [id number] Acct: [id number] Name: RADHA GUZMAN ORLANDO Pearson Rep #: [id number] : 1935 F 80 From: Scotty Tinoco MD PCP: Bebo Boyd Status: REG CL Study: Bilat Scrn Digital AND CAD Date of Exam: 01/30/16 Exam# [id number] Ordering Dr: Minnie Boyd en MAMMOGRAPHY - [...] delay biopsy of a clinically suspicious abnormality. [id number] Electronically Signed: Scotty Tinoco MD 2015 at 9:17 EST Tel [phone], Service support [phone], CC: Bebo Boyd Clerical Aide Teacher: Signed 25-Jan-2015 Bilat Scrn Digital AND CAD Result: Comments: See Note; NOTES: [facility] Imaging Services [address] [place] [address] Verdana 4d Bilat Scrn Digital AND CAD MR#: [id number] Acct: [id number] Name: SANDRINE GUZMAN Rep #: [id number] : 1935 F 79 From: Scotty Tinoco MD PCP: Jacquelin Delgado MD Status: REG CLI Study: Bilat Scrn Digital AND CAD Date of Exam: 01/25/15 Exam# [id number] [facility]: Jacquelin Delgado MD MAMMOGRAPHY - BILATERAL [...] Signed: Scotty Tinoco MD at 9:53 EST [facility] [phone], Service support [phone], CC: Jacquelin Delgado MD Clerical Aide Teacher: Signed 25-Jan-2015 Dexa Bone Density Study (HP) Result: Comments: See Note; NOTES: [facility] Imaging Services [address] [place] [address] 4d Dexa Bone Density Study (HP) MR#: [id number] Acct: [id number] Name : SANDRINE GUZMAN Rep #: [id number] : 1935 F 79 From: Scotty Tinoco MD PCP: Jacquelin Delgado MD Status: REG CLI Study: Dexa Bone Density Study (HP) Date of Exam: 01/25/15 Exam# [id number] Ordering Dr: Jacquelin Delgado MD STUDY: DUAL [...] Scotty Tinoco MD at 8:04 EST Tel [phone], Service support [phone], CC: Jacquelin Delgado MD Clerical Aide Teacher: Signed 22-Jan-2014 Bilat Scrn Digital & CAD Result: Comments: See Note; NOTES: [facility] Imaging Services [address] [place] [address] Breast Imaging Report MR#: [id number] Acct: [id number] Name: SANDRINE GUZMAN Rep # : [id number] : 1935 F 78 From: Scotty Tinoco MD PCP: Jacquelin Delgado MD Status: REG CLI Exam# [id number] Ordering Dr: Jacquelin Delgado MD MAMMOGRAPHY - [...] (A) ASSESSMENT CATEGORY: CC: Jacquelin Delgado MD Clerical Aide Teacher: Signed 21-Jan-2013 Dexa Bone Density Study (HP) Result: Comments: See Note; NOTES: [facility] Imaging Services [address] [place] [address] Bone Density Report MR#: [id number] Acct: [id number] Name: SANDRINE GUZMAN DAXA Rep # : [id number] : 1935 F 77 From: Scotty Tinoco MD PCP: Jacquelin Delgado MD Status: REG CLI Study: Dexa Bone Density Study (HP) Date of Exam: 01/21/13 Exam# [id number] Ordering Dr: Shelton Delgado MD STUDY: DUAL [...] January 21, 2013 at 10:01:36 AM EST [phone] Electronically Signed GP/GP If you are the referring physician and would like to consult with the radiologist who provided this interpr etation, please contact Scotty Tinoco M.D. at [phone]. If this radiologist is unavailable, you will be directed to another radiologist to assist. If you are a patient with a question rega rding this report, please contact your referring physician directly. Professional Interpretation Provided By: [employer], Phone , These documents contain legally pro [...] of these documents. CC: Jacquelin Delgado MD Clerical Aide Teacher: Signed 21-Jan-2013 Bilat Scrn Digital & CAD Result: Comments: See Note; NOTES: [facility] Imaging Services [address] [place] [address] Breast Imaging Report MR#: [id number] Acct: [id number] Name: SANDRINE GUZMAN DAXA Rep #: [id number] : 1935 F 77 From: Scotty Tinoco MD PCP: Jacquelin Delgado MD Status: REG CLI Exam# [id number] Ordering Dr: Jacquelin Delgado MD MAMMOGRAPHY - [...] 21, 2013 at 9:14:[address] [phone] Electronically Signed GP/GP If you are the referring physician and would like to consult with the radiologist who provided this interpretation, please contact Scotty Tinoco M.D. at [phone]. If this radiologist is unavailable, you will be directed to another radiologist to assist. If you are a patient with a question regarding this report, please contact your refe rring physician directly. Professional Interpretation Provided By: [employer], Phone , These documents contain legally protected [...] of these documents. CC: Jacquelin Delgado MD Clerical Aide Teacher: Signed Family History Unknown Family Member Name [...] 0.00 cm Results Date Description Value Details :03 Metabolic Panel, Comprehensive Comments: PATIENT NOT FASTINGPERFORMED BY: BRANDO GroverInstaGISkerwin NationKvndzy8942 [facility] [id number] (89856) ALT (SGPT) 26 [iU]/L (Normal) Range: 0-32 [...] (Abnormal) Range: 65-99 :42 HgA1C , Office (15574) HgA1C , Office 6.0 % (Normal) Range: 4.6 - 7.1 :42 Blood Glucose , Office (03241) Blood Glucose , Office 130 (Normal) :06 LIPID PANEL (84660) Comments: Dec 2017; PATIENT WAS FASTINGPERFORMED BY: BRANDO LabCoBacharach Institute for RehabilitationVslujo1762 [facility] [id number] LDL/HDL Ratio 1.9 {ratio} (Normal) Range: 0.0-3.2 [...] (Normal) Range: 100-199 :04 HgA1C , Office (33459) HgA1C , Office 6.0 % (Normal) Range: 4.6 - 7.1 :04 Blood Glucose , Office (69161) Blood Glucose , Office 114 (Normal) 23-Qdx-631916:06 VITAMIN B12 AND FOLATES Comments: PATIENT NOT FASTINGPERFORMED BY: CarnadBacharach Institute for RehabilitationBvjgoy5668 [facility] [id number] (93617) Folate (Folic Acid), Serum >20.0 ng/mL (Normal) Comments: A serum folate concentration of less than 3.1 ng/mL isconsidered to represent clinical deficiency. Vitamin B12 786 pg/mL (Normal) Range: 232-1245 46-Bzd-030117:38 HgA1C , Office (62657) HgA1C , Office 6.0 % (Normal) Range: 4.6 - 7.1 :37 Blood Glucose , Office (28769) Blood Glucose , Office 127 (Normal) :14 Metabolic Panel, Comprehensive Comments: PATIENT WAS FASTINGPERFORMED BY: CarnadBacharach Institute for RehabilitationJmsdbv1598 [facility] [id number] (88209) ALT (SGPT) 24 [iU]/L (Normal) Range: 0-32 [...] mg/dL (Abnormal) Range: 65-99 :14 Lipid Panel (40641) Comments: PATIENT WAS FASTINGPERFORMED BY: LabCoBacharach Institute for RehabilitationLgwwsj4229 [facility] [id number] LDL/HDL Ratio 2.2 {ratio_units} (Normal) Range: 0.0-3.2 [...] (Normal) Range: 100-199 :42 HgA1C , Office (55711) HgA1C , Office 6.4 % (Normal) Range: 4.6 - 7.1 :42 Blood Glucose , Office (87162) Blood Glucose , Office 156 (Normal) Comments: pt is fasting :23 CBC With Differential/Platelet Comments: PATIENT WAS FASTINGPERFORMED BY: BRANDO Grassho[employer]! Emtdum0329 [facility] [id number]; 03/06 OV Immature Grans (Abs) 0.0 {x10E3/uL} [...] (14) Comments: PATIENT WAS FASTINGPERFORMED BY: BRANDO Aasonn6370 [facility] [id number] ALT (SGPT) 17 [iU]/L (Normal) Range: 0-32 [...] Glucose, Serum 155 mg/dL (Abnormal) Range: 65-99 21-Ile-13153:23 Lipid Panel With LDL/HDL Comments: PATIENT WAS FASTINGPERFORMED BY: Grass[employer]! Ymgoui1500 [facility] [id number] Ratio LDL/HDL Ratio 2.6 {ratio_units} (Normal) Range: 0.0-3.2 Comments: LDL/HDL Ratio Men Women 1/2 Avg.Risk 1.0 1.5 Av g.Risk 3.6 3.2 2X Avg.Risk 6.2 5.0 3X Avg.Risk 8.0 6.1 LDL Cholesterol Calc 116 mg/dL (Abnormal) Range: 0-99 VLDL Cholesterol Andres 55 mg/dL (Abnormal) Range: 5-40 HDL Cholesterol 44 mg/dL (Normal) Triglycerides 277 mg/dL (Abnormal) Range: 0-149 Cholesterol, Total 215 mg/dL (Abnormal) Range: 100-199 93-Doh-04702:23 Microalb/Creat Ratio, Randm Ur Comments: PATIENT WAS FASTINGPERFORMED BY: Carnad Vqphxm9473 [facility] [id number] Microalb/Creat Ratio <4.6 {mg/g_creat} Range: 0.0-30.0 (Normal) Microalbumin, Urine <3.0 ug/mL (Normal) Creatinine, Urine 65.1 mg/dL (Normal) 25-Feb-2017 TSH 2.640 {uIU/mL} Comments: PATIENT WAS FASTINGPERFORMED BY: Carnad Cpkszm5768 [facility] [id number] 8:23 (Normal) Range: 0.450-4.500 71-Toc-82358:23 Urinalysis, Routine Comments: PATIENT WAS FASTINGPERFORMED BY: [employer] Pwoevv9382 [facility] [id number] Microscopic Examination MICNIP (Normal) Comments: Microscopic not indicated and not performed. Nitrite, Urine Negative (Normal) Urobilinogen,Semi-Qn 0.2 mg/dL (Normal) Range: 0.2-1.0 Bilirubin Negative (Normal) Occult Blood Negative (Normal) Ketones Negative (Normal) Glucose Negative (Normal) Protein Negative (Normal) WBC Esterase Negative (Normal) Appearance Clear (Normal) Urine-Color Yellow (Normal) pH 6.0 (Normal) Range: 5.0-7.5 Specific Marty 1.014 (Normal) Range: 1.005-1.030 :18 CBC, Platelets & Auto Diff Comments: Feb 2017; PATIENT WAS FASTINGPERFORMED BY: Carnad Ypgnhq4928 [facility] [id number] (62582) Immature Grans (Abs) 0.0 {x10E3/uL} (Normal) Range: [...] 7.5 {x10E3/uL} (Normal) Range: 3.4-10.8 :18 TSH (81206) Comments: Feb 2017; PATIENT WAS FASTINGPERFORMED BY: [employer] [facility] Fjfdcb7536 [facility] [id number] TSH 3.140 {uIU/mL} (Normal) Range: 0.450-4.500 :18 MICROALBUMIN: CREATININE RATIO Comments: Feb 2017; PATIENT WAS FASTINGPERFORMED BY: [employer] [facility] Qtshlf6052 [facility] [id number] (64425) AND (22421) Microalb/Creat Ratio <3.7 {mg/g_creat} (Normal) Range: 0.0-30.0 Microalbumin, Urine <3.0 ug/mL (Normal) Creatinine, Urine 80.5 mg/dL (Normal) :18 URINALYSIS (58427) Comments: Feb 2017; PATIENT WAS FASTINGPERFORMED BY: Service Seeking70 [employer] [facility] [id number] Microscopic Examination MICNIP (Normal) Comments: Microscopic not indicated and not performed. Nitrite, Urine Negative (Normal) Urobilinogen,Semi-Qn 0.2 mg/dL (Normal) Range: 0.2-1.0 Bilirubin Negative (Normal) Occult Blood Negative (Normal) Ketones Negative (Normal) Glucose Negative (Normal) Protein Negative (Normal) WBC Esterase Negative (Normal) Appearance Clear (Normal) Urine-Color Yellow (Normal) pH 6.0 (Normal) Range: 5.0-7.5 Specific Marty 1.013 (Normal) Range: 1.005-1.030 :18 Metabolic Panel, Comprehensive Comments: Feb 2017; PATIENT WAS FASTINGPERFORMED BY: [employer] Strike6370 [facility] [id number] (33900) ALT (SGPT) 30 [iU]/L (Normal) Range: 0-32 [...] mg/dL (Abnormal) Range: 65-99 :18 LIPID PANEL (98100) Comments: Week of Sep 03 fasting; PATIENT WAS FASTINGPERFORMED BY: Service Seeking70 [facility] [id number] LDL/HDL Ratio 2.3 {ratio_units} (Normal) Range: 0.0-3.2 [...] Range: 100-199 :41 Blood Glucose , Office (80332) Comments: 190 Blood Glucose , Office 190 (Normal) Comments: ate breakfast :41 HgA1C , Office (75669) Comments: 6.5 HgA1C , Office 6.5 % (Normal) Range: 4.6 - 7.1 :26 METABOLIC PANEL, COMPREHENSIVE Comments: PATIENT WAS FASTINGPERFORMED BY: [employer] Strike6370 [facility] [id number] (99021) ALT (SGPT) 22 [iU]/L (Normal) Range: 0-32 [...] (Abnormal) Range: 65-99 :19 HgA1C , Office (31600) HgA1C , Office 6.5 % (Normal) Range: 4.6 - 7.1 :19 Blood Glucose , Office (63225) Blood Glucose , Office 146 (Normal) 52-Hhe-581098:31 URINE TRELL CULTURE-MITCH COL Comments: PATIENT NOT FASTINGPERFORMED BY: Maidou InternationalC[facility] [id number] Information: SRC:UC COUNT (93559) Result 1 MUG (Normal) Comments: Mixed urogenital flora10,000-25,000 colony forming units per mL Urine Final report (Normal) Culture,Comprehensive :05 Microscopic Examination Comments: PATIENT WAS FASTINGPERFORMED BY: Worldplay CommunicationsPine[facility] Hospital [id number] Bacteria Few (Normal) Mucus Threads Present (Normal) Epithelial Cells (non renal) 0-10 {/hpf} (Normal) Range: 0 - 10 RBC None seen {/hpf} (Normal) Range: 0 - 2 WBC 0-5 {/hpf} (Normal) Range: 0 - 5 8-Nov-03606:05 URINALYSIS, W/ MICRO (21299) Comments: PATIENT WAS FASTINGPERFORMED BY: [employer] [facility] [id number] Microscopic Examination See below: (Normal) Comments: Microscopic was indicated and was performed. Nitrite, Urine Negative (Normal) Urobilinogen,Semi-Qn 0.2 mg/dL (Normal) Range: 0.2-1.0 Bilirubin Negative (Normal) Occult Blood Negative (Normal) Ketones Negative (Normal) Glucose Negative (Normal) Protein Negative (Normal) WBC Esterase Trace (Abnormal) Appearance Clear (Normal) Urine-Color Yellow (Normal) pH 6.5 (Normal) Range: 5.0-7.5 Specific Marty 1.012 (Normal) Range: 1.005-1.030 :05 MICROALBUMIN: CREATININE RATIO Comments: PATIENT WAS FASTINGPERFORMED BY: Carnad Slicko7583 [facility] [id number] (63539) AND (58336) Microalb/Creat Ratio <4.6 {mg/g_creat} (Normal) Range: 0.0-30.0 Microalbumin, Urine <3.0 ug/mL (Normal) Creatinine, Urine 65.7 mg/dL (Normal) :05 METABOLIC PANEL, COMPREHENSIVE Comments: PATIENT WAS FASTINGPERFORMED BY: Stormfisher BiogasRehabilitation Hospital of Southern New MexicoGpjpjq0649 [facility] [id number] (21584) ALT (SGPT) 21 [iU]/L (Normal) Range: 0-32 [...] mg/dL (Abnormal) Range: 65-99 :05 LIPID PANEL (87830) Comments: PATIENT WAS FASTINGPERFORMED BY: [employer] [place] [facility] [id number] LDL/HDL Ratio 2.3 {ratio_units} (Normal) Range: 0.0-3.2 [...] Range: 100-199 :05 CBC with auto diff (95104) Comments: PATIENT WAS FASTINGPERFORMED BY: Service Seeking70 [facility] [id number] Immature Grans (Abs) 0.0 {x10E3/uL} (Normal) Range: [...] (Normal) Range: 3.4-10.8 :24 HgA1C , Office (54497) HgA1C , Office 6.5 % (Normal) Range: 4.6 - 7.1 :07 Microscopic Examination Comments: PATIENT WAS FASTINGPERFORMED BY: Service Seeking70 [facility]EC[facility] [id number] Bacteria Few (Normal) Mucus Threads Present (Normal) Epithelial Cells (non renal) 0-10 {/hpf} (Normal) Range: 0 - 10 RBC None seen {/hpf} (Normal) Range: 0 - 2 WBC 0-5 {/hpf} (Normal) Range: 0 - 5 :07 URINALYSIS, W/ MICRO (65982) Comments: PATIENT WAS FASTINGPERFORMED BY: Robin Hood FoundationEC[facility] [id number] Microscopic Examination See below: (Normal) Comments: Microscopic was indicated and was performed. Microscopic Examination MICRON (Normal) Comments: Microscopic follows if indicated. Nitrite, Urine Negative (Normal) Urobilinogen,Semi-Qn 0.2 mg/dL (Normal) Range: 0.2-1.0 Bilirubin Negative (Normal) Occult Blood Negative (Normal) Ketones Negative (Normal) Glucose Negative (Normal) Protein Negative (Normal) WBC Esterase Negative (Normal) Appearance Clear (Normal) Urine-Color Yellow (Normal) pH 6.5 (Normal) Range: 5.0-7.5 Specific Marty 1.013 (Normal) Range: 1.005-1.030 18-Jul-20158:07 METABOLIC PANEL, COMPREHENSIVE Comments: PATIENT WAS FASTINGPERFORMED BY: [facility] Sobrcn5752 [facility] [id number] (92614) ALT (SGPT) 22 [iU]/L (Normal) Range: 0-32 [...] mg/dL (Abnormal) Range: 65-99 :07 LIPID PANEL (69838) Comments: PATIENT WAS FASTINGPERFORMED BY: CarnadBacharach Institute for RehabilitationUseoyh5781 [facility] [id number] LDL/HDL Ratio 2.2 {ratio_units} (Normal) Range: 0.0-3.2 [...] auto diff Comments: PATIENT WAS FASTINGPERFORMED BY: [facility] LimaInstaGISBacharach Institute for RehabilitationPlrwmp6652 [facility] [id number] Information: [id number]; [address] (62685) Immature Grans (Abs) 0.0 {x10E3/uL} (Normal) Range: [...] (Normal) Range: 3.4-10.8 :15 HgA1C , Office (80689) HgA1C , Office 6.6 % (Normal) Range: 4.6 - 7.1 :08 CBC W/Diff, Automated Comments: [facility] [address] [place], [address] ; ov 15 Absolute Lymph 1.51 {X10_3/ul} [...] 4.2-5.4 WBC 6.8 K/mm3 (Normal) Range: 4.4-11.0 :08 Comprehensive Metabolic Profil Comments: [facility] [address]ur[address] [place], [place], [address] GAP 7 (Normal) Range: 5-15 CO2 29.0 [...] per A.D.A. criteria. :08 Lipid Profile Comments: [facility] Jxedshgdyo[address] [place], [place], [id number] VLDL 49 mg/dL (Abnormal) Range: 5-40 LDL [...] Complete Comments: How was Urine Obtained? Urine, [facility] Pmjvupneet9183 [facility] [address]. [place], [place], [id number] MUCUS, URINE 0 SEEN {/hpf} (Normal) BACTERIA [...] (Normal) CLARITY Clear (Normal) COLOR Yellow (Normal) 2-Nov-89092:08 Vitamin D,25 Hydroxy Comments: [facility] [address] [place], [address] Vitamin D 25-OH 33.4 ng/mL (Normal) Comments: Vitamin D 25(OH) Status Range Deficiency <20 ng/mL (50nmol/L) Insuffciency 20 - 30 ng/mL (50 - 75 nmol/L) Sufficiency 30 - 100 ng/mL (75 - 250 nmol/L) Toxicity >100 ng/mL (>250 nmol/L) :31 HgA1C , Office (93807) HgA1C , Office 6.8 % (Normal) Range: 4.6 - 7.1 :37 Comprehensive Metabolic Profil Comments: Test performed at:[facility] [address] [place] [place] [address] GAP 7 (Normal) Range: 5-15 CO2 29.0 [...] criteria. :37 Lipid Profile Comments: Test performed at:[facility] [address] [place] [address] VLDL 51 mg/dL (Abnormal) Range: 5-40 LDL [...] :37 Microalb:Creat Ratio,Random UR Comments: Test performed at:[facility] V[address] [place] [address] [id number] MALB:CREAT Test not performed {mg/g_CRE} (Normal) MICROALBUMIN,UR < 5.0 mg/L (Normal) UR CREAT 86.0 mg/dL (Normal) :04 HgA1C , Office (26414) HgA1C , Office 6.8 % (Normal) Range: 4.6 - 7.1 :04 Blood Glucose , Office (45375) Blood Glucose , Office 141 (Normal) :07 METABOLIC PANEL, Comments: PATIENT WAS FASTINGPERFORMED BY: LabCoBacharach Institute for RehabilitationRrhake1144 [facility] [id number] Information: [id number] COMPREHENSIVE (80006) ALT (SGPT) 21 [iU]/L (Normal) Range: 0-32 [...] Glucose, Serum 142 mg/dL (Abnormal) Range: 65-99 :07 LIPID PANEL (86479) Comments: PATIENT WAS FASTINGPERFORMED BY: LabCoBacharach Institute for RehabilitationRxcrto6415 [facility] [id number] LDL/HDL Ratio 2.6 {ratio_units} (Normal) Range: 0.0-3.2 [...] Cholesterol, Total 218 mg/dL (Abnormal) Range: 100-199 24-Ltb-965321:32 Blood Glucose , Office (06872) Blood Glucose , Office 124 (Normal) 02-Czp-549467:32 HgA1C , Office (98149) HgA1C , Office 7.0 % (Normal) Range: 4.6 - 7.1 :37 MICROALBUMIN: CREATININE RATIO Comments: PATIENT WAS FASTINGPERFORMED BY: CarnadBacharach Institute for RehabilitationPyiozw2956 [facility] [id number] (46149) AND (65399) Microalb/Creat Ratio 3.0 {mg/g_creat} (Normal) Range: 0.0-30.0 Creatinine, Urine 66.1 mg/dL (Normal) Range: 15.0-278.0 Microalbumin, Urine 2.0 ug/mL (Normal) Range: 0.0-17.0 :37 METABOLIC PANEL, COMPREHENSIVE Comments: PATIENT WAS FASTINGPERFORMED BY: [employer]6370 [facility] [id number] (28609) ALT (SGPT) 18 [iU]/L (Normal) Range: 0-32 [...] mg/dL (Abnormal) Range: 65-99 :37 LIPID PANEL (89825) Comments: PATIENT WAS FASTINGPERFORMED BY: [employer] Hzuwtk1366 [facility] [id number] LDL/HDL Ratio 2.5 {ratio_units} (Normal) Range: 0.0-3.2 [...] MANUAL DIFF Comments: PATIENT WAS FASTINGPERFORMED BY: Carnad Ailzrc4716 [facility] [id number] Information: [id number] (52644) Immature Grans (Abs) 0.0 {x10E3/uL} (Normal) Range: [...] Range: 3.4-10.8 :43 Blood Glucose , Office (69914) Blood Glucose , Office 128 (Normal) :43 HgA1C , Office (53808) HgA1C , Office 6.8 % (Normal) Range: 4.6 - 7.1 :23 CBC, PLATELETS & MANUAL Comments: PATIENT WAS FASTINGPERFORMED BY: LabCoBacharach Institute for RehabilitationDhhvar6060 [facility] [id number] Information: [id number] DIFF (62818) Immature Grans (Abs) 0.0 {x10E3/uL} (Normal) Range: [...] 3.77-5.28 WBC 3.8 {x10E3/uL} (Normal) Range: 3.4-10.8 0-Vqa-855165:23 METABOLIC PANEL, COMPREHENSIVE Comments: PATIENT WAS FASTINGPERFORMED BY: [facility]6370 [facility] [id number] (77754) ALT (SGPT) 17 [iU]/L (Normal) Range: 0-32 [...] mg/dL (Abnormal) Range: 65-99 :23 LIPID PANEL (57805) Comments: PATIENT WAS FASTINGPERFORMED BY: LabCoBacharach Institute for RehabilitationFpnggl9536 [facility] [id number] LDL/HDL Ratio 2.7 {ratio_units} (Normal) Range: 0.0-3.2 LDL Cholesterol Calc 120 mg/dL (Abnormal) Range: 0-99 HDL Cholesterol 44 mg/dL (Normal) Comments: According to ATP-III Guidelines, HDL-C >59 mg/dL is considered anegative risk factor for CHD. VLDL Cholesterol Andres 44 mg/dL (Abnormal) Range: 5-40 Cholesterol, Total 208 mg/dL (Abnormal) Range: 100-199 Triglycerides 221 mg/dL (Abnormal) Range: 0-149 :11 Blood Glucose , Office (00371) Blood Glucose , Office 122 (Normal) :11 HgA1C , Office (08228) HgA1C , Office 6.5 % (Normal) Range: 4.6 - 7.1 68-Mpq-92735:59 Hemoglobin Glyclated (HGB Comments: today only; PATIENT NOT FASTINGPERFORMED BY: [employer] Fbbqrz9054 [facility] [id number] Information: ADD [id number] AND DRAW FEE 99 4144 A1C) (72887) Hemoglobin A1c 6.4 % (Abnormal) Range: 4.8-5.6 Comments: . Increased risk for diabetes: 5.7 - 6.4 Diabetes: >6.4 Glycemic control for adults with diabetes: <7.0 22-Sep-20129:33 METABOLIC PANEL, COMPREHENSIVE Comments: PATIENT WAS FASTINGPERFORMED BY: Aasonn6370 [facility] [id number] (40920) ALT (SGPT) 18 [iU]/L (Normal) Range: 0-32 [...] mg/dL (Abnormal) Range: 65-99 :33 LIPID PANEL (25739) Comments: PATIENT WAS FASTINGPERFORMED BY: Service Seeking70 [facility] [id number] LDL/HDL Ratio 2.6 {ratio_units} (Normal) Range: 0.0-3.2 [...] MANUAL DIFF Comments: PATIENT WAS FASTINGPERFORMED BY: [employer] Hbptjw9946 [facility] [id number] Information: [id number] (93804) Immature Grans (Abs) 0.0 {x10E3/uL} (Normal) Range: [...] Function Panel Comments: PERFORMED BY: CB [facility] Njjqof4192 [facility] [id number] BY: TG [facility] IMA7902 [facility] [id number] (7) ALT (SGPT) 30 [iU]/L (Normal) Range: 0-32 AST (SGOT) 27 [iU]/L (Normal) Range: 0-40 Alkaline Phosphatase, S 96 [iU]/L (Normal) Range: 25-165 Bilirubin, Direct 0.21 mg/dL (Normal) Range: 0.00-0.40 Bilirubin, Total 0.6 mg/dL (Normal) Range: 0.0-1.2 Albumin, Serum 4.4 g/dL (Normal) Range: 3.5-4.8 Protein, Total, Serum 7.0 g/dL (Normal) Range: 6.0-8.5 21-Mar-20129:59 Hered.Hemochromatosis, DNA Comments: PERFORMED BY: BRANDO [facility] Lhubhw9851 [address] [place] [id number] BY: ISABEL [facility] FTZ1116 [address] [place] [id number] Hereditary Hemochromatosis 63HOM1 (Normal) Comments: Result: H63D/G07ZNrh copies of the same mutation (H63D and H63D) identified .Interpretation:This patient's sample was analyzed for th e hereditary hemochromatosis(HH) mutations C282Y, H63D, and S65C. Two copies of H63D wereidentified. Results for C282Y and S65C were negative. The mutationsanalyzed by [facility] are most common in the population.Although some [...] J Prev Med 16:134-140.Denver Pearson (2002). Lancet 360(2020):1 673-93.Dalia Coffey al. (2002). Blood Cells, Molecules. andDiseases. 29(3):418- 432.Parveen Stallings et al. (2003). Gisel Med. 5(1):1-8.Haylie LINDSEY et al. (2003). Gisel Med. 5(4):304-10.Genetic counselors are available for health care providers to discussresults at [phone]. . Navid Gramajo, Ph.D. Anisha Driver, Ph.D. Linda Henry, Ph.D. Shahrzad Flores, Ph.D. Lorelei Garcia, Ph.D. Elsa Gastelum, Ph.D. S. Kamaljit Vogt, Ph.D. 79-Dyf-82971:00 LIVER Radiology Report See Note (Normal) Comments: [...] size of the right kidney. The right leybseqbkbjvnq72.1 cm. Normal renal cortex. The right cortex measures 1.5 cm. Thereisno demonstrated renal mass or cyst. There is no right hydronephrosis. IMPRESSION:Normal right upper quadrant ultrasound examination.The patient is status post cholecystectomy. Signed:Scotty Tinoco M.D.March 06, 2012 at 12:32:06 PM [id number] Signed GP/GP If you are the referring physician and would like to consult with theradiologist who provided this interpretation, please contact Jerri Hernandez at [phone]. If this radiologist is unavailable, youwill be directed to another radiologist to assist. If you are a patient with a question regarding this report, pleasecontactyour referring physician directly. Professional Interpretation Provided By: Kell[employer]arron[employer], Phone , These documents contain legally protected [...] destructionofthese documents. Dictated on 03/06/12 1019 by Earnest JONES,Enrique Mojicascribed on 03/06/12 1241 by ITS IMPORTSign by Earnest JONES,Scotty on 03/06/12 1242 Sign by: Scotty Tinoco MD :46 HgA1C , Office (54813) HgA1C , Office 6.6 % (Normal) Range: 4.6 - 7.1 :46 Blood Glucose , Office (12202) Blood Glucose , Office 143 (Normal) :47 HEPATITIS PANEL (35945) Comments: PATIENT NOT FASTINGPERFORMED BY: [employer] Ykgcur5350 [facility] [id number] Information: [id number] Hep C Virus Ab <0.1 {s/co_ratio} Range: [...] ng/mL (Abnormal) Comments: PATIENT WAS FASTINGPERFORMED BY: [employer] Nborbm7537 [facility] [id number] Information: [id number] :12 Range: 13-150 Written Authorization WAR (Normal) Comments: PATIENT WAS FASTINGPERFORMED BY: [facility]6370 [address] [facility] [place] [id number] :12 Comments: Written Authorization Received.Authorization received from DR DELGADO [id number] by Ya Arnett 21-Jan-20129:23 BILAT SCRN DIGITAL [...] Tinoco M.D.January 21, 2012 at 9:56:18 AM [id number] Signed GP/GP If you are the referring physician and would like to consult with theradiologist who provided this interpretation, please contact Jerri Hernandez at [phone]. If this radiologist is unavailable, youwill be directed to another radiologist to assist. If you are a patient with a question regarding this report, pleasecontactyour referring physician directly. Professional Interpretation Provided By: [employer], Phone , These doc uments contain legally [...] Metabolic Panel, Comments: PATIENT WAS FASTINGPERFORMED BY: [facility]6370 [facility] [id number] Information: [id number] Comprehensive (73977) ALT (SGPT) 58 [iU]/L (Abnormal) Range: 0-32 [...] mg/dL (Abnormal) Range: 65-99 :12 Lipid Panel (64086) Comments: PATIENT WAS FASTINGPERFORMED BY: Carnad Qrgcar8093 [facility] [id number] LDL/HDL Ratio 2.2 {ratio_units} (Normal) Range: 0.0-3.2 LDL Cholesterol Calc 106 mg/dL (Abnormal) Range: 0-99 VLDL Cholesterol Andres 50 mg/dL (Abnormal) Range: 5-40 HDL Cholesterol 48 mg/dL (Normal) Comments: According to ATP-III Guidelines, HDL-C >59 mg/dL is considered anegative risk factor for CHD. Triglycerides 252 mg/dL (Abnormal) Range: 0-149 Cholesterol, Total 204 mg/dL (Abnormal) Range: 100-199 66-Xhq-532144:25 HgA1C , Office (87130) HgA1C , Office 6.1 % (Normal) Range: 4.6 - 7.1 :25 Blood Glucose , Office (58356) Blood Glucose , Office 126 (Normal) :31 LIPID PANEL (59325) Comments: PATIENT WAS FASTINGPERFORMED BY: Verdeeco70 [facility] [id number] LDL/HDL Ratio 2.3 {ratio_units} (Normal) Range: 0.0-3.2 [...] FUNCTION PANEL Comments: PATIENT WAS FASTINGPERFORMED BY: CarnadBacharach Institute for RehabilitationSoievn4135 [facility] [id number] Information: [id number] (90452) ALT (SGPT) 35 [iU]/L (Normal) Range: 0-40 AST (SGOT) 28 [iU]/L (Normal) Range: 0-40 Alkaline Phosphatase, S 99 [iU]/L (Normal) Range: 25-165 Bilirubin, Direct 0.15 mg/dL (Normal) Range: 0.00-0.40 Bilirubin, Total 0.6 mg/dL (Normal) Range: 0.0-1.2 Albumin, Serum 4.3 g/dL (Normal) Range: 3.5-4.8 Protein, Total, Serum 6.8 g/dL (Normal) Range: 6.0-8.5 :40 HgA1C , Office (03997) HgA1C , Office 6.3 % (Normal) Range: 4.6 - 7.1 :40 Blood Glucose , Office (31568) Blood Glucose , Office 142 (Normal) :22 CBC, PLATELETS & AUT DIFF Comments: PATIENT WAS FASTINGPERFORMED BY: LabCoBacharach Institute for RehabilitationFixyoc5465 [facility] [id number] Information: [id number] (15766) Immature Grans (Abs) 0.0 {x10E3/uL} (Normal) Range: [...] PANEL, COMPREHENSIVE Comments: PATIENT WAS FASTINGPERFORMED BY: LabCoBacharach Institute for RehabilitationCmpjkz8000 [facility] [id number] (78838) ALT (SGPT) 19 [iU]/L (Normal) Range: 0-40 [...] mg/dL (Abnormal) Range: 65-99 :22 LIPID PANEL (38540) Comments: PATIENT WAS FASTINGPERFORMED BY: Carnad Dddbiy1977 [facility] [id number] LDL/HDL Ratio 2.6 {ratio_units} (Normal) Range: 0.0-3.2 [...] CREATININE RATIO Comments: PATIENT WAS FASTINGPERFORMED BY: CarnadBacharach Institute for RehabilitationJquihw9024 [facility] [id number] (16214) AND (06115) Microalb/Creat Ratio 5.8 {mg/g_creat} (Normal) Range: 0.0-30.0 Microalbumin, Urine 3.9 ug/mL (Normal) Range: 0.0-17.0 Creatinine, Urine 66.7 mg/dL (Normal) Range: 15.0-278.0 :39 HgA1C , Office (97498) HgA1C , Office 6.5 % (Normal) Range: 4.6 - 7.1 :39 Blood Glucose , Office (86025) Blood Glucose , Office 137 (Normal) :31 [...] suspiciousabnormality. Dictated on 01/18/11 0950 by Cristi Zimemr DOnscribed on 01/18/11 1456 by ITS IMPORTSign [...] [email or web address]. National Osteoporosis Foundation [email or web address]://www.nof.org Dictated on 01/18/11 0926 Rianna Conley MDranscribed on 01/18/111333 by ITS IMPORTSign by Scotty Tinoco MD on 01/18/111333 Sign by: Scotty Tinoco MD 91-Hjk-95435:03 CBC WITH MANUAL DIFF Comments: PATIENT WAS FASTINGPERFORMED BY: [facility]6370 [facility] [id number] Information: [id number] (03155) Immature Grans (Abs) 0.0 {x10E3/uL} (Normal) Range: [...] {x10E3/uL} (Normal) Range: 4.0-10.5 :03 LIPID PANEL (66228) Comments: PATIENT WAS FASTINGPERFORMED BY: Service Seeking70 [facility] [id number] LDL Cholesterol Calc 106 mg/dL (Abnormal) Range: [...] PANEL, COMPREHENSIVE Comments: PATIENT WAS FASTINGPERFORMED BY: [facility]EC[facility] [id number] (15004) ALT (SGPT) 23 [iU]/L (Normal) Range: 0-40 [...] Glucose, Serum 123 mg/dL (Abnormal) Range: 65-99 48-Sqq-51078:03 MICROALBUMIN: CREATININE RATIO Comments: PATIENT WAS FASTINGPERFORMED BY: LabCoBacharach Institute for RehabilitationKdqjjx6594 [facility] [id number] (86576) AND (77294) Microalb/Creat Ratio 2.7 {mg/g_creat} (Normal) Range: 0.0-30.0 Microalbumin, Urine 2.0 ug/mL (Normal) Range: 0.0-17.0 Creatinine, Urine 74.8 mg/dL (Normal) Range: 15.0-278.0 67-Xdl-201016:10 URINE TRELL CULTURE (MITCH Comments: PATIENT NOT FASTINGPERFORMED BY: CB [facility] Tlzqdp9992 [facility] [id number] Information: SRC:UR [id number] COL COUNT) (48676) Result 1 NG36 (Normal) Comments: No growth in 36 - 48 hours. Urine Culture,Comprehensive Final report (Normal) 7-Fdg-801064:30 URINE TRELL CULTURE-MITCH COL Comments: PATIENT NOT FASTINGPERFORMED BY: CB [facility] Spdcow5458 [facility] [id number] Information: SRC:UR ADD [id number] AND DRAW FEE [id number] COUNT (90825) Antimicrobial MIHEAD (Normal) Comments: S = Susceptible; [...] primarily for treating urinary tract infections. (CLSI, X690-P45,2009) Urine Culture,Comprehensive Final report (Normal) :09 Urinalysis, Office (63923) UA - BILIRUBIN Negative (Normal) UA - BLOOD Negative (Normal) UA - GLUCOSE Negative (Normal) UA - KETONES Negative mg/dL (Normal) UA - LEUKOCYTE ESTERASE Large (Normal) UA - NITRITE Negative (Normal) UA - PH 7.5 (Normal) UA - PROTEIN Negative mg/dL (Normal) UA - SPECIFIC GRAVITY 1.020 (Normal) URINE UROBILINGN MITCH TIMED Normal mg/dL (Normal) 8-Cev-574975:16 HgA1C , Office (83758) HgA1C , Office 6.4 % (Normal) Range: 4.6 - 7.1 5-Xxb-778148:16 Blood Glucose , Office (39519) Blood Glucose , Office 142 (Normal) 1-Lyi-814909:11 Urinalysis, Office (37869) UA - LEUKOCYTE ESTERASE Negative (Normal) UA - NITRITE Negative (Normal) URINE UROBILINGN MITCH TIMED Normal mg/dL (Normal) UA - PROTEIN Negative mg/dL (Normal) UA - BLOOD Negative (Normal) UA - SPECIFIC GRAVITY 1.020 (Normal) UA - KETONES Negative mg/dL (Normal) UA - BILIRUBIN Negative (Normal) UA - GLUCOSE Negative (Normal) 3-Hkw-525494:00 UNILAT RT DIAG DIGITAL & CAD Radiology [...] suspicio usabnormality. Dictated on 07/17/10 1206 by Ramone Tinoco MDeleTranscribed on 07/17/10 1348 by ITS IMPORTSign by Scotty Tinoco MD on 07/17/10 1349 Sign by: Earnest JONESScotty :04 LIPID PANEL (87087) Comments: PATIENT WAS FASTINGPERFORMED BY: Carnad Djyhxb6470 [facility] [id number] LDL Cholesterol Calc 108 mg/dL (Abnormal) Range: [...] CREATININE RATIO Comments: PATIENT WAS FASTINGPERFORMED BY: [employer]comlin6370 [facility] [id number] (06811) AND (29962) Microalb/Creat Ratio 4.7 {mg/g_creat} (Normal) Range: 0.0-30.0 Creatinine, Urine 94.1 mg/dL (Normal) Range: 15.0-278.0 Microalbumin, Urine 4.4 ug/mL (Normal) Range: 0.0-17.0 :04 CBC WITH MANUAL DIFF Comments: PATIENT WAS FASTINGPERFORMED BY: [facility] LimaInstaGISBacharach Institute for RehabilitationVvkufe9188 [facility] [id number] Information: [id number] (87549) Baso (Absolute) 0.0 {x10E3/uL} (Normal) Range: 0.0-0.2 [...] PANEL, COMPREHENSIVE Comments: PATIENT WAS FASTINGPERFORMED BY: LabCoBacharach Institute for RehabilitationMhabkf2605 [facility] [id number]; appt 07/20/10 (16067) ALT (SGPT) 26 [iU]/L (Normal) Range: 0-40 [...] Glucose, Serum 115 mg/dL (Abnormal) Range: 65-99 87-Ces-387900:39 URINE TRELL CULTURE-MITCH COL Comments: PATIENT NOT FASTINGPERFORMED BY: [facility] Bvzhry4867 [facility] [id number] Information: SRC:UR [id number] COUNT (42428) Antimicrobial MIHEAD (Normal) Comments: S = Susceptible; [...] mL (Normal) Urine Final report (Normal) Culture,Comprehensive 10-Ccm-160157:56 Urinalysis, Office (39417) UA - BILIRUBIN Negative (Normal) UA - BLOOD Negative (Normal) UA - GLUCOSE Negative (Normal) UA - KETONES Negative mg/dL (Normal) UA - LEUKOCYTE ESTERASE Large (Normal) UA - NITRITE Negative (Normal) UA - PH 8.0 (Normal) UA - PROTEIN Negative mg/dL (Normal) UA - SPECIFIC GRAVITY 1.015 (Normal) URINE UROBILINGN MITCH TIMED Normal mg/dL (Normal) :39 HgA1C , Office (94394) HgA1C , Office 6.2 % (Normal) Range: 4.6 - 7.1 :39 Blood Glucose , Office (95879) Blood Glucose , Office 101 (Normal) :59 BREAST UNILATERAL Radiology Report See Note (Normal) Comments: Exam Number: [id number] LINICAL:The patient is a 74-year-old female with [...] Report See Note (Normal) Comments: Exam Number: [id number] AMMOGRAPHY - UNILATERAL DIAGNOSTIC: RIGHT BREAST INDICATION:Abnormal [...] attaching a ResultCode to this exam. ADDENDUM: [id number] HPBI/MUDDR Reported By: ROXANE COLBY M.D. 1-Kix-412640:26 [facility] DIGITAL & CAD Radiology Report See Note (Normal) Comments: Exam Number: [id number] AMMOGRAPHY - BILATERAL SCREENING INDICATION:Routine annual screening [...] a ResultCode to this exam. ADD ENDUM: [id number] HPBI/MDS Reported By: ROXANE COLBY M.D. :13 HEPATIC FUNCTION PANEL Comments: PATIENT WAS FASTINGPERFORMED BY: LabInstaGISBacharach Institute for RehabilitationHevbgq1869 [facility] [id number] Information: [id number] (05051) ALT (SGPT) 25 [iU]/L (Normal) Range: 0-40 Alkaline Phosphatase, S 110 [iU]/L (Normal) Range: 25-165 AST (SGOT) 23 [iU]/L (Normal) Range: 0-40 Bilirubin, Direct 0.12 mg/dL (Normal) Range: 0.00-0.40 Albumin, Serum 4.5 g/dL (Normal) Range: 3.5-4.8 Bilirubin, Total 0.5 mg/dL (Normal) Range: 0.0-1.2 Protein, Total, Serum 7.6 g/dL (Normal) Range: 6.0-8.5 :13 LIPID PANEL (68858) Comments: PATIENT WAS FASTINGPERFORMED BY: CarnadBacharach Institute for RehabilitationLmonke1261 [facility] [id number] LDL Cholesterol Calc 128 mg/dL (Abnormal) Range: 0-99 LDL/HDL Ratio 2.7 {ratio_units} (Normal) Range: 0.0-3.2 VLDL Cholesterol Andres 65 mg/dL (Abnormal) Range: 5-40 HDL Cholesterol 48 mg/dL (Normal) Comments: According to ATP-III Guidelines, HDL-C >59 mg/dL is considered anegative risk factor for CHD. Cholesterol, Total 241 mg/dL (Abnormal) Range: 100-199 Triglycerides 327 mg/dL (Abnormal) Range: 0-149 :16 HgA1C , Office (90801) HgA1C , Office 6.3 % (Normal) Range: 4.6 - 7.1 95-Mek-708712:16 Blood Glucose , Office (53072) Blood Glucose , Office 115 (Normal) :30 MICROALBUMIN: CREATININE RATIO Comments: PATIENT WAS FASTINGPERFORMED BY: CarnadRehabilitation Hospital of Southern New MexicoDghdsy0095 [facility] [id number] (48348) AND (73176) Creatinine, Urine 64.8 mg/dL (Normal) Range: 15.0-278.0 Microalb/Creat Ratio 4.0 {mg/g_creat} (Normal) Range: 0.0-30.0 Microalbumin, Urine 2.6 ug/mL (Normal) Range: 0.0-17.0 :30 METABOLIC PANEL, COMPREHENSIVE Comments: PATIENT WAS FASTINGPERFORMED BY: Aasonn6370 [facility] [id number] (84913) Alkaline Phosphatase, S 104 [iU]/L (Normal) Range: [...] mg/dL (Abnormal) Range: 65-99 :30 LIPID PANEL (94593) Comments: PATIENT WAS FASTINGPERFORMED BY: [employer] LabEmergentDetection Nbygja2892 [facility] [id number] HDL Cholesterol 49 mg/dL (Normal) Comments: According [...] MANUAL DIFF Comments: PATIENT WAS FASTINGPERFORMED BY: LabInstaGISBacharach Institute for RehabilitationDgmdpe4803 [facility] [id number] Information: [id number] (57647) Immature Grans (Abs) 0.0 {x10E3/uL} (Normal) Range: [...] (Normal) Range: 4.0-10.5 :18 HgA1C , Office (79742) HgA1C , Office 6.7 % (Normal) Range: 4.6 - 7.1 :18 Blood Glucose , Office (92211) Blood Glucose , Office 154 (Normal) :06 LIPID PANEL (07576) Comments: PATIENT WAS FASTINGPERFORMED BY: Service Seeking70 [facility] [id number] LDL Cholesterol Calc 122 mg/dL (Abnormal) Range: [...] three months (approximately); PATIENT WAS FASTINGPERFORMED BY: [facility]Saint [facility] [id number] Information: [id number] (77001) ALT (SGPT) 16 [iU]/L (Normal) Range: 0-40 Alkaline Phosphatase, S 104 [iU]/L (Normal) Range: 25-165 AST (SGOT) 18 [iU]/L (Normal) Range: 0-40 Albumin, Serum 4.3 g/dL (Normal) Range: 3.5-4.8 Bilirubin, Direct 0.14 mg/dL (Normal) Range: 0.00-0.40 Bilirubin, Total 0.5 mg/dL (Normal) Range: 0.0-1.2 Protein, Total, Serum 7.1 g/dL (Normal) Range: 6.0-8.5 40-Gao-763098:00 HgA1C , Office (20170) HgA1C , Office 6.2 % (Normal) Range: 4.6 - 7.1 09-Yge-731485:00 Blood Glucose , Office (00133) Blood Glucose , Office 158 (Normal) 04-Avk-50002:50 CBC With Differential/Platelet Comments: PATIENT WAS FASTINGPERFORMED BY: [facility] Iasdgt1093 [facility] [id number] Baso (Absolute) 0.0 {x10E3/uL} (Normal) Range: 0.0-0.2 [...] 3.80-5.10 WBC 5.8 {x10E3/uL} (Normal) Range: 4.0-10.5 79-Rpy-85214:50 Comp. Metabolic Panel (14) Comments: PATIENT WAS FASTINGPERFORMED BY: LabCo Adnzqm7870 [facility] [id number] ALT (SGPT) 24 [iU]/L (Normal) Range: 0-40 [...] With LDL/HDL Comments: PATIENT WAS FASTINGPERFORMED BY: [employer] [facility] [id number] Ratio LDL Cholesterol Calc 170 mg/dL (Abnormal) [...] Randm Ur Comments: PATIENT WAS FASTINGPERFORMED BY: Service Seeking70 [facility] [id number] Microalb/Creat Ratio 4.4 {mg/g_creat} (Normal) Range: 0.0-30.0 Creatinine, Urine 105.7 mg/dL (Normal) Range: 15.0-278.0 Microalbumin, Urine 4.7 ug/mL (Normal) Range: 0.0-17.0 68-Fwm-851613:03 URINE TRELL CULTURE-IDENTIFICATN Comments: PATIENT NOT FASTINGPERFORMED BY: [employer] Eelvxl8155 [facility] [id number] Information: [id number] (97829) Result 1 NG36 (Normal) Comments: No growth in 36 - 48 hours. Urine Culture,Comprehensive Final report (Normal) 31-Ffz-181003:17 Urinalysis, Office (33333) UA - LEUKOCYTE ESTERASE Trace (Normal) UA - NITRITE Negative (Normal) URINE UROBILINGN MITCH TIMED Normal mg/dL (Normal) UA - PROTEIN Negative mg/dL (Normal) UA - PH 7.5 (Normal) UA - BLOOD Negative (Normal) UA - SPECIFIC GRAVITY 1.005 (Normal) UA - KETONES Negative mg/dL (Normal) UA - BILIRUBIN Negative (Normal) UA - GLUCOSE Negative (Normal) 58-Kgl-541233:17 BILAT SCRN DIGITAL & CAD Radiology Report See Note (Normal) Comments: Exam Number: [id number] MAMMOGRAM, BILATERAL SCREENING DIGITAL AND CAD HISTORYRoutine [...] werealso exa mined with computer-aided detection software (Image[employer]hanCV, [facility] Reported By: ROXANE COLBY M.D. 41-Ocu-402433:16 DEXA BONE DENSITY STUDY (HP) Radiology Report See Note (Normal) Comments: Exam Number: [id number] BONE DENSITOMETRY HISTORYPostmenopausal. TECHNIQUE Bone densitometry of the lumbar spine and both hips is now beingperformed. The best criteria for evaluation of osteoporosis is theT-value, which represents the comparison of the patient's bone mass tanja expected peak bone mass. For most patients, the mean T-value of N6dopkdch L4 is used to evaluate the lumbar [...] Microscopic Examination Comments: PATIENT WAS FASTINGPERFORMED BY: Service Seeking70 [facility] [id number] Bacteria Few (Normal) Epithelial Cells (non renal) 0-10 {/hpf} (Normal) Range: 0 - 10 Mucus Threads Present (Normal) RBC 0-3 {/hpf} (Normal) Range: 0 - 3 WBC 0-5 {/hpf} (Normal) Range: 0 - 5 :33 URINALYSIS W/O MICRO (01340) Comments: PATIENT WAS FASTINGPERFORMED BY: Service Seeking70 [facility] [id number] Appearance Clear (Normal) Bilirubin Negative (Normal) Glucose Negative (Normal) Ketones Negative (Normal) Microscopic Examination See below: (Normal) Nitrite, Urine Negative (Normal) Occult Blood Negative (Normal) pH 5.5 (Normal) Range: 5.0-7.5 Protein Negative (Normal) Specific Marty 1.016 (Normal) Range: 1.005-1.030 Urine-Color Yellow (Normal) Urobilinogen,Semi-Qn 0.2 mg/dL (Normal) Range: 0.0-1.9 WBC Esterase 1+ (Abnormal) :33 MICROALBUMIN: CREATININE RATIO Comments: PATIENT WAS FASTINGPERFORMED BY: Maidou InternationalC[facility] [id number] (23535) AND (06762) Creatinine, Urine 93.7 mg/dL (Normal) Range: 15.0-278.0 Microalb/Creat Ratio 3.6 {mg/g_creat} (Normal) Range: 0.0-30.0 Microalbumin, Urine 3.4 ug/mL (Normal) Range: 0.0-17.0 :33 METABOLIC PANEL, COMPREHENSIVE Comments: in six months (approximately); PATIENT WAS FASTINGPERFORMED BY: LabCoBacharach Institute for RehabilitationIrgkwu0760 [facility] [id number] (63710) A/G Ratio 1.5 (Normal) Range: 1.1-2.5 Albumin, [...] mmol/L (Normal) Range: 135-145 :33 LIPID PANEL (56973) Comments: PATIENT WAS FASTINGPERFORMED BY: [employer]6370 [facility] [id number] Cholesterol, Total 239 mg/dL (Abnormal) Range: 100-199 HDL Cholesterol 40 mg/dL (Normal) Comments: According to ATP-III Guidelines, HDL-C >59 mg/dL is considered anegative risk factor for CHD. LDL Cholesterol Calc 123 mg/dL (Abnormal) Range: 0-99 LDL/HDL Ratio 3.1 {ratio_units} (Normal) Range: 0.0-3.2 Triglycerides 378 mg/dL (Abnormal) Range: 0-149 VLDL Cholesterol Andres 76 mg/dL (Abnormal) Range: 5-40 :33 CBC WITH MANUAL DIFF (83296) Comments: PATIENT WAS FASTINGClinical Information: ADD [id number] PERFORMED BY: [employer] [id number] [facility] [id number] Baso (Absolute) 0.1 {x10E3/uL} (Normal) Range: 0.0-0.2 [...] Education - Female Indication: Dysuria Planned Observations CALCIFEDIOL ([id number])Indication: Vitamin D deficiency On: 17-Feb-20187:53 Request LIPID PANEL ([id number])Indication: Hyperlipidemia, unspecified On: 59-Slx-297611:42 Request Lipid Panel ([id number])Indication: Hyperlipidemia, unspecified On: 00-Sme-54299:15 Request Comments: Feb 2017 CALCIFIDIOL ([id number]) VIT D 25Indication: Osteopenia On: 41-Wyu-840173:17 Request URINALYSIS, W/ MICRO ([id number])Indication: Diabetes mellitus type 2, controlled On: 37-Nub-765453:17 Request METABOLIC PANEL, COMPREHENSIVE (35022)Indication: Diabetes mellitus type 2, controlled On: 71-Emk-478577:17 Request LIPID PANEL ([id number])Indication: Diabetes mellitus type 2, controlled On: 00-Iec-729355:17 Request CBC with auto diff ([id number])Indication: Diabetes mellitus type 2, controlled On: 38-Vfe-970529:17 Request MICROALBUMIN: CREATININE RATIO ([id number]) AND ([id number])Indication: Hyperlipidemia, unspecified On: 97-Exc-315292:20 Request METABOLIC PANEL, COMPREHENSIVE ([id number])Indication: Hyperlipidemia, unspecified On: 73-Obn-016327:20 Request LIPID PANEL (85953)Indication: Hyperlipidemia, unspecified On: 64-Fgl-592154:20 Request METABOLIC PANEL, COMPREHENSIVE ([id number])Indication: Diabetes mellitus type 2, controlled On: 18-Uzh-761708:05 Request NUCLR MOLCUL DX-INT/RPT ([id number])Indication: Abnormal finding of blood chemistry, unspecified On: 11-Fan-394661:38 Request Comments: 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 DIAG, NUCLEIC ACID, ISOLATION/EXTRACTION, HIGHLY PURIFIED (30685)Indication: Abnormal finding of blood chemistry, unspecified On: 32-Pom-627234:38 Request NUCLR MOLCUL DX-ENZY DIG ([id number])Indication: Abnormal finding of blood chemistry, unspecified On: :38 Request NUCLR MOLCUL DX-SEPARATN ([id number])Indication: Abnormal finding of blood chemistry, unspecified On: :37 Request NUCLR MOLCUL DX-PCR EACH ([id number])Indication: Abnormal finding of blood chemistry, unspecified On: :37 Request HEPATIC FUNCTION PANEL (43050)Indication: Abnormal finding of blood chemistry, unspecified On: 74-Ysy-414601:10 Request Comments: recheck off tylenol for 2 weeks. HEP ABC PROFILE [id number] ([id number])Indication: Hyperlipidemia, unspecified On: 2-Xxc-141024:36 Request Ferritin ([id number])Indication: Hyperlipidemia, unspecified On: :36 Request CBC WITH MANUAL DIFF ([id number])Indication: Hyperlipidemia, unspecified On: 5-Yxu-350469:14 Request METABOLIC PANEL, COMPREHENSIVE ([id number])Indication: Hypertension, benign On: 3-Npq-089166:14 Request Blood Glucose , Office (13498)Indication: Abnormal glucose tolerance test On: :19 Request HgA1C , Office ([id number])Indication: Abnormal glucose tolerance test On: 94-Eti-21824:19 Request Planned Encounters Medical; 3 Month FU - On: 28-Mar-2018 8:15 [facility] Mere Hope CNP, CNP, Mary E Planned Procedures DEXA SCAN AXIAL SKELETON ([id number])By: On: 23-Dec-2017 Intent Mere Hope CNP, CNP, Mary E SCREENING DIGITAL TOMOSYNTHESIS OF On: 23-Dec-2017 Intent BREAST ([id number])By: Mere Hope CNP, CNP, Mary E ELECTROCARDIOGRAM, COMPLETE (ECG) On: 10-Jun-2017 Intent ([id number])By: Herminia MCKEON, Shelli Herminia Comments: sinus pavan LINDA, Mere Dc Ultrasound - RenalBy: Mere Hope CNP On: 06-Mar-2017 Intent E Mere Hope CNP SCREENING DIGITAL TOMOSYNTHESIS OF On: 03-Sep-2016 Intent BREAST ([id number])By: Herminia MCKEON, Shelli Herminia MCKEON, Mere Dc DEXA SCAN AXIAL SKELETON ([id number])By: On: 03-Sep-2016 Intent Herminia MCKEON, Shelli Herminia MCKEON, Mere Dc Comments: January 2017 MAMMOGRAM, SCREENING, BOTH BREAST On: 26-Oct-2015 Intent ([id number])By: Bebo Boyd MD EKG ([id number])By: Jacquelin Delgado MD On: 26-Jul-2014 Intent Comments: see scanned document of test done to see results reviewed today with patient MAMMOGRAM, SCREENING, BOTH BREAST On: 26-Jul-2014 Intent ([id number])By: Jacquelin Delgado MD DEXA SCAN AXIAL SKELETON ([id number])By: On: 26-Jul-2014 Intent Jacquelin Delgado MD BILATERAL MAMMOGRAMS ([id number])By: On: 07-Jan-2014 Intent Jacquelin Delgado MD MAMMOGRAM, SCREENING, BOTH BREASTS On: 29-Sep-2012 Intent ([id number])By: Jacquelin Delgado MD EKG ([id number])By: MARNIE Escamilla On: 29-Sep-2012 Intent Comments: see scanned document of test done to see results reviewed today with patient DXA, BONE DENSITY, AXIAL SKELETON On: 29-Sep-2012 Intent ([id number])By: Jacquelin Delgado MD Eprescribed prescriptions ([id number])By: On: 02-Jun-2012 Intent 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, 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 L Ultrasound - LiverBy: Bruna JONES, On: 03-Mar-2012 Intent Jacquelin Brambila MAMMOGRAM, SCREENING, BOTH BREASTS On: 05-Nov-2011 Intent ([id number])By: Jacquelin Delgado MD EKG ([id number])By: MARNIE Escamilla On: 05-Nov-2011 Intent Eprescribed prescriptions ([id number])By: On: 14-Jun-2010 Intent Valentin COROENL, Pilar A EKG ([id number])By: Jacquelin Delgado MD On: 24-Mar-2010 Intent MAMMOGRAM, SCREENING, BOTH BREASTS On: 15-Dec-2009 Intent ([id number])By: Jacquelin Delgado MD DXA, BONE DENSITY, AXIAL SKELETON On: 26-Nov-2008 Intent ([id number])By: Jacquelin Delgado MD MAMMOGRAM, SCREENING, BOTH BREASTS On: 26-Nov-2008 Intent ([id number])By: Jacquelin Delgado MD Instructions Name Dates Details [...] : Patient Instructions Indication: Hyperlipidemia, unspecified Encounters Lab Order On: 17-Feb-2018 7:52 Encounter Diagnosis: Vitamin D deficiency End: 17-Feb-2018 7:53 [facility] Annotation/Addendum On: 16-Feb-2018 15:57 [facility] [...] weight :. 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 The patient has noticed [...] (794.8), Osteopenia (733.90), Hypertension,benign(401.1), Hyperlipidemia, Unspecified (272.4), [facility] V73.21, Annual Medicare Physical (V70.0) [facility] [...]
--- OUTSIDE RECORDS SUMMARY | 2018-04-10 21:44 | XMS RPT_ITS | Continuity of Care Document ---
:1935 Author Organization [facility] Address [address] [facility] [address] [place] [address] Phone Care Team Providers Name Role Phone [...] 0 days Refills: 0 Ordered:26-Nov-2008 Mast RN, [facility] RegionJuanitactive ASPIRIN ADULT LOW STRENGTH, 81MG (Oral Tablet Chewable) 1 (one) Tablet Chewable in am for 0 days Quantity: 30 {Tablet} Refills: 0 Ordered:25-Jul-2015 MARNIE Escamilla Start : 24-Jan-2015 End : 25-Jul-2015 Inactive CIPRO, 250MG (Oral Tablet) 1 (one) Tablet bid for 3 days Quantity: 6 {Tablet} Refills: 0 Ordered:02-May-2009 Herminia MCKEON, Mere Finley UNIFORM DESIGNER, Mere Dc Start : 28-Mar-2009 End : [...] Quantity: 6 {Tablet} Refills: 0 Ordered:30-Mar-2009 Herminia UNIFORM DESIGNER, Mere Finley UNIFORM DESIGNER, Shelli Start : 28-Mar-2009 End : 30-Mar-2009 [...] Density Study Result: Comments: See Note; NOTES: [facility] Imaging Services [address] [place] [address] Dexa Bone Density Study MR#: [id number] Acct: [id number] Name: SANDRINE GUZMAN Rep #: [id number] : 1935 F 82 From: Scotty Tinoco MD PCP: Mere Hope NP Status: REG CLI Study: Dexa Bone Density Study Date of Exam: 02/13/18 Exam# [id number] Ordering Dr: Mere Hope FLATWORK WASHER-C STUDY: DUAL ENERGY X-RAY ABSORPTIOMETRY / DXA [...] Scotty Tinoco MD at 15:54 EST Tel [phone], Service support , CC: Mere Hope NP Cleaners: Signed 13-Feb-2018 SCREENING MAMM (CAD), BILAT Result: Comments: See Note; NOTES: [facility] Imaging Services [address] [place] [address] SCREENING MAMM (CAD), BILAT MR#: [id number] Acct: [id number] Name: SANDRINE GUZMAN Rep # : [id number] : 1935 F 82 From: Scotty Tinoco MD PCP: Mere Hope NP Status: REG CLI Study: SCREENING MAMM (CAD), BILAT Date of Exam: 02/13/18 Exam# [id number] Ordering Dr: Mere Hope FLATWORK WASHER-C MAMMOGRAPHY - BILATERAL SCREENING REASON FOR EXAM: [...] delay biopsy of a clinically suspicious abnormality. [id number] Electronically Signed: Scotty Tinoco MD 2 at 9:11 EST Tel [phone], Service support , CC: Mere Hope NP Cleaners: Signed 20-Mar-2017 Kidney and Bladder Result: Comments: See Note; NOTES: [facility] Imaging Services [address] [place] [address] Kidney and Bladder MR#: [id number] Acct: [id number] Name: SANDRINE GUZMAN Rep #: [id number] : 1935 F 81 From: George Luo DO PCP: Mere Hope NP Status: REG CLI Study: Kidney and Bladder Date of Exam: 03/20/17 Exam# [id number] Ordering Dr: Mere Hope STUDY: RENAL ULTRASOUND [...] George Luo DO at 11:24 EST Tel [phone], Service support , CC: Mere Hope NP Cleaners: Signed 30-Jan-2017 SCREENING MAMM (CAD), BILAT Result: Comments: See Note; NOTES: [facility] Imaging Services [address] [place] [address] SCREENING MAMM (CAD), BILAT MR#: [id number] Acct: [id number] Name: SANDRINE GUZMAN Rep # : [id number] : 1935 F 81 From: Scotty Tinoco MD PCP: Mere Hope Status: REG CLI Study: SCREENING MAMM (CAD), BILAT Date of Exam: 01/30/17 Exam# [id number] Ordering Dr: Mere Hope MAMMOG ASHA - [...] delay biopsy of a clinically suspicious abnormality. [id number] Electronically Signed: Scotty Tinoco MD at 10:50 EST Tel [phone], Se rvice support , CC: Mere Hope Cleaners: Signed 30-Jan-2016 Bilat Scrn Digital AND CAD Result: Comments: See Note; NOTES: [facility] Imaging Services [address] [place] [address] Verdana 4d Bilat Scrn Digital AND CAD MR#: [id number] Acct: [id number] Name: RADHA GUZMAN ORLANDO Pearson Rep #: [id number] : 1935 F 80 From: Scotty Tinoco MD PCP: Bebo Boyd Status: REG CL Study: Bilat Scrn Digital AND CAD Date of Exam: 01/30/16 Exam# [id number] Ordering Dr: Minnie Boyd en MAMMOGRAPHY - [...] delay biopsy of a clinically suspicious abnormality. [id number] Electronically Signed: Scotty Tinoco MD 2015 at 9:17 EST Tel [phone], Service support [phone], CC: Bebo Boyd Cleaners: Signed 25-Jan-2015 Bilat Scrn Digital AND CAD Result: Comments: See Note; NOTES: [facility] Imaging Services [address] [place] [address] Verdana 4d Bilat Scrn Digital AND CAD MR#: [id number] Acct: [id number] Name: SANDRINE GUZMAN Rep #: [id number] : 1935 F 79 From: Scotty Tinoco MD PCP: Jacquelin Delgado MD Status: REG CLI Study: Bilat Scrn Digital AND CAD Date of Exam: 01/25/15 Exam# [id number] [facility]: Jacquelin Delgado MD MAMMOGRAPHY - BILATERAL [...] Signed: Scotty Tinoco MD at 9:53 EST [facility] [phone], Service support [phone], CC: Jacquelin Delgado MD Cleaners: Signed 25-Jan-2015 Dexa Bone Density Study (HP) Result: Comments: See Note; NOTES: [facility] Imaging Services [address] [place] [address] 4d Dexa Bone Density Study (HP) MR#: [id number] Acct: [id number] Name : SANDRINE GUZMAN Rep #: [id number] : 1935 F 79 From: Scotty Tinoco MD PCP: Jacquelin Delgado MD Status: REG CLI Study: Dexa Bone Density Study (HP) Date of Exam: 01/25/15 Exam# [id number] Ordering Dr: Jacquelin Delgado MD STUDY: DUAL [...] Scotty Tinoco MD at 8:04 EST Tel [phone], Service support [phone], CC: Jacquelin Delgado MD Cleaners: Signed 22-Jan-2014 Bilat Scrn Digital & CAD Result: Comments: See Note; NOTES: [facility] Imaging Services [address] [place] [address] Breast Imaging Report MR#: [id number] Acct: [id number] Name: SANDRINE GUZMAN Rep # : [id number] : 1935 F 78 From: Scotty Tinoco MD PCP: Jacquelin Delgado MD Status: REG CLI Exam# [id number] Ordering Dr: Jacquelin Delgado MD MAMMOGRAPHY - [...] (A) ASSESSMENT CATEGORY: CC: Jacquelin Delgado MD Cleaners: Signed 21-Jan-2013 Dexa Bone Density Study (HP) Result: Comments: See Note; NOTES: [facility] Imaging Services [address] [place] [address] Bone Density Report MR#: [id number] Acct: [id number] Name: SANDRINE GUZMAN DAXA Rep # : [id number] : 1935 F 77 From: Scotty Tinoco MD PCP: Jacquelin Delgado MD Status: REG CLI Study: Dexa Bone Density Study (HP) Date of Exam: 01/21/13 Exam# [id number] Ordering Dr: Shelton Delgado MD STUDY: DUAL [...] January 21, 2013 at 10:01:36 AM EST [phone] Electronically Signed GP/GP If you are the referring physician and would like to consult with the radiologist who provided this interpr etation, please contact Scotty Tinoco M.D. at [phone]. If this radiologist is unavailable, you will be directed to another radiologist to assist. If you are a patient with a question rega rding this report, please contact your referring physician directly. Professional Interpretation Provided By: [employer], Phone , These documents contain legally pro [...] of these documents. CC: Jacquelin Delgado MD Cleaners: Signed 21-Jan-2013 Bilat Scrn Digital & CAD Result: Comments: See Note; NOTES: [facility] Imaging Services [address] [place] [address] Breast Imaging Report MR#: [id number] Acct: [id number] Name: SANDRINE GUZMAN DAXA Rep #: [id number] : 1935 F 77 From: Scotty Tinoco MD PCP: Jacquelin Delgado MD Status: REG CLI Exam# [id number] Ordering Dr: Jacquelin Delgado MD MAMMOGRAPHY - [...] 21, 2013 at 9:14:[address] [phone] Electronically Signed GP/GP If you are the referring physician and would like to consult with the radiologist who provided this interpretation, please contact Scotty Tinoco M.D. at [phone]. If this radiologist is unavailable, you will be directed to another radiologist to assist. If you are a patient with a question regarding this report, please contact your refe rring physician directly. Professional Interpretation Provided By: [employer], Phone , These documents contain legally protected [...] of these documents. CC: Jacquelin Delgado MD Cleaners: Signed Family History Unknown Family Member Name [...] Comprehensive Comments: PATIENT NOT FASTINGPERFORMED BY: BRANDO GroverTRiQkerwin NationGfmyhz0683 [facility] [id number] (97752) ALT (SGPT) 26 [iU]/L (Normal) Range: 0-32 [...] (Abnormal) Range: 65-99 :42 HgA1C , Office (95327) HgA1C , Office 6.0 % (Normal) Range: 4.6 - 7.1 :42 Blood Glucose , Office (86330) Blood Glucose , Office 130 (Normal) :06 LIPID PANEL (18328) Comments: Dec 2017; PATIENT WAS FASTINGPERFORMED BY: BRANDO LabCoJersey Shore University Medical CenterRomsqo1714 [facility] [id number] LDL/HDL Ratio 1.9 {ratio} (Normal) Range: 0.0-3.2 [...] (Normal) Range: 100-199 :04 HgA1C , Office (88067) HgA1C , Office 6.0 % (Normal) Range: 4.6 - 7.1 :04 Blood Glucose , Office (90489) Blood Glucose , Office 114 (Normal) 10-Elh-626620:06 VITAMIN B12 AND FOLATES Comments: PATIENT NOT FASTINGPERFORMED BY: RezdyJersey Shore University Medical CenterLnznfx3283 [facility] [id number] (22731) Folate (Folic Acid), Serum >20.0 ng/mL (Normal) Comments: A serum folate concentration of less than 3.1 ng/mL isconsidered to represent clinical deficiency. Vitamin B12 786 pg/mL (Normal) Range: 232-1245 07-Rkq-644479:38 HgA1C , Office (43256) HgA1C , Office 6.0 % (Normal) Range: 4.6 - 7.1 :37 Blood Glucose , Office (11109) Blood Glucose , Office 127 (Normal) :14 Metabolic Panel, Comprehensive Comments: PATIENT WAS FASTINGPERFORMED BY: RezdyJersey Shore University Medical CenterGzzrsg7641 [facility] [id number] (81986) ALT (SGPT) 24 [iU]/L (Normal) Range: 0-32 [...] mg/dL (Abnormal) Range: 65-99 :14 Lipid Panel (33746) Comments: PATIENT WAS FASTINGPERFORMED BY: LabCoJersey Shore University Medical CenterNyzcnx0831 [facility] [id number] LDL/HDL Ratio 2.2 {ratio_units} (Normal) Range: 0.0-3.2 [...] (Normal) Range: 100-199 :42 HgA1C , Office (18564) HgA1C , Office 6.4 % (Normal) Range: 4.6 - 7.1 :42 Blood Glucose , Office (96032) Blood Glucose , Office 156 (Normal) Comments: pt is fasting :23 CBC With Differential/Platelet Comments: PATIENT WAS FASTINGPERFORMED BY: BRANDO [employer] Ikkjml0226 [facility] [id number]; 03/06 OV Immature Grans (Abs) 0.0 {x10E3/uL} [...] (14) Comments: PATIENT WAS FASTINGPERFORMED BY: BRANDO SPOTBY.COM6370 [facility] [id number] ALT (SGPT) 17 [iU]/L (Normal) Range: 0-32 [...] Glucose, Serum 155 mg/dL (Abnormal) Range: 65-99 80-Hmc-41829:23 Lipid Panel With LDL/HDL Comments: PATIENT WAS FASTINGPERFORMED BY: [employer] Iiruwx7304 [facility] [id number] Ratio LDL/HDL Ratio 2.6 {ratio_units} (Normal) Range: 0.0-3.2 Comments: LDL/HDL Ratio Men Women 1/2 Avg.Risk 1.0 1.5 Av g.Risk 3.6 3.2 2X Avg.Risk 6.2 5.0 3X Avg.Risk 8.0 6.1 LDL Cholesterol Calc 116 mg/dL (Abnormal) Range: 0-99 VLDL Cholesterol Andres 55 mg/dL (Abnormal) Range: 5-40 HDL Cholesterol 44 mg/dL (Normal) Triglycerides 277 mg/dL (Abnormal) Range: 0-149 Cholesterol, Total 215 mg/dL (Abnormal) Range: 100-199 69-Bzu-34175:23 Microalb/Creat Ratio, Randm Ur Comments: PATIENT WAS FASTINGPERFORMED BY: Rezdy Ljiyij3524 [facility] [id number] Microalb/Creat Ratio <4.6 {mg/g_creat} Range: 0.0-30.0 (Normal) Microalbumin, Urine <3.0 ug/mL (Normal) Creatinine, Urine 65.1 mg/dL (Normal) 25-Feb-2017 TSH 2.640 {uIU/mL} Comments: PATIENT WAS FASTINGPERFORMED BY: Rezdy Vzdlmr5571 [facility] [id number] 8:23 (Normal) Range: 0.450-4.500 14-Yyw-63999:23 Urinalysis, Routine Comments: PATIENT WAS FASTINGPERFORMED BY: [employer] Gncpzr4953 [facility] [id number] Microscopic Examination MICNIP (Normal) Comments: Microscopic not indicated and not performed. Nitrite, Urine Negative (Normal) Urobilinogen,Semi-Qn 0.2 mg/dL (Normal) Range: 0.2-1.0 Bilirubin Negative (Normal) Occult Blood Negative (Normal) Ketones Negative (Normal) Glucose Negative (Normal) Protein Negative (Normal) WBC Esterase Negative (Normal) Appearance Clear (Normal) Urine-Color Yellow (Normal) pH 6.0 (Normal) Range: 5.0-7.5 Specific Wellington 1.014 (Normal) Range: 1.005-1.030 :18 CBC, Platelets & Auto Diff Comments: Feb 2017; PATIENT WAS FASTINGPERFORMED BY: Rezdy Bsirpu0433 [facility] [id number] (59663) Immature Grans (Abs) 0.0 {x10E3/uL} (Normal) Range: [...] 7.5 {x10E3/uL} (Normal) Range: 3.4-10.8 :18 TSH (91969) Comments: Feb 2017; PATIENT WAS FASTINGPERFORMED BY: TherOx [facility] Wzbewn4781 [facility] [id number] TSH 3.140 {uIU/mL} (Normal) Range: 0.450-4.500 :18 MICROALBUMIN: CREATININE RATIO Comments: Feb 2017; PATIENT WAS FASTINGPERFORMED BY: TherOx [facility] Ctfdel4633 [facility] [id number] (65810) AND (80783) Microalb/Creat Ratio <3.7 {mg/g_creat} (Normal) Range: 0.0-30.0 Microalbumin, Urine <3.0 ug/mL (Normal) Creatinine, Urine 80.5 mg/dL (Normal) :18 URINALYSIS (99126) Comments: Feb 2017; PATIENT WAS FASTINGPERFORMED BY: Applyful70 [facility]it [facility] [id number] Microscopic Examination MICNIP (Normal) Comments: Microscopic not indicated and not performed. Nitrite, Urine Negative (Normal) Urobilinogen,Semi-Qn 0.2 mg/dL (Normal) Range: 0.2-1.0 Bilirubin Negative (Normal) Occult Blood Negative (Normal) Ketones Negative (Normal) Glucose Negative (Normal) Protein Negative (Normal) WBC Esterase Negative (Normal) Appearance Clear (Normal) Urine-Color Yellow (Normal) pH 6.0 (Normal) Range: 5.0-7.5 Specific Wellington 1.013 (Normal) Range: 1.005-1.030 :18 Metabolic Panel, Comprehensive Comments: Feb 2017; PATIENT WAS FASTINGPERFORMED BY: ChinaHR.com6370 [facility] [id number] (59294) ALT (SGPT) 30 [iU]/L (Normal) Range: 0-32 [...] mg/dL (Abnormal) Range: 65-99 :18 LIPID PANEL (62496) Comments: Week of Sep 03 fasting; PATIENT WAS FASTINGPERFORMED BY: Applyful70 [facility] [id number] LDL/HDL Ratio 2.3 {ratio_units} (Normal) Range: 0.0-3.2 [...] Range: 100-199 :41 Blood Glucose , Office (75079) Comments: 190 Blood Glucose , Office 190 (Normal) Comments: ate breakfast :41 HgA1C , Office (99989) Comments: 6.5 HgA1C , Office 6.5 % (Normal) Range: 4.6 - 7.1 :26 METABOLIC PANEL, COMPREHENSIVE Comments: PATIENT WAS FASTINGPERFORMED BY: [employer]com6370 [facility] [id number] (63107) ALT (SGPT) 22 [iU]/L (Normal) Range: 0-32 [...] (Abnormal) Range: 65-99 :19 HgA1C , Office (49289) HgA1C , Office 6.5 % (Normal) Range: 4.6 - 7.1 :19 Blood Glucose , Office (44188) Blood Glucose , Office 146 (Normal) 04-Voc-732017:31 URINE TRELL CULTURE-MITCH COL Comments: PATIENT NOT FASTINGPERFORMED BY: SueEasyY[facility] [id number] Information: SRC:UC COUNT (87920) Result 1 MUG (Normal) Comments: Mixed urogenital flora10,000-25,000 colony forming units per mL Urine Final report (Normal) Culture,Comprehensive :05 Microscopic Examination Comments: PATIENT WAS FASTINGPERFORMED BY: [facility]Card[facility] [id number] Bacteria Few (Normal) Mucus Threads Present (Normal) Epithelial Cells (non renal) 0-10 {/hpf} (Normal) Range: 0 - 10 RBC None seen {/hpf} (Normal) Range: 0 - 2 WBC 0-5 {/hpf} (Normal) Range: 0 - 5 8-Nov-73476:05 URINALYSIS, W/ MICRO (72695) Comments: PATIENT WAS FASTINGPERFORMED BY: [employer] [facility] [id number] Microscopic Examination See below: (Normal) Comments: Microscopic was indicated and was performed. Nitrite, Urine Negative (Normal) Urobilinogen,Semi-Qn 0.2 mg/dL (Normal) Range: 0.2-1.0 Bilirubin Negative (Normal) Occult Blood Negative (Normal) Ketones Negative (Normal) Glucose Negative (Normal) Protein Negative (Normal) WBC Esterase Trace (Abnormal) Appearance Clear (Normal) Urine-Color Yellow (Normal) pH 6.5 (Normal) Range: 5.0-7.5 Specific Wellington 1.012 (Normal) Range: 1.005-1.030 :05 MICROALBUMIN: CREATININE RATIO Comments: PATIENT WAS FASTINGPERFORMED BY: Rezdy Pgvmhx1790 [facility] [id number] (73002) AND (56583) Microalb/Creat Ratio <4.6 {mg/g_creat} (Normal) Range: 0.0-30.0 Microalbumin, Urine <3.0 ug/mL (Normal) Creatinine, Urine 65.7 mg/dL (Normal) :05 METABOLIC PANEL, COMPREHENSIVE Comments: PATIENT WAS FASTINGPERFORMED BY: Tsavo MediaArtesia General HospitalXlunny6827 [facility] [id number] (44235) ALT (SGPT) 21 [iU]/L (Normal) Range: 0-32 [...] mg/dL (Abnormal) Range: 65-99 :05 LIPID PANEL (21049) Comments: PATIENT WAS FASTINGPERFORMED BY: GlideTV [facility] [id number] LDL/HDL Ratio 2.3 {ratio_units} (Normal) Range: 0.0-3.2 [...] Range: 100-199 :05 CBC with auto diff (11773) Comments: PATIENT WAS FASTINGPERFORMED BY: Applyful70 [facility] [id number] Immature Grans (Abs) 0.0 {x10E3/uL} (Normal) Range: [...] (Normal) Range: 3.4-10.8 :24 HgA1C , Office (77817) HgA1C , Office 6.5 % (Normal) Range: 4.6 - 7.1 :07 Microscopic Examination Comments: PATIENT WAS FASTINGPERFORMED BY: Applyful70 [facility] [id number] Bacteria Few (Normal) Mucus Threads Present (Normal) Epithelial Cells (non renal) 0-10 {/hpf} (Normal) Range: 0 - 10 RBC None seen {/hpf} (Normal) Range: 0 - 2 WBC 0-5 {/hpf} (Normal) Range: 0 - 5 :07 URINALYSIS, W/ MICRO (92171) Comments: PATIENT WAS FASTINGPERFORMED BY: FlameStowerAtrium Health Union [id number] Microscopic Examination See below: (Normal) Comments: Microscopic was indicated and was performed. Microscopic Examination MICRON (Normal) Comments: Microscopic follows if indicated. Nitrite, Urine Negative (Normal) Urobilinogen,Semi-Qn 0.2 mg/dL (Normal) Range: 0.2-1.0 Bilirubin Negative (Normal) Occult Blood Negative (Normal) Ketones Negative (Normal) Glucose Negative (Normal) Protein Negative (Normal) WBC Esterase Negative (Normal) Appearance Clear (Normal) Urine-Color Yellow (Normal) pH 6.5 (Normal) Range: 5.0-7.5 Specific Wellington 1.013 (Normal) Range: 1.005-1.030 18-Jul-20158:07 METABOLIC PANEL, COMPREHENSIVE Comments: PATIENT WAS FASTINGPERFORMED BY: [facility] Irrshm8021 [facility] [id number] (40951) ALT (SGPT) 22 [iU]/L (Normal) Range: 0-32 [...] mg/dL (Abnormal) Range: 65-99 :07 LIPID PANEL (95338) Comments: PATIENT WAS FASTINGPERFORMED BY: RezdyJersey Shore University Medical CenterMrvdqe8052 [facility] [id number] LDL/HDL Ratio 2.2 {ratio_units} (Normal) Range: 0.0-3.2 [...] auto diff Comments: PATIENT WAS FASTINGPERFORMED BY: [facility] Medical CenterTRiQJersey Shore University Medical CenterTmcjty7646 [facility] [id number] Information: [id number]; [address] (17099) Immature Grans (Abs) 0.0 {x10E3/uL} (Normal) Range: [...] (Normal) Range: 3.4-10.8 :15 HgA1C , Office (29730) HgA1C , Office 6.6 % (Normal) Range: 4.6 - 7.1 :08 CBC W/Diff, Automated Comments: [facility] [address] [place], [address] ; ov 15 Absolute Lymph 1.51 {X10_3/ul} [...] Range: 4.4-11.0 :08 Comprehensive Metabolic Profil Comments: [facility] Oejq[address]bhrjg[address] [place], [place], [address] GAP 7 (Normal) Range: 5-15 CO2 29.0 [...] per A.D.A. criteria. :08 Lipid Profile Comments: [facility] Enwbqrwpkw[address] [place], [place], [id number] VLDL 49 mg/dL (Abnormal) Range: 5-40 LDL [...] How was Urine Obtained? Urine, [facility] Rtalfkzraq7705 [facility] [address] [place], [place], [id number] MUCUS, URINE 0 SEEN {/hpf} (Normal) BACTERIA [...] (Normal) CLARITY Clear (Normal) COLOR Yellow (Normal) 2-Nov-95018:08 Vitamin D,25 Hydroxy Comments: [facility] [address] [place], [address] Vitamin D 25-OH 33.4 ng/mL (Normal) Comments: Vitamin D 25(OH) Status Range Deficiency <20 ng/mL (50nmol/L) Insuffciency 20 - 30 ng/mL (50 - 75 nmol/L) Sufficiency 30 - 100 ng/mL (75 - 250 nmol/L) Toxicity >100 ng/mL (>250 nmol/L) :31 HgA1C , Office (42809) HgA1C , Office 6.8 % (Normal) Range: 4.6 - 7.1 :37 Comprehensive Metabolic Profil Comments: Test performed at:[facility] [address]vp[address] [place] [address] GAP 7 (Normal) Range: 5-15 CO2 29.0 [...] criteria. :37 Lipid Profile Comments: Test performed at:[facility] [address] [place] [address] 868641 VLDL 51 mg/dL (Abnormal) Range: 5-40 LDL [...] :37 Microalb:Creat Ratio,Random UR Comments: Test performed at:[facility] [address]ijhb[address] [place] [address] [id number] MALB:CREAT Test not performed {mg/g_CRE} (Normal) MICROALBUMIN,UR < 5.0 mg/L (Normal) UR CREAT 86.0 mg/dL (Normal) :04 HgA1C , Office (80351) HgA1C , Office 6.8 % (Normal) Range: 4.6 - 7.1 :04 Blood Glucose , Office (14007) Blood Glucose , Office 141 (Normal) :07 METABOLIC PANEL, Comments: PATIENT WAS FASTINGPERFORMED BY: LabCoJersey Shore University Medical CenterFbakis9814 [facility] [id number] Information: [id number] COMPREHENSIVE (38382) ALT (SGPT) 21 [iU]/L (Normal) Range: 0-32 [...] mg/dL (Abnormal) Range: 65-99 :07 LIPID PANEL (46051) Comments: PATIENT WAS FASTINGPERFORMED BY: LabCoJersey Shore University Medical CenterLwxdbt8269 [facility] [id number] LDL/HDL Ratio 2.6 {ratio_units} (Normal) Range: 0.0-3.2 [...] Cholesterol, Total 218 mg/dL (Abnormal) Range: 100-199 05-Hnt-879195:32 Blood Glucose , Office (07845) Blood Glucose , Office 124 (Normal) 76-Aeu-018161:32 HgA1C , Office (41363) HgA1C , Office 7.0 % (Normal) Range: 4.6 - 7.1 :37 MICROALBUMIN: CREATININE RATIO Comments: PATIENT WAS FASTINGPERFORMED BY: RezdyJersey Shore University Medical CenterYjsnav1607 [facility] [id number] (94366) AND (51841) Microalb/Creat Ratio 3.0 {mg/g_creat} (Normal) Range: 0.0-30.0 Creatinine, Urine 66.1 mg/dL (Normal) Range: 15.0-278.0 Microalbumin, Urine 2.0 ug/mL (Normal) Range: 0.0-17.0 :37 METABOLIC PANEL, COMPREHENSIVE Comments: PATIENT WAS FASTINGPERFORMED BY: [employer]6370 [facility] [id number] (69929) ALT (SGPT) 18 [iU]/L (Normal) Range: 0-32 [...] mg/dL (Abnormal) Range: 65-99 :37 LIPID PANEL (89294) Comments: PATIENT WAS FASTINGPERFORMED BY: [employer] Rpjnzu2154 [facility] [id number] LDL/HDL Ratio 2.5 {ratio_units} (Normal) Range: 0.0-3.2 [...] MANUAL DIFF Comments: PATIENT WAS FASTINGPERFORMED BY: Rezdy Tgmxrb3692 [facility] [id number] Information: [id number] (16626) Immature Grans (Abs) 0.0 {x10E3/uL} (Normal) Range: [...] Range: 3.4-10.8 :43 Blood Glucose , Office (93058) Blood Glucose , Office 128 (Normal) :43 HgA1C , Office (32552) HgA1C , Office 6.8 % (Normal) Range: 4.6 - 7.1 :23 CBC, PLATELETS & MANUAL Comments: PATIENT WAS FASTINGPERFORMED BY: LabCoJersey Shore University Medical CenterXwciya5648 [facility] [id number] Information: [id number] DIFF (67926) Immature Grans (Abs) 0.0 {x10E3/uL} (Normal) Range: [...] 3.77-5.28 WBC 3.8 {x10E3/uL} (Normal) Range: 3.4-10.8 2-Wah-100168:23 METABOLIC PANEL, COMPREHENSIVE Comments: PATIENT WAS FASTINGPERFORMED BY: LabHenry [facility] Hospital6370 [facility] [id number] (79941) ALT (SGPT) 17 [iU]/L (Normal) Range: 0-32 [...] mg/dL (Abnormal) Range: 65-99 :23 LIPID PANEL (45984) Comments: PATIENT WAS FASTINGPERFORMED BY: LabCoJersey Shore University Medical CenterRwttmx9968 [facility] [id number] LDL/HDL Ratio 2.7 {ratio_units} (Normal) Range: 0.0-3.2 LDL Cholesterol Calc 120 mg/dL (Abnormal) Range: 0-99 HDL Cholesterol 44 mg/dL (Normal) Comments: According to ATP-III Guidelines, HDL-C >59 mg/dL is considered anegative risk factor for CHD. VLDL Cholesterol Andres 44 mg/dL (Abnormal) Range: 5-40 Cholesterol, Total 208 mg/dL (Abnormal) Range: 100-199 Triglycerides 221 mg/dL (Abnormal) Range: 0-149 :11 Blood Glucose , Office (84049) Blood Glucose , Office 122 (Normal) :11 HgA1C , Office (77338) HgA1C , Office 6.5 % (Normal) Range: 4.6 - 7.1 22-Veb-87816:59 Hemoglobin Glyclated (HGB Comments: today only; PATIENT NOT FASTINGPERFORMED BY: [employer] Vpmmdi5740 [facility] [id number] Information: ADD [id number] AND DRAW FEE 99 2798 A1C) (35491) Hemoglobin A1c 6.4 % (Abnormal) Range: 4.8-5.6 Comments: . Increased risk for diabetes: 5.7 - 6.4 Diabetes: >6.4 Glycemic control for adults with diabetes: <7.0 22-Sep-20129:33 METABOLIC PANEL, COMPREHENSIVE Comments: PATIENT WAS FASTINGPERFORMED BY: SPOTBY.COM6370 [facility] [id number] (36101) ALT (SGPT) 18 [iU]/L (Normal) Range: 0-32 [...] mg/dL (Abnormal) Range: 65-99 :33 LIPID PANEL (34165) Comments: PATIENT WAS FASTINGPERFORMED BY: Applyful70 [facility] [id number] LDL/HDL Ratio 2.6 {ratio_units} (Normal) Range: 0.0-3.2 [...] MANUAL DIFF Comments: PATIENT WAS FASTINGPERFORMED BY: [employer] Amyrah1507 [facility] [id number] Information: [id number] (19104) Immature Grans (Abs) 0.0 {x10E3/uL} (Normal) Range: [...] Function Panel Comments: PERFORMED BY: CB [facility] Gdtbtt9755 [facility] [id number] BY: TG [facility] JRI1918 [facility] [id number] (7) ALT (SGPT) 30 [iU]/L (Normal) Range: 0-32 AST (SGOT) 27 [iU]/L (Normal) Range: 0-40 Alkaline Phosphatase, S 96 [iU]/L (Normal) Range: 25-165 Bilirubin, Direct 0.21 mg/dL (Normal) Range: 0.00-0.40 Bilirubin, Total 0.6 mg/dL (Normal) Range: 0.0-1.2 Albumin, Serum 4.4 g/dL (Normal) Range: 3.5-4.8 Protein, Total, Serum 7.0 g/dL (Normal) Range: 6.0-8.5 21-Mar-20129:59 Hered.Hemochromatosis, DNA Comments: PERFORMED BY: BRANDO [facility] Prlkng5760 [address] [place] [id number] BY: ISABEL [facility] SDY0907 [address] DriveRTP [place] [id number] Hereditary Hemochromatosis 63HOM1 (Normal) Comments: Result: H63D/D64LKji copies of the same mutation (H63D and [...] J Prev Med 16:134-140.Denver Pearson (2002). Lancet 360(6792):1 673-02.Dalia Coffey al. (2002). Blood Cells, Molecules. andDiseases. 29(3):418- 432.Parveen Stallings et al. (2003). Gisel Med. 5(1):1-8.Haylie LINDSEY et al. (2003). Gisel Med. 5(4):304-10.Genetic counselors are available for health care providers to discussresults at [phone]. . Navid Gramajo, Ph.D. Anisha Driver, Ph.D. Linda Henry, Ph.D. Shahrzad Flores, Ph.D. Lorelei Garcia, Ph.D. Elsa Gastelum, Ph.D. S. Kamaljit Vogt, Ph.D. 56-Fxe-25110:00 LIVER Radiology Report See Note (Normal) Comments: [...] size of the right kidney. The right rkfpkfjyvqbogc23.1 cm. Normal renal cortex. The right cortex measures 1.5 cm. Thereisno demonstrated renal mass or cyst. There is no right hydronephrosis. IMPRESSION:Normal right upper quadrant ultrasound examination.The patient is status post cholecystectomy. Signed:Scotty Tinoco M.D.March 06, 2012 at 12:32:06 PM [id number] Signed GP/GP If you are the referring physician and would like to consult with theradiologist who provided this interpretation, please contact Jerri Hernandez at [phone]. If this radiologist is unavailable, youwill be directed to another radiologist to assist. If you are a patient with a question regarding this report, pleasecontactyour referring physician directly. Professional Interpretation Provided By: KelliedarronEventifier, Phone , These documents contain legally protected [...] Scotty Tinoco MD :46 HgA1C , Office (98083) HgA1C , Office 6.6 % (Normal) Range: 4.6 - 7.1 :46 Blood Glucose , Office (34573) Blood Glucose , Office 143 (Normal) :47 HEPATITIS PANEL (56327) Comments: PATIENT NOT FASTINGPERFORMED BY: [employer] Hsllvo0865 [facility] [id number] Information: [id number] Hep C Virus Ab <0.1 {s/co_ratio} Range: [...] ng/mL (Abnormal) Comments: PATIENT WAS FASTINGPERFORMED BY: [employer] Ogvurh5415 [facility] [id number] Information: [id number] :12 Range: 13-150 Written Authorization WAR (Normal) Comments: PATIENT WAS FASTINGPERFORMED BY: [facility]6370 [address] [facility] Hospitalj[facility] [place] [id number] :12 Comments: Written Authorization Received.Authorization received from DR DELGADO [id number] by Ya Arnett 21-Jan-20129:23 BILAT SCRN DIGITAL [...] Tinoco M.D.January 21, 2012 at 9:56:18 AM [id number] Signed GP/GP If you are the referring physician and would like to consult with theradiologist who provided this interpretation, please contact Jerri Hernandez at [phone]. If this radiologist is unavailable, youwill be directed to another radiologist to assist. If you are a patient with a question regarding this report, pleasecontactyour referring physician directly. Professional Interpretation Provided By: SailPlay, Phone , These doc uments contain legally [...] Metabolic Panel, Comments: PATIENT WAS FASTINGPERFORMED BY: LabHenry [facility]6370 [facility] [id number] Information: [id number] Comprehensive (57715) ALT (SGPT) 58 [iU]/L (Abnormal) Range: 0-32 [...] mg/dL (Abnormal) Range: 65-99 :12 Lipid Panel (81323) Comments: PATIENT WAS FASTINGPERFORMED BY: Rezdy Qdbvbr0865 [facility] [id number] LDL/HDL Ratio 2.2 {ratio_units} (Normal) Range: 0.0-3.2 LDL Cholesterol Calc 106 mg/dL (Abnormal) Range: 0-99 VLDL Cholesterol Andres 50 mg/dL (Abnormal) Range: 5-40 HDL Cholesterol 48 mg/dL (Normal) Comments: According to ATP-III Guidelines, HDL-C >59 mg/dL is considered anegative risk factor for CHD. Triglycerides 252 mg/dL (Abnormal) Range: 0-149 Cholesterol, Total 204 mg/dL (Abnormal) Range: 100-199 29-Pnb-315355:25 HgA1C , Office (46953) HgA1C , Office 6.1 % (Normal) Range: 4.6 - 7.1 :25 Blood Glucose , Office (23273) Blood Glucose , Office 126 (Normal) :31 LIPID PANEL (97874) Comments: PATIENT WAS FASTINGPERFORMED BY: Lifeables70 [facility] [id number] LDL/HDL Ratio 2.3 {ratio_units} (Normal) Range: 0.0-3.2 [...] FUNCTION PANEL Comments: PATIENT WAS FASTINGPERFORMED BY: RezdyJersey Shore University Medical CenterNcrcgg1929 [facility] [id number] Information: [id number] (55625) ALT (SGPT) 35 [iU]/L (Normal) Range: 0-40 AST (SGOT) 28 [iU]/L (Normal) Range: 0-40 Alkaline Phosphatase, S 99 [iU]/L (Normal) Range: 25-165 Bilirubin, Direct 0.15 mg/dL (Normal) Range: 0.00-0.40 Bilirubin, Total 0.6 mg/dL (Normal) Range: 0.0-1.2 Albumin, Serum 4.3 g/dL (Normal) Range: 3.5-4.8 Protein, Total, Serum 6.8 g/dL (Normal) Range: 6.0-8.5 :40 HgA1C , Office (20121) HgA1C , Office 6.3 % (Normal) Range: 4.6 - 7.1 :40 Blood Glucose , Office (51514) Blood Glucose , Office 142 (Normal) :22 CBC, PLATELETS & AUT DIFF Comments: PATIENT WAS FASTINGPERFORMED BY: LabCoJersey Shore University Medical CenterNzqgvm1329 [facility] [id number] Information: [id number] (34314) Immature Grans (Abs) 0.0 {x10E3/uL} (Normal) Range: [...] PANEL, COMPREHENSIVE Comments: PATIENT WAS FASTINGPERFORMED BY: LabCoJersey Shore University Medical CenterUpekiu7725 [facility] [id number] (35469) ALT (SGPT) 19 [iU]/L (Normal) Range: 0-40 [...] mg/dL (Abnormal) Range: 65-99 :22 LIPID PANEL (30238) Comments: PATIENT WAS FASTINGPERFORMED BY: Rezdy Gatnvd4163 [facility] [id number] LDL/HDL Ratio 2.6 {ratio_units} (Normal) Range: 0.0-3.2 [...] CREATININE RATIO Comments: PATIENT WAS FASTINGPERFORMED BY: RezdyJersey Shore University Medical CenterLxnpva4861 [facility] [id number] (95705) AND (45255) Microalb/Creat Ratio 5.8 {mg/g_creat} (Normal) Range: 0.0-30.0 Microalbumin, Urine 3.9 ug/mL (Normal) Range: 0.0-17.0 Creatinine, Urine 66.7 mg/dL (Normal) Range: 15.0-278.0 :39 HgA1C , Office (34696) HgA1C , Office 6.5 % (Normal) Range: 4.6 - 7.1 :39 Blood Glucose , Office (06564) Blood Glucose , Office 137 (Normal) :31 [...] on 01/18/111333 Sign by: Scotty Tinoco MD 09-Jdg-28939:03 CBC WITH MANUAL DIFF Comments: PATIENT WAS FASTINGPERFORMED BY: LabHenry [facility] Hospital6370 [facility] [id number] Information: [id number] (64609) Immature Grans (Abs) 0.0 {x10E3/uL} (Normal) Range: [...] {x10E3/uL} (Normal) Range: 4.0-10.5 :03 LIPID PANEL (72309) Comments: PATIENT WAS FASTINGPERFORMED BY: Applyful70 [facility] [id number] LDL Cholesterol Calc 106 mg/dL (Abnormal) Range: [...] PANEL, COMPREHENSIVE Comments: PATIENT WAS FASTINGPERFORMED BY: FlameStowerAtrium Health Union [id number] (21689) ALT (SGPT) 23 [iU]/L (Normal) Range: 0-40 [...] Glucose, Serum 123 mg/dL (Abnormal) Range: 65-99 87-Zit-73752:03 MICROALBUMIN: CREATININE RATIO Comments: PATIENT WAS FASTINGPERFORMED BY: LabCoJersey Shore University Medical CenterGltmsz4888 [facility] [id number] (52215) AND (18423) Microalb/Creat Ratio 2.7 {mg/g_creat} (Normal) Range: 0.0-30.0 Microalbumin, Urine 2.0 ug/mL (Normal) Range: 0.0-17.0 Creatinine, Urine 74.8 mg/dL (Normal) Range: 15.0-278.0 79-Hhz-827627:10 URINE TRELL CULTURE (MITCH Comments: PATIENT NOT FASTINGPERFORMED BY: CB [facility] Uqhtgd2111 [facility] [id number] Information: SRC:UR [id number] COL COUNT) (19463) Result 1 NG36 (Normal) Comments: No growth in 36 - 48 hours. Urine Culture,Comprehensive Final report (Normal) 2-Rps-524159:30 URINE TRELL CULTURE-MITCH COL Comments: PATIENT NOT FASTINGPERFORMED BY: CB [facility] Pmzwjb3817 [facility] [id number] Information: SRC:UR ADD [id number] AND DRAW FEE [id number] COUNT (14756) Antimicrobial MIHEAD (Normal) Comments: S = Susceptible; [...] primarily for treating urinary tract infections. (CLSI, H853-J76,2009) Urine Culture,Comprehensive Final report (Normal) :09 Urinalysis, Office (63965) UA - BILIRUBIN Negative (Normal) UA - BLOOD Negative (Normal) UA - GLUCOSE Negative (Normal) UA - KETONES Negative mg/dL (Normal) UA - LEUKOCYTE ESTERASE Large (Normal) UA - NITRITE Negative (Normal) UA - PH 7.5 (Normal) UA - PROTEIN Negative mg/dL (Normal) UA - SPECIFIC GRAVITY 1.020 (Normal) URINE UROBILINGN MITCH TIMED Normal mg/dL (Normal) 4-Igr-451998:16 HgA1C , Office (50347) HgA1C , Office 6.4 % (Normal) Range: 4.6 - 7.1 1-Iih-277901:16 Blood Glucose , Office (86628) Blood Glucose , Office 142 (Normal) 8-Kxf-601433:11 Urinalysis, Office (90575) UA - LEUKOCYTE ESTERASE Negative (Normal) UA - NITRITE Negative (Normal) URINE UROBILINGN MITCH TIMED Normal mg/dL (Normal) UA - PROTEIN Negative mg/dL (Normal) UA - BLOOD Negative (Normal) UA - SPECIFIC GRAVITY 1.020 (Normal) UA - KETONES Negative mg/dL (Normal) UA - BILIRUBIN Negative (Normal) UA - GLUCOSE Negative (Normal) 7-Cwm-768371:00 UNILAT RT DIAG DIGITAL & CAD Radiology [...] Sign by: Earnest JONESScotty :04 LIPID PANEL (61554) Comments: PATIENT WAS FASTINGPERFORMED BY: Rezdy Vgwjgl7362 [facility] [id number] LDL Cholesterol Calc 108 mg/dL (Abnormal) Range: [...] CREATININE RATIO Comments: PATIENT WAS FASTINGPERFORMED BY: Kappa Primelin6370 [facility] [id number] (60304) AND (00797) Microalb/Creat Ratio 4.7 {mg/g_creat} (Normal) Range: 0.0-30.0 Creatinine, Urine 94.1 mg/dL (Normal) Range: 15.0-278.0 Microalbumin, Urine 4.4 ug/mL (Normal) Range: 0.0-17.0 :04 CBC WITH MANUAL DIFF Comments: PATIENT WAS FASTINGPERFORMED BY: [facility] Medical CenterTRiQJersey Shore University Medical CenterIzvprn1493 [facility] [id number] Information: [id number] (82063) Baso (Absolute) 0.0 {x10E3/uL} (Normal) Range: 0.0-0.2 [...] PANEL, COMPREHENSIVE Comments: PATIENT WAS FASTINGPERFORMED BY: LabCoJersey Shore University Medical CenterEtgbnj5279 [facility] [id number]; appt 07/20/10 (37694) ALT (SGPT) 26 [iU]/L (Normal) Range: 0-40 [...] Glucose, Serum 115 mg/dL (Abnormal) Range: 65-99 45-Xup-900717:39 URINE TRELL CULTURE-MITCH COL Comments: PATIENT NOT FASTINGPERFORMED BY: [facility] Fcczwj9404 [facility] [id number] Information: SRC:UR [id number] COUNT (43948) Antimicrobial MIHEAD (Normal) Comments: S = Susceptible; [...] mL (Normal) Urine Final report (Normal) Culture,Comprehensive 98-Zpd-025398:56 Urinalysis, Office (75068) UA - BILIRUBIN Negative (Normal) UA - BLOOD Negative (Normal) UA - GLUCOSE Negative (Normal) UA - KETONES Negative mg/dL (Normal) UA - LEUKOCYTE ESTERASE Large (Normal) UA - NITRITE Negative (Normal) UA - PH 8.0 (Normal) UA - PROTEIN Negative mg/dL (Normal) UA - SPECIFIC GRAVITY 1.015 (Normal) URINE UROBILINGN MITCH TIMED Normal mg/dL (Normal) :39 HgA1C , Office (97809) HgA1C , Office 6.2 % (Normal) Range: 4.6 - 7.1 :39 Blood Glucose , Office (61789) Blood Glucose , Office 101 (Normal) :59 BREAST UNILATERAL Radiology Report See Note (Normal) Comments: Exam Number: [id number] LINICAL:The patient is a 74-year-old female with [...] Report See Note (Normal) Comments: Exam Number: [id number] AMMOGRAPHY - UNILATERAL DIAGNOSTIC: RIGHT BREAST INDICATION:Abnormal [...] attaching a ResultCode to this exam. ADDENDUM: [id number] HPBI/MUDDR Reported By: ROXANE COLBY M.D. 9-Ufq-596294:26 BILNEW ENGLAND SINAI HOSPITALN DIGITAL & CAD Radiology Report See Note (Normal) Comments: Exam Number: [id number] AMMOGRAPHY - BILATERAL SCREENING INDICATION:Routine annual screening [...] a ResultCode to this exam. ADD ENDUM: [id number] HPBI/MDS Reported By: ROXANE COLBY M.D. :13 HEPATIC FUNCTION PANEL Comments: PATIENT WAS FASTINGPERFORMED BY: LabTRiQJersey Shore University Medical CenterYygxja9275 [facility] [id number] Information: [id number] (45872) ALT (SGPT) 25 [iU]/L (Normal) Range: 0-40 Alkaline Phosphatase, S 110 [iU]/L (Normal) Range: 25-165 AST (SGOT) 23 [iU]/L (Normal) Range: 0-40 Bilirubin, Direct 0.12 mg/dL (Normal) Range: 0.00-0.40 Albumin, Serum 4.5 g/dL (Normal) Range: 3.5-4.8 Bilirubin, Total 0.5 mg/dL (Normal) Range: 0.0-1.2 Protein, Total, Serum 7.6 g/dL (Normal) Range: 6.0-8.5 :13 LIPID PANEL (78824) Comments: PATIENT WAS FASTINGPERFORMED BY: RezdyJersey Shore University Medical CenterOgwhjc8449 [facility] [id number] LDL Cholesterol Calc 128 mg/dL (Abnormal) Range: 0-99 LDL/HDL Ratio 2.7 {ratio_units} (Normal) Range: 0.0-3.2 VLDL Cholesterol Andres 65 mg/dL (Abnormal) Range: 5-40 HDL Cholesterol 48 mg/dL (Normal) Comments: According to ATP-III Guidelines, HDL-C >59 mg/dL is considered anegative risk factor for CHD. Cholesterol, Total 241 mg/dL (Abnormal) Range: 100-199 Triglycerides 327 mg/dL (Abnormal) Range: 0-149 :16 HgA1C , Office (70229) HgA1C , Office 6.3 % (Normal) Range: 4.6 - 7.1 29-Yap-599053:16 Blood Glucose , Office (91515) Blood Glucose , Office 115 (Normal) :30 MICROALBUMIN: CREATININE RATIO Comments: PATIENT WAS FASTINGPERFORMED BY: RezdyArtesia General HospitalJiwcrf9590 [facility] [id number] (76470) AND (05385) Creatinine, Urine 64.8 mg/dL (Normal) Range: 15.0-278.0 Microalb/Creat Ratio 4.0 {mg/g_creat} (Normal) Range: 0.0-30.0 Microalbumin, Urine 2.6 ug/mL (Normal) Range: 0.0-17.0 :30 METABOLIC PANEL, COMPREHENSIVE Comments: PATIENT WAS FASTINGPERFORMED BY: SPOTBY.COM6370 [facility] [id number] (87786) Alkaline Phosphatase, S 104 [iU]/L (Normal) Range: [...] mg/dL (Abnormal) Range: 65-99 :30 LIPID PANEL (13302) Comments: PATIENT WAS FASTINGPERFORMED BY: TherOx LabSviral Eyedyj6630 [facility] [id number] HDL Cholesterol 49 mg/dL (Normal) Comments: According [...] MANUAL DIFF Comments: PATIENT WAS FASTINGPERFORMED BY: LabTRiQJersey Shore University Medical CenterTqxvmr2631 [facility] [id number] Information: [id number] (37099) Immature Grans (Abs) 0.0 {x10E3/uL} (Normal) Range: [...] (Normal) Range: 4.0-10.5 :18 HgA1C , Office (17474) HgA1C , Office 6.7 % (Normal) Range: 4.6 - 7.1 :18 Blood Glucose , Office (65939) Blood Glucose , Office 154 (Normal) :06 LIPID PANEL (38799) Comments: PATIENT WAS FASTINGPERFORMED BY: Applyful70 [facility] [id number] LDL Cholesterol Calc 122 mg/dL (Abnormal) Range: [...] three months (approximately); PATIENT WAS FASTINGPERFORMED BY: GlideTV [facility] [id number] Information: [id number] (39586) ALT (SGPT) 16 [iU]/L (Normal) Range: 0-40 Alkaline Phosphatase, S 104 [iU]/L (Normal) Range: 25-165 AST (SGOT) 18 [iU]/L (Normal) Range: 0-40 Albumin, Serum 4.3 g/dL (Normal) Range: 3.5-4.8 Bilirubin, Direct 0.14 mg/dL (Normal) Range: 0.00-0.40 Bilirubin, Total 0.5 mg/dL (Normal) Range: 0.0-1.2 Protein, Total, Serum 7.1 g/dL (Normal) Range: 6.0-8.5 44-Ptt-365173:00 HgA1C , Office (22291) HgA1C , Office 6.2 % (Normal) Range: 4.6 - 7.1 14-Bfg-123556:00 Blood Glucose , Office (73345) Blood Glucose , Office 158 (Normal) 69-Ryg-58875:50 CBC With Differential/Platelet Comments: PATIENT WAS FASTINGPERFORMED BY: [facility] Qzyfoz2568 [facility] [id number] Baso (Absolute) 0.0 {x10E3/uL} (Normal) Range: 0.0-0.2 [...] 3.80-5.10 WBC 5.8 {x10E3/uL} (Normal) Range: 4.0-10.5 64-Wyd-82838:50 Comp. Metabolic Panel (14) Comments: PATIENT WAS FASTINGPERFORMED BY: LabCo Phwnln4789 [facility] [id number] ALT (SGPT) 24 [iU]/L (Normal) Range: 0-40 [...] With LDL/HDL Comments: PATIENT WAS FASTINGPERFORMED BY: SynapCell [facility] [id number] Ratio LDL Cholesterol Calc 170 mg/dL (Abnormal) [...] Randm Ur Comments: PATIENT WAS FASTINGPERFORMED BY: Applyful70 [facility] [id number] Microalb/Creat Ratio 4.4 {mg/g_creat} (Normal) Range: 0.0-30.0 Creatinine, Urine 105.7 mg/dL (Normal) Range: 15.0-278.0 Microalbumin, Urine 4.7 ug/mL (Normal) Range: 0.0-17.0 88-Kao-294220:03 URINE TRELL CULTURE-IDENTIFICATN Comments: PATIENT NOT FASTINGPERFORMED BY: Ts[employer] Hnrnww0475 [facility] [id number] Information: [id number] (54170) Result 1 NG36 (Normal) Comments: No growth in 36 - 48 hours. Urine Culture,Comprehensive Final report (Normal) 68-Jci-865184:17 Urinalysis, Office (68175) UA - LEUKOCYTE ESTERASE Trace (Normal) UA - NITRITE Negative (Normal) URINE UROBILINGN MITCH TIMED Normal mg/dL (Normal) UA - PROTEIN Negative mg/dL (Normal) UA - PH 7.5 (Normal) UA - BLOOD Negative (Normal) UA - SPECIFIC GRAVITY 1.005 (Normal) UA - KETONES Negative mg/dL (Normal) UA - BILIRUBIN Negative (Normal) UA - GLUCOSE Negative (Normal) 01-Qca-983947:17 BILAT SCRN DIGITAL & CAD Radiology Report See Note (Normal) Comments: Exam Number: [id number] MAMMOGRAM, BILATERAL SCREENING DIGITAL AND CAD HISTORYRoutine [...] werealso exa mined with computer-aided detection software ([employer]Brill Street [employer], [employer] Reported By: ROXANE COLBY M.D. 69-Kmv-430272:16 DEXA BONE DENSITY STUDY (HP) Radiology Report See Note (Normal) Comments: Exam Number: [id number] BONE DENSITOMETRY HISTORYPostmenopausal. TECHNIQUE Bone densitometry of the lumbar spine and both hips is now beingperformed. The best criteria for evaluation of osteoporosis is theT-value, which represents the comparison of the patient's bone mass tanja expected peak bone mass. For most patients, the mean T-value of P6awqqeze L4 is used to evaluate the lumbar [...] Microscopic Examination Comments: PATIENT WAS FASTINGPERFORMED BY: Applyful70 [facility]afeY[facility] [id number] Bacteria Few (Normal) Epithelial Cells (non renal) 0-10 {/hpf} (Normal) Range: 0 - 10 Mucus Threads Present (Normal) RBC 0-3 {/hpf} (Normal) Range: 0 - 3 WBC 0-5 {/hpf} (Normal) Range: 0 - 5 :33 URINALYSIS W/O MICRO (49694) Comments: PATIENT WAS FASTINGPERFORMED BY: Applyful70 [facility]afeY[facility] [id number] Appearance Clear (Normal) Bilirubin Negative (Normal) Glucose Negative (Normal) Ketones Negative (Normal) Microscopic Examination See below: (Normal) Nitrite, Urine Negative (Normal) Occult Blood Negative (Normal) pH 5.5 (Normal) Range: 5.0-7.5 Protein Negative (Normal) Specific [place] 1.016 (Normal) Range: 1.005-1.030 Urine-Color Yellow (Normal) Urobilinogen,Semi-Qn 0.2 mg/dL (Normal) Range: 0.0-1.9 WBC Esterase 1+ (Abnormal) :33 MICROALBUMIN: CREATININE RATIO Comments: PATIENT WAS FASTINGPERFORMED BY: SueEasyYadkin [facility] Hospital [id number] (72428) AND (53215) Creatinine, Urine 93.7 mg/dL (Normal) Range: 15.0-278.0 Microalb/Creat Ratio 3.6 {mg/g_creat} (Normal) Range: 0.0-30.0 Microalbumin, Urine 3.4 ug/mL (Normal) Range: 0.0-17.0 :33 METABOLIC PANEL, COMPREHENSIVE Comments: in six months (approximately); PATIENT WAS FASTINGPERFORMED BY: LabCoJersey Shore University Medical CenterDawhol5098 [facility] [id number] (16766) A/G Ratio 1.5 (Normal) Range: 1.1-2.5 Albumin, [...] mmol/L (Normal) Range: 135-145 :33 LIPID PANEL (36012) Comments: PATIENT WAS FASTINGPERFORMED BY: ChinaHR.com6370 [facility] [id number] Cholesterol, Total 239 mg/dL (Abnormal) Range: 100-199 HDL Cholesterol 40 mg/dL (Normal) Comments: According to ATP-III Guidelines, HDL-C >59 mg/dL is considered anegative risk factor for CHD. LDL Cholesterol Calc 123 mg/dL (Abnormal) Range: 0-99 LDL/HDL Ratio 3.1 {ratio_units} (Normal) Range: 0.0-3.2 Triglycerides 378 mg/dL (Abnormal) Range: 0-149 VLDL Cholesterol Andres 76 mg/dL (Abnormal) Range: 5-40 :33 CBC WITH MANUAL DIFF (90698) Comments: PATIENT WAS FASTINGClinical Information: ADD [id number] PERFORMED BY: TherOx LabVirtualSharp SoftwareUfappq7186 [facility] [id number] Baso (Absolute) 0.1 {x10E3/uL} (Normal) Range: 0.0-0.2 [...] Education - Female Indication: Dysuria Planned Observations MICROALBUMIN: CREATININE RATIO (39278) AND (21335)Indication: Diabetes mellitus type 2, controlled On: :23 Request CBC & PLATELETS (AUTO) (42627)Indication: Diabetes mellitus type 2, controlled On: :23 Request METABOLIC PANEL, COMPREHENSIVE (15622)Indication: Diabetes mellitus type 2, controlled On: 17-Feb-20189:23 Request TSH (THYROID STIMULATING HORMONE) (12118)Indication: Diabetes mellitus type 2, controlled On: :23 Request CALCIFEDIOL (18914)Indication: Vitamin D deficiency On: 17-Feb-20189:22 Request CALCIFEDIOL (20407)Indication: Vitamin D deficiency On: 17-Feb-20187:53 Request LIPID PANEL (08080)Indication: Hyperlipidemia, unspecified On: 60-Xhz-655482:42 Request Lipid Panel (55413)Indication: Hyperlipidemia, unspecified On: 20-Scx-72736:15 Request Comments: Feb 2017 CALCIFIDIOL (30722) VIT D 25Indication: Osteopenia On: 68-Xqv-192311:17 Request URINALYSIS, W/ MICRO (67140)Indication: Diabetes mellitus type 2, controlled On: 70-Mlm-343135:17 Request METABOLIC PANEL, COMPREHENSIVE (07898)Indication: Diabetes mellitus type 2, controlled On: 47-Xuy-351255:17 Request LIPID PANEL (72217)Indication: Diabetes mellitus type 2, controlled On: :17 Request CBC with auto diff (74235)Indication: Diabetes mellitus type 2, controlled On: 85-Ooq-644152:17 Request MICROALBUMIN: CREATININE RATIO (05575) AND (44309)Indication: Hyperlipidemia, unspecified On: :20 Request METABOLIC PANEL, COMPREHENSIVE (43905)Indication: Hyperlipidemia, unspecified On: :20 Request LIPID PANEL (08430)Indication: Hyperlipidemia, unspecified On: :20 Request METABOLIC PANEL, COMPREHENSIVE ([id number])Indication: Diabetes mellitus type 2, controlled On: 70-Las-996234:05 Request NUCLR MOLCUL DX-INT/RPT ([id number])Indication: Abnormal finding of blood chemistry, unspecified On: :38 Request Comments: 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 DIAG, NUCLEIC ACID, ISOLATION/EXTRACTION, HIGHLY PURIFIED ([id number])Indication: Abnormal finding of blood chemistry, unspecified On: :38 Request NUCLR MOLCUL DX-ENZY DIG ([id number])Indication: Abnormal finding of blood chemistry, unspecified On: 05-Ywz-013443:38 Request NUCLR MOLCUL DX-SEPARATN ([id number])Indication: Abnormal finding of blood chemistry, unspecified On: 27-Yho-880764:37 Request NUCLR MOLCUL DX-PCR EACH ([id number])Indication: Abnormal finding of blood chemistry, unspecified On: 27-Qzs-110722:37 Request HEPATIC FUNCTION PANEL ([id number])Indication: Abnormal finding of blood chemistry, unspecified On: 58-Nsv-731137:10 Request Comments: recheck off tylenol for 2 weeks. HEP ABC PROFILE [id number] ([id number])Indication: Hyperlipidemia, unspecified On: 0-Mwc-731541:36 Request Ferritin ([id number])Indication: Hyperlipidemia, unspecified On: 8-Hxq-820536:36 Request CBC WITH MANUAL DIFF ([id number])Indication: Hyperlipidemia, unspecified On: 7-Tzr-627041:14 Request METABOLIC PANEL, COMPREHENSIVE ([id number])Indication: Hypertension, benign On: 7-Qbw-303888:14 Request Blood Glucose , Office ([id number])Indication: Abnormal glucose tolerance test On: :19 Request HgA1C , Office ([id number])Indication: Abnormal glucose tolerance test On: :19 Request Planned Encounters Medical; 3 Month FU - On: 28-Mar-2018 8:15 [facility] Herminia MCKEON Shelli Mere Hope CNP Planned Procedures DEXA SCAN AXIAL SKELETON ([id number])By: On: 23-Dec-2017 Intent Herminia LINDA Shelli Herminia LINDA Mere Dc SCREENING DIGITAL TOMOSYNTHESIS OF On: 23-Dec-2017 Intent BREAST ([id number])By: Carmenjw MCKEON Mere Hope LINDA Mere Dc ELECTROCARDIOGRAM, COMPLETE (ECG) On: 10-Jun-2017 Intent ([id number])By: Carmenjw MCKEON Shelli Herminia Comments: sinus pavan LINDA Mere Dc Ultrasound - RenalBy: Herminia MCKEON Mere On: 06-Mar-2017 Intent E Carmenjw MCKEON Mere Dc SCREENING DIGITAL TOMOSYNTHESIS OF On: 03-Sep-2016 Intent BREAST ([id number])By: Carmenjw MCKEON Shelli Herminia MCKEON Mere Dc DEXA SCAN AXIAL SKELETON ([id number])By: On: 03-Sep-2016 Intent Mere Hope CNP E Mere Hope CNP Comments: January 2017 MAMMOGRAM, SCREENING, BOTH BREAST On: 26-Oct-2015 Intent ([id number])By: Bebo Boyd MD EKG ([id number])By: Jacquelin Delgado MD On: 26-Jul-2014 Intent Comments: see scanned document of test done to see results reviewed today with patient MAMMOGRAM, SCREENING, BOTH BREAST On: 26-Jul-2014 Intent ([id number])By: Jacquelin Delgado MD DEXA SCAN AXIAL SKELETON ([id number])By: On: 26-Jul-2014 Intent Jacquelin Delgado MD BILATERAL MAMMOGRAMS ([id number])By: On: 07-Jan-2014 Intent Jacquelin Delgado MD MAMMOGRAM, SCREENING, BOTH BREASTS On: 29-Sep-2012 Intent ([id number])By: Jacquelin Delgado MD EKG ([id number])By: MARNIE Escamilla On: 29-Sep-2012 Intent Comments: see scanned document of test done to see results reviewed today with patient DXA, BONE DENSITY, AXIAL SKELETON On: 29-Sep-2012 Intent ([id number])By: Jacquelin Delgado MD Eprescribed prescriptions ([id number])By: On: 02-Jun-2012 Intent Jazz Lainez LPN Ultrasound - LiverBy: Bruna JONES, On: 03-Mar-2012 Intent Jacquelin Brambila MAMMOGRAM, SCREENING, BOTH BREASTS On: 05-Nov-2011 Intent ([id number])By: Jacquelin Delgado MD EKG ([id number])By: MARNIE Escamilla On: 05-Nov-2011 Intent Eprescribed prescriptions ([id number])By: On: 14-Jun-2010 Intent Fast DO, Pilar A EKG ([id number])By: Jacquelin Delgado MD On: 24-Mar-2010 Intent MAMMOGRAM, SCREENING, BOTH BREASTS On: 15-Dec-2009 Intent ([id number])By: Jacquelin Delgado MD DXA, BONE DENSITY, AXIAL SKELETON On: 26-Nov-2008 Intent ([id number])By: Jacquelin Delgado MD MAMMOGRAM, SCREENING, BOTH BREASTS On: 26-Nov-2008 Intent ([id number])By: Jacquelin Delgado MD Instructions Name Dates Details [...] Indication: Hyperlipidemia, unspecified Encounters Lab Order On: 3-Dec-2018 9:22 Encounter Diagnosis: Vitamin D deficiency, Diabetes mellitus type 2, controlled End: 17-Feb-2018 9:24 [facility] Lab Order On: 17-Feb-2018 7:52 Encounter Diagnosis: [...] weight :. 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 The patient [...]
--- OUTSIDE RECORDS SUMMARY | 2018-04-10 21:46 | XMS RPT_ITS | Continuity of Care Document ---
:1935 Author Organization [facility] Address [address] [facility] [address] [place] [address] Phone Care Team Providers Name Role Phone [...] 0 days Refills: 0 Ordered:26-Nov-2008 Mast RN, [facility] ASPIRIN ADULT LOW STRENGTH, 81MG (Oral Tablet Chewable) 1 (one) Tablet Chewable in am for 0 days Quantity: 30 {Tablet} Refills: 0 Ordered:25-Jul-2015 MARNIE Escamilla Start : 24-Jan-2015 End : 25-Jul-2015 Inactive CIPRO, 250MG (Oral Tablet) 1 (one) Tablet bid for 3 days Quantity: 6 {Tablet} Refills: 0 Ordered:02-May-2009 Herminia MCKEON, Mere Finley E COMMERCE DEVELOPER, Mere Dc Start : 28-Mar-2009 End : [...] Quantity: 6 {Tablet} Refills: 0 Ordered:30-Mar-2009 Herminia E COMMERCE DEVELOPER, Mere Finley E COMMERCE DEVELOPER, Shelli Start : 28-Mar-2009 End : 30-Mar-2009 [...] Density Study Result: Comments: See Note; NOTES: [facility] Imaging Services [address] [place] [address] Dexa Bone Density Study MR#: [id number] Acct: [id number] Name: SANDRINE GUZMAN Rep #: [id number] : 1935 F 82 From: Scotty Tinoco MD PCP: Mere Hope NP Status: REG CLI Study: Dexa Bone Density Study Date of Exam: 02/13/18 Exam# [id number] Ordering Dr: Mere Hope COASTAL TUG MATE-C STUDY: DUAL ENERGY X-RAY ABSORPTIOMETRY / DXA [...] Scotty Tinoco MD at 15:54 EST Tel [phone], Service support , CC: Mere Hope NP Press Cutter: Signed 13-Feb-2018 SCREENING MAMM (CAD), BILAT Result: Comments: See Note; NOTES: [facility] Imaging Services [address] [place] [address] SCREENING MAMM (CAD), BILAT MR#: [id number] Acct: [id number] Name: SANDRINE GUZMAN Rep # : [id number] : 1935 F 82 From: Scotty Tinoco MD PCP: Mere Hope NP Status: REG CLI Study: SCREENING MAMM (CAD), BILAT Date of Exam: 02/13/18 Exam# [id number] Ordering Dr: Mere Hope COASTAL TUG MATE-C MAMMOGRAPHY - BILATERAL SCREENING REASON FOR EXAM: [...] delay biopsy of a clinically suspicious abnormality. [id number] Electronically Signed: Scotty Tinoco MD 2 at 9:11 EST Tel [phone], Service support , CC: Mere Hope NP Press Cutter: Signed 20-Mar-2017 Kidney and Bladder Result: Comments: See Note; NOTES: [facility] Imaging Services [address] [place] [address] Kidney and Bladder MR#: [id number] Acct: [id number] Name: SANDRINE GUZMAN Rep #: [id number] : 1935 F 81 From: George Luo DO PCP: Mere Hope NP Status: REG CLI Study: Kidney and Bladder Date of Exam: 03/20/17 Exam# [id number] Ordering Dr: Mere Hope STUDY: RENAL ULTRASOUND [...] George Luo DO at 11:24 EST Tel [phone], Service support , CC: Mere Hope NP Press Cutter: Signed 30-Jan-2017 SCREENING MAMM (CAD), BILAT Result: Comments: See Note; NOTES: [facility] Imaging Services [address] [place] [address] SCREENING MAMM (CAD), BILAT MR#: [id number] Acct: [id number] Name: SANDRINE GUZMAN Rep # : [id number] : 1935 F 81 From: Scotty Tinoco MD PCP: Mere Hope Status: REG CLI Study: SCREENING MAMM (CAD), BILAT Date of Exam: 01/30/17 Exam# [id number] Ordering Dr: Mere Hope MAMMOG ASHA - [...] delay biopsy of a clinically suspicious abnormality. [id number] Electronically Signed: Scotty Tinoco MD at 10:50 EST Tel [phone], Se rvice support , CC: Mere Hope Press Cutter: Signed 30-Jan-2016 Bilat Scrn Digital AND CAD Result: Comments: See Note; NOTES: [facility] Imaging Services [address] [place] [address] Verdana 4d Bilat Scrn Digital AND CAD MR#: [id number] Acct: [id number] Name: RADHA GUZMAN ORLANDO Pearson Rep #: [id number] : 1935 F 80 From: Scotty Tinoco MD PCP: Bebo Boyd Status: REG CL Study: Bilat Scrn Digital AND CAD Date of Exam: 01/30/16 Exam# [id number] Ordering Dr: Minnie Boyd en MAMMOGRAPHY - [...] delay biopsy of a clinically suspicious abnormality. [id number] Electronically Signed: Scotty Tinoco MD 2015 at 9:17 EST Tel [phone], Service support [phone], CC: Bebo Boyd Press Cutter: Signed 25-Jan-2015 Bilat Scrn Digital AND CAD Result: Comments: See Note; NOTES: [facility] Imaging Services [address] [place] [address] Verdana 4d Bilat Scrn Digital AND CAD MR#: [id number] Acct: [id number] Name: SANDRINE GUZMAN Rep #: [id number] : 1935 F 79 From: Scotty Tinoco MD PCP: Jacquelin Delgado MD Status: REG CLI Study: Bilat Scrn Digital AND CAD Date of Exam: 01/25/15 Exam# [id number] Ord [facility] Dr: Jacquelin Delgado MD MAMMOGRAPHY - [...] Signed: Scotty Tinoco MD at 9:53 EST [facility] [phone], Service support [phone], CC: Jacquelin Delgado MD Press Cutter: Signed 25-Jan-2015 Dexa Bone Density Study (HP) Result: Comments: See Note; NOTES: [facility] Imaging Services [address] [place] [address] 4d Dexa Bone Density Study (HP) MR#: [id number] Acct: [id number] Name : SANDRINE GUZMAN Rep #: [id number] : 1935 F 79 From: Scotty Tinoco MD PCP: Jacquelin Delgado MD Status: REG CLI Study: Dexa Bone Density Study (HP) Date of Exam: 01/25/15 Exam# [id number] Ordering Dr: Jacquelin Delgado MD STUDY: DUAL [...] Scotty Tinoco MD at 8:04 EST Tel [phone], Service support [phone], CC: Jacquelin Delgado MD Press Cutter: Signed 22-Jan-2014 Bilat Scrn Digital & CAD Result: Comments: See Note; NOTES: [facility] Imaging Services [address] [place] [address] Breast Imaging Report MR#: [id number] Acct: [id number] Name: SANDRINE GUZMAN Rep # : [id number] : 1935 F 78 From: Scotty Tinoco MD PCP: Jacquelin Delgado MD Status: REG CLI Exam# [id number] Ordering Dr: Jacquelin Delgado MD MAMMOGRAPHY - [...] (A) ASSESSMENT CATEGORY: CC: Jacquelin Delgado MD Press Cutter: Signed 21-Jan-2013 Dexa Bone Density Study (HP) Result: Comments: See Note; NOTES: [facility] Imaging Services [address] [place] [address] Bone Density Report MR#: [id number] Acct: [id number] Name: SANDRINE GUZMAN DAXA Rep # : [id number] : 1935 F 77 From: Scotty Tinoco MD PCP: Jacquelin Delgado MD Status: REG CLI Study: Dexa Bone Density Study (HP) Date of Exam: 01/21/13 Exam# [id number] Ordering Dr: Shelton Delgado MD STUDY: DUAL [...] January 21, 2013 at 10:01:36 AM EST [phone] Electronically Signed GP/GP If you are the referring physician and would like to consult with the radiologist who provided this interpr etation, please contact Scotty Tinoco M.D. at [phone]. If this radiologist is unavailable, you will be directed to another radiologist to assist. If you are a patient with a question rega rding this report, please contact your referring physician directly. Professional Interpretation Provided By: [employer], Phone , These documents contain legally pro [...] of these documents. CC: Jacquelin Delgado MD Press Cutter: Signed 21-Jan-2013 Bilat Scrn Digital & CAD Result: Comments: See Note; NOTES: [facility] Imaging Services [address] [place] [address] Breast Imaging Report MR#: [id number] Acct: [id number] Name: SANDRINE GUZMAN DAXA Rep #: [id number] : 1935 F 77 From: Scotty Tinoco MD PCP: Jacquelin Delgado MD Status: REG CLI Exam# [id number] Ordering Dr: Jacquelin Delgado MD MAMMOGRAPHY - [...] 21, 2013 at 9:14:[address] [phone] Electronically Signed GP/GP If you are the referring physician and would like to consult with the radiologist who provided this interpretation, please contact Scotty Tinoco M.D. at [phone]. If this radiologist is unavailable, you will be directed to another radiologist to assist. If you are a patient with a question regarding this report, please contact your refe rring physician directly. Professional Interpretation Provided By: [employer], Phone , These documents contain legally protected [...] of these documents. CC: Jacquelin Delgado MD Press Cutter: Signed Family History Unknown Family Member Name [...] Comprehensive Comments: PATIENT NOT FASTINGPERFORMED BY: BRANDO GroverMy Visual Briefkerwin NationKnkevd7632 [facility] [id number] (83137) ALT (SGPT) 26 [iU]/L (Normal) Range: 0-32 [...] (Abnormal) Range: 65-99 :42 HgA1C , Office (28604) HgA1C , Office 6.0 % (Normal) Range: 4.6 - 7.1 :42 Blood Glucose , Office (43080) Blood Glucose , Office 130 (Normal) :06 LIPID PANEL (76791) Comments: Dec 2017; PATIENT WAS FASTINGPERFORMED BY: BRANDO LabCoMarlton Rehabilitation HospitalSsbrun8316 [facility] [id number] LDL/HDL Ratio 1.9 {ratio} (Normal) Range: 0.0-3.2 [...] (Normal) Range: 100-199 :04 HgA1C , Office (33046) HgA1C , Office 6.0 % (Normal) Range: 4.6 - 7.1 :04 Blood Glucose , Office (18758) Blood Glucose , Office 114 (Normal) 88-Dby-367418:06 VITAMIN B12 AND FOLATES Comments: PATIENT NOT FASTINGPERFORMED BY: SlingMarlton Rehabilitation HospitalYwsvmv7577 [facility] [id number] (35532) Folate (Folic Acid), Serum >20.0 ng/mL (Normal) Comments: A serum folate concentration of less than 3.1 ng/mL isconsidered to represent clinical deficiency. Vitamin B12 786 pg/mL (Normal) Range: 232-1245 63-Lyx-354260:38 HgA1C , Office (28352) HgA1C , Office 6.0 % (Normal) Range: 4.6 - 7.1 :37 Blood Glucose , Office (11170) Blood Glucose , Office 127 (Normal) :14 Metabolic Panel, Comprehensive Comments: PATIENT WAS FASTINGPERFORMED BY: SlingMarlton Rehabilitation HospitalZvrhmu4524 [facility] [id number] (51206) ALT (SGPT) 24 [iU]/L (Normal) Range: 0-32 [...] mg/dL (Abnormal) Range: 65-99 :14 Lipid Panel (45924) Comments: PATIENT WAS FASTINGPERFORMED BY: LabCoMarlton Rehabilitation HospitalRfjhpa7100 [facility] [id number] LDL/HDL Ratio 2.2 {ratio_units} (Normal) Range: 0.0-3.2 [...] (Normal) Range: 100-199 :42 HgA1C , Office (51461) HgA1C , Office 6.4 % (Normal) Range: 4.6 - 7.1 :42 Blood Glucose , Office (90137) Blood Glucose , Office 156 (Normal) Comments: pt is fasting :23 CBC With Differential/Platelet Comments: PATIENT WAS FASTINGPERFORMED BY: BRANDO [employer] Dcafmc7857 [facility] [id number]; 03/06 OV Immature Grans (Abs) 0.0 {x10E3/uL} [...] (14) Comments: PATIENT WAS FASTINGPERFORMED BY: BRANDO Gigamon6370 [facility] [id number] ALT (SGPT) 17 [iU]/L (Normal) Range: 0-32 [...] Glucose, Serum 155 mg/dL (Abnormal) Range: 65-99 78-Cvn-97143:23 Lipid Panel With LDL/HDL Comments: PATIENT WAS FASTINGPERFORMED BY: [employer] Tosxcm4271 [facility] [id number] Ratio LDL/HDL Ratio 2.6 {ratio_units} (Normal) Range: 0.0-3.2 Comments: LDL/HDL Ratio Men Women 1/2 Avg.Risk 1.0 1.5 Av g.Risk 3.6 3.2 2X Avg.Risk 6.2 5.0 3X Avg.Risk 8.0 6.1 LDL Cholesterol Calc 116 mg/dL (Abnormal) Range: 0-99 VLDL Cholesterol Andres 55 mg/dL (Abnormal) Range: 5-40 HDL Cholesterol 44 mg/dL (Normal) Triglycerides 277 mg/dL (Abnormal) Range: 0-149 Cholesterol, Total 215 mg/dL (Abnormal) Range: 100-199 57-Xxj-92764:23 Microalb/Creat Ratio, Randm Ur Comments: PATIENT WAS FASTINGPERFORMED BY: Sling Zhrxse5460 [facility] [id number] Microalb/Creat Ratio <4.6 {mg/g_creat} Range: 0.0-30.0 (Normal) Microalbumin, Urine <3.0 ug/mL (Normal) Creatinine, Urine 65.1 mg/dL (Normal) 25-Feb-2017 TSH 2.640 {uIU/mL} Comments: PATIENT WAS FASTINGPERFORMED BY: Sling Xybnnk8817 [facility] [id number] 8:23 (Normal) Range: 0.450-4.500 28-Dtv-52469:23 Urinalysis, Routine Comments: PATIENT WAS FASTINGPERFORMED BY: [employer] Nnqxyu9043 [facility] [id number] Microscopic Examination MICNIP (Normal) Comments: Microscopic not indicated and not performed. Nitrite, Urine Negative (Normal) Urobilinogen,Semi-Qn 0.2 mg/dL (Normal) Range: 0.2-1.0 Bilirubin Negative (Normal) Occult Blood Negative (Normal) Ketones Negative (Normal) Glucose Negative (Normal) Protein Negative (Normal) WBC Esterase Negative (Normal) Appearance Clear (Normal) Urine-Color Yellow (Normal) pH 6.0 (Normal) Range: 5.0-7.5 Specific Eden 1.014 (Normal) Range: 1.005-1.030 :18 CBC, Platelets & Auto Diff Comments: Feb 2017; PATIENT WAS FASTINGPERFORMED BY: Sling Jgsnxx3656 [facility] [id number] (69185) Immature Grans (Abs) 0.0 {x10E3/uL} (Normal) Range: [...] 7.5 {x10E3/uL} (Normal) Range: 3.4-10.8 :18 TSH (07482) Comments: Feb 2017; PATIENT WAS FASTINGPERFORMED BY: [employer] [facility] Kvelsz4103 [facility] [id number] TSH 3.140 {uIU/mL} (Normal) Range: 0.450-4.500 :18 MICROALBUMIN: CREATININE RATIO Comments: Feb 2017; PATIENT WAS FASTINGPERFORMED BY: [employer] [facility] Nhwhlt8380 [facility] [id number] (93640) AND (03416) Microalb/Creat Ratio <3.7 {mg/g_creat} (Normal) Range: 0.0-30.0 Microalbumin, Urine <3.0 ug/mL (Normal) Creatinine, Urine 80.5 mg/dL (Normal) :18 URINALYSIS (96520) Comments: Feb 2017; PATIENT WAS FASTINGPERFORMED BY: [employer]70 CLIPPATE [facility] [id number] Microscopic Examination MICNIP (Normal) Comments: Microscopic not indicated and not performed. Nitrite, Urine Negative (Normal) Urobilinogen,Semi-Qn 0.2 mg/dL (Normal) Range: 0.2-1.0 Bilirubin Negative (Normal) Occult Blood Negative (Normal) Ketones Negative (Normal) Glucose Negative (Normal) Protein Negative (Normal) WBC Esterase Negative (Normal) Appearance Clear (Normal) Urine-Color Yellow (Normal) pH 6.0 (Normal) Range: 5.0-7.5 Specific Eden 1.013 (Normal) Range: 1.005-1.030 :18 Metabolic Panel, Comprehensive Comments: Feb 2017; PATIENT WAS FASTINGPERFORMED BY: [employer]6370 Vtion Wireless TechnologyOnslow Memorial Hospital [id number] (57772) ALT (SGPT) 30 [iU]/L (Normal) Range: 0-32 [...] mg/dL (Abnormal) Range: 65-99 :18 LIPID PANEL (61060) Comments: Week of Sep 03 fasting; PATIENT WAS FASTINGPERFORMED BY: [employer]70 [place] [facility] [id number] LDL/HDL Ratio 2.3 {ratio_units} (Normal) Range: 0.0-3.2 [...] Range: 100-199 :41 Blood Glucose , Office (01208) Comments: 190 Blood Glucose , Office 190 (Normal) Comments: ate breakfast :41 HgA1C , Office (57126) Comments: 6.5 HgA1C , Office 6.5 % (Normal) Range: 4.6 - 7.1 :26 METABOLIC PANEL, COMPREHENSIVE Comments: PATIENT WAS FASTINGPERFORMED BY: [employer]6370 [facility] [id number] (34984) ALT (SGPT) 22 [iU]/L (Normal) Range: 0-32 [...] (Abnormal) Range: 65-99 :19 HgA1C , Office (40861) HgA1C , Office 6.5 % (Normal) Range: 4.6 - 7.1 :19 Blood Glucose , Office (76040) Blood Glucose , Office 146 (Normal) 56-Xtv-126277:31 URINE TRELL CULTURE-MITCH COL Comments: PATIENT NOT FASTINGPERFORMED BY: KDWAdventHealth Hendersonville [id number] Information: SRC:UC COUNT (15314) Result 1 MUG (Normal) Comments: Mixed urogenital flora10,000-25,000 colony forming units per mL Urine Final report (Normal) Culture,Comprehensive :05 Microscopic Examination Comments: PATIENT WAS FASTINGPERFORMED BY: [facility] [id number] Bacteria Few (Normal) Mucus Threads Present (Normal) Epithelial Cells (non renal) 0-10 {/hpf} (Normal) Range: 0 - 10 RBC None seen {/hpf} (Normal) Range: 0 - 2 WBC 0-5 {/hpf} (Normal) Range: 0 - 5 8-Nov-02258:05 URINALYSIS, W/ MICRO (71545) Comments: PATIENT WAS FASTINGPERFORMED BY: [employer]emSave [facility] [id number] Microscopic Examination See below: (Normal) Comments: Microscopic was indicated and was performed. Nitrite, Urine Negative (Normal) Urobilinogen,Semi-Qn 0.2 mg/dL (Normal) Range: 0.2-1.0 Bilirubin Negative (Normal) Occult Blood Negative (Normal) Ketones Negative (Normal) Glucose Negative (Normal) Protein Negative (Normal) WBC Esterase Trace (Abnormal) Appearance Clear (Normal) Urine-Color Yellow (Normal) pH 6.5 (Normal) Range: 5.0-7.5 Specific Eden 1.012 (Normal) Range: 1.005-1.030 :05 MICROALBUMIN: CREATININE RATIO Comments: PATIENT WAS FASTINGPERFORMED BY: Sling Orurok9006 [facility] [id number] (55619) AND (57509) Microalb/Creat Ratio <4.6 {mg/g_creat} (Normal) Range: 0.0-30.0 Microalbumin, Urine <3.0 ug/mL (Normal) Creatinine, Urine 65.7 mg/dL (Normal) :05 METABOLIC PANEL, COMPREHENSIVE Comments: PATIENT WAS FASTINGPERFORMED BY: Z[employer] Medical SystemsArtesia General HospitalDktvur3701 [facility] [id number] (44077) ALT (SGPT) 21 [iU]/L (Normal) Range: 0-32 [...] mg/dL (Abnormal) Range: 65-99 :05 LIPID PANEL (58653) Comments: PATIENT WAS FASTINGPERFORMED BY: Frogdice [place] [facility] [id number] LDL/HDL Ratio 2.3 {ratio_units} (Normal) Range: 0.0-3.2 [...] Range: 100-199 :05 CBC with auto diff (71810) Comments: PATIENT WAS FASTINGPERFORMED BY: [employer]70 [facility] [id number] Immature Grans (Abs) 0.0 {x10E3/uL} (Normal) Range: [...] (Normal) Range: 3.4-10.8 :24 HgA1C , Office (58265) HgA1C , Office 6.5 % (Normal) Range: 4.6 - 7.1 :07 Microscopic Examination Comments: PATIENT WAS FASTINGPERFORMED BY: [employer]70 Vtion Wireless TechnologyOnslow Memorial Hospital [id number] Bacteria Few (Normal) Mucus Threads Present (Normal) Epithelial Cells (non renal) 0-10 {/hpf} (Normal) Range: 0 - 10 RBC None seen {/hpf} (Normal) Range: 0 - 2 WBC 0-5 {/hpf} (Normal) Range: 0 - 5 :07 URINALYSIS, W/ MICRO (94907) Comments: PATIENT WAS FASTINGPERFORMED BY: TriOvizOnslow Memorial Hospital [id number] Microscopic Examination See below: (Normal) Comments: Microscopic was indicated and was performed. Microscopic Examination MICRON (Normal) Comments: Microscopic follows if indicated. Nitrite, Urine Negative (Normal) Urobilinogen,Semi-Qn 0.2 mg/dL (Normal) Range: 0.2-1.0 Bilirubin Negative (Normal) Occult Blood Negative (Normal) Ketones Negative (Normal) Glucose Negative (Normal) Protein Negative (Normal) WBC Esterase Negative (Normal) Appearance Clear (Normal) Urine-Color Yellow (Normal) pH 6.5 (Normal) Range: 5.0-7.5 Specific Eden 1.013 (Normal) Range: 1.005-1.030 18-Jul-20158:07 METABOLIC PANEL, COMPREHENSIVE Comments: PATIENT WAS FASTINGPERFORMED BY: [facility] Susyif9901 [facility] [id number] (45130) ALT (SGPT) 22 [iU]/L (Normal) Range: 0-32 [...] mg/dL (Abnormal) Range: 65-99 :07 LIPID PANEL (45155) Comments: PATIENT WAS FASTINGPERFORMED BY: SlingMarlton Rehabilitation HospitalOqqhij9773 [facility] [id number] LDL/HDL Ratio 2.2 {ratio_units} (Normal) Range: 0.0-3.2 [...] auto diff Comments: PATIENT WAS FASTINGPERFORMED BY: [facility] HospitalMy Visual BriefMarlton Rehabilitation HospitalCwecvs3921 [facility] [id number] Information: [id number]; [address] (70489) Immature Grans (Abs) 0.0 {x10E3/uL} (Normal) Range: [...] (Normal) Range: 3.4-10.8 :15 HgA1C , Office (52621) HgA1C , Office 6.6 % (Normal) Range: 4.6 - 7.1 :08 CBC W/Diff, Automated Comments: [facility] [address] [place], [address] ; ov 15 Absolute Lymph 1.51 {X10_3/ul} [...] Range: 4.4-11.0 :08 Comprehensive Metabolic Profil Comments: [facility] Losokhfobj27[address] [place], [place], [address] GAP 7 (Normal) Range: 5-15 CO2 29.0 [...] per A.D.A. criteria. :08 Lipid Profile Comments: [facility] Lls[address]hlmj[address] [place], [place], [id number] VLDL 49 mg/dL (Abnormal) Range: 5-40 LDL [...] Complete Comments: How was Urine Obtained? Urine, [facility] Maqfmdduvm1235 [facility] [address]. [place], [place], [id number] MUCUS, URINE 0 SEEN {/hpf} (Normal) BACTERIA [...] (Normal) CLARITY Clear (Normal) COLOR Yellow (Normal) 2-Nov-55877:08 Vitamin D,25 Hydroxy Comments: [facility] [address] [place], [address] Vitamin D 25-OH 33.4 ng/mL (Normal) Comments: Vitamin D 25(OH) Status Range Deficiency <20 ng/mL (50nmol/L) Insuffciency 20 - 30 ng/mL (50 - 75 nmol/L) Sufficiency 30 - 100 ng/mL (75 - 250 nmol/L) Toxicity >100 ng/mL (>250 nmol/L) :31 HgA1C , Office (66225) HgA1C , Office 6.8 % (Normal) Range: 4.6 - 7.1 :37 Comprehensive Metabolic Profil Comments: Test performed at:[facility] K[address]nfakaw[address] [place] [address] GAP 7 (Normal) Range: 5-15 CO2 29.0 [...] criteria. :37 Lipid Profile Comments: Test performed at:[facility] [address] [place] [address] 836781 VLDL 51 mg/dL (Abnormal) Range: 5-40 LDL [...] :37 Microalb:Creat Ratio,Random UR Comments: Test performed at:[facility] [address] [place] [address] [id number] MALB:CREAT Test not performed {mg/g_CRE} (Normal) MICROALBUMIN,UR < 5.0 mg/L (Normal) UR CREAT 86.0 mg/dL (Normal) :04 HgA1C , Office (12192) HgA1C , Office 6.8 % (Normal) Range: 4.6 - 7.1 :04 Blood Glucose , Office (64956) Blood Glucose , Office 141 (Normal) :07 METABOLIC PANEL, Comments: PATIENT WAS FASTINGPERFORMED BY: LabCoMarlton Rehabilitation HospitalWohkgh8359 [facility] [id number] Information: [id number] COMPREHENSIVE (39542) ALT (SGPT) 21 [iU]/L (Normal) Range: 0-32 [...] mg/dL (Abnormal) Range: 65-99 :07 LIPID PANEL (34527) Comments: PATIENT WAS FASTINGPERFORMED BY: LabCoMarlton Rehabilitation HospitalHdpvfx1550 [facility] [id number] LDL/HDL Ratio 2.6 {ratio_units} (Normal) Range: 0.0-3.2 [...] Cholesterol, Total 218 mg/dL (Abnormal) Range: 100-199 05-Wly-654242:32 Blood Glucose , Office (56270) Blood Glucose , Office 124 (Normal) 76-Mab-551469:32 HgA1C , Office (66572) HgA1C , Office 7.0 % (Normal) Range: 4.6 - 7.1 :37 MICROALBUMIN: CREATININE RATIO Comments: PATIENT WAS FASTINGPERFORMED BY: SlingMarlton Rehabilitation HospitalDawoeh1525 [facility] [id number] (48303) AND (65896) Microalb/Creat Ratio 3.0 {mg/g_creat} (Normal) Range: 0.0-30.0 Creatinine, Urine 66.1 mg/dL (Normal) Range: 15.0-278.0 Microalbumin, Urine 2.0 ug/mL (Normal) Range: 0.0-17.0 :37 METABOLIC PANEL, COMPREHENSIVE Comments: PATIENT WAS FASTINGPERFORMED BY: [employer]6370 [facility] [id number] (55395) ALT (SGPT) 18 [iU]/L (Normal) Range: 0-32 [...] mg/dL (Abnormal) Range: 65-99 :37 LIPID PANEL (38476) Comments: PATIENT WAS FASTINGPERFORMED BY: [employer] Kjarzh1217 [facility] [id number] LDL/HDL Ratio 2.5 {ratio_units} (Normal) Range: 0.0-3.2 [...] MANUAL DIFF Comments: PATIENT WAS FASTINGPERFORMED BY: Sling Cmdven2630 [facility] [id number] Information: [id number] (22633) Immature Grans (Abs) 0.0 {x10E3/uL} (Normal) Range: [...] Range: 3.4-10.8 :43 Blood Glucose , Office (09780) Blood Glucose , Office 128 (Normal) :43 HgA1C , Office (56768) HgA1C , Office 6.8 % (Normal) Range: 4.6 - 7.1 :23 CBC, PLATELETS & MANUAL Comments: PATIENT WAS FASTINGPERFORMED BY: LabCoMarlton Rehabilitation HospitalEbjnrk9774 [facility] [id number] Information: [id number] DIFF (55586) Immature Grans (Abs) 0.0 {x10E3/uL} (Normal) Range: [...] 3.77-5.28 WBC 3.8 {x10E3/uL} (Normal) Range: 3.4-10.8 3-Dkb-790256:23 METABOLIC PANEL, COMPREHENSIVE Comments: PATIENT WAS FASTINGPERFORMED BY: LabKarmanos Cancer Center6370 [facility] [id number] (36200) ALT (SGPT) 17 [iU]/L (Normal) Range: 0-32 [...] mg/dL (Abnormal) Range: 65-99 :23 LIPID PANEL (14896) Comments: PATIENT WAS FASTINGPERFORMED BY: LabCoMarlton Rehabilitation HospitalLhfwuc7982 [facility] [id number] LDL/HDL Ratio 2.7 {ratio_units} (Normal) Range: 0.0-3.2 LDL Cholesterol Calc 120 mg/dL (Abnormal) Range: 0-99 HDL Cholesterol 44 mg/dL (Normal) Comments: According to ATP-III Guidelines, HDL-C >59 mg/dL is considered anegative risk factor for CHD. VLDL Cholesterol Andres 44 mg/dL (Abnormal) Range: 5-40 Cholesterol, Total 208 mg/dL (Abnormal) Range: 100-199 Triglycerides 221 mg/dL (Abnormal) Range: 0-149 :11 Blood Glucose , Office (87220) Blood Glucose , Office 122 (Normal) :11 HgA1C , Office (06840) HgA1C , Office 6.5 % (Normal) Range: 4.6 - 7.1 20-Zwj-87429:59 Hemoglobin Glyclated (HGB Comments: today only; PATIENT NOT FASTINGPERFORMED BY: [employer] Synmpg1032 [facility] [id number] Information: ADD [id number] AND DRAW FEE 99 9590 A1C) (76472) Hemoglobin A1c 6.4 % (Abnormal) Range: 4.8-5.6 Comments: . Increased risk for diabetes: 5.7 - 6.4 Diabetes: >6.4 Glycemic control for adults with diabetes: <7.0 22-Sep-20129:33 METABOLIC PANEL, COMPREHENSIVE Comments: PATIENT WAS FASTINGPERFORMED BY: Gigamon6370 [facility] [id number] (68958) ALT (SGPT) 18 [iU]/L (Normal) Range: 0-32 [...] mg/dL (Abnormal) Range: 65-99 :33 LIPID PANEL (84306) Comments: PATIENT WAS FASTINGPERFORMED BY: [employer]70 [facility] [id number] LDL/HDL Ratio 2.6 {ratio_units} (Normal) Range: 0.0-3.2 [...] MANUAL DIFF Comments: PATIENT WAS FASTINGPERFORMED BY: [employer] Wbdknu8637 [facility] [id number] Information: [id number] (08323) Immature Grans (Abs) 0.0 {x10E3/uL} (Normal) Range: [...] Function Panel Comments: PERFORMED BY: CB [facility] Ueukgj2584 [facility] [id number] BY: TG [facility] HHH3756 [facility] [id number] (7) ALT (SGPT) 30 [iU]/L (Normal) Range: 0-32 AST (SGOT) 27 [iU]/L (Normal) Range: 0-40 Alkaline Phosphatase, S 96 [iU]/L (Normal) Range: 25-165 Bilirubin, Direct 0.21 mg/dL (Normal) Range: 0.00-0.40 Bilirubin, Total 0.6 mg/dL (Normal) Range: 0.0-1.2 Albumin, Serum 4.4 g/dL (Normal) Range: 3.5-4.8 Protein, Total, Serum 7.0 g/dL (Normal) Range: 6.0-8.5 21-Mar-20129:59 Hered.Hemochromatosis, DNA Comments: PERFORMED BY: BRANDO [facility] Rjxkjp5025 [place] [id number] BY: ISABEL [facility] GLC6880 [address] DriveRTP [place] [id number] Hereditary Hemochromatosis 63HOM1 (Normal) Comments: Result: H63D/N37XTgz copies of the same mutation (H63D and [...] J Prev Med 16:134-140.Denver Pearson (2002). Lancet 360(6523):1 673-26.Dalia Coffey al. (2002). Blood Cells, Molecules. andDiseases. 29(3):418- 432.Parveen Stallings et al. (2003). Gisel Med. 5(1):1-8.Haylie LINDSEY et al. (2003). Gisel Med. 5(4):304-10.Genetic counselors are available for health care providers to discussresults at [phone]. . Navid Gramajo, Ph.D. Anisha Driver, Ph.D. Linda Henry, Ph.D. Shahrzad Flores, Ph.D. Lorelei Garcia, Ph.D. Elsa Gastelum, Ph.D. S. Kamaljit Vogt, Ph.D. 91-Mba-27500:00 LIVER Radiology Report See Note (Normal) Comments: [...] size of the right kidney. The right vztunuwatpzqcd15.1 cm. Normal renal cortex. The right cortex measures 1.5 cm. Thereisno demonstrated renal mass or cyst. There is no right hydronephrosis. IMPRESSION:Normal right upper quadrant ultrasound examination.The patient is status post cholecystectomy. Signed:Scotty Tinoco M.D.March 06, 2012 at 12:32:06 PM [id number] Signed GP/GP If you are the referring physician and would like to consult with theradiologist who provided this interpretation, please contact Jerri Hernandez at [phone]. If this radiologist is unavailable, youwill be directed to another radiologist to assist. If you are a patient with a question regarding this report, pleasecontactyour referring physician directly. Professional Interpretation Provided By: [employer], Phone , These documents contain legally protected [...] Scotty Tinoco MD :46 HgA1C , Office (06825) HgA1C , Office 6.6 % (Normal) Range: 4.6 - 7.1 :46 Blood Glucose , Office (84300) Blood Glucose , Office 143 (Normal) :47 HEPATITIS PANEL (11713) Comments: PATIENT NOT FASTINGPERFORMED BY: [employer] Hwezqk7681 [facility] [id number] Information: [id number] Hep C Virus Ab <0.1 {s/co_ratio} Range: [...] ng/mL (Abnormal) Comments: PATIENT WAS FASTINGPERFORMED BY: [employer] Akjitq6947 [facility] [id number] Information: [id number] :12 Range: 13-150 Written Authorization WAR (Normal) Comments: PATIENT WAS FASTINGPERFORMED BY: [facility] [facility] [place] [id number] :12 Comments: Written Authorization Received.Authorization received from DR DELGADO [id number] by Ya Arnett 21-Jan-20129:23 BILAT SCRN DIGITAL [...] Tinoco M.D.January 21, 2012 at 9:56:18 AM [phone] Signed GP/GP If you are the referring physician and would like to consult with theradiologist who provided this interpretation, please contact Jerri Hernandez at [phone]. If this radiologist is unavailable, youwill be directed to another radiologist to assist. If you are a patient with a question regarding this report, pleasecontactyour referring physician directly. Professional Interpretation Provided By: [employer], Phone , These doc uments contain legally [...] Metabolic Panel, Comments: PATIENT WAS FASTINGPERFORMED BY: [facility]6370 [facility] [id number] Information: [id number] Comprehensive (22031) ALT (SGPT) 58 [iU]/L (Abnormal) Range: 0-32 [...] mg/dL (Abnormal) Range: 65-99 :12 Lipid Panel (96843) Comments: PATIENT WAS FASTINGPERFORMED BY: Sling Pfwery6630 [facility] [id number] LDL/HDL Ratio 2.2 {ratio_units} (Normal) Range: 0.0-3.2 LDL Cholesterol Calc 106 mg/dL (Abnormal) Range: 0-99 VLDL Cholesterol Andres 50 mg/dL (Abnormal) Range: 5-40 HDL Cholesterol 48 mg/dL (Normal) Comments: According to ATP-III Guidelines, HDL-C >59 mg/dL is considered anegative risk factor for CHD. Triglycerides 252 mg/dL (Abnormal) Range: 0-149 Cholesterol, Total 204 mg/dL (Abnormal) Range: 100-199 93-Mrh-618813:25 HgA1C , Office (17627) HgA1C , Office 6.1 % (Normal) Range: 4.6 - 7.1 :25 Blood Glucose , Office (28125) Blood Glucose , Office 126 (Normal) :31 LIPID PANEL (97611) Comments: PATIENT WAS FASTINGPERFORMED BY: [employer]70 [facility] [id number] LDL/HDL Ratio 2.3 {ratio_units} (Normal) Range: 0.0-3.2 [...] FUNCTION PANEL Comments: PATIENT WAS FASTINGPERFORMED BY: SlingMarlton Rehabilitation HospitalFfddwt3415 [facility] [id number] Information: [id number] (61058) ALT (SGPT) 35 [iU]/L (Normal) Range: 0-40 AST (SGOT) 28 [iU]/L (Normal) Range: 0-40 Alkaline Phosphatase, S 99 [iU]/L (Normal) Range: 25-165 Bilirubin, Direct 0.15 mg/dL (Normal) Range: 0.00-0.40 Bilirubin, Total 0.6 mg/dL (Normal) Range: 0.0-1.2 Albumin, Serum 4.3 g/dL (Normal) Range: 3.5-4.8 Protein, Total, Serum 6.8 g/dL (Normal) Range: 6.0-8.5 :40 HgA1C , Office (60681) HgA1C , Office 6.3 % (Normal) Range: 4.6 - 7.1 :40 Blood Glucose , Office (23168) Blood Glucose , Office 142 (Normal) :22 CBC, PLATELETS & AUT DIFF Comments: PATIENT WAS FASTINGPERFORMED BY: LabCoMarlton Rehabilitation HospitalCqtzwg6165 [facility] [id number] Information: [id number] (86523) Immature Grans (Abs) 0.0 {x10E3/uL} (Normal) Range: [...] Comments: PATIENT WAS FASTINGPERFORMED BY: LabCoMarlton Rehabilitation HospitalJhngql1575 [facility] [id number] (84812) ALT (SGPT) 19 [iU]/L (Normal) Range: 0-40 [...] mg/dL (Abnormal) Range: 65-99 :22 LIPID PANEL (87191) Comments: PATIENT WAS FASTINGPERFORMED BY: Sling Xboedm0237 [facility] [id number] LDL/HDL Ratio 2.6 {ratio_units} (Normal) Range: 0.0-3.2 [...] CREATININE RATIO Comments: PATIENT WAS FASTINGPERFORMED BY: SlingMarlton Rehabilitation HospitalXokbub0419 [facility] [id number] (37127) AND (45145) Microalb/Creat Ratio 5.8 {mg/g_creat} (Normal) Range: 0.0-30.0 Microalbumin, Urine 3.9 ug/mL (Normal) Range: 0.0-17.0 Creatinine, Urine 66.7 mg/dL (Normal) Range: 15.0-278.0 :39 HgA1C , Office (85401) HgA1C , Office 6.5 % (Normal) Range: 4.6 - 7.1 :39 Blood Glucose , Office (14574) Blood Glucose , Office 137 (Normal) :31 [...] on 01/18/111333 Sign by: Scotty Tinoco MD 08-Luh-77499:03 CBC WITH MANUAL DIFF Comments: PATIENT WAS FASTINGPERFORMED BY: LabK[facility] Center6370 [facility] [id number] Information: [id number] (54718) Immature Grans (Abs) 0.0 {x10E3/uL} (Normal) Range: [...] {x10E3/uL} (Normal) Range: 4.0-10.5 :03 LIPID PANEL (95096) Comments: PATIENT WAS FASTINGPERFORMED BY: [employer]70 [facility] [id number] LDL Cholesterol Calc 106 mg/dL (Abnormal) Range: [...] PANEL, COMPREHENSIVE Comments: PATIENT WAS FASTINGPERFORMED BY: [facility] [id number] (08533) ALT (SGPT) 23 [iU]/L (Normal) Range: 0-40 [...] Glucose, Serum 123 mg/dL (Abnormal) Range: 65-99 77-Bqz-95440:03 MICROALBUMIN: CREATININE RATIO Comments: PATIENT WAS FASTINGPERFORMED BY: LabCoMarlton Rehabilitation HospitalPtmpjk5088 [facility] [id number] (91490) AND (87405) Microalb/Creat Ratio 2.7 {mg/g_creat} (Normal) Range: 0.0-30.0 Microalbumin, Urine 2.0 ug/mL (Normal) Range: 0.0-17.0 Creatinine, Urine 74.8 mg/dL (Normal) Range: 15.0-278.0 06-Slv-131078:10 URINE TRELL CULTURE (MITCH Comments: PATIENT NOT FASTINGPERFORMED BY: CB [facility] Ynkfsa9470 [facility] [id number] Information: SRC:UR [id number] COL COUNT) (45284) Result 1 NG36 (Normal) Comments: No growth in 36 - 48 hours. Urine Culture,Comprehensive Final report (Normal) 1-Csc-245130:30 URINE TRELL CULTURE-MITCH COL Comments: PATIENT NOT FASTINGPERFORMED BY: CB [facility] Baovet7299 [facility] [id number] Information: SRC:UR ADD [id number] AND DRAW FEE [id number] COUNT (34531) Antimicrobial MIHEAD (Normal) Comments: S = Susceptible; [...] primarily for treating urinary tract infections. (CLSI, N801-H53,2009) Urine Culture,Comprehensive Final report (Normal) :09 Urinalysis, Office (61642) UA - BILIRUBIN Negative (Normal) UA - BLOOD Negative (Normal) UA - GLUCOSE Negative (Normal) UA - KETONES Negative mg/dL (Normal) UA - LEUKOCYTE ESTERASE Large (Normal) UA - NITRITE Negative (Normal) UA - PH 7.5 (Normal) UA - PROTEIN Negative mg/dL (Normal) UA - SPECIFIC GRAVITY 1.020 (Normal) URINE UROBILINGN MITCH TIMED Normal mg/dL (Normal) 3-Ahp-766113:16 HgA1C , Office (44473) HgA1C , Office 6.4 % (Normal) Range: 4.6 - 7.1 8-Myk-658543:16 Blood Glucose , Office (18675) Blood Glucose , Office 142 (Normal) 5-Vvx-464190:11 Urinalysis, Office (91277) UA - LEUKOCYTE ESTERASE Negative (Normal) UA - NITRITE Negative (Normal) URINE UROBILINGN MITCH TIMED Normal mg/dL (Normal) UA - PROTEIN Negative mg/dL (Normal) UA - BLOOD Negative (Normal) UA - SPECIFIC GRAVITY 1.020 (Normal) UA - KETONES Negative mg/dL (Normal) UA - BILIRUBIN Negative (Normal) UA - GLUCOSE Negative (Normal) 4-Jzb-377686:00 UNILAT RT DIAG DIGITAL & CAD Radiology [...] Sign by: Earnest JONESScotty :04 LIPID PANEL (49336) Comments: PATIENT WAS FASTINGPERFORMED BY: Sling Ugxktu9198 [facility] [id number] LDL Cholesterol Calc 108 mg/dL (Abnormal) Range: [...] CREATININE RATIO Comments: PATIENT WAS FASTINGPERFORMED BY: [employer] Paymentslin6370 [facility] [id number] (13200) AND (75097) Microalb/Creat Ratio 4.7 {mg/g_creat} (Normal) Range: 0.0-30.0 Creatinine, Urine 94.1 mg/dL (Normal) Range: 15.0-278.0 Microalbumin, Urine 4.4 ug/mL (Normal) Range: 0.0-17.0 :04 CBC WITH MANUAL DIFF Comments: PATIENT WAS FASTINGPERFORMED BY: [facility] HospitalMy Visual BriefMarlton Rehabilitation HospitalOkeofx1828 [facility] [id number] Information: [id number] (15035) Baso (Absolute) 0.0 {x10E3/uL} (Normal) Range: 0.0-0.2 [...] Comments: PATIENT WAS FASTINGPERFORMED BY: LabCoMarlton Rehabilitation HospitalTeryaf6290 [facility] [id number]; appt 07/20/10 (64708) ALT (SGPT) 26 [iU]/L (Normal) Range: 0-40 [...] Glucose, Serum 115 mg/dL (Abnormal) Range: 65-99 39-Jkh-589357:39 URINE TRELL CULTURE-MITCH COL Comments: PATIENT NOT FASTINGPERFORMED BY: [facility] Fqifob9074 [facility] [id number] Information: SRC:UR [id number] COUNT (29867) Antimicrobial MIHEAD (Normal) Comments: S = Susceptible; [...] mL (Normal) Urine Final report (Normal) Culture,Comprehensive 06-Acy-586364:56 Urinalysis, Office (41787) UA - BILIRUBIN Negative (Normal) UA - BLOOD Negative (Normal) UA - GLUCOSE Negative (Normal) UA - KETONES Negative mg/dL (Normal) UA - LEUKOCYTE ESTERASE Large (Normal) UA - NITRITE Negative (Normal) UA - PH 8.0 (Normal) UA - PROTEIN Negative mg/dL (Normal) UA - SPECIFIC GRAVITY 1.015 (Normal) URINE UROBILINGN MITCH TIMED Normal mg/dL (Normal) :39 HgA1C , Office (81184) HgA1C , Office 6.2 % (Normal) Range: 4.6 - 7.1 :39 Blood Glucose , Office (58479) Blood Glucose , Office 101 (Normal) :59 BREAST UNILATERAL Radiology Report See Note (Normal) Comments: Exam Number: [id number] LINICAL:The patient is a 74-year-old female with [...] Report See Note (Normal) Comments: Exam Number: [id number] AMMOGRAPHY - UNILATERAL DIAGNOSTIC: RIGHT BREAST INDICATION:Abnormal [...] attaching a ResultCode to this exam. ADDENDUM: [id number] HPBI/MUDDR Reported By: ROXANE COLBY M.D. 8-Csj-491436:26 [facility] D[facility] & CAD Radiology Report See Note (Normal) Comments: Exam Number: [id number] AMMOGRAPHY - BILATERAL SCREENING INDICATION:Routine annual screening [...] a ResultCode to this exam. ADD ENDUM: [id number] HPBI/MDS Reported By: ROXANE COLBY M.D. :13 HEPATIC FUNCTION PANEL Comments: PATIENT WAS FASTINGPERFORMED BY: LabMy Visual BriefMarlton Rehabilitation HospitalCxxonw9957 [facility] [id number] Information: [id number] (69911) ALT (SGPT) 25 [iU]/L (Normal) Range: 0-40 Alkaline Phosphatase, S 110 [iU]/L (Normal) Range: 25-165 AST (SGOT) 23 [iU]/L (Normal) Range: 0-40 Bilirubin, Direct 0.12 mg/dL (Normal) Range: 0.00-0.40 Albumin, Serum 4.5 g/dL (Normal) Range: 3.5-4.8 Bilirubin, Total 0.5 mg/dL (Normal) Range: 0.0-1.2 Protein, Total, Serum 7.6 g/dL (Normal) Range: 6.0-8.5 :13 LIPID PANEL (36774) Comments: PATIENT WAS FASTINGPERFORMED BY: SlingMarlton Rehabilitation HospitalOlgyyn6764 [facility] [id number] LDL Cholesterol Calc 128 mg/dL (Abnormal) Range: 0-99 LDL/HDL Ratio 2.7 {ratio_units} (Normal) Range: 0.0-3.2 VLDL Cholesterol Andres 65 mg/dL (Abnormal) Range: 5-40 HDL Cholesterol 48 mg/dL (Normal) Comments: According to ATP-III Guidelines, HDL-C >59 mg/dL is considered anegative risk factor for CHD. Cholesterol, Total 241 mg/dL (Abnormal) Range: 100-199 Triglycerides 327 mg/dL (Abnormal) Range: 0-149 :16 HgA1C , Office (91752) HgA1C , Office 6.3 % (Normal) Range: 4.6 - 7.1 03-Ibj-146823:16 Blood Glucose , Office (77735) Blood Glucose , Office 115 (Normal) :30 MICROALBUMIN: CREATININE RATIO Comments: PATIENT WAS FASTINGPERFORMED BY: SlingArtesia General HospitalXgqhgn4261 [facility] [id number] (14961) AND (43436) Creatinine, Urine 64.8 mg/dL (Normal) Range: 15.0-278.0 Microalb/Creat Ratio 4.0 {mg/g_creat} (Normal) Range: 0.0-30.0 Microalbumin, Urine 2.6 ug/mL (Normal) Range: 0.0-17.0 :30 METABOLIC PANEL, COMPREHENSIVE Comments: PATIENT WAS FASTINGPERFORMED BY: Gig[employer]6370 [facility] [id number] (43648) Alkaline Phosphatase, S 104 [iU]/L (Normal) Range: [...] mg/dL (Abnormal) Range: 65-99 :30 LIPID PANEL (19727) Comments: PATIENT WAS FASTINGPERFORMED BY: [employer] Lab[employer] Rfanvq4421 [facility] [id number] HDL Cholesterol 49 mg/dL (Normal) Comments: According [...] MANUAL DIFF Comments: PATIENT WAS FASTINGPERFORMED BY: LabMy Visual BriefMarlton Rehabilitation HospitalGzzdfp9481 [facility] [id number] Information: [id number] (22692) Immature Grans (Abs) 0.0 {x10E3/uL} (Normal) Range: [...] (Normal) Range: 4.0-10.5 :18 HgA1C , Office (50720) HgA1C , Office 6.7 % (Normal) Range: 4.6 - 7.1 :18 Blood Glucose , Office (55772) Blood Glucose , Office 154 (Normal) :06 LIPID PANEL (70561) Comments: PATIENT WAS FASTINGPERFORMED BY: [employer]70 [facility] [id number] LDL Cholesterol Calc 122 mg/dL (Abnormal) Range: [...] three months (approximately); PATIENT WAS FASTINGPERFORMED BY: Frogdice [facility]Saint [facility] [id number] Information: [id number] (05296) ALT (SGPT) 16 [iU]/L (Normal) Range: 0-40 Alkaline Phosphatase, S 104 [iU]/L (Normal) Range: 25-165 AST (SGOT) 18 [iU]/L (Normal) Range: 0-40 Albumin, Serum 4.3 g/dL (Normal) Range: 3.5-4.8 Bilirubin, Direct 0.14 mg/dL (Normal) Range: 0.00-0.40 Bilirubin, Total 0.5 mg/dL (Normal) Range: 0.0-1.2 Protein, Total, Serum 7.1 g/dL (Normal) Range: 6.0-8.5 01-Lyr-988535:00 HgA1C , Office (24012) HgA1C , Office 6.2 % (Normal) Range: 4.6 - 7.1 18-Hvt-469060:00 Blood Glucose , Office (71296) Blood Glucose , Office 158 (Normal) 82-Jgp-16060:50 CBC With Differential/Platelet Comments: PATIENT WAS FASTINGPERFORMED BY: [facility] Yrlviq8387 [facility] [id number] Baso (Absolute) 0.0 {x10E3/uL} (Normal) Range: 0.0-0.2 [...] 3.80-5.10 WBC 5.8 {x10E3/uL} (Normal) Range: 4.0-10.5 49-Bqa-27368:50 Comp. Metabolic Panel (14) Comments: PATIENT WAS FASTINGPERFORMED BY: LabCo Btssgz7675 [facility] [id number] ALT (SGPT) 24 [iU]/L (Normal) Range: 0-40 [...] With LDL/HDL Comments: PATIENT WAS FASTINGPERFORMED BY: [facility] [id number] Ratio LDL Cholesterol Calc 170 mg/dL (Abnormal) [...] Randm Ur Comments: PATIENT WAS FASTINGPERFORMED BY: [employer]70 [facility] [id number] Microalb/Creat Ratio 4.4 {mg/g_creat} (Normal) Range: 0.0-30.0 Creatinine, Urine 105.7 mg/dL (Normal) Range: 15.0-278.0 Microalbumin, Urine 4.7 ug/mL (Normal) Range: 0.0-17.0 45-Rgb-807726:03 URINE TRELL CULTURE-IDENTIFICATN Comments: PATIENT NOT FASTINGPERFORMED BY: [employer] Jxdnbt3326 [facility] [id number] Information: [id number] (85744) Result 1 NG36 (Normal) Comments: No growth in 36 - 48 hours. Urine Culture,Comprehensive Final report (Normal) 13-Qfn-521420:17 Urinalysis, Office (27575) UA - LEUKOCYTE ESTERASE Trace (Normal) UA - NITRITE Negative (Normal) URINE UROBILINGN MITCH TIMED Normal mg/dL (Normal) UA - PROTEIN Negative mg/dL (Normal) UA - PH 7.5 (Normal) UA - BLOOD Negative (Normal) UA - SPECIFIC GRAVITY 1.005 (Normal) UA - KETONES Negative mg/dL (Normal) UA - BILIRUBIN Negative (Normal) UA - GLUCOSE Negative (Normal) 01-Jci-697448:17 BILAT SCRN DIGITAL & CAD Radiology Report See Note (Normal) Comments: Exam Number: [id number] MAMMOGRAM, BILATERAL SCREENING DIGITAL AND CAD HISTORYRoutine [...] werealso exa mined with computer-aided detection software ([employer], [employer].). Reported By: ROXANE COLBY M.D. 60-Ank-561603:16 DEXA BONE DENSITY STUDY (HP) Radiology Report See Note (Normal) Comments: Exam Number: [id number] BONE DENSITOMETRY HISTORYPostmenopausal. TECHNIQUE Bone densitometry of the lumbar spine and both hips is now beingperformed. The best criteria for evaluation of osteoporosis is theT-value, which represents the comparison of the patient's bone mass tanja expected peak bone mass. For most patients, the mean T-value of U6uqeadto L4 is used to evaluate the lumbar [...] Microscopic Examination Comments: PATIENT WAS FASTINGPERFORMED BY: [employer]70 [facility] [id number] Bacteria Few (Normal) Epithelial Cells (non renal) 0-10 {/hpf} (Normal) Range: 0 - 10 Mucus Threads Present (Normal) RBC 0-3 {/hpf} (Normal) Range: 0 - 3 WBC 0-5 {/hpf} (Normal) Range: 0 - 5 :33 URINALYSIS W/O MICRO (88010) Comments: PATIENT WAS FASTINGPERFORMED BY: [employer]70 [facility] [id number] Appearance Clear (Normal) Bilirubin Negative (Normal) Glucose Negative (Normal) Ketones Negative (Normal) Microscopic Examination See below: (Normal) Nitrite, Urine Negative (Normal) Occult Blood Negative (Normal) pH 5.5 (Normal) Range: 5.0-7.5 Protein Negative (Normal) Specific Eden 1.016 (Normal) Range: 1.005-1.030 Urine-Color Yellow (Normal) Urobilinogen,Semi-Qn 0.2 mg/dL (Normal) Range: 0.0-1.9 WBC Esterase 1+ (Abnormal) :33 MICROALBUMIN: CREATININE RATIO Comments: PATIENT WAS FASTINGPERFORMED BY: KDWAdventHealth Hendersonville [id number] (51195) AND (40680) Creatinine, Urine 93.7 mg/dL (Normal) Range: 15.0-278.0 Microalb/Creat Ratio 3.6 {mg/g_creat} (Normal) Range: 0.0-30.0 Microalbumin, Urine 3.4 ug/mL (Normal) Range: 0.0-17.0 :33 METABOLIC PANEL, COMPREHENSIVE Comments: in six months (approximately); PATIENT WAS FASTINGPERFORMED BY: LabCoMarlton Rehabilitation HospitalLrcwaa8296 [facility] [id number] (33204) A/G Ratio 1.5 (Normal) Range: 1.1-2.5 Albumin, [...] mmol/L (Normal) Range: 135-145 :33 LIPID PANEL (97248) Comments: PATIENT WAS FASTINGPERFORMED BY: [employer]6370 [facility] [id number] Cholesterol, Total 239 mg/dL (Abnormal) Range: 100-199 HDL Cholesterol 40 mg/dL (Normal) Comments: According to ATP-III Guidelines, HDL-C >59 mg/dL is considered anegative risk factor for CHD. LDL Cholesterol Calc 123 mg/dL (Abnormal) Range: 0-99 LDL/HDL Ratio 3.1 {ratio_units} (Normal) Range: 0.0-3.2 Triglycerides 378 mg/dL (Abnormal) Range: 0-149 VLDL Cholesterol Andres 76 mg/dL (Abnormal) Range: 5-40 :33 CBC WITH MANUAL DIFF (93396) Comments: PATIENT WAS FASTINGClinical Information: ADD [id number],[id number] PERFORMED BY: [employer] LabRet[employer] Deriv[employer] TraderQwjugn4368 [facility] [id number] Baso (Absolute) 0.1 {x10E3/uL} (Normal) Range: 0.0-0.2 [...] Indication: Dysuria Planned Observations MICROALBUMIN: CREATININE RATIO (44143) AND (64567)Indication: Diabetes mellitus type 2, controlled On: :23 Request CBC & PLATELETS (AUTO) (28984)Indication: Diabetes mellitus type 2, controlled On: :23 Request METABOLIC PANEL, COMPREHENSIVE (01722)Indication: Diabetes mellitus type 2, controlled On: 17-Feb-20189:23 Request TSH (THYROID STIMULATING HORMONE) (82956)Indication: Diabetes mellitus type 2, controlled On: :23 Request CALCIFEDIOL (28914)Indication: Vitamin D deficiency On: 17-Feb-20189:22 Request CALCIFEDIOL (32403)Indication: Vitamin D deficiency On: 17-Feb-20187:53 Request LIPID PANEL (53896)Indication: Hyperlipidemia, unspecified On: 66-Nld-418500:42 Request Lipid Panel (05135)Indication: Hyperlipidemia, unspecified On: 88-Xvp-74289:15 Request Comments: Feb 2017 CALCIFIDIOL (81185) VIT D 25Indication: Osteopenia On: 50-Jpb-555519:17 Request URINALYSIS, W/ MICRO (75268)Indication: Diabetes mellitus type 2, controlled On: 10-Qdr-095587:17 Request METABOLIC PANEL, COMPREHENSIVE (83733)Indication: Diabetes mellitus type 2, controlled On: 56-Paw-583556:17 Request LIPID PANEL (68624)Indication: Diabetes mellitus type 2, controlled On: :17 Request CBC with auto diff (09915)Indication: Diabetes mellitus type 2, controlled On: 30-Fnv-471465:17 Request MICROALBUMIN: CREATININE RATIO (65574) AND (88135)Indication: Hyperlipidemia, unspecified On: :20 Request METABOLIC PANEL, COMPREHENSIVE (04762)Indication: Hyperlipidemia, unspecified On: :20 Request LIPID PANEL (73125)Indication: Hyperlipidemia, unspecified On: :20 Request METABOLIC PANEL, COMPREHENSIVE (84177)Indication: Diabetes mellitus type 2, controlled On: 49-Fai-616968:05 Request NUCLR MOLCUL DX-INT/RPT (57333)Indication: Abnormal finding of blood chemistry, unspecified On: :38 Request Comments: 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 DIAG, NUCLEIC ACID, ISOLATION/EXTRACTION, HIGHLY PURIFIED (96305)Indication: Abnormal finding of blood chemistry, unspecified On: :38 Request NUCLR MOLCUL DX-ENZY DIG (93933)Indication: Abnormal finding of blood chemistry, unspecified On: 45-Vfi-768328:38 Request NUCLR MOLCUL DX-SEPARATN (67632)Indication: Abnormal finding of blood chemistry, unspecified On: 24-Sqa-055264:37 Request NUCLR MOLCUL DX-PCR EACH ([id number])Indication: Abnormal finding of blood chemistry, unspecified On: 32-Xjz-607209:37 Request HEPATIC FUNCTION PANEL (25508)Indication: Abnormal finding of blood chemistry, unspecified On: 11-Qzs-245110:10 Request Comments: recheck off tylenol for 2 weeks. HEP ABC PROFILE [id number] (10435)Indication: Hyperlipidemia, unspecified On: 4-Ect-542907:36 Request Ferritin (42068)Indication: Hyperlipidemia, unspecified On: 0-Zsd-806936:36 Request CBC WITH MANUAL DIFF (10653)Indication: Hyperlipidemia, unspecified On: 6-Gra-435124:14 Request METABOLIC PANEL, COMPREHENSIVE (44568)Indication: Hypertension, benign On: 8-Lrh-601602:14 Request Blood Glucose , Office (48079)Indication: Abnormal glucose tolerance test On: :19 Request HgA1C , Office (15437)Indication: Abnormal glucose tolerance test On: :19 Request Planned Encounters Medical; 3 Month FU - On: 28-Mar-2018 8:15 [facility] Herminia MCKEON Shelli Mere Hope CNP Planned Procedures DEXA SCAN AXIAL SKELETON ([id number])By: On: 23-Dec-2017 Intent Herminia LINDA Shelli Herminia LINDA Mere Dc SCREENING DIGITAL TOMOSYNTHESIS OF On: 23-Dec-2017 Intent BREAST (49524)By: Carmenjw MCKEON Mere Hope LINDA Mere Dc ELECTROCARDIOGRAM, COMPLETE (ECG) On: 10-Jun-2017 Intent (23775)By: Carmenjw MCKEON Shelli Herminia Comments: sinus pavan LINDA Mere Dc Ultrasound - RenalBy: Hreminia MCKEON Mere On: 06-Mar-2017 Intent E Carmenjw MCKEON Mere Dc SCREENING DIGITAL TOMOSYNTHESIS OF On: 03-Sep-2016 Intent BREAST ([id number])By: Carmenjw MCKEON Shelli Herminia MCKEON Mere Dc DEXA SCAN AXIAL SKELETON ([id number])By: On: 03-Sep-2016 Intent Mere Hope CNP E Mere Hope CNP Comments: January 2017 MAMMOGRAM, SCREENING, BOTH BREAST On: 26-Oct-2015 Intent (36882)By: Bebo Boyd MD EKG (32861)By: Jacquelin Delgado MD On: 26-Jul-2014 Intent Comments: see scanned document of test done to see results reviewed today with patient MAMMOGRAM, SCREENING, BOTH BREAST On: 26-Jul-2014 Intent (77938)By: Jacquelin Delgado MD DEXA SCAN AXIAL SKELETON (29171)By: On: 26-Jul-2014 Intent Jacquelin Delgado MD BILATERAL MAMMOGRAMS (03101)By: On: 07-Jan-2014 Intent Jacquelin Delgado MD MAMMOGRAM, SCREENING, BOTH BREASTS On: 29-Sep-2012 Intent (97677)By: Jacquelin Delgado MD EKG (60945)By: MARNIE Escamilla On: 29-Sep-2012 Intent Comments: see scanned document of test done to see results reviewed today with patient DXA, BONE DENSITY, AXIAL SKELETON On: 29-Sep-2012 Intent (48298)By: Jacquelin Delgado MD Eprescribed prescriptions ([id number])By: On: 02-Jun-2012 Intent Jazz Lainez LPN Ultrasound - LiverBy: Bruna JONES, On: 03-Mar-2012 Intent Jacquelin Brambila MAMMOGRAM, SCREENING, BOTH BREASTS On: 05-Nov-2011 Intent (56870)By: Jacquelin Delgado MD EKG (79483)By: MARNIE Escamilla On: 05-Nov-2011 Intent Eprescribed prescriptions ([id number])By: On: 14-Jun-2010 Intent Fast DO, Pilar A EKG (98172)By: Jacquelin Delgado MD On: 24-Mar-2010 Intent MAMMOGRAM, SCREENING, BOTH BREASTS On: 15-Dec-2009 Intent (11772)By: Jacquelin Delgado MD DXA, BONE DENSITY, AXIAL SKELETON On: 26-Nov-2008 Intent (35196)By: Jacquelin Delgado MD MAMMOGRAM, SCREENING, BOTH BREASTS On: 26-Nov-2008 Intent (36182)By: Jacquelin Delgado MD Instructions Name Dates Details [...] weight :. 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 The patient has [...]
--- OUTSIDE RECORDS SUMMARY | 2018-04-10 21:47 | XMS RPT_ITS ---
:1935 Author Organization [facility] Support Name Relationship Address Phone MARYJANE GUZMAN [address] + [place] [address] BUSTER, POLLO Unrelated Friend [address] + [place] [address] R Unknown Unavailable Unavailable MARYJANE GUZMAN Rene [address] + [place] [address] BUSTER, POLLO Unrelated Friend [address] + [place] [address] R Unknown Unavailable Unavailable MARYJANE GUZMAN R[address] + [place] [address] BUSTER, POLLO Unrelated Friend [address] + [place] [address] R Unknown Unavailable Unavailable MARYJANE GUZMAN [address] + [place] [address] BUSTER, POLLO Unrelated Friend [address] + [place] [address] R Unknown Unavailable Unavailable MARYJANE GUZMAN [address] + [place] [address] BUSTER, POLLO Unrelated Friend [address] + [place] [address] R Unknown Unavailable Unavailable MARYJANE GUZMAN R[address] + [place] [address] BUSTER, POLLO Unrelated Friend [address] + [place] [address] R Unknown Unavailable Unavailable MARYJANE GUZMAN R[address] + [place] [address] BUSTER, POLLO Unrelated Friend [address] + [place] [address] R Unknown Unavailable Unavailable MARYJANE GUZMAN Rene [address] + [place] [address] BUSTER, POLLO Unrelated Friend [address] + [place] [address] R Unknown Unavailable Unavailable MARYJANE GUZMAN [address] + [place] [address] POLLO GOINS Unrelated Friend [address] + [place] [address] R Unknown Unavailable Unavailable Care Team Providers Name Role Phone Mere Hope Attending Unavailable Jacquelin Mcfarland MD Referring Unavailable Ciesa, Mere Consulting Unavailable Ciesa, Mere Attending Unavailable Ciesa, Mere Primary Care Unavailable Ciesa, Mere Attending Unavailable Ciesa, Mere Primary Care Unavailable Ciesa, Mere Referring Unavailable Ciesa, Mere Attending Unavailable Ciesa, Mere Referring Unavailable Ciesa, Mere Primary Care Unavailable Ciesa, Mere Attending Unavailable Ciesa, Mere Referring Unavailable Ciesa, Mere Primary Care Unavailable Ciesa, Mere Attending Unavailable Ciesa, Mere Referring Unavailable Ciesa, Mere Primary Care Unavailable Ciesa, Mere Attending Unavailable Ciesa, Mere Referring Unavailable Ciesa, Mere Primary Care Unavailable Ciesa, Mere Attending Unavailable Ciesa, Mere Referring Unavailable Ciesa, Mere Primary Care Unavailable Ciesa, Mere Attending Unavailable Ciesa, Mere Referring Unavailable Ciesa, Mere Primary Care Unavailable Ciesa, Mere Attending Unavailable Ciesa, Mere Referring Unavailable Ciesa, Mere Primary Care Unavailable Purpose Purpose PROBLEMS PROBLEMS DATE TYPE CONDITION / CODE ATTENDING STATUS SOURCE 02/13/2018 Unknown Z78.0 - Mere Hope Active [facility]ymptomatic [facility] menopausal state / Hospital Z78.0(ICD-10) Repository 02/13/2018 Unknown Z12.31 - Encounter Mere Hope Active [place] for screening Community mammogram for Hospital malignant neoplasm Repository of breast / Z12.31(ICD-10) 01/15/2018 Unknown E11.9 - Type 2 CiMere bruner Active [place] diabetes mellitus Community without Hospital complications / Repository E11.9(ICD-10) 03/20/2017 Unknown N18.3 - Chronic CiMere bruner Active [place] kidney disease, Community stage 3 (moderate) Hospital / N18.3(ICD-10) Repository PROCEDURES PROCEDURES No Procedure Records FoundVITAL SIGNS VITAL SIGNS No Vital Signs Records FoundRESULTS RESULTS SCREENING MAMM (CAD), Observed: 02/13/2018 Status: F Source: [place] CANTU 3:27 PM [facility] REPOSITORY [facility] Imaging Services [address] [place] [address] SCREENING MAMM (CAD), PEPE MR#: [id number] Acct: [id number] Name: SANDRINE GUZMAN Rep #: [id number] : 1935 F 82 From: Scotty Tinoco MD PCP: Mere Hope NP Status: REG CLI Study: SCREENING MAMM (CAD), BILAT Date of Exam: 02/13/18 Exam# [id number] Ordering Dr: Mere Hope TOW BOAT CAPTAIN-C MAMMOGRAPHY - BILATERAL SCREENING REASON FOR EXAM: Female, 82 years old. Routine annual screening examination. PERTINENT HISTORY: Aunt with breast cancer. Remote right excisional breast biopsy. TECHNIQUE: Digital bilateral breast chantale (3D mammographic acquisition) in the CC and MLO projections. 2-D mediolateral oblique (MLO) and craniocaudad (CC) views of both breasts were obtained. CAD: Full Field Digital Mammography with Computer Added Detection was performed. COMPARISON: Comparison is made with prior study dated January 30, 2017 and January 30, 2016. FINDINGS: Breast Composition: The breasts are almost entirely fatty. There are no dominant masses or suspicious calcifications. Stable asymmetry of breast tissue were more breast tissue is seen in the upper outer quadrant of the right breast as compared to the left side. This is unchanged. Small bilateral axillary lymph nodes. No other significant abnormalities are identified. There has been no significant change since the prior study. BI/SCREENING MAMM (CAD), BILAT IMPRESSION: Stable bilateral screening mammogram. Yearly follow-up mammogram recommended. (A) ASSESSMENT CATEGORY: BIRADS Category 2: Benign. A letter regarding these results will be sent to the patient by the facility within 30 days. Approximately 10% of breast cancers are not detected by mammography. A normal mammogram should not delay biopsy of a clinically suspicious abnormality. [id number] Electronically Signed: Scotty Tinoco MD at 9:11 EST Tel [phone], Service support , CC: Mere Hope NP Air Chief Marshal: Signed DEXA BONE DENSITY Observed: 02/13/2018 Status: F Source: [place] STUDY 3:27 PM [facility] REPOSITORY [facility] Imaging Services [address] [place] [address] Dexa Bone Density Study MR#: [id number] Acct: [id number] Name: SANDRINE GUZMAN Rep #: [id number] : 1935 F 82 From: Scotty Tinoco MD PCP: Mere Hope NP Status: REG CLI Study: Dexa Bone Density Study Date of Exam: 02/13/18 Exam# [id number] Ordering Dr: Mere Hope TOW BOAT CAPTAIN-C STUDY: DUAL ENERGY X-RAY ABSORPTIOMETRY / DXA [...] Total: g/cm2 (0.801) / T-score (-1.6) / Z- score (0.5) Left Femoral Neck: g/cm2 (0.754) / T-score (-2.0) / Z- score (0.2) Right Femur Total: g/cm2 (0.845) / T-score (-1.3) / Z- score (0.8) Right Femoral Neck: g/cm2 (0.75) / T-score (-1.8) / Z- score (0.4) The T-Scores on the most recent prior examination were: Lumbar Spine (L1-L4): There has been worsening of bone density since the previous examination. Left Femur Total: which represents a worsening of 0.1%. Right Femur Total: which represents an improvement of 0.2%. BD/Dexa Bone Density Study IMPRESSION: [...] -1 through -1.5 Moderate -1.6 through -2.0 Severe -2.1 through -2.4 The Z-score is the number of standard deviations above or below age-matched controls. A Z-score of less than -1.5 would be considered abnormal. References: 1. NIH Osteoporosis and Related Bone Diseases http://www.osteo.org 2. International Society for Clinical Densitometry http://www.iscd.org 3. National Osteoporosis Foundation http://www.nof.org Electronically Signed: Scotty Tinoco MD at 15:54 EST Tel [phone], Service support , CC: Mere Hope NP Air Chief Marshal: Signed KIDNEY AND BLADDER Observed: 03/20/2017 Status: F Source: [facility] 8:32 AM [facility] Imaging Services [address] [place] [address] Kidney and Bladder MR#: [id number] Acct: [id number] Name: SANDRINE GUZMAN Rep #: [id number] : 1935 F 81 From: George Luo DO PCP: Mere Hope NP Status: REG CLI Study: Kidney and Bladder Date of Exam: 03/20/17 Exam# [id number] Ordering Dr: Mere Hope STUDY: RENAL ULTRASOUND - COMPLETE REASON FOR EXAM: Female, 81 years old. Abnormal labs. Chronic kidney disease. TECHNIQUE: Ultrasound evaluation of the kidneys was performed with real-time and static anguiano-scale imaging. COMPARISON: None. FINDINGS: RIGHT KIDNEY: Normal location of [...] location of the left kidney, which is normal in size. The left kidney measures 9.9 [...] of the kidneys. The urinary bladder is not visualized. Electronically Signed: George Luo DO at 11:24 EST Tel [phone], Service support , CC: Mere Hope NP Air Chief Marshal: Signed ALLERGIES ALLERGIES No Allergies Records FoundENCOUNTERS ENCOUNTERS ADMIT/DISCHARGE ACCOUNT ADMITTING ENCOUNTER LOCATION SOURCE NUMBER CLASS 02/17/2018 [id number] Ambulatory Building:[facility] OHIP Practices Repository 02/13/2018 [id number] Ambulatory [place] 1 [facility] ing:OPBD Repository 09/25/2017 [id number] Ambulatory [place] 6 [facility] ing:DC Repository 08/19/2017/ [id number] Ambulatory [place] 8 6 [facility] ing:DC Repository 07/25/2017/ [id number] Ambulatory [place] 8 2 [facility] ing:DC Repository 06/20/2017/ [id number] Ambulatory [facility] [place] 8 3 [facility] ing:DC Repository 05/16/2017/ [id number] Ambulatory [place] [facility] 8 4 [facility] ing:DC Repository 05/01/2017/ [id number] Ambulatory [place] 8 8 [facility] ing:DC Repository 04/04/2017/ [id number] Ambulatory [place] 8 6 [facility] ing:DC Repository 03/20/2017 [id number] Ambulatory [place] 0 [facility] ing:US Repository FUNCTIONAL STATUS FUNCTIONAL STATUS No Functional Status Records FoundEQUIPMENT EQUIPMENT No Equipment Records FoundPAYERS PAYERS ENCOUNTER GUARANTOR PAYER SUBSCRIBER SOURCE 02/17/2018 Sandrine A Primary Sandrine A OHIP Practices DragerDOB: Insurance:Humana DragerDOB: Repository [id number] [facility] [id number] Marie Number: [address] [place], [place] [id number] [place], [place] [address]Kuz: (956) Date:9743-94-23Gsxy 78004Sbc: () Name:[facility] [phone] () [address] [place] [address]TY: 02/17/2018 Secondary Sandrine A OHIP Practices Insurance:ADVANTRA DragerDOB: Repository [facility] Number: [id number] Marie Date: - [place], [place] [id number] [address]Ayo: (074) Name:[facility] [id number] () [address] [place] [address]RP: 02/13/2018 SANDRINE A Primary SANDRINE A [place] [id number] Insurance:HUMANA DRAGERDOB: Community [place] MEDICARE [place]icy [id number] Number: Repository [id number]: 330 [id number] [phone] () Date:0551-54-49UZ[address]4601WP: 02/13/2018 Secondary NOT GIVENUNK [place] Insurance:SELF PAY [facility] Number: Effective Repository Date:2017-12-23 09/25/2017 Sandrine A Primary Sandrine A [place] [id number] Insurance:HUMANA DragerDOB: Community [place] MEDICARE PPOPolicy [id number] Number: Repository [id number]: 330 [id number] [phone] () Date:1938-12-46[address] [address]BQ: 09/25/2017 Secondary NOT GIVENUNK [place] Insurance:SELF PAY [facility] Number: Effective Repository Date:2017-09-15 08/19/2017 Sandrine A Primary Sandrine A [place] [id number] Insurance:HUMANA DragerDOB: [facility] MEDICARE [facility] [id number] Number: Repository [id number]: 330 [id number] [phone] () Date:1199-38-20KV [address] [address]MN: 08/19/2017 Secondary NOT GIVENUNK [facility] Insurance:SELF PAY [facility]: Effective Repository Date:2017-08-16 07/25/2017 Sandrine A Primary Sandrine A [facility] [id number] Insurance:HUMANA DragerDOB: Community [facility] [id number] Number: Repository [id number]: 330 [id number] [phone] (HP) Date:1650-08-15EY [address] [address]BQ: 07/25/2017 Secondary NOT GIVENUNK [place] Insurance:SELF PAY [facility] Number: Effective Repository Date:2017-07-16 06/20/2017 Sandrine A Primary Sandrine A [place] [id number] Insurance:HUMANA DragerDOB: [facility] MARIE MEDICARE [facility] [id number] Number: Repository [id number]: 330 [id number] [phone] () Date:4924-00-32HN[address] [address]CL: 06/20/2017 Secondary NOT GIVENUNK [place] Insurance:SELF PAY [facility] Number: Effective Repository Date:2017-06-16 05/16/2017 Sandrine A Primary Sandrine A [facility] [id number] Insurance:HUMANA DragerDOB: [facility] MARIE MEDICARE [facility] [id number], [place] Number: Repository [id number]: 330 [id number] [phone] (HP) Date:5925-85-59YS [address] [address]LQ: 05/16/2017 Secondary NOT GIVENUNK [place] Insurance:SELF PAY [facility] Number: Effective Repository Date:2017-05-16 05/01/2017 Sandrine A Primary Sandrine A [place] [id number] Insurance:HUMANA DragerDOB: [facility] MEDICARE [facility] [id number] Number: Repository [id number]: 330 [id number] [phone] () Date:2208-67-30JQ [address] [address]IN: 05/01/2017 Secondary NOT GIVENUNK [place] Insurance:SELF PAY [facility] Number: Effective Repository Date:2017-04-18 04/04/2017 Sandrine A Primary Sandrine A [facility] [id number] Insurance:HUMANA DragerDOB: [facility] MEDICARE [facility] [id number], [place] Number: Repository [id number]: 330 [id number] [phone] () Date:0495-12-36NR[address] [address]DB: 04/04/2017 Secondary NOT GIVENUNK [place] Insurance:SELF PAY [facility] Number: Effective Repository Date:2017-04-02 03/20/2017 Sandrine A Primary Sandrine A [facility] [id number] Insurance:HUMANA DragerDOB: Community [place] MEDICARE PPOPolicy [id number], [place] Number: Repository [id number]: 330 [id number] [phone] () Date:6046-61-00RI [address] [address]FW: 03/20/2017 Secondary NOT GIVENUNK [place] Insurance:SELF PAY [facility] Number: Effective Repository Date:2017-03-07 SOCIAL HISTORY SOCIAL HISTORY No Social History Records FoundFAMILY HISTORY FAMILY HISTORY No Family History Records FoundADVANCE DIRECTIVES ADVANCE DIRECTIVES No Advanced Directives Records FoundINFORMATION SOURCE INFORMATION SOURCE DATE CREATED AUTHOR AUTHOR'S ORGANIZATION 03/05/2018 [place]
--- OUTSIDE RECORDS SUMMARY | 2018-04-10 21:47 | XMS RPT_ITS | Continuity of Care Document ---
:1935 Author Organization [facility] Address [address] [place] [address] Phone Care Team Providers Name Role Phone Mere Hope CNP Unavailable Bruna JONES, Jacquelin Brambila Unavailable Dr. Jamie Quezada Unavailable Jackie Sheppard Unavailable Unavailable Marisabel Rouse LPN Unavailable Unavailable Unavailable Unavailable Problems Name Dates [...] silver sneakers, spinning and yoga, eye exam due8-2018 done yearly Status: Active Drug rash (L27.0, 693.0) Comments: back and buttocks and back of legs Status: Active Encounter for annual general medical examination with abnormal findings in adult (Z00.01, V70.0) Status: Active Encounter for screening for malignant neoplasm of colon (Renamed from Special screening for malignant neoplasms, colon) (Z12.11, V76.51) Status: Active Encounter for screening mammogram for [...] and idapamide, on since 70's Status: Active Influenza vaccination declined (Renamed from Refused influenza vaccine) (Z28.21, V64.06) Status: Active Itching (L29.9, 698.9) Comments: Eczema [...] {Tablet} Refills: 1 Ordered:24-Dec-2017 Herminia MCKEON, Mere Martines CNP Start : 24-Dec-2017 Active Atorvastatin Calcium 10 MG Oral Tablet 1 (one) Tablet qd for 0 days Quantity: 90 {Tablet} Refills: 3 Ordered:30-Sep-2017 Herminia MCKEON, Mere Martines CNP Start : 30-Sep-2017 Active FISH OIL, 1000MG (Oral Capsule Delayed Release) 2 tid (1000 MG) Active Indapamide 2.5 MG Oral Tablet 1 Tablet QD for 90 days Quantity: 90 {Tablet} Refills: 1 Ordered:24-Dec-2017 Herminia MCKEON, Mere Martines CNP Start : 24-Dec-2017 Active MULTIVITAMIN (PO Tab) 1 QD for 0 days Refills: 0 Ordered:26-Nov-2008 Erika Patterson RN Vitamin D3 2000 UNIT Oral Capsule 1 (one) Capsule daily for 0 days Quantity: 30 {Capsule} Refills: 0 Ordered:24-Feb-2018 Mere Hope CNP, CNP, Mary E Start : 24-Feb-2018 Active ASPIRIN ADULT LOW STRENGTH, 81MG (Oral Tablet Chewable) 1 (one) Tablet Chewable in am for 0 days Quantity: 30 {Tablet} Refills: 0 Ordered:25-Jul-2015 MARNIE Escamilla Start : 24-Jan-2015 End : 25-Jul-2015 Inactive CIPRO, 250MG (Oral Tablet) 1 (one) Tablet bid for 3 days Quantity: 6 {Tablet} Refills: 0 Ordered:02-May-2009 Herminia MCKEON, Mere Martines CNP Start : 28-Mar-2009 End : 31-Mar-2009 Inactive [...] days Quantity: 6 {Tablet} Refills: 0 Ordered:30-Mar-2009 Mere Hope CNP, CNP, Shelli Start : 28-Mar-2009 End : 30-Mar-2009 Inactive ZOCOR, 40MG (Oral Tablet) Tablet QD for 0 days Quantity: 30 {Tablet} Refills: 6 Ordered:14-Jun-2009 MARNIE Escamilla Start : 26-Nov-2008 Inactive CALCIUM, 600MG (PO Cap) 2 QD for 0 days Refills: 0 Ordered:26-Nov-2008 Marisol Patterson RN End : 26-Nov-2008 Discontinued Miconazole Nitrate 2 [...] chemistry, unspecified (R79.9, 790.6) Comments: normal now 03-30. liver us good. off tylenol now and [...] Cholecystectomy Completed Comments: 82 Colonoscopy Completed Comments: 03-31-13 Dr. Quezada repeat 5 years Colonoscopy Completed Comments: 07/17, Dilation And Curettage Of Uterus Completed Comments: 82 & 91 polyps Hysterectomy; Abdominal Completed Comments: Partial 2003 Tonsillectomy Completed Comments: 1943 Date Value Details 13-Feb-2018 Dexa Bone Density Study Result: Comments: See Note; NOTES: [facility] Imaging Services [address] [place] [address] Dexa Bone Density Study MR#: [id number] Acct: [id number] Name: SANDRINE GUZMAN Rep #: [id number] : 1935 F 82 From: Scotty Tinoco MD PCP: Mere Hope NP Status: REG CLI Study: Dexa Bone Density Study Date of Exam: 02/13/18 Exam# [id number] Ordering Dr: Mere Hope STUDY: DUAL ENERGY X-RAY ABSORPTIOMETRY / DXA [...] Scotty Tinoco MD at 15:54 EST Tel [phone], Service support , CC: Mere Hope NP Drill Hand: Signed 13-Feb-2018 SCREENING MAMM (CAD), BILAT Result: Comments: See Note; NOTES: [facility] Imaging Services [address] [place] [address] SCREENING MAMM (CAD), BILAT MR#: [id number] Acct: [id number] Name: SANDRINE GUZMAN Rep # : [id number] : 1935 F 82 From: Scotty Tinoco MD PCP: Mere Hope NP Status: REG CLI Study: SCREENING MAMM (CAD), BILAT Date of Exam: 02/13/18 Exam# [id number] Ordering Dr: Mere Hope STERILISATION TECHNICIAN-C MAMMOGRAPHY - BILATERAL SCREENING REASON FOR EXAM: [...] delay biopsy of a clinically suspicious abnormality. [id number] Electronically Signed: Scotty Tinoco MD 2 at 9:11 EST Tel [phone], Service support , CC: Mere Hope NP Drill Hand: Signed 20-Mar-2017 Kidney and Bladder Result: Comments: See Note; NOTES: [facility] Imaging Services [address] [place] [address] Kidney and Bladder MR#: [id number] Acct: [id number] Name: SANDRINE GUZMAN Rep #: [id number] : 1935 F 81 From: George Luo DO PCP: Mere Hope NP Status: REG CLI Study: Kidney and Bladder Date of Exam: 03/20/17 Exam# [id number] Ordering Dr: Mere Hope STUDY: RENAL ULTRASOUND [...] George Luo DO at 11:24 EST Tel [phone], Service support , CC: Mere Hope NP Drill Hand: Signed 30-Jan-2017 SCREENING MAMM (CAD), BILAT Result: Comments: See Note; NOTES: [facility] Imaging Services [address] [place] [address] SCREENING MAMM (CAD), BILAT MR#: [id number] Acct: [id number] Name: SANDRINE GUZMAN Rep # : [id number] : 1935 F 81 From: Scotty Tinoco MD PCP: Mere Hope Status: REG CLI Study: SCREENING MAMM (CAD), BILAT Date of Exam: 01/30/17 Exam# [id number] Ordering Dr: Mere Hope MAMMOG ASHA - [...] delay biopsy of a clinically suspicious abnormality. [id number] Electronically Signed: Scotty Tinoco MD at 10:50 EST Tel [phone], rvice support , CC: Mere Hope Drill Hand: Signed 30-Jan-2016 Bilat Scrn Digital AND CAD Result: Comments: See Note; NOTES: [facility] Imaging Services [address] [place] [address] Verdana 4d Bilat Scrn Digital AND CAD MR#: [id number] Acct: [id number] Name: RADHA GUZMAN ORLANDO Pearson Rep #: [id number] : 1935 F 80 From: Scotty Tinoco MD PCP: Bebo Boyd Status: REG CLI Study: Bilat Scrn Digital AND CAD Date of Exam: 01/30/16 Exam# [id number] Ordering Dr: Minnie Boyd en MAMMOGRAPHY - [...] delay biopsy of a clinically suspicious abnormality. [id number] Electronically Signed: Scotty Tinoco MD 2015 at 9:17 EST Tel [phone], Service support [phone], CC: Bebo Boyd Drill Hand: Signed 25-Jan-2015 Bilat Scrn Digital AND CAD Result: Comments: See Note; NOTES: [facility] Imaging Services [address] [place] [address] Verdana 4d Bilat Scrn Digital AND CAD MR#: [id number] Acct: [id number] Name: SANDRINE GUZMAN Rep #: [id number] : 1935 F 79 From: Scotty Tinoco MD PCP: Jacquelin Delgado MD Status: REG CLI Study: Bryon Segal Digital AND CAD Date of Exam: 01/25/15 Exam# [id number] Ord ering Dr: Jacquelin Delgado MD MAMMOGRAPHY [...] Scotty Tinoco MD at 9:53 EST T [phone], Service support [phone], CC: Jacquelin Delgado MD Drill Hand: Signed 25-Jan-2015 Dexa Bone Density Study (HP) Result: Comments: See Note; NOTES: [facility] Imaging Services [address] [place] [address] Verdana 4d Dexa Bone Density Study () MR#: [id number] Acct: [id number] Name : SANDRINE GUZMAN Rep #: [id number] : 1935 F 79 From: Scotty Tinoco MD PCP: Jacquelin Delgado MD Status: REG CLI Study: Dexa Bone Density Study () Date of Exam: 01/25/15 Exam# [id number] Ordering Dr: Jacquelin Delgado MD STUDY: DUAL [...] Scotty Tinoco MD at 8:04 EST Tel [phone], Service support [phone], CC: Jacquelin Delgado MD Drill Hand: Signed 22-Jan-2014 Bilat Scrn Digital & CAD Result: Comments: See Note; NOTES: [facility] Imaging Services [address] [place] [address] Breast Imaging Report MR#: [id number] Acct: [id number] Name: SANDRINE GUZMAN Rep # : [id number] : 1935 F 78 From: Scotty Tinoco MD PCP: Jacquelin Delgado MD Status: REG CLI Exam# [id number] Ordering Dr: Jacquelin Delgado MD MAMMOGRAPHY - [...] (A) ASSESSMENT CATEGORY: CC: Jacquelin Delgado MD Drill Hand: Signed 21-Jan-2013 Dexa Bone Density Study (HP) Result: Comments: See Note; NOTES: [facility] Imaging Services [address] [place] [address] Bone Density Report MR#: [id number] Acct: [id number] Name: SANDRINE GUZMAN DAXA Rep # : [id number] : 1935 F 77 From: Scotty Tinoco MD PCP: Jacquelin Delgado MD [facility]: Dexa Bone Density Study (HP) Date of Exam: 01/21/13 Exam# [id number] Ordering Dr: Shelton Delgado MD STUDY: DUAL [...] January 21, 2013 at 10:01:36 AM EST [phone] Electronically Signed GP/GP If you are the referring physician and would like to consult with the radiologist who provided this interpr etation, please contact Scotty Tinoco M.D. at [phone]. If this radiologist is unavailable, you will be directed to another radiologist to assist. If you are a patient with a question rega rding this report, please contact your referring physician directly. Professional Interpretation Provided By: [employer], Phone , These documents contain legally pro [...] of these documents. CC: Jacquelin Delgado MD Drill Hand: Signed 21-Jan-2013 Bryon Sgeal Digital & CAD Result: Comments: See Note; NOTES: [facility] Imaging Services [address] [place] [address] Breast Imaging Report MR#: [id number] Acct: [id number] Name: SANDRINE GUZMAN DAXA Rep #: [id number] : 1935 F 77 From: Scotty Tinoco MD PCP: Jacquelin Delgado MD Status: REG CLI Exam# [id number] Ordering Dr: Jacquelin Delgado MD MAMMOGRAPHY - [...] 21, 2013 at 9:14:[address] [phone] Electronically Signed GP/GP If you are the referring physician and would like to consult with the radiologist who provided this interpretation, please contact Scotty Tinoco M.D. at [phone]. If this radiologist is unavailable, you will be directed to another radiologist to assist. If you are a patient with a question regarding this report, please contact your refe rring physician directly. Professional Interpretation Provided By: [employer], Phone , These documents contain legally protected [...] of these documents. CC: Jacquelin Delgado MD Drill Hand: Signed Family History Unknown Family Member Name [...] smoker Vital Signs Date Test Result Details :10 Temperature 97.4 f Comments: Method: Temporal Pulse 65 /min Comments: Pattern: Regular Respiration Rate 17 /min Comments: Pattern: Unlabored O2 SAT 100 % Comments: Room air BP Systolic 130 mm[Hg] Comments: Patient Position: Sitting; Cuff Location: Left Arm; Cuff Size: Standard BP Diastolic 70 mm[Hg] Comments: Patient Position: Sitting; Cuff Location: Left Arm; Cuff Size: Standard Weight 174.375 lb Height 61 in Body Mass Index Calculated 32.95 kg/m2 Body Surface Area Calculated 1.78 m2 :40 Temperature 97.4 f Comments: Method: Temporal [...] 0.00 cm Results Date Description Value Details 6-Zbt-711583:06 CALCIFEDIOL (77086) Comments: PATIENT NOT FASTINGPERFORMED BY: [facility] [facility] [id number] Vitamin D, 25-Hydroxy 29.9 ng/mL (Abnormal) Range: 30.0-100.0 Comments: Vitamin D deficiency has been defined by the [place] of[place]icine and an Endocrine Society practice guideline as alevel of serum 25-OH vitamin D less than 20 ng/mL (1,2).The Endocrine Society went on to further define vitamin Dinsufficiency as a level between 21 and 29 ng/mL (2).1. IOM ([place] of Medicine). 2010. Dietary reference intakes for calcium and D. [place]: The National Academies Press.2. Nay MF, Bronson [place], Martha CALLAWAY, et al. Evaluation, treatment, and prevention of vitamin D deficiency: an Endocrine Society clinical practice guideline. JCEM. 2010; 96(7):1911-30. 6-Zyf-006924:03 Metabolic Panel, Comprehensive Comments: PATIENT NOT FASTINGPERFORMED BY: BRANDO Ruiz[address] [facility] [id number] (52423) ALT (SGPT) 26 [iU]/L (Normal) Range: 0-32 [...] (Abnormal) Range: 65-99 :42 HgA1C , Office (62481) HgA1C , Office 6.0 % (Normal) Range: 4.6 - 7.1 :42 Blood Glucose , Office (87586) Blood Glucose , Office 130 (Normal) :06 LIPID PANEL (10058) Comments: Dec 2017; PATIENT WAS FASTINGPERFORMED BY: BRANDO [facility] [facility] [id number] LDL/HDL Ratio 1.9 {ratio} (Normal) Range: 0.0-3.2 [...] (Normal) Range: 100-199 :04 HgA1C , Office (92522) HgA1C , Office 6.0 % (Normal) Range: 4.6 - 7.1 :04 Blood Glucose , Office (97643) Blood Glucose , Office 114 (Normal) 93-Cif-113235:06 VITAMIN B12 AND FOLATES Comments: PATIENT NOT FASTINGPERFORMED BY: [facility] CenterLvfisu7519 [facility] [id number] (39862) Folate (Folic Acid), Serum >20.0 ng/mL (Normal) Comments: A serum folate concentration of less than 3.1 ng/mL isconsidered to represent clinical deficiency. Vitamin B12 786 pg/mL (Normal) Range: 232-1245 07-Mas-079299:38 HgA1C , Office (57632) HgA1C , Office 6.0 % (Normal) Range: 4.6 - 7.1 :37 Blood Glucose , Office (11949) Blood Glucose , Office 127 (Normal) :14 Metabolic Panel, Comprehensive Comments: PATIENT WAS FASTINGPERFORMED BY: [facility] CenterKpoxjb1651 [facility] [id number] (46897) ALT (SGPT) 24 [iU]/L (Normal) Range: 0-32 [...] mg/dL (Abnormal) Range: 65-99 :14 Lipid Panel (12407) Comments: PATIENT WAS FASTINGPERFORMED BY: LabCoHam[facility] Health CenterLocolq1655 [facility] [id number] LDL/HDL Ratio 2.2 {ratio_units} (Normal) Range: 0.0-3.2 [...] (Normal) Range: 100-199 :42 HgA1C , Office (18832) HgA1C , Office 6.4 % (Normal) Range: 4.6 - 7.1 :42 Blood Glucose , Office (25834) Blood Glucose , Office 156 (Normal) Comments: pt is fasting :23 CBC With Differential/Platelet Comments: PATIENT WAS FASTINGPERFORMED BY: BRANDO [facility] [id number]; 03/06 OV Immature Grans (Abs) 0.0 {x10E3/uL} [...] (14) Comments: PATIENT WAS FASTINGPERFORMED BY: BRANDO [place] [id number] ALT (SGPT) 17 [iU]/L (Normal) Range: 0-32 [...] Glucose, Serum 155 mg/dL (Abnormal) Range: 65-99 49-Qoj-36557:23 Lipid Panel With LDL/HDL Comments: PATIENT WAS FASTINGPERFORMED BY: BRANDO [facility] Frubeo4042 [facility] [id number] Ratio LDL/HDL Ratio 2.6 {ratio_units} (Normal) Range: 0.0-3.2 Comments: LDL/HDL Ratio Men Women 1/2 Avg.Risk 1.0 1.5 Av g.Risk 3.6 3.2 2X Avg.Risk 6.2 5.0 3X Avg.Risk 8.0 6.1 LDL Cholesterol Calc 116 mg/dL (Abnormal) Range: 0-99 VLDL Cholesterol Andres 55 mg/dL (Abnormal) Range: 5-40 HDL Cholesterol 44 mg/dL (Normal) Triglycerides 277 mg/dL (Abnormal) Range: 0-149 Cholesterol, Total 215 mg/dL (Abnormal) Range: 100-199 67-Gpl-18052:23 Microalb/Creat Ratio, Randm Ur Comments: PATIENT WAS FASTINGPERFORMED BY: [facility]Pe[facility] ServicesEbfupu9626 [facility] [id number] Microalb/Creat Ratio <4.6 {mg/g_creat} Range: 0.0-30.0 (Normal) Microalbumin, Urine <3.0 ug/mL (Normal) Creatinine, Urine 65.1 mg/dL (Normal) 25-Feb-2017 TSH 2.640 {uIU/mL} Comments: PATIENT WAS FASTINGPERFORMED BY: [facility] ServicesHhkewt0341 [facility] [id number] 8:23 (Normal) Range: 0.450-4.500 03-Jzj-11822:23 Urinalysis, Routine Comments: PATIENT WAS FASTINGPERFORMED BY: [facility] CenterOrekmb1147 [facility] [id number] Microscopic Examination MICNIP (Normal) Comments: Microscopic not indicated and not performed. Nitrite, Urine Negative (Normal) Urobilinogen,Semi-Qn 0.2 mg/dL (Normal) Range: 0.2-1.0 Bilirubin Negative (Normal) Occult Blood Negative (Normal) Ketones Negative (Normal) Glucose Negative (Normal) Protein Negative (Normal) WBC Esterase Negative (Normal) Appearance Clear (Normal) Urine-Color Yellow (Normal) pH 6.0 (Normal) Range: 5.0-7.5 Specific Hunter 1.014 (Normal) Range: 1.005-1.030 :18 CBC, Platelets & Auto Diff Comments: Feb 2017; PATIENT WAS FASTINGPERFORMED BY: [facility] CenterYvcraf5554 [facility] [id number] (71488) Immature Grans (Abs) 0.0 {x10E3/uL} (Normal) Range: [...] 3.77-5.28 WBC 7.5 {x10E3/uL} (Normal) Range: 3.4-10.8 50-Yvx-22488:18 TSH (91286) Comments: Feb 2017; PATIENT WAS FASTINGPERFORMED BY: [facility] Eproyl6314 [facility] [id number] TSH 3.140 {uIU/mL} (Normal) Range: 0.450-4.500 30-Inc-94235:18 MICROALBUMIN: CREATININE RATIO Comments: Feb 2017; PATIENT WAS FASTINGPERFORMED BY: [facility] Jbrzbu4107 [facility] [id number] (76593) AND (80430) Microalb/Creat Ratio <3.7 {mg/g_creat} (Normal) Range: 0.0-30.0 Microalbumin, Urine <3.0 ug/mL (Normal) Creatinine, Urine 80.5 mg/dL (Normal) :18 URINALYSIS (97073) Comments: Feb 2017; PATIENT WAS FASTINGPERFORMED BY: [facility]6370 [facility] [id number] Microscopic Examination MICNIP (Normal) Comments: Microscopic not indicated and not performed. Nitrite, Urine Negative (Normal) Urobilinogen,Semi-Qn 0.2 mg/dL (Normal) Range: 0.2-1.0 Bilirubin Negative (Normal) Occult Blood Negative (Normal) Ketones Negative (Normal) Glucose Negative (Normal) Protein Negative (Normal) WBC Esterase Negative (Normal) Appearance Clear (Normal) Urine-Color Yellow (Normal) pH 6.0 (Normal) Range: 5.0-7.5 Specific Hunter 1.013 (Normal) Range: 1.005-1.030 :18 Metabolic Panel, Comprehensive Comments: Feb 2017; PATIENT WAS FASTINGPERFORMED BY: ClassDojo6370 [facility] [id number] (85925) ALT (SGPT) 30 [iU]/L (Normal) Range: 0-32 [...] mg/dL (Abnormal) Range: 65-99 :18 LIPID PANEL (52382) Comments: Week of Sep 03 fasting; PATIENT WAS FASTINGPERFORMED BY: [employer]70 [facility] [id number] LDL/HDL Ratio 2.3 {ratio_units} (Normal) Range: 0.0-3.2 [...] Range: 100-199 :41 Blood Glucose , Office (18241) Comments: 190 Blood Glucose , Office 190 (Normal) Comments: ate breakfast :41 HgA1C , Office (01937) Comments: 6.5 HgA1C , Office 6.5 % (Normal) Range: 4.6 - 7.1 :26 METABOLIC PANEL, COMPREHENSIVE Comments: PATIENT WAS FASTINGPERFORMED BY: [facility]jo6370 [facility] [id number] (66128) ALT (SGPT) 22 [iU]/L (Normal) Range: 0-32 [...] (Abnormal) Range: 65-99 :19 HgA1C , Office (70342) HgA1C , Office 6.5 % (Normal) Range: 4.6 - 7.1 :19 Blood Glucose , Office (77942) Blood Glucose , Office 146 (Normal) 32-Pix-491834:31 URINE TRELL CULTURE-MITCH COL Comments: PATIENT NOT FASTINGPERFORMED BY: [facility] DisplayPsychiatric hospital [id number] Information: SRC:UC COUNT (12295) Result 1 MUG (Normal) Comments: Mixed urogenital flora10,000-25,000 colony forming units per mL Urine Final report (Normal) Culture,Comprehensive :05 Microscopic Examination Comments: PATIENT WAS FASTINGPERFORMED BY: [facility]Psych[facility] hospital [id number] Bacteria Few (Normal) Mucus Threads Present (Normal) Epithelial Cells (non renal) 0-10 {/hpf} (Normal) Range: 0 - 10 RBC None seen {/hpf} (Normal) Range: 0 - 2 WBC 0-5 {/hpf} (Normal) Range: 0 - 5 :05 URINALYSIS, W/ MICRO (17207) Comments: PATIENT WAS FASTINGPERFORMED BY: [employer] Rlpbqh1255 [facility] [id number] Microscopic Examination See below: (Normal) Comments: Microscopic was indicated and was performed. Nitrite, Urine Negative (Normal) Urobilinogen,Semi-Qn 0.2 mg/dL (Normal) Range: 0.2-1.0 Bilirubin Negative (Normal) Occult Blood Negative (Normal) Ketones Negative (Normal) Glucose Negative (Normal) Protein Negative (Normal) WBC Esterase Trace (Abnormal) Appearance Clear (Normal) Urine-Color Yellow (Normal) pH 6.5 (Normal) Range: 5.0-7.5 Specific Hunter 1.012 (Normal) Range: 1.005-1.030 :05 MICROALBUMIN: CREATININE RATIO Comments: PATIENT WAS FASTINGPERFORMED BY: [employer] Fvilqg9285 [facility] [id number] (33077) AND (46679) Microalb/Creat Ratio <4.6 {mg/g_creat} (Normal) Range: 0.0-30.0 Microalbumin, Urine <3.0 ug/mL (Normal) Creatinine, Urine 65.7 mg/dL (Normal) :05 METABOLIC PANEL, COMPREHENSIVE Comments: PATIENT WAS FASTINGPERFORMED BY: [facility]Ham[facility] CenterUpcrlq2287 [facility] [id number] (45778) ALT (SGPT) 21 [iU]/L (Normal) Range: 0-32 [...] mg/dL (Abnormal) Range: 65-99 :05 LIPID PANEL (98778) Comments: PATIENT WAS FASTINGPERFORMED BY: [facility]Psych[facility] [id number] LDL/HDL Ratio 2.3 {ratio_units} (Normal) Range: 0.0-3.2 [...] Range: 100-199 :05 CBC with auto diff (78292) Comments: PATIENT WAS FASTINGPERFORMED BY: BeMyGuest70 [facility] [id number] Immature Grans (Abs) 0.0 {x10E3/uL} (Normal) Range: [...] (Normal) Range: 3.4-10.8 :24 HgA1C , Office (69254) HgA1C , Office 6.5 % (Normal) Range: 4.6 - 7.1 :07 Microscopic Examination Comments: PATIENT WAS FASTINGPERFORMED BY: BeMyGuest70 [facility] [id number] Bacteria Few (Normal) Mucus Threads Present (Normal) Epithelial Cells (non renal) 0-10 {/hpf} (Normal) Range: 0 - 10 RBC None seen {/hpf} (Normal) Range: 0 - 2 WBC 0-5 {/hpf} (Normal) Range: 0 - 5 :07 URINALYSIS, W/ MICRO (18377) Comments: PATIENT WAS FASTINGPERFORMED BY: BeMyGuest[address] [place] [facility] [id number] Microscopic Examination See below: (Normal) Comments: Microscopic was indicated and was performed. Microscopic Examination MICRON (Normal) Comments: Microscopic follows if indicated. Nitrite, Urine Negative (Normal) Urobilinogen,Semi-Qn 0.2 mg/dL (Normal) Range: 0.2-1.0 Bilirubin Negative (Normal) Occult Blood Negative (Normal) Ketones Negative (Normal) Glucose Negative (Normal) Protein Negative (Normal) WBC Esterase Negative (Normal) Appearance Clear (Normal) Urine-Color Yellow (Normal) pH 6.5 (Normal) Range: 5.0-7.5 Specific Hunter 1.013 (Normal) Range: 1.005-1.030 :07 METABOLIC PANEL, COMPREHENSIVE Comments: PATIENT WAS FASTINGPERFORMED BY: [facility] Snkvtg8908 [facility] [id number] (93900) ALT (SGPT) 22 [iU]/L (Normal) Range: 0-32 [...] mg/dL (Abnormal) Range: 65-99 :07 LIPID PANEL (90852) Comments: PATIENT WAS FASTINGPERFORMED BY: [facility] CenterNqcuuc9424 [facility] [id number] LDL/HDL Ratio 2.2 {ratio_units} (Normal) Range: 0.0-3.2 [...] auto diff Comments: PATIENT WAS FASTINGPERFORMED BY: LabCoHam[facility] Health CenterStkgiy6973 [facility] [id number] Information: [id number],B51963; [address] (56783) Immature Grans (Abs) 0.0 {x10E3/uL} (Normal) Range: [...] (Normal) Range: 3.4-10.8 :15 HgA1C , Office (48313) HgA1C , Office 6.6 % (Normal) Range: 4.6 - 7.1 :08 CBC W/Diff, Automated Comments: [facility] [address] [place], [address] ; ov 11--15 Absolute Lymph 1.51 {X10_3/ul} (Normal) Range: 0.83-4.51 [...] Range: 4.4-11.0 17-Jan-20158:08 Comprehensive Metabolic Profil Comments: [facility] Arlqbbpllm[address] [place], [place], [address] GAP 7 (Normal) Range: 5-15 CO2 29.0 [...] per A.D.A. criteria. :08 Lipid Profile Comments: [facility] [address]mb[address] [place], [place], [id number] VLDL 49 mg/dL (Abnormal) Range: 5-40 LDL [...] Complete Comments: How was Urine Obtained? Urine, [facility] Lbvvfxkeax8863 [facility] [place]. [place], [place], [id number] MUCUS, URINE 0 SEEN {/hpf} (Normal) BACTERIA [...] Yellow (Normal) :08 Vitamin D,25 Hydroxy Comments: [facility] Vhfaunevcb[address] [place], [place], [id number] Vitamin D 25-OH 33.4 ng/mL (Normal) Comments: Vitamin D 25(OH) Status Range Deficiency <20 ng/mL (50nmol/L) Insuffciency 20 - 30 ng/mL (50 - 75 nmol/L) Sufficiency 30 - 100 ng/mL (75 - 250 nmol/L) Toxicity >100 ng/mL (>250 nmol/L) :31 HgA1C , Office (85664) HgA1C , Office 6.8 % (Normal) Range: 4.6 - 7.1 :37 Comprehensive Metabolic Profil Comments: Test performed at:[facility] [address]weexdlk[address] [place] [address] GAP 7 (Normal) Range: 5-15 CO2 29.0 [...] criteria. :37 Lipid Profile Comments: Test performed at:[facility] [address]keold[address] [place] [address] 643641 VLDL 51 mg/dL (Abnormal) Range: 5-40 LDL [...] :37 Microalb:Creat Ratio,Random UR Comments: Test performed at:[facility] [address] [place] [address] [id number] MALB:CREAT Test not performed {mg/g_CRE} (Normal) MICROALBUMIN,UR < 5.0 mg/L (Normal) UR CREAT 86.0 mg/dL (Normal) :04 HgA1C , Office (80599) HgA1C , Office 6.8 % (Normal) Range: 4.6 - 7.1 :04 Blood Glucose , Office (19460) Blood Glucose , Office 141 (Normal) :07 METABOLIC PANEL, Comments: PATIENT WAS FASTINGPERFORMED BY: [facility]CoHam[facility] CenterFrtgab4444 [facility] [id number] Information: [id number] COMPREHENSIVE (14752) ALT (SGPT) 21 [iU]/L (Normal) Range: 0-32 [...] Glucose, Serum 142 mg/dL (Abnormal) Range: 65-99 88-Ked-08614:07 LIPID PANEL (32749) Comments: PATIENT WAS FASTINGPERFORMED BY: [facility]CoHam[facility] CenterVoqmuc7807 [facility] [id number] LDL/HDL Ratio 2.6 {ratio_units} (Normal) Range: 0.0-3.2 [...] Cholesterol, Total 218 mg/dL (Abnormal) Range: 100-199 79-Lcg-395645:32 Blood Glucose , Office (20511) Blood Glucose , Office 124 (Normal) :32 HgA1C , Office (52516) HgA1C , Office 7.0 % (Normal) Range: 4.6 - 7.1 :37 MICROALBUMIN: CREATININE RATIO Comments: PATIENT WAS FASTINGPERFORMED BY: SqordHam[facility]al Health CenterNjvjnm3683 [facility] [id number] (63835) AND (38723) Microalb/Creat Ratio 3.0 {mg/g_creat} (Normal) Range: 0.0-30.0 Creatinine, Urine 66.1 mg/dL (Normal) Range: 15.0-278.0 Microalbumin, Urine 2.0 ug/mL (Normal) Range: 0.0-17.0 :37 METABOLIC PANEL, COMPREHENSIVE Comments: PATIENT WAS FASTINGPERFORMED BY: [facility]Ham[facility] CenterCjwkuv1847 [facility] [id number] (94586) ALT (SGPT) 18 [iU]/L (Normal) Range: 0-32 [...] mg/dL (Abnormal) Range: 65-99 :37 LIPID PANEL (65819) Comments: PATIENT WAS FASTINGPERFORMED BY: Sqord Oatppy6760 [facility] [id number] LDL/HDL Ratio 2.5 {ratio_units} (Normal) Range: 0.0-3.2 [...] MANUAL DIFF Comments: PATIENT WAS FASTINGPERFORMED BY: LabInteractivo6370 [facility] [id number] Information: [id number] (09612) Immature Grans (Abs) 0.0 {x10E3/uL} (Normal) Range: [...] Range: 3.4-10.8 :43 Blood Glucose , Office (48586) Blood Glucose , Office 128 (Normal) :43 HgA1C , Office (70330) HgA1C , Office 6.8 % (Normal) Range: 4.6 - 7.1 :23 CBC, PLATELETS & MANUAL Comments: PATIENT WAS FASTINGPERFORMED BY: [facility]Co[facility] CenterMmmwun0789 [facility] [id number] Information: [id number] DIFF (22631) Immature Grans (Abs) 0.0 {x10E3/uL} (Normal) Range: [...] 3.77-5.28 WBC 3.8 {x10E3/uL} (Normal) Range: 3.4-10.8 0-Itl-985078:23 METABOLIC PANEL, COMPREHENSIVE Comments: PATIENT WAS FASTINGPERFORMED BY: [facility]6370 [facility] [id number] (94861) ALT (SGPT) 17 [iU]/L (Normal) Range: 0-32 [...] mg/dL (Abnormal) Range: 65-99 :23 LIPID PANEL (16918) Comments: PATIENT WAS FASTINGPERFORMED BY: [facility]Co[facility] CenterCfaaan1565 [facility] [id number] LDL/HDL Ratio 2.7 {ratio_units} (Normal) Range: 0.0-3.2 LDL Cholesterol Calc 120 mg/dL (Abnormal) Range: 0-99 HDL Cholesterol 44 mg/dL (Normal) Comments: According to ATP-III Guidelines, HDL-C >59 mg/dL is considered anegative risk factor for CHD. VLDL Cholesterol Andres 44 mg/dL (Abnormal) Range: 5-40 Cholesterol, Total 208 mg/dL (Abnormal) Range: 100-199 Triglycerides 221 mg/dL (Abnormal) Range: 0-149 :11 Blood Glucose , Office (44994) Blood Glucose , Office 122 (Normal) :11 HgA1C , Office (90506) HgA1C , Office 6.5 % (Normal) Range: 4.6 - 7.1 :59 Hemoglobin Glyclated (HGB Comments: today only; PATIENT NOT FASTINGPERFORMED BY: LogisticareHampton Behavioral Health CenterLdxdda1021 [facility] [id number] Information: ADD [id number] AND DRAW FEE 99 0300 A1C) (92675) Hemoglobin A1c 6.4 % (Abnormal) Range: 4.8-5.6 Comments: . Increased risk for diabetes: 5.7 - 6.4 Diabetes: >6.4 Glycemic control for adults with diabetes: <7.0 22-Sep-20129:33 METABOLIC PANEL, COMPREHENSIVE Comments: PATIENT WAS FASTINGPERFORMED BY: LeanWagon6[address] [place] Kicknote.comDavis [facility] [id number] (56536) ALT (SGPT) 18 [iU]/L (Normal) Range: 0-32 [...] mg/dL (Abnormal) Range: 65-99 :33 LIPID PANEL (28946) Comments: PATIENT WAS FASTINGPERFORMED BY: BeMyGuest70 [facility] [id number] LDL/HDL Ratio 2.6 {ratio_units} (Normal) Range: 0.0-3.2 [...] MANUAL DIFF Comments: PATIENT WAS FASTINGPERFORMED BY: ClassDojo6370 [facility] [id number] Information: [id number] (48688) Immature Grans (Abs) 0.0 {x10E3/uL} (Normal) Range: [...] Function Panel Comments: PERFORMED BY: CB [facility] Zuyblf3418 [facility] [id number] BY: TG [facility] EAF5881 [facility] [id number] (7) ALT (SGPT) 30 [iU]/L (Normal) Range: 0-32 AST (SGOT) 27 [iU]/L (Normal) Range: 0-40 Alkaline Phosphatase, S 96 [iU]/L (Normal) Range: 25-165 Bilirubin, Direct 0.21 mg/dL (Normal) Range: 0.00-0.40 Bilirubin, Total 0.6 mg/dL (Normal) Range: 0.0-1.2 Albumin, Serum 4.4 g/dL (Normal) Range: 3.5-4.8 Protein, Total, Serum 7.0 g/dL (Normal) Range: 6.0-8.5 21-Mar-20129:59 Hered.Hemochromatosis, DNA Comments: PERFORMED BY: BRANDO [facility] Mcxoib6966 [address] [place] [id number] BY: ISABEL [facility] OQX0380 [address]avier DriveRTP [place] [id number] Hereditary Hemochromatosis 63HOM1 (Normal) Comments: Result: H63D/U76HJfl copies of the same mutation (H63D and [...] et al. (1999). AM J Prev Med 16:134-140.Bomachelle A (2002). Lancet 360(0082):1 673-81.Dalia Coffey al. (2002). Blood Cells, Molecules. andDiseases. 293):418- 432.Parveen Stallings et al. (2003). Gisel Med. 5(1):1-8.Haylie LINDSEY et al. (2003). Gisel Med. 5(4):304-10.Genetic counselors are available for health care providers to discussresults at [phone]. . Navid Gramajo, Ph.D. Anisha Driver, Ph.D. Linda Henry, Ph.D. Shahrzad Flores, Ph.D. Lorelei Garcia, Ph.D. Elsa Gastelum, Ph.D. S. Kamaljit Vogt, Ph.D. 80-Hyp-22880:00 LIVER Radiology Report See Note (Normal) Comments: [...] size of the right kidney. The right pqdbdrzsqxbuka20.1 cm. Normal renal cortex. The right cortex measures 1.5 cm. Thereisno demonstrated renal mass or cyst. There is no right hydronephrosis. IMPRESSION:Normal right upper quadrant ultrasound examination.The patient is status post cholecystectomy. Signed:Scotty Tinoco M.D.March 06, 2012 at 12:32:06 PM [phone] Signed GP/GP If you are the referring physician and would like to consult with theradiologist who provided this interpretation, please contact Jerri Hernandez at [phone]. If this radiologist is unavailable, youwill be directed to another radiologist to assist. If you are a patient with a question regarding this report, pleasecontactyour referring physician directly. Professional Interpretation Provided By: [employer], Phone , These documents contain legally protected [...] Scotty Tinoco MD :46 HgA1C , Office (20683) HgA1C , Office 6.6 % (Normal) Range: 4.6 - 7.1 :46 Blood Glucose , Office (32232) Blood Glucose , Office 143 (Normal) :47 HEPATITIS PANEL (34062) Comments: PATIENT NOT FASTINGPERFORMED BY: [employer] Zlmuti0470 [facility] [id number] Information: [id number] Hep C Virus Ab <0.1 {s/co_ratio} Range: [...] ng/mL (Abnormal) Comments: PATIENT WAS FASTINGPERFORMED BY: [employer] Fyqumx5949 [facility] [id number] Information: [id number],[id number] :12 Range: 13-150 Written Authorization WAR (Normal) Comments: PATIENT WAS FASTINGPERFORMED BY: [facility]6370 [address] HernándezEcu Health Beaufort Hospitaljulianna [place] [id number] :12 Comments: Written Authorization Received.Authorization received from DR DELGADO [id number] by Ya Arnett 21-Jan-20129:23 BILAT SCRN DIGITAL [...] Tinoco M.D.January 21, 2012 at 9:56:18 AM [phone] Signed GP/GP If you are the referring physician and would like to consult with theradiologist who provided this interpretation, please contact Jerri Hernandez at [phone]. If this radiologist is unavailable, youwill be directed to another radiologist to assist. If you are a patient with a question regarding this report, pleasecontactyour referring physician directly. Professional Interpretation Provided By: [employer], Phone , These doc uments contain legally [...] Comments: PATIENT WAS FASTINGPERFORMED BY: [facility]6370 [facility] [id number] Information: [id number] Comprehensive (72629) ALT (SGPT) 58 [iU]/L (Abnormal) Range: 0-32 [...] mg/dL (Abnormal) Range: 65-99 :12 Lipid Panel (93443) Comments: PATIENT WAS FASTINGPERFORMED BY: SqordHampton Behavioral Health CenterZmojdf0902 [facility] [id number] LDL/HDL Ratio 2.2 {ratio_units} (Normal) Range: 0.0-3.2 LDL Cholesterol Calc 106 mg/dL (Abnormal) Range: 0-99 VLDL Cholesterol Andres 50 mg/dL (Abnormal) Range: 5-40 HDL Cholesterol 48 mg/dL (Normal) Comments: According to ATP-III Guidelines, HDL-C >59 mg/dL is considered anegative risk factor for CHD. Triglycerides 252 mg/dL (Abnormal) Range: 0-149 Cholesterol, Total 204 mg/dL (Abnormal) Range: 100-199 83-Zfj-245905:25 HgA1C , Office (74992) HgA1C , Office 6.1 % (Normal) Range: 4.6 - 7.1 :25 Blood Glucose , Office (07597) Blood Glucose , Office 126 (Normal) :31 LIPID PANEL (85698) Comments: PATIENT WAS FASTINGPERFORMED BY: SqordPeak Behavioral Health ServicesCdihqn9020 [facility] [id number] LDL/HDL Ratio 2.3 {ratio_units} (Normal) Range: 0.0-3.2 [...] FUNCTION PANEL Comments: PATIENT WAS FASTINGPERFORMED BY: [facility] SystemEdutorHampton Behavioral Health CenterDwtrlm5402 [facility] [id number] Information: [id number] (42103) ALT (SGPT) 35 [iU]/L (Normal) Range: 0-40 AST (SGOT) 28 [iU]/L (Normal) Range: 0-40 Alkaline Phosphatase, S 99 [iU]/L (Normal) Range: 25-165 Bilirubin, Direct 0.15 mg/dL (Normal) Range: 0.00-0.40 Bilirubin, Total 0.6 mg/dL (Normal) Range: 0.0-1.2 Albumin, Serum 4.3 g/dL (Normal) Range: 3.5-4.8 Protein, Total, Serum 6.8 g/dL (Normal) Range: 6.0-8.5 :40 HgA1C , Office (46193) HgA1C , Office 6.3 % (Normal) Range: 4.6 - 7.1 :40 Blood Glucose , Office (45922) Blood Glucose , Office 142 (Normal) :22 CBC, PLATELETS & AUT DIFF Comments: PATIENT WAS FASTINGPERFORMED BY: LabCoHam[facility]al Health CenterHzantu7603 [facility] [id number] Information: [id number] (19060) Immature Grans (Abs) 0.0 {x10E3/uL} (Normal) Range: [...] PANEL, COMPREHENSIVE Comments: PATIENT WAS FASTINGPERFORMED BY: [facility]CoHam[facility]al Health CenterDqwmpc5099 [facility] [id number] (92286) ALT (SGPT) 19 [iU]/L (Normal) Range: 0-40 [...] mg/dL (Abnormal) Range: 65-99 :22 LIPID PANEL (16378) Comments: PATIENT WAS FASTINGPERFORMED BY: SqordHampton Behavioral Health CenterMizwed4006 [facility] [id number] LDL/HDL Ratio 2.6 {ratio_units} (Normal) Range: 0.0-3.2 [...] CREATININE RATIO Comments: PATIENT WAS FASTINGPERFORMED BY: LabEdutorHampton Behavioral Health CenterIzphkf5519 [facility] [id number] (97603) AND (76942) Microalb/Creat Ratio 5.8 {mg/g_creat} (Normal) Range: 0.0-30.0 Microalbumin, Urine 3.9 ug/mL (Normal) Range: 0.0-17.0 Creatinine, Urine 66.7 mg/dL (Normal) Range: 15.0-278.0 :39 HgA1C , Office (99444) HgA1C , Office 6.5 % (Normal) Range: 4.6 - 7.1 :39 Blood Glucose , Office (71916) Blood Glucose , Office 137 (Normal) :31 [...] Osteoporosis Foundation [email or web address] Dictated on 01/18/11 0926 [address] [place] MDranscribed on 01/18/111333 by ITS IMPORTSign by Scotty Tinoco MD on 01/18/111333 Sign by: Scotty Tinoco MD 39-Ssy-56167:03 CBC WITH MANUAL DIFF Comments: PATIENT WAS FASTINGPERFORMED BY: LabHenry [facility] Hospital6370 [facility] [id number] Information: [id number] (68926) Immature Grans (Abs) 0.0 {x10E3/uL} (Normal) Range: [...] {x10E3/uL} (Normal) Range: 4.0-10.5 :03 LIPID PANEL (68454) Comments: PATIENT WAS FASTINGPERFORMED BY: [employer] [facility] RegionCuffed and WantedPsychiatric hospital [id number] LDL Cholesterol Calc 106 mg/dL (Abnormal) Range: [...] PANEL, COMPREHENSIVE Comments: PATIENT WAS FASTINGPERFORMED BY: [facility]AngelDavis [facility] Center [id number] (23405) ALT (SGPT) 23 [iU]/L (Normal) Range: 0-40 [...] Glucose, Serum 123 mg/dL (Abnormal) Range: 65-99 70-Nzv-22984:03 MICROALBUMIN: CREATININE RATIO Comments: PATIENT WAS FASTINGPERFORMED BY: LabCoHam[facility] Behavioral Health CenterMaurga2267 [facility] [id number] (10457) AND (67369) Microalb/Creat Ratio 2.7 {mg/g_creat} (Normal) Range: 0.0-30.0 Microalbumin, Urine 2.0 ug/mL (Normal) Range: 0.0-17.0 Creatinine, Urine 74.8 mg/dL (Normal) Range: 15.0-278.0 06-Kfl-520124:10 URINE TRELL CULTURE (MITCH Comments: PATIENT NOT FASTINGPERFORMED BY: [employer] [facility] Tibxso3235 [place] Kicknote.comDavis Regional Medical Center [id number] Information: SRC:UR [id number] COL COUNT) (82194) Result 1 NG36 (Normal) Comments: No growth in 36 - 48 hours. Urine Culture,Comprehensive Final report (Normal) 2-Gbi-683328:30 URINE TRELL CULTURE-MITCH COL Comments: PATIENT NOT FASTINGPERFORMED BY: CB [facility] Welqtw9414 [facility] [id number] Information: SRC:UR ADD [id number] AND DRAW FEE [id number] COUNT (72741) Antimicrobial MIHEAD (Normal) Comments: S = Susceptible; [...] primarily for treating urinary tract infections. (CLSI, J023-R45,2009) Urine Culture,Comprehensive Final report (Normal) 17-Oct-20109:09 Urinalysis, Office (11224) UA - BILIRUBIN Negative (Normal) UA - BLOOD Negative (Normal) UA - GLUCOSE Negative (Normal) UA - KETONES Negative mg/dL (Normal) UA - LEUKOCYTE ESTERASE Large (Normal) UA - NITRITE Negative (Normal) UA - PH 7.5 (Normal) UA - PROTEIN Negative mg/dL (Normal) UA - SPECIFIC GRAVITY 1.020 (Normal) URINE UROBILINGN MITCH TIMED Normal mg/dL (Normal) 3-Opq-351176:16 HgA1C , Office (79536) HgA1C , Office 6.4 % (Normal) Range: 4.6 - 7.1 0-Xjn-190131:16 Blood Glucose , Office (83671) Blood Glucose , Office 142 (Normal) 3-Nfe-948392:11 Urinalysis, Office (96953) UA - LEUKOCYTE ESTERASE Negative (Normal) UA - NITRITE Negative (Normal) URINE UROBILINGN MITCH TIMED Normal mg/dL (Normal) UA - PROTEIN Negative mg/dL (Normal) UA - BLOOD Negative (Normal) UA - SPECIFIC GRAVITY 1.020 (Normal) UA - KETONES Negative mg/dL (Normal) UA - BILIRUBIN Negative (Normal) UA - GLUCOSE Negative (Normal) 3-Fbv-452650:00 UNILAT RT DIAG DIGITAL & CAD Radiology [...] usabnormality. Dictated on 07/17/10 1206 by Earnest JONES,EnriquerieleTranscribed on 07/17/10 1348 by ITS IMPORTSign by Earnest JONES,Scotty on 07/17/10 1349 Sign by: Scotty Tinoco MD :04 LIPID PANEL (44805) Comments: PATIENT WAS FASTINGPERFORMED BY: LabCo Ljfdpv8642 [facility] [id number] LDL Cholesterol Calc 108 mg/dL (Abnormal) Range: [...] CREATININE RATIO Comments: PATIENT WAS FASTINGPERFORMED BY: Sqord Hirvhw8466 [facility] [id number] (09332) AND (77411) Microalb/Creat Ratio 4.7 {mg/g_creat} (Normal) Range: 0.0-30.0 Creatinine, Urine 94.1 mg/dL (Normal) Range: 15.0-278.0 Microalbumin, Urine 4.4 ug/mL (Normal) Range: 0.0-17.0 :04 CBC WITH MANUAL DIFF Comments: PATIENT WAS FASTINGPERFORMED BY: [facility] SystemEdutorHampton Behavioral Health CenterQigtni7725 [facility] [id number] Information: [id number] (13728) Baso (Absolute) 0.0 {x10E3/uL} (Normal) Range: 0.0-0.2 [...] 3.80-5.10 WBC 6.4 {x10E3/uL} (Normal) Range: 4.0-10.5 65-Qru-88075:04 METABOLIC PANEL, COMPREHENSIVE Comments: PATIENT WAS FASTINGPERFORMED BY: [facility] Prrroz5484 [facility] [id number]; appt 07/20/10 (37811) ALT (SGPT) 26 [iU]/L (Normal) Range: 0-40 [...] Glucose, Serum 115 mg/dL (Abnormal) Range: 65-99 56-Fdw-665306:39 URINE TRELL CULTURE-MITCH COL Comments: PATIENT NOT FASTINGPERFORMED BY: [facility] Qolbmi8282 [facility] [id number] Information: SRC:UR [id number] COUNT (17749) Antimicrobial MIHEAD (Normal) Comments: S = Susceptible; [...] mL (Normal) Urine Final report (Normal) Culture,Comprehensive 97-Zwp-807495:56 Urinalysis, Office (86914) UA - BILIRUBIN Negative (Normal) UA - BLOOD Negative (Normal) UA - GLUCOSE Negative (Normal) UA - KETONES Negative mg/dL (Normal) UA - LEUKOCYTE ESTERASE Large (Normal) UA - NITRITE Negative (Normal) UA - PH 8.0 (Normal) UA - PROTEIN Negative mg/dL (Normal) UA - SPECIFIC GRAVITY 1.015 (Normal) URINE UROBILINGN MITCH TIMED Normal mg/dL (Normal) :39 HgA1C , Office (00171) HgA1C , Office 6.2 % (Normal) Range: 4.6 - 7.1 :39 Blood Glucose , Office (20188) Blood Glucose , Office 101 (Normal) :59 BREAST UNILATERAL Radiology Report See Note (Normal) Comments: Exam Number: [id number] LINICAL:The patient is a 74-year-old female with [...] Report See Note (Normal) Comments: Exam Number: [id number] AMMOGRAPHY - UNILATERAL DIAGNOSTIC: RIGHT BREAST INDICATION:Abnormal [...] attaching a ResultCode to this exam. ADDENDUM: [id number] HPBI/MUDDR Reported By: ROXANE COLBY M.D. 6-Cyx-800887:26 [facility] DIGITAL & CAD Radiology Report See Note (Normal) Comments: Exam Number: [id number] AMMOGRAPHY - BILATERAL SCREENING INDICATION:Routine annual screening [...] a ResultCode to this exam. ADD ENDUM: [id number] HPBI/MDS Reported By: ROXANE COLBY M.D. :13 HEPATIC FUNCTION PANEL Comments: PATIENT WAS FASTINGPERFORMED BY: SqordHampton Behavioral Health CenterFuckke7593 [facility] [id number] Information: [id number] (96908) ALT (SGPT) 25 [iU]/L (Normal) Range: 0-40 Alkaline Phosphatase, S 110 [iU]/L (Normal) Range: 25-165 AST (SGOT) 23 [iU]/L (Normal) Range: 0-40 Bilirubin, Direct 0.12 mg/dL (Normal) Range: 0.00-0.40 Albumin, Serum 4.5 g/dL (Normal) Range: 3.5-4.8 Bilirubin, Total 0.5 mg/dL (Normal) Range: 0.0-1.2 Protein, Total, Serum 7.6 g/dL (Normal) Range: 6.0-8.5 :13 LIPID PANEL (68204) Comments: PATIENT WAS FASTINGPERFORMED BY: Sqord Ryneip4924 [facility] [id number] LDL Cholesterol Calc 128 mg/dL (Abnormal) Range: 0-99 LDL/HDL Ratio 2.7 {ratio_units} (Normal) Range: 0.0-3.2 VLDL Cholesterol Andres 65 mg/dL (Abnormal) Range: 5-40 HDL Cholesterol 48 mg/dL (Normal) Comments: According to ATP-III Guidelines, HDL-C >59 mg/dL is considered anegative risk factor for CHD. Cholesterol, Total 241 mg/dL (Abnormal) Range: 100-199 Triglycerides 327 mg/dL (Abnormal) Range: 0-149 17-Dde-960554:16 HgA1C , Office (75574) HgA1C , Office 6.3 % (Normal) Range: 4.6 - 7.1 31-Mds-161513:16 Blood Glucose , Office (34091) Blood Glucose , Office 115 (Normal) :30 MICROALBUMIN: CREATININE RATIO Comments: PATIENT WAS FASTINGPERFORMED BY: SqordHampton Behavioral Health CenterXzjjou7169 [facility] [id number] (77477) AND (38340) Creatinine, Urine 64.8 mg/dL (Normal) Range: 15.0-278.0 Microalb/Creat Ratio 4.0 {mg/g_creat} (Normal) Range: 0.0-30.0 Microalbumin, Urine 2.6 ug/mL (Normal) Range: 0.0-17.0 :30 METABOLIC PANEL, COMPREHENSIVE Comments: PATIENT WAS FASTINGPERFORMED BY: LeanWagon6370 [facility] [id number] (45549) Alkaline Phosphatase, S 104 [iU]/L (Normal) Range: [...] mg/dL (Abnormal) Range: 65-99 :30 LIPID PANEL (32584) Comments: PATIENT WAS FASTINGPERFORMED BY: BeMyGuest70 [facility] [id number] HDL Cholesterol 49 mg/dL (Normal) Comments: According [...] MANUAL DIFF Comments: PATIENT WAS FASTINGPERFORMED BY: ClassDojo6370 [facility] [id number] Information: [id number] (45834) Immature Grans (Abs) 0.0 {x10E3/uL} (Normal) Range: [...] (Normal) Range: 4.0-10.5 :18 HgA1C , Office (15096) HgA1C , Office 6.7 % (Normal) Range: 4.6 - 7.1 :18 Blood Glucose , Office (77705) Blood Glucose , Office 154 (Normal) :06 LIPID PANEL (35173) Comments: PATIENT WAS FASTINGPERFORMED BY: [employer] [facility] [id number] LDL Cholesterol Calc 122 mg/dL (Abnormal) Range: [...] three months (approximately); PATIENT WAS FASTINGPERFORMED BY: [employer] [facility] [id number] Information: [id number] (25364) ALT (SGPT) 16 [iU]/L (Normal) Range: 0-40 Alkaline Phosphatase, S 104 [iU]/L (Normal) Range: 25-165 AST (SGOT) 18 [iU]/L (Normal) Range: 0-40 Albumin, Serum 4.3 g/dL (Normal) Range: 3.5-4.8 Bilirubin, Direct 0.14 mg/dL (Normal) Range: 0.00-0.40 Bilirubin, Total 0.5 mg/dL (Normal) Range: 0.0-1.2 Protein, Total, Serum 7.1 g/dL (Normal) Range: 6.0-8.5 82-Oyz-738725:00 HgA1C , Office (51861) HgA1C , Office 6.2 % (Normal) Range: 4.6 - 7.1 78-Jul-917860:00 Blood Glucose , Office (77683) Blood Glucose , Office 158 (Normal) 05-Qxy-89376:50 CBC With Differential/Platelet Comments: PATIENT WAS FASTINGPERFORMED BY: LabCoHampton Behavioral Health CenterWtujwr5092 [facility] [id number] Baso (Absolute) 0.0 {x10E3/uL} (Normal) Range: 0.0-0.2 [...] 3.80-5.10 WBC 5.8 {x10E3/uL} (Normal) Range: 4.0-10.5 68-Qgo-03654:50 Comp. Metabolic Panel (14) Comments: PATIENT WAS FASTINGPERFORMED BY: [facility] Zgpssa2042 [facility] [id number] ALT (SGPT) 24 [iU]/L (Normal) Range: 0-40 [...] Glucose, Serum 130 mg/dL (Abnormal) Range: 65-99 18-Vpq-59560:50 Lipid Panel With LDL/HDL Comments: PATIENT WAS FASTINGPERFORMED BY: BeMyGuest70 [facility] [id number] Ratio LDL Cholesterol Calc 170 mg/dL (Abnormal) [...] Randm Ur Comments: PATIENT WAS FASTINGPERFORMED BY: ClassDojo6370 [facility] [id number] Microalb/Creat Ratio 4.4 {mg/g_creat} (Normal) Range: 0.0-30.0 Creatinine, Urine 105.7 mg/dL (Normal) Range: 15.0-278.0 Microalbumin, Urine 4.7 ug/mL (Normal) Range: 0.0-17.0 75-Asj-634502:03 URINE TRELL CULTURE-IDENTIFICATN Comments: PATIENT NOT FASTINGPERFORMED BY: BeMyGuest70 [place] [facility] [id number] Information: [id number] (54298) Result 1 NG36 (Normal) Comments: No growth in 36 - 48 hours. Urine Culture,Comprehensive Final report (Normal) 97-Mng-806715:17 Urinalysis, Office (18372) UA - LEUKOCYTE ESTERASE Trace (Normal) UA - NITRITE Negative (Normal) URINE UROBILINGN MITCH TIMED Normal mg/dL (Normal) UA - PROTEIN Negative mg/dL (Normal) UA - PH 7.5 (Normal) UA - BLOOD Negative (Normal) UA - SPECIFIC GRAVITY 1.005 (Normal) UA - KETONES Negative mg/dL (Normal) UA - BILIRUBIN Negative (Normal) UA - GLUCOSE Negative (Normal) 81-Wxx-944290:17 BILAT SCRN DIGITAL & CAD Radiology Report See Note (Normal) Comments: Exam Number: [id number] MAMMOGRAM, BILATERAL SCREENING DIGITAL AND CAD HISTORYRoutine [...] werealso exa mined with computer-aided detection software ([employer], [employer], [employer].). Reported By: ROXANE COLBY M.D. 43-Jjp-564223:16 DEXA BONE DENSITY STUDY (HP) Radiology Report See Note (Normal) Comments: Exam Number: [id number] BONE DENSITOMETRY HISTORYPostmenopausal. TECHNIQUE Bone densitometry of the lumbar spine and both hips is now beingperformed. The best criteria for evaluation of osteoporosis is theT-value, which represents the comparison of the patient's bone mass tanja expected peak bone mass. For most patients, the mean T-value of S4biisupc L4 is used to evaluate the lumbar [...] Microscopic Examination Comments: PATIENT WAS FASTINGPERFORMED BY: [facility] [id number] Bacteria Few (Normal) Epithelial Cells (non renal) 0-10 {/hpf} (Normal) Range: 0 - 10 Mucus Threads Present (Normal) RBC 0-3 {/hpf} (Normal) Range: 0 - 3 WBC 0-5 {/hpf} (Normal) Range: 0 - 5 :33 URINALYSIS W/O MICRO ([id number]) Comments: PATIENT WAS FASTINGPERFORMED BY: [id number] [id number] Appearance Clear (Normal) Bilirubin Negative (Normal) Glucose Negative (Normal) Ketones Negative (Normal) Microscopic Examination See below: (Normal) Nitrite, Urine Negative (Normal) Occult Blood Negative (Normal) pH 5.5 (Normal) Range: 5.0-7.5 Protein Negative (Normal) Specific Hunter 1.016 (Normal) Range: 1.005-1.030 Urine-Color Yellow (Normal) Urobilinogen,Semi-Qn 0.2 mg/dL (Normal) Range: 0.0-1.9 WBC Esterase 1+ (Abnormal) :33 MICROALBUMIN: CREATININE RATIO Comments: PATIENT WAS FASTINGPERFORMED BY: [facility] [id number] ([id number]) AND ([id number]) Creatinine, Urine 93.7 mg/dL (Normal) Range: 15.0-278.0 Microalb/Creat Ratio 3.6 {mg/g_creat} (Normal) Range: 0.0-30.0 Microalbumin, Urine 3.4 ug/mL (Normal) Range: 0.0-17.0 :33 METABOLIC PANEL, COMPREHENSIVE Comments: in six months (approximately); PATIENT WAS FASTINGPERFORMED BY: [facility] [id number] [facility] [id number] ([id number]) A/G Ratio 1.5 (Normal) Range: 1.1-2.5 Albumin, [...] mmol/L (Normal) Range: 135-145 :33 LIPID PANEL ([id number]) Comments: PATIENT WAS FASTINGPERFORMED BY: [employer] [facility] [id number] [facility] [id number] Cholesterol, Total 239 mg/dL (Abnormal) Range: 100-199 HDL Cholesterol 40 mg/dL (Normal) Comments: According to ATP-III Guidelines, HDL-C >59 mg/dL is considered anegative risk factor for CHD. LDL Cholesterol Calc 123 mg/dL (Abnormal) Range: 0-99 LDL/HDL Ratio 3.1 {ratio_units} (Normal) Range: 0.0-3.2 Triglycerides 378 mg/dL (Abnormal) Range: 0-149 VLDL Cholesterol Andres 76 mg/dL (Abnormal) Range: 5-40 91-Bjq-75528:33 CBC WITH MANUAL DIFF ([id number]) Comments: PATIENT WAS FASTINGClinical Information: ADD [id number] PERFORMED BY: [employer] [facility]act[facility]6370 [facility] [id number] Baso (Absolute) 0.1 {x10E3/uL} (Normal) Range: 0.0-0.2 [...] Plan of Care Name Dates Details Instructions BMI 32.0-32.9,adult : Follow up if no improvement or if symptoms worsen Indication: BMI 32.0-32.9,adult Encounter for screening for malignant neoplasm of colon (Renamed from Special screening for malignant neoplasms, colon) : *Colon Cancer Screening Indication: Encounter for screening for malignant neoplasm of colon (Renamed from Special screening for malignant neoplasms, colon) Encounter for annual general medical examination with abnormal findings in adult : Reviewed Lab Indication: Encounter for annual general medical examination with abnormal findings in adult Encounter for annual general medical examination with abnormal findings in adult : Reviewed Diagnostic Tests Indication: Encounter for annual general medical examination with abnormal findings in adult Current nonsmoker (Renamed from Current non-smoker) : Eprescribed prescriptions ([id number]) Indication: Current nonsmoker (Renamed from Current non-smoker) Fungal rash of torso : Follow up [...] Female Indication: Dysuria Planned Observations LIPID PANEL ([id number])Indication: Hyperlipidemia, unspecified On: 1-Xvn-153950:42 Request MICROALBUMIN: CREATININE RATIO ([id number]) AND ([id number])Indication: Diabetes mellitus type 2, controlled On: :23 Request CBC & PLATELETS (AUTO) ([id number])Indication: Diabetes mellitus type 2, controlled On: :23 Request METABOLIC PANEL, COMPREHENSIVE ([id number])Indication: Diabetes mellitus type 2, controlled On: :23 Request TSH (THYROID STIMULATING HORMONE) ([id number])Indication: Diabetes mellitus type 2, controlled On: :23 Request CALCIFEDIOL ([id number])Indication: Vitamin D deficiency On: 17-Feb-20189:22 Request LIPID PANEL (71341)Indication: Hyperlipidemia, unspecified On: 20-Kkb-730829:42 Request Lipid Panel ([id number])Indication: Hyperlipidemia, unspecified On: 65-Xrc-56480:15 Request Comments: Feb 2017 CALCIFIDIOL ([id number]) VIT D 25Indication: Osteopenia On: 26-Zbm-939676:17 Request URINALYSIS, W/ MICRO (55973)Indication: Diabetes mellitus type 2, controlled On: 69-Xtq-118501:17 Request METABOLIC PANEL, COMPREHENSIVE ([id number])Indication: Diabetes mellitus type 2, controlled On: 35-Ird-938747:17 Request LIPID PANEL (06014)Indication: Diabetes mellitus type 2, controlled On: :17 Request CBC with auto diff ([id number])Indication: Diabetes mellitus type 2, controlled On: 71-Twh-608851:17 Request MICROALBUMIN: CREATININE RATIO ([id number]) AND ([id number])Indication: Hyperlipidemia, unspecified On: 17-Gyo-135820:20 Request METABOLIC PANEL, COMPREHENSIVE ([id number])Indication: Hyperlipidemia, unspecified On: 06-Msn-780012:20 Request LIPID PANEL ([id number])Indication: Hyperlipidemia, unspecified On: 46-Cpp-857245:20 Request METABOLIC PANEL, COMPREHENSIVE (75983)Indication: Diabetes mellitus type 2, controlled On: 37-Ohi-241712:05 Request NUCLR MOLCUL DX-INT/RPT ([id number])Indication: Abnormal finding of blood chemistry, unspecified On: 73-Hpv-112839:38 Request Comments: 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 DIAG, NUCLEIC ACID, ISOLATION/EXTRACTION, HIGHLY PURIFIED (13306)Indication: Abnormal finding of blood chemistry, unspecified On: 30-Nuq-116114:38 Request NUCLR MOLCUL DX-ENZY DIG ([id number])Indication: Abnormal finding of blood chemistry, unspecified On: 95-Kdx-684636:38 Request NUCLR MOLCUL DX-SEPARATN ([id number])Indication: Abnormal finding of blood chemistry, unspecified On: 07-Cde-224656:37 Request NUCLR MOLCUL DX-PCR EACH ([id number])Indication: Abnormal finding of blood chemistry, unspecified On: 18-Rit-339147:37 Request HEPATIC FUNCTION PANEL (84887)Indication: Abnormal finding of blood chemistry, unspecified On: 64-Ber-547377:10 Request Comments: recheck off tylenol for 2 weeks. HEP ABC PROFILE [id number] (11693)Indication: Hyperlipidemia, unspecified On: 7-Xvv-143174:36 Request Ferritin (48455)Indication: Hyperlipidemia, unspecified On: :36 Request CBC WITH MANUAL DIFF ([id number])Indication: Hyperlipidemia, unspecified On: 7-Fwk-760149:14 Request METABOLIC PANEL, COMPREHENSIVE ([id number])Indication: Hypertension, benign On: 3-Moq-912604:14 Request Blood Glucose , Office ([id number])Indication: Abnormal glucose tolerance test On: :19 Request HgA1C , Office (98651)Indication: Abnormal glucose tolerance test On: :19 Request Planned Encounters Medical; 3 Month FU - On: 28-Mar-2018 8:15 [facility] Mere Hope CNP, CNP, Mary E Planned Procedures DEXA SCAN AXIAL SKELETON ([id number])By: On: 23-Dec-2017 Intent Mere Hope CNP, CNP, Mary E SCREENING DIGITAL TOMOSYNTHESIS OF On: 23-Dec-2017 Intent BREAST ([id number])By: Mere Hope CNP, CNP, Mary E ELECTROCARDIOGRAM, COMPLETE (ECG) On: 10-Jun-2017 Intent ([id number])By: Mere Hope CNP Comments: sinus pavan Mere MCKEON Ultrasound - RenalBy: Mere Hope CNP On: 06-Mar-2017 Intent E Mere Hope CNP SCREENING DIGITAL TOMOSYNTHESIS OF On: 03-Sep-2016 Intent BREAST ([id number])By: Mere Hope CNP, CNP, Mary E DEXA SCAN AXIAL SKELETON ([id number])By: On: 03-Sep-2016 Intent Mere Hope CNP, CNP, Mary E Comments: January 2017 MAMMOGRAM, SCREENING, BOTH BREAST On: 26-Oct-2015 Intent ([id number])By: Oliver JONES, Bebo EKG ([id number])By: Jacquelin Delgado MD On: 26-Jul-2014 Intent Comments: see scanned document of test done to see results reviewed today with patient MAMMOGRAM, SCREENING, BOTH BREAST On: 26-Jul-2014 Intent ([id number])By: Jacquelin Delgado MD DEXA SCAN AXIAL SKELETON ([id number])By: On: 26-Jul-2014 Intent Jacqeulin Delgado MD BILATERAL MAMMOGRAMS ([id number])By: On: 07-Jan-2014 Intent Jacquelin Delgado MD MAMMOGRAM, SCREENING, BOTH BREASTS On: 29-Sep-2012 Intent ([id number])By: Jacquelin Delgado MD EKG (02352)By: MARNIE Escamilla On: 29-Sep-2012 Intent Comments: see scanned document of test done to see results reviewed today with patient DXA, BONE DENSITY, AXIAL SKELETON On: 29-Sep-2012 Intent ([id number])By: Jacquelin Delgado MD Eprescribed prescriptions ([id number])By: On: 02-Jun-2012 Intent Long [employer] ST[employer] 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 L Ultrasound - LiverBy: Bruna JONES, On: 03-Mar-2012 Intent Jacquelin Brambila MAMMOGRAM, SCREENING, BOTH BREASTS On: 05-Nov-2011 Intent ([id number])By: Jacquelin Delgado MD EKG ([id number])By: MARNIE Escamilla On: 05-Nov-2011 Intent Eprescribed prescriptions ([id number])By: On: 14-Jun-2010 Intent Pilar Hanson DO A EKG ([id number])By: Jacquelin Delgado MD On: 24-Mar-2010 Intent MAMMOGRAM, SCREENING, BOTH BREASTS On: 15-Dec-2009 Intent ([id number])By: Jacquelin Delgado MD DXA, BONE DENSITY, AXIAL SKELETON On: 26-Nov-2008 Intent ([id number])By: Jacquelin Delgado MD MAMMOGRAM, SCREENING, BOTH BREASTS On: 26-Nov-2008 Intent ([id number])By: Jacquelin Delgado MD Instructions Name Dates Details Current nonsmoker (Renamed from Current non-smoker) : How to access health information online Indication: Current nonsmoker (Renamed from Current non-smoker) Current nonsmoker (Renamed from Current non-smoker) : How to access health information online - Detail Indication: Current nonsmoker (Renamed from Current non-smoker) Current nonsmoker (Renamed from Current non-smoker) : Patient Instructions Indication: Current nonsmoker (Renamed from Current non-smoker) [...] Indication: Hyperlipidemia, unspecified Encounters Office Visit On: 24-Feb-2018 10:09 Encounter Reason: Annual Medicare Exam - The patient had reviewed and updated the family history, medication/s, past medical history and social history. Yes the patient did have a mini mental status exam done today. The End: 24-Feb-2018 11:04 activities of daily living the patient needs [...] has completed the following preve ntative measures: mammography (01/2018 and bone density) and colonoscopy (3 years ago- dr. quezada- due back in 7-10 years.). The patient does have durable power of deputy county attorney and living will. The patient has noticed nothing from the geriatic depression scale. Other providers contributing to the patient's care are other: (dr. philipp hernandez - eye doctor. last eye exam: 11/2017). Note for Annual Medicare E xam: Exercises 3x per week at [facility], silver sneakers and spinning and yoga., [ADDITIONAL REASON] Rash - Note for Rash: Rahs on hips to neck to arms Encounter Diagnosis: Current nonsmoker (Renamed from Current non-smoker), BMI 32.0-32.9,adult, Vitamin D deficiency, Hyperlipidemia, unspecified, Encounter for annual general medical examination with abnormal findings in adult, Influenza vaccination declined (Renamed from Refused influenza vaccine), Encounter for screening for malignant neoplasm of colon (Renamed from Special screening for malignant neoplasms, colon) [facility] Lab Order On: 17-Feb-2018 9:22 Encounter Diagnosis: Vitamin D deficiency, Diabetes [...] weight :. 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 The patient has noticed nothing from the geriatic depression scale. Other providers contributing to the patient's care are gastrologist (Dr. Quezada ) and other: (Opthalm: Dr. Philipp Hernandez ).Encounter Diagnosis: Annual Medicare Physical (V70.0) [...] Tolerance Test (790.22), Hypoglycemia (251.2), Osteopenia (733.90), [facility] V73.21 [facility] Office Visit On: [...] Diagnosis: Hyperlipidemia, Unspecified (272.4), Hemorrhoids (455.8), Hypertension,benign(401.1), V V73.21, Abnormal Glucose Tolerance Test (790.22), Hypoglycemia (251.2), Osteopenia (733.90) [facility] Historical Summary On: 08-Nov-2008 11:08 [facility] End: 08-Nov-2008 11:14 Payers [employer] Andreas Guzman; jw guarantor
== END ==
PROVIDERS: Family Provider Nurse Practitioner; PCP Nurse Practitioner; Referring Provider Nurse Practitioner; Visit Provider Nurse Practitioner
DX: Z12.31 Encounter for screening mammogram for malignant neoplasm of breast (principal); Z78.0 Asymptomatic menopausal state
CPT/HCPCS: 77063; 77067; 77080

== ENCOUNTER → 2019-02-17 10:33 | Outpatient (CLI) | payer MEDICARE, SELFPAY ==
--- NOTE | 2019-02-17 10:36 | BI_ITS ---
MAMMOGRAPHY - BILATERAL SCREENING REASON FOR EXAM: Female, 83 years old. Routine annual screening examination. PERTINENT HISTORY: Aunt with breast cancer. Remote right excisional breast biopsy. TECHNIQUE: Digital bilateral breast evangelist (3D mammographic acquisition) in the CC and MLO projections. 2-D mediolateral oblique (MLO) and craniocaudad (CC) views of both breasts were obtained. CAD: Full Field Digital Mammography with Computer Added Detection was performed. COMPARISON: Comparison is made with prior study dated February 13, 2018 and January 30, 2017. FINDINGS: Breast Composition: There are scattered areas of fibroglandular density. There are no dominant masses or suspicious calcifications. Stable asymmetry of breast tissue with more breast tissue is seen in the upper outer quadrant of the right breast as compared to the left side. This may represent the site of prior excisional biopsy and postbiopsy scarring. No other significant abnormalities are identified. There has been no significant change since the prior study. BI/SCREEN MAMM (CAD) W/EVANGELIST BILAT IMPRESSION: Stable bilateral screening mammogram. Yearly follow-up mammogram recommended. (A) ASSESSMENT CATEGORY: BIRADS Category 2: Benign. A letter regarding these results will be sent to the patient by the facility within 30 days. Approximately 10% of breast cancers are not detected by mammography. A normal mammogram should not delay biopsy of a clinically suspicious abnormality. [id number] Electronically Signed: Scotty Tinoco, at 12:40 EST , Service support ,
== END ==
PROVIDERS: Family Provider Nurse Practitioner; PCP Nurse Practitioner; Referring Provider Nurse Practitioner; Visit Provider Nurse Practitioner
DX: Z12.31 Encounter for screening mammogram for malignant neoplasm of breast (principal)
CPT/HCPCS: 77063; 77067

== ENCOUNTER → 2020-02-19 10:13 | Outpatient (CLI) | payer MEDICARE, SELFPAY ==
--- NOTE | 2020-02-19 10:14 | BI_ITS ---
MAMMOGRAPHY - BILATERAL SCREENING REASON FOR EXAM: Female, 84 years old. Routine annual screening examination. PERTINENT HISTORY: Aunt with breast cancer. Remote right excisional breast biopsy. TECHNIQUE: Digital bilateral breast evangelist (3D mammographic acquisition) in the CC and MLO projections. 2-D mediolateral oblique (MLO) and craniocaudad (CC) views of both breasts were obtained. CAD: Full Field Digital Mammography with Computer Added Detection was performed. COMPARISON: Comparison is made with prior study dated 02/17/2019 and 02/13/2018. FINDINGS: Breast Composition: There are scattered areas of fibroglandular density. There are no dominant masses or suspicious calcifications. Once again, there is stable asymmetry of breast tissue where more breast tissue is seen in the upper outer quadrant of the right breast as compared to the left side. No other significant abnormalities are identified. There has been no significant change since the prior study. BI/SCREEN MAMM (CAD) W/EVANGELIST BILAT IMPRESSION: Stable bilateral screening mammogram. Yearly follow-up mammogram recommended. (A) ASSESSMENT CATEGORY: BIRADS Category 2: Benign. A letter regarding these results will be sent to the patient by the facility within 30 days. Approximately 10% of breast cancers are not detected by mammography. A normal mammogram should not delay biopsy of a clinically suspicious abnormality. [id number] Electronically Signed: Scotty Tinoco, at 12:17 EST , Service support ,
== END ==
PROVIDERS: PCP Nurse Practitioner; Referring Provider Nurse Practitioner; Visit Provider Nurse Practitioner
DX: Z12.31 Encounter for screening mammogram for malignant neoplasm of breast (principal)
CPT/HCPCS: 77063; 77067

== ENCOUNTER → 2020-08-20 | Outpatient (CLI) | payer MEDICARE, SELFPAY ==
[2020-08-20 10:10] VITALS: BMI 29.8
[2020-08-20 14:11] LABS: Mucous, Urine 0 SEEN /hpf (<or=2+); Squamous Epithelial Cells - UA 0 SEEN /hpf (5-10)
[2020-08-20 14:19] LABS: Color, Urine Yellow (Yellow); Glucose, Dipstick Normal (Normal); Ketone-Dipstick Negative (Negative); Leukocyte Esterase-Dipstick 500 /ul (Negative); Nitrite-Dipstick Negative (Negative); Occult Blood-Urine 250 /ul (Negative); Protein-Dipstick 100 mg/dl (Negative); Specific Gravity, Urine 1.015 (1.002-1.030); Urine Bilirubin Dipstick Negative (Negative); Urine Clarity Cloudy (Clear); Urine Urobilinogen Normal (Normal)
[2020-08-20 14:28] LABS: Bacteria RARE /hpf (None Seen); Red Blood Cells-Urine 0-5 SEEN /hpf (0-5); White Blood Cells >100 SEEN /hpf (0-5)
== END | disposition home or self-care (01) ==
LOC: LABSPEC 14:10
PROVIDERS: PCP Nurse Practitioner; Visit Provider Physician Assistant Medical
DX: R35.0 Frequency of micturition (principal)
CPT/HCPCS: 81001

== ENCOUNTER → 2021-01-25 10:06 | Outpatient (CLI) | payer MEDICARE, SELFPAY ==
--- NOTE | 2021-01-25 10:13 | US_ITS ---
STUDY: RENAL ULTRASOUND - COMPLETE REASON FOR EXAM: Female, 85 years old. CKD TECHNIQUE: Ultrasound evaluation of the kidneys was performed with real-time and static anguiano-scale imaging. COMPARISON: Comparison is made with prior examination dated 03/20/2017. FINDINGS: RIGHT KIDNEY: Normal location of the right kidney, which is normal in size. The right kidney measures 9.8 cm x 3.9 cm x 5.1 cm. There is a normal cortex of the right kidney. The renal cortex measures 1.2 cm. There is no right renal mass or cyst. There are no right renal calculi. There is no right hydronephrosis. DISTAL RIGHT URETER: There is non-visualization of the distal right ureter. There is no demonstrated right ureterovesical junction calculus. There is a visualized right ureteral jet. LEFT KIDNEY: Normal location of the left kidney, which is normal in size. The left kidney measures 9.4 cm x 4.2 sided by 4.4 cm. There is a normal cortex of the left kidney. The renal cortex measures 1.5 cm. There is no left renal mass or cyst. There are no left renal calculi. There is no left hydronephrosis. DISTAL LEFT URETER: There is non-visualization of the distal left ureter. There is no demonstrated left ureterovesical junction calculus. There is a visualized left ureteral jet. BLADDER: The distended urinary bladder has a volume of 75 ml. There is a normal wall thickness of the distended urinary bladder. There is no demonstrated mass within the urinary bladder. There are no demonstrated bladder calculi. US/Kidney and Bladder IMPRESSION: Normal ultrasound of the kidneys and urinary bladder. Electronically Signed: cSotty Tincoo MD at 14:36 EST , Service support ,
== END ==
PROVIDERS: PCP Nurse Practitioner; Referring Provider Nurse Practitioner; Visit Provider Nurse Practitioner
DX: N18.31 Chronic kidney disease, stage 3a (principal)
CPT/HCPCS: 76770

== ENCOUNTER → 2021-03-07 16:05 | Outpatient (CLI) | payer MEDICARE, SELFPAY ==
--- NOTE | 2021-03-07 16:07 | BI_ITS ---
MAMMOGRAPHY - BILATERAL SCREENING REASON FOR EXAM: Female, 85 years old. Routine annual screening examination. PERTINENT HISTORY: Aunt with breast cancer. Remote right excisional breast biopsy. TECHNIQUE: Digital bilateral breast evangelist (3D mammographic acquisition) in the CC and MLO projections. 2-D mediolateral oblique (MLO) and craniocaudad (CC) views of both breasts were obtained. CAD: Full Field Digital Mammography with Computer Added Detection was performed. COMPARISON: Comparison is made with prior study dated 02/19/2020 and 02/17/2019. FINDINGS: Breast Composition: There are scattered areas of fibroglandular density. There are no dominant masses or suspicious calcifications. Stable asymmetry of breast tissue where more breast tissue is seen in the upper outer quadrant of the right breast as compared to the left side. No other significant abnormalities are identified. There has been no significant change since the prior study. BI/SCRN MAMM (CAD)W/EVANGELIST BILAT IMPRESSION: Stable bilateral screening mammogram. Yearly follow-up mammogram recommended. (A) ASSESSMENT CATEGORY: BIRADS Category 2: Benign. A letter regarding these results will be sent to the patient by the facility within 30 days. Approximately 10% of breast cancers are not detected by mammography. A normal mammogram should not delay biopsy of a clinically suspicious abnormality. [id number] Electronically Signed: Scotty Tinoco MD at 8:04 EST , Service support ,
== END ==
PROVIDERS: PCP Nurse Practitioner; Referring Provider Nurse Practitioner; Visit Provider Nurse Practitioner
DX: Z12.31 Encounter for screening mammogram for malignant neoplasm of breast (principal)
CPT/HCPCS: 77063; 77067

== ENCOUNTER → 2022-03-13 | Outpatient (CLI) | payer MEDICARE, SELFPAY ==
--- NOTE | 2022-03-13 09:29 | BI_ITS ---
MAMMOGRAPHY - BILATERAL SCREENING REASON FOR EXAM: Female, 86 years old. Routine annual screening examination. PERTINENT HISTORY: Aunt with breast cancer. Remote right excisional breast biopsy. No reported personal history of breast cancer. TECHNIQUE: Digital bilateral breast evangelist (3D mammographic acquisition) in the CC and MLO projections. 2-D mediolateral oblique (MLO) and craniocaudad (CC) views of both breasts were obtained. CAD: Full Field Digital Mammography with Computer Added Detection was performed. COMPARISON: 03/07/2021, 02/19/2020. FINDINGS: Breast Composition: There are scattered areas of fibroglandular density. There are no dominant masses or suspicious calcifications. Stable area of asymmetrical breast tissue in the right upper outer breast. Stable scattered benign-appearing bilateral calcifications. No other significant abnormalities are identified. There has been no significant change since the prior study. BI/SCRN MAMM (CAD)W/EVANGELIST BILAT IMPRESSION: Stable bilateral screening mammogram. Yearly follow-up mammogram recommended. (A) ASSESSMENT CATEGORY: BIRADS Category 2: Benign. A letter regarding these results will be sent to the patient by the facility within 30 days. Approximately 10% of breast cancers are not detected by mammography. A normal mammogram should not delay biopsy of a clinically suspicious abnormality. Electronically Signed: Louis Anderson, at 9:03 EST ,
--- NOTE | 2022-03-13 09:34 | BD_ITS ---
STUDY: DUAL ENERGY X-RAY ABSORPTIOMETRY / DXA REASON FOR EXAM: Female, 86 years old. M85.89 -- osteopenia TECHNIQUE: Bone Mineral Density (BMD) measurements of lumbar spine and bilateral hips were obtained. COMPARISON: Comparison is made with prior study dated 02/13/2018. FINDINGS: Lumbar Spine (L1-L4): g/cm2 (0.804) / T-score (-1.6) / Z-score (1.1) Findings are suggestive of osteopenia with a moderate fracture risk. Left Femur Total: g/cm2 (0.763) / T-score (-1.5) / Z-score (0.9) Left Femoral Neck: g/cm2 (0.621) / T-score (-2.1) / Z-score (0.5) Right Femur Total: g/cm2 (0.767) / T-score (-1.4) / Z-score (0.9) Right Femoral Neck: g/cm2 (0.614) / T-score (-2.1) / Z-score (0.4) The T-Scores on the most recent prior examination were: Lumbar Spine (L1-L4): There has been worsening of bone density since the previous examination. Left Femur Total: which represents an improvement of 3%. Right Femur Total: which represents a worsening of 2.1%. BD/Dexa Bone Density Study IMPRESSION: The patient is considered osteopenic as outlined below according to World [place] Organization (WHO) criteria with a high fracture risk. There has been worsening of bone density since the previous examination. Reference Information: The T-score is the number of standard deviations above or below the standard which is normal for young adults at their peak bone mineral density. The World Health Organization (WHO) interprets the T-scores as follows: Above -1 Normal bone density Between -1 and -2.5 Osteopenia Equal to / or below -2.5 Osteoporosis As a practical clinical guideline, osteopenia may be graded as follows: Mild -1 through -1.5 Moderate -1.6 through -2.0 Severe -2.1 through -2.4 The Z-score is the number of standard deviations above or below age-matched controls. A Z-score of less than -1.5 would be considered abnormal. References: 1. NIH Osteoporosis and Related Bone Diseases www osteo.org 2. International Society for Clinical Densitometry www iscd.org 3. National Osteoporosis Foundation www nof.org Electronically Signed: Scotty Tinoco MD at 11:06 EST ,
== END | disposition home or self-care (01) ==
LOC: OPBD 09:26
PROVIDERS: PCP Nurse Practitioner; Referring Provider Nurse Practitioner Family; Visit Provider Nurse Practitioner Family
DX: Z12.31 Encounter for screening mammogram for malignant neoplasm of breast (principal); M85.89 Other specified disorders of bone density and structure, multiple sites
CPT/HCPCS: 77063; 77067; 77080

== ENCOUNTER → 2022-05-03 | Outpatient (CLI) | payer MEDICARE, SELFPAY ==
--- NOTE | 2022-05-03 06:15 | ECHOD_ITS ---
Reason For Study: CHEST TIGHTNESS Procedure This was a 2D Doppler, Color Flow transthoracic echocardiogram. Exam performed in department. Left Ventricle Normal size and thickness. Left ventricular systolic function is normal. The left ventricular ejection fraction is 65 %. Diastolic function is indeterminate. Right Ventricle Normal right ventricle. Atria The left and right atria are normal. Can not exclude tiny PFO. Mitral Valve Mild (1+) mitral valve insufficiency. Tricuspid Valve Mild tricuspid valve insufficiency. Normal pulmonary artery pressure. Aortic Valve Normal aortic valve. Pulmonic Valve Mild (1+) pulmonic valve insufficiency. Great Vessels Mildly dilated aortic root. Pericardium/Pleural No pericardial effusion. MMode/2D Measurements & Calculations LVIDd: 4.5 cm IVSd: 0.83 cm Ao root diam: 2.9 cm LVIDs: 2.9 cm LVPWd: 0.88 cm RVDd: 3.2 cm FS: 34.9 % LAV(MOD-sp4): 70.6 ml LVAd ap4: 26.0 cm2 SV(MOD-sp4): 43.4 ml LVLd ap4: 7.6 cm EDV(MOD-sp4): 73.7 ml EDV(sp4-el): 75.8 ml LVAs ap4: 15.1 cm2 LVLs ap4: 6.5 cm ESV(MOD-sp4): 30.3 ml ESV(sp4-el): 30.0 ml EF(MOD-sp4): 58.9 % EF(sp4-el): 60.4 % SV(sp4-el): 45.7 ml LA A4 area: 22.2 cm2 LA dimension(2D): 4.2 cm RA A4 area: 14.9 cm2 Time Measurements MV dec time: 0.09 sec Doppler Measurements & Calculations MV E max king: 78.5 cm/sec Lat Peak E' King: 6.1 cm/sec Med Peak E' King: 4.9 cm/sec MV A max king: 96.0 cm/sec E/E' lat: 12.9 E/E' med: 16.1 MV E/A: 0.82 MV V2 max: 122.2 cm/sec Ao V2 max: 155.7 cm/sec MV max P.0 mmHg MV dec slope: 921.2 cm/sec2 Ao max P.7 mmHg MV V2 mean: 67.6 cm/sec Ao V2 mean: 110.5 cm/sec MV mean P.1 mmHg Ao mean P.6 mmHg MV V2 VTI: 36.7 cm Ao V2 VTI: 40.5 cm AV (velocity ratio): 0.70 LV V1 max: 110.9 cm/sec MR max king: 635.1 cm/sec PA V2 max: 92.4 cm/sec LV V1 max P.9 mmHg MR max P.3 mmHg PA V2 mean: 61.0 cm/sec LV V1 mean P.9 mmHg MR mean king: 514.0 cm/sec LV V1 mean: 80.3 cm/sec MR mean P.1 mmHg LV V1 VTI: 28.4 cm MR VTI: 249.8 cm TR max king: 252.2 cm/sec TR max P.4 mmHg ECHO/Echo Complete Interpretation Summary The left ventricular ejection fraction is 65 %. Diastolic function is indeterminate. Mild (1+) mitral valve insufficiency. Mild tricuspid valve insufficiency. Mild (1+) pulmonic valve insufficiency. Mildly dilated aortic root. Can not exclude tiny PFO Ordering Physician: Kristina Webb Referring Physician: Kristina Webb Performed By: Jamee Doherty RCS
--- NOTE | 2022-05-03 11:11 | STRESSREP_ITS ---
Stress Test Report Date: 05/03/2022 Procedure: Exercise tolerance test/imaging study Indications: Chest tightness Consent: Per the patient Procedure: The patient exercised on a Brian protocol for 5 minutes achieving a peak heart rate of 151 bpm (112% predicted maximal heart rate) with a peak blood pressure 172/68 mmHg and a peak MET capacity of 7 METs. The baseline ECG demonstrated normal sinus rhythm. The peak exercise ECG demonstrated sinus tachycardia with no ischemic changes. Occasional PVCs noted during exercise and in recovery. The functional capacity was considered suboptimal. There was no complaint of chest discomfort during exercise or recovery. The examination was discontinued secondary to target heart rate being achieved. The patient was injected with 11.7 mCi of technetium 99m Cardiolite and subsequently rest SPECT Cardiolite nuclear imaging was obtained in the horizontal long, vertical long, and short axis views. Post-exercise, the patient was injected with 34.3 mCi of technetium 99m Cardiolite and subsequently stress SPECT Cardiolite nuclear imaging was obtained in the horizontal long, vertical long, and short axis views. A gated Cardiolite study at peak stress was obtained. Rest and stress SPECT Cardiolite nuclear imaging status post realignment, normalization, and attenuation correction, demonstrates the appearance of relative uniform tracer uptake and myocardial perfusion appearing within normal limits. There is end systolic thickening and brightening. The gated Cardiolite study demonstrates myocardial thickening and inward wall motion. The reported LVEF is 68%. Impression: 1. Technically adequate (percent predicted maximal heart rate greater than 85%) exercise tolerance test 2. Peak exercise ECG with no ischemic changes 3. Occasional PVCs with exercise and in recovery 4. Rest and stress SPECT Cardiolite nuclear imaging demonstrate no fixed or reversible perfusion defects. 5. The gated Cardiolite study reports an LVEF of 68%. This note was generated with [employer] software. It may contain incorrect words, spelling, and punctuation that were not noted in checking the note before signing.
== END | disposition home or self-care (01) ==
LOC: CVS 06:10
PROVIDERS: PCP Nurse Practitioner Family; Referring Provider Nurse Practitioner Family; Visit Provider Nurse Practitioner Family
DX: R07.89 Other chest pain (principal)
CPT/HCPCS: 78452; 93017; 93306; A9500; A4216

== ENCOUNTER → 2023-03-20 | Outpatient (CLI) | payer MEDICARE, SELFPAY ==
--- NOTE | 2023-03-20 09:33 | BI_ITS ---
MAMMOGRAPHY - BILATERAL SCREENING REASON FOR EXAM: Female, 87 years old. Routine annual screening examination. PERTINENT HISTORY: Aunt with breast cancer. Remote right excisional breast biopsy. TECHNIQUE: Digital bilateral breast evangelist (3D mammographic acquisition) in the CC and MLO projections. 2-D mediolateral oblique (MLO) and craniocaudad (CC) views of both breasts were obtained. CAD: Full Field Digital Mammography with Computer Added Detection was performed. COMPARISON: Comparison is made with prior study dated March 07, 2021 and March 13, 2022. FINDINGS: Breast Composition: There are scattered areas of fibroglandular density. There are no dominant masses or suspicious calcifications. Stable area of asymmetrical breast tissue in the upper outer quadrant of the right breast as compared to the left side. No other significant abnormalities are identified. There has been no significant change since the prior study. BI/SCRN MAMM (CAD)W/EVANGELIST BILAT IMPRESSION: Stable bilateral screening mammogram. Yearly follow-up mammogram recommended. (A) ASSESSMENT CATEGORY: BIRADS Category 2: Benign. A letter regarding these results will be sent to the patient by the facility within 30 days. Approximately 10% of breast cancers are not detected by mammography. A normal mammogram should not delay biopsy of a clinically suspicious abnormality. [id number] Electronically Signed: Scotty Tinoco MD at 13:13 EST ,
== END | disposition home or self-care (01) ==
LOC: OPBI 09:33
PROVIDERS: PCP Nurse Practitioner Family; Referring Provider Nurse Practitioner Family; Visit Provider Nurse Practitioner Family
DX: Z12.31 Encounter for screening mammogram for malignant neoplasm of breast (principal)
CPT/HCPCS: 77063; 77067

== ENCOUNTER → 2024-03-25 | Outpatient (CLI) | payer MEDICARE, SELFPAY ==
--- NOTE | 2024-03-25 10:21 | BD_ITS ---
STUDY: DUAL ENERGY X-RAY ABSORPTIOMETRY / DXA REASON FOR EXAM: Female, 88 years old. 627.8Menopausal postmenopausal BONE DENSITY REASON FOR EXAM -- screening TECHNIQUE: Bone Mineral Density (BMD) measurements of lumbar spine and bilateral hips were obtained. COMPARISON: Comparison is made with prior study March 13, 2022. FINDINGS: Lumbar Spine (L1-L4): g/cm2 (0.873) / T-score (-1.0) / Z-score (1.7) Findings are suggestive of normal bone density with a low fracture risk. Left Femur Total: g/cm2 (0.749) / T-score (-1.6) / Z-score (0.8) Left Femoral Neck: g/cm2 (0.616) / T-score (-2.1) / Z-score (0.4) Right Femur Total: g/cm2 (0.747) / T-score (-1.6) / Z-score (0.7) Right Femoral Neck: g/cm2 (0.603) / T-score (-2.2) / Z-score (0.3) The T-Scores on the most recent prior examination were: Lumbar Spine (L1-L4): There has been improvement of bone density since the previous examination. Left Femur Total: which represents a worsening of 1.8%. Right Femur Total: which represents a worsening of 2.7%. BD/Dexa Bone Density Study IMPRESSION: The patient is considered osteopenic as outlined below according to [employer] [place] Organization (WHO) criteria with a high fracture risk. There has been worsening of bone density since the previous examination. Reference Information: The T-score is the number of standard deviations above or below the standard which is normal for young adults at their peak bone mineral density. The World Health Organization (WHO) interprets the T-scores as follows: Above -1 Normal bone density Between -1 and -2.5 Osteopenia Equal to / or below -2.5 Osteoporosis As a practical clinical guideline, osteopenia may be graded as follows: Mild -1 through -1.5 Moderate -1.6 through -2.0 Severe -2.1 through -2.4 The Z-score is the number of standard deviations above or below age-matched controls. A Z-score of less than -1.5 would be considered abnormal. References: 1. NIH Osteoporosis and Related Bone Diseases www osteo.org 2. International Society for Clinical Densitometry www iscd.org 3. National Osteoporosis Foundation www nof.org Electronically Signed: Scotty Tinoco MD at 9:50 EST ,
== END | disposition home or self-care (01) ==
LOC: OPBD 10:15
PROVIDERS: PCP Nurse Practitioner Family; Referring Provider Nurse Practitioner Family; Visit Provider Nurse Practitioner Family
DX: Z78.0 Asymptomatic menopausal state (principal)
CPT/HCPCS: 77080

== ENCOUNTER → 2025-01-25 | Outpatient (CLI) | payer MEDICARE, SELFPAY ==
[2025-01-25 10:51] LABS: AST(SGOT) 26 U/L (<=31); Alanine Aminotransfer ALT/SGPT 24 U/L (<=34); Albumin, Serum 4.2 g/dL (3.4-4.8); Alkaline Phosphatase 125 U/L (35-104); Anion Gap 12 (5-15); BUN 29 mg/dL (4-19); BUN/Creat Ratio 27.4 RATIO (10-20); Calcium,Total 10.2 mg/dL (7.6-11.0); Carbon Dioxide 25.7 mmol/L (21.0-32.0); Chloride 99 mmol/L (98-108); Globulin 3.0 g/dL (2.2-4.2); Glucose 135 mg/dL (70-99); Potassium 3.7 mmol/L (3.3-5.1)
[2025-01-25 10:53] LABS: Hematocrit 42.2 % (37-47); Hemoglobin 14.3 g/dL (12.0-15.0); Immature Granulocytes Count 0.020 X10^3/uL (0.0-0.0); Mean Corp Hgb Conc 33.9 g/dL (32-36); Mean Corpuscular Volume 92.7 fL (81-99); Mean Platelet Vol. 10.6 fl (6.2-12.0); NRBC Flagged by Analyzer 0 % (0-5); Platelet Count 233 K/mm3 (150-450); RBC Distribution Width CV 12.9 % (11.6-14.6); RBC Distribution Width SD 44.0 fl (35.1-43.9); Red Blood Count 4.55 M/mm3 (4.2-5.4); White Blood Count 7.4 K/mm3 (4.4-11.0)
== END | disposition home or self-care (01) ==
LOC: MFPLAB 08:07
PROVIDERS: PCP Nurse Practitioner Family; Visit Provider Nurse Practitioner Family
DX: I10 Essential (primary) hypertension (principal); E11.9 Type 2 diabetes mellitus without complications
CPT/HCPCS: 36415; 80053; 83036; 85025